=== PATIENT | female | born 1965 | race Caucasian/White ===

== ENCOUNTER → 2017-05-31 11:03 | Outpatient (CLI) | payer MEDICARE, SELFPAY ==
[2017-05-31 14:22] LABS: Absolute Lymphocyte Count 2.64 X10^3/ul (0.83-4.51); Absolute Neutrophil Count 3.5 X10^3/uL (2.0-7.7); Basophil# 0.03 X10^3/uL; Basophil% 0.4 % (0-1); Eosinophil# 0.15 X10^3/uL; Eosinophils% 2.2 % (0-5); Hematocrit 41.3 % (37-47); Hemoglobin 14.3 g/dl (12.0-15.0); Lymphocyte # 2.64 X10^3/ul (4.0); Lymphocyte % 38.5 % (19-41); Mean Corp Hgb Conc 34.6 g/gl (32-36); Mean Corpuscular Hgb 31.4 pg (27.0-32.0); Mean Corpuscular Volume 90.8 fL (81-99); Monocyte# 0.52 X10^3/uL; Monocyte% 7.6 % (0-10); Platelet Count 343 K/mm3 (150-450); RBC Distribution Width CV 12.3 % (11.6-14.6); RBC Distribution Width SD 39.9 fl (35.1-43.9); Red Blood Count 4.55 M/mm3 (4.2-5.4); White Blood Count 6.9 K/mm3 (4.4-11.0)
[2017-05-31 14:33] LABS: AST(SGOT) 22 U/L (15-37); Alanine Aminotransfer ALT/SGPT 38 U/L (13-56); Albumin, Serum 3.9 g/dL (3.2-5.0); Alkaline Phosphatase 115 U/L (45-117); Anion Gap 8 (5-15); BUN 11 mg/dL (7-18); BUN/Creat Ratio 10.6 RATIO (10-20); Chloride 104 mmol/L (98-107); Creatinine, Serum 1.04 mg/dL (0.55-1.02); EST Glomerular Filtration Rate 59 mL/min (>60); Est Glom Filt Rate - Afr Amer 71 mL/min (>60); Globulin 3.9 g/dL (2.2-4.2); Glucose 93 mg/dL (74-106); Potassium 4.1 mmol/L (3.5-5.1); Protein, Total 7.8 g/dL (6.4-8.2); Sodium Level 140 mmol/L (136-145)
[2017-05-31 14:36] LABS: POSITIVE COUNT NO; POSITIVE DIFFERENTIAL NO; POSITIVE MORPHOLOGY NO
== END ==
PROVIDERS: Family Provider Internal Medicine; PCP Internal Medicine; Visit Provider Internal Medicine Rheumatology
DX: M06.09 Rheumatoid arthritis without rheumatoid factor, multiple sites (principal); M79.7 Fibromyalgia; Z79.899 Other long term (current) drug therapy
CPT/HCPCS: 36415; 80053; 85025

== ENCOUNTER → 2017-08-22 08:41 | Outpatient (CLI) | payer MEDICARE, SELFPAY ==
--- NOTE | 2017-08-22 08:41 | DT_ITS ---
This patient was seen during an EMR downtime August 20, 2017 - August 27, 2017. This patient may have a combination of paper and electronic documentation or all paper documentation. All documentation is viewable within the e-chart portion of [facility] for each patient visit.
[2017-08-27 13:00] LABS: Hematocrit 46.2 % (37-47); Red Blood Count 5.07 M/mm3 (4.2-5.4); White Blood Count 5.9 K/mm3 (4.4-11.0)
[2017-08-27 13:01] LABS: Absolute Lymphocyte Count 1.95 X10^3/ul (0.83-4.51); Absolute Neutrophil Count 3.4 X10^3/uL (2.0-7.7); Basophil% 0.3 % (0-1); Eosinophils% 2.6 % (0-5); Lymphocyte # 1.95 X10^3/ul (4.0); Lymphocyte % 33.3 % (19-41); Mean Corp Hgb Conc 34.6 g/gl (32-36); Mean Corpuscular Hgb 31.6 pg (27.0-32.0); Mean Corpuscular Volume 91.1 fL (81-99); Monocyte% 5.3 % (0-10); Neutrophil # 3.41 X10^3/uL (2.7-7.7); Neutrophil % 58.3 % (47-70); POSITIVE COUNT NO; POSITIVE DIFFERENTIAL NO; POSITIVE MORPHOLOGY NO; Platelet Count 219 K/mm3 (150-450); RBC Distribution Width CV 12.2 % (11.6-14.6); RBC Distribution Width SD 40.5 fl (35.1-43.9)
[2017-08-27 13:06] LABS: AST(SGOT) 29 U/L (15-37); Albumin, Serum 3.9 g/dL (3.2-5.0); BUN 12 mg/dL (7-18); BUN/Creat Ratio 10.9 RATIO (10-20); Calcium,Total 8.8 mg/dL (8.5-10.1); EST Glomerular Filtration Rate 55 mL/min (>60); Est Glom Filt Rate - Afr Amer 67 mL/min (>60); Globulin 3.8 g/dL (2.2-4.2); Glucose 114 mg/dL (74-106); Protein, Total 7.7 g/dL (6.4-8.2)
[2017-08-27 13:07] LABS: Alanine Aminotransfer ALT/SGPT 52 U/L (13-56); Alkaline Phosphatase 100 U/L (45-117); Anion Gap 8 (5-15); Chloride 107 mmol/L (98-107); Potassium 3.9 mmol/L (3.5-5.1); Sodium Level 142 mmol/L (136-145)
== END ==
PROVIDERS: Family Provider Internal Medicine; PCP Internal Medicine; Visit Provider Internal Medicine Rheumatology
DX: M06.09 Rheumatoid arthritis without rheumatoid factor, multiple sites (principal); Z79.899 Other long term (current) drug therapy; M79.7 Fibromyalgia
CPT/HCPCS: 36415; 80053; 85025

== ENCOUNTER → 2017-11-08 08:34 | Outpatient (CLI) | payer MEDICARE, SELFPAY ==
[2017-11-08 10:19] LABS: Absolute Lymphocyte Count 2.05 X10^3/ul (0.83-4.51); Absolute Neutrophil Count 5.5 X10^3/uL (2.0-7.7); Basophil# 0.01 X10^3/uL; Basophil% 0.1 % (0-1); Eosinophil# 0.09 X10^3/uL; Eosinophils% 1.1 % (0-5); Hematocrit 41.4 % (37-47); Hemoglobin 14.5 g/dl (12.0-15.0); Lymphocyte # 2.05 X10^3/ul (4.0); Lymphocyte % 25.2 % (19-41); Mean Corpuscular Hgb 31.9 pg (27.0-32.0); Mean Platelet Vol. 9.1 fl (6.2-12.0); Monocyte# 0.51 X10^3/uL; Monocyte% 6.3 % (0-10); Neutrophil # 5.47 X10^3/uL (2.7-7.7); Neutrophil % 67.2 % (47-70); Platelet Count 346 K/mm3 (150-450); RBC Distribution Width CV 11.8 % (11.6-14.6); RBC Distribution Width SD 38.9 fl (35.1-43.9); Red Blood Count 4.55 M/mm3 (4.2-5.4); White Blood Count 8.1 K/mm3 (4.4-11.0)
[2017-11-08 10:21] LABS: POSITIVE COUNT NO; POSITIVE DIFFERENTIAL NO; POSITIVE MORPHOLOGY NO
[2017-11-08 10:46] LABS: AST(SGOT) 20 U/L (15-37); Alanine Aminotransfer ALT/SGPT 40 U/L (13-56); Alkaline Phosphatase 119 U/L (45-117); Anion Gap 11 (5-15); BUN 11 mg/dL (7-18); BUN/Creat Ratio 9.8 RATIO (10-20); Calcium,Total 9.2 mg/dL (8.5-10.1); Chloride 106 mmol/L (98-107); Creatinine, Serum 1.12 mg/dL (0.55-1.02); EST Glomerular Filtration Rate 54 mL/min (>60); Est Glom Filt Rate - Afr Amer 65 mL/min (>60); Glucose 149 mg/dL (74-106); Potassium 3.9 mmol/L (3.5-5.1); Sodium Level 140 mmol/L (136-145)
== END ==
PROVIDERS: Family Provider Internal Medicine; PCP Internal Medicine; Visit Provider Internal Medicine Rheumatology
DX: M06.09 Rheumatoid arthritis without rheumatoid factor, multiple sites (principal); Z79.899 Other long term (current) drug therapy; M79.7 Fibromyalgia
CPT/HCPCS: 36415; 80053; 85025

== ENCOUNTER → 2018-01-29 10:57 | Outpatient (CLI) | payer MEDICARE, SELFPAY ==
[2018-01-29 12:00] LABS: Absolute Lymphocyte Count 2.14 X10^3/ul (0.83-4.51); Absolute Neutrophil Count 3.5 X10^3/uL (2.0-7.7); Basophil# 0.02 X10^3/uL; Basophil% 0.3 % (0-1); Eosinophil# 0.13 X10^3/uL; Hemoglobin 14.2 g/dl (12.0-15.0); Lymphocyte # 2.14 X10^3/ul (4.0); Lymphocyte % 33.4 % (19-41); Mean Corp Hgb Conc 33.8 g/gl (32-36); Mean Corpuscular Hgb 31.4 pg (27.0-32.0); Mean Corpuscular Volume 92.9 fL (81-99); Monocyte# 0.57 X10^3/uL; Monocyte% 8.9 % (0-10); Neutrophil # 3.52 X10^3/uL (2.7-7.7); Neutrophil % 55.1 % (47-70); Platelet Count 286 K/mm3 (150-450); RBC Distribution Width CV 12.3 % (11.6-14.6); RBC Distribution Width SD 41.1 fl (35.1-43.9); Red Blood Count 4.52 M/mm3 (4.2-5.4); White Blood Count 6.4 K/mm3 (4.4-11.0)
[2018-01-29 12:06] LABS: POSITIVE COUNT NO; POSITIVE DIFFERENTIAL NO; POSITIVE MORPHOLOGY NO
[2018-01-29 12:19] LABS: ALB/GLOB Ratio 1.1 RATIO (0.9-2.4); AST(SGOT) 14 U/L (15-37); Alanine Aminotransfer ALT/SGPT 29 U/L (13-56); Albumin, Serum 3.8 g/dL (3.2-5.0); Alkaline Phosphatase 96 U/L (45-117); Anion Gap 7 (5-15); BUN 10 mg/dL (7-18); Calcium,Total 8.4 mg/dL (8.5-10.1); Chloride 107 mmol/L (98-107); EST Glomerular Filtration Rate 61 mL/min (>60); Est Glom Filt Rate - Afr Amer 74 mL/min (>60); Globulin 3.6 g/dL (2.2-4.2); Glucose 100 mg/dL (74-106); Potassium 3.8 mmol/L (3.5-5.1); Protein, Total 7.4 g/dL (6.4-8.2); Sodium Level 141 mmol/L (136-145)
== END ==
PROVIDERS: Family Provider Internal Medicine; PCP Internal Medicine; Referring Provider Internal Medicine Rheumatology; Visit Provider Internal Medicine Rheumatology
DX: M06.09 Rheumatoid arthritis without rheumatoid factor, multiple sites (principal); M79.7 Fibromyalgia; Z79.899 Other long term (current) drug therapy
CPT/HCPCS: 36415; 80053; 85025

== ENCOUNTER → 2018-04-29 09:13 | Outpatient (CLI) | payer MEDICARE, SELFPAY ==
[2018-04-29 10:16] LABS: Absolute Lymphocyte Count 2.34 X10^3/ul (0.83-4.51); Absolute Neutrophil Count 4.6 X10^3/uL (2.0-7.7); Basophil# 0.02 X10^3/uL; Basophil% 0.3 % (0-1); Eosinophil# 0.23 X10^3/uL; Eosinophils% 2.9 % (0-5); Hematocrit 43.7 % (37-47); Hemoglobin 14.9 g/dl (12.0-15.0); Lymphocyte # 2.34 X10^3/ul (4.0); Lymphocyte % 29.8 % (19-41); Mean Corp Hgb Conc 34.1 g/gl (32-36); Mean Corpuscular Hgb 31.4 pg (27.0-32.0); Mean Corpuscular Volume 92.2 fL (81-99); Monocyte# 0.63 X10^3/uL; Neutrophil % 58.7 % (47-70); Platelet Count 321 K/mm3 (150-450); RBC Distribution Width CV 12.2 % (11.6-14.6); RBC Distribution Width SD 40.1 fl (35.1-43.9); Red Blood Count 4.74 M/mm3 (4.2-5.4); White Blood Count 7.8 K/mm3 (4.4-11.0)
[2018-04-29 10:18] LABS: POSITIVE COUNT NO; POSITIVE DIFFERENTIAL NO; POSITIVE MORPHOLOGY NO
[2018-04-29 11:00] LABS: AST(SGOT) 21 U/L (15-37); Alanine Aminotransfer ALT/SGPT 45 U/L (13-56); Albumin, Serum 3.9 g/dL (3.2-5.0); Alkaline Phosphatase 114 U/L (45-117); Anion Gap 8 (5-15); BUN 14 mg/dL (7-18); BUN/Creat Ratio 13.2 RATIO (10-20); Calcium,Total 9.1 mg/dL (8.5-10.1); Chloride 105 mmol/L (98-107); Creatinine, Serum 1.06 mg/dL (0.55-1.02); EST Glomerular Filtration Rate 57 mL/min (>60); Est Glom Filt Rate - Afr Amer 69 mL/min (>60); Globulin 3.9 g/dL (2.2-4.2); Glucose 111 mg/dL (74-106); Protein, Total 7.8 g/dL (6.4-8.2); Sodium Level 141 mmol/L (136-145)
== END ==
PROVIDERS: Family Provider Internal Medicine; PCP Internal Medicine; Referring Provider Internal Medicine Rheumatology; Visit Provider Internal Medicine Rheumatology
DX: M06.09 Rheumatoid arthritis without rheumatoid factor, multiple sites (principal); M79.7 Fibromyalgia; Z79.899 Other long term (current) drug therapy
CPT/HCPCS: 36415; 80053; 85025

== ENCOUNTER → 2018-09-16 08:48 | Outpatient (CLI) | payer MEDICARE, SELFPAY ==
[2018-09-16 10:15] LABS: Absolute Lymphocyte Count 2.22 X10^3/ul (0.83-4.51); Absolute Neutrophil Count 4.6 X10^3/uL (2.0-7.7); Basophil# 0.03 X10^3/uL; Basophil% 0.4 % (0-1); Eosinophil# 0.17 X10^3/uL; Eosinophils% 2.3 % (0-5); Hematocrit 42.9 % (37-47); Lymphocyte # 2.22 X10^3/ul (4.0); Lymphocyte % 29.7 % (19-41); Mean Corpuscular Hgb 31.2 pg (27.0-32.0); Mean Corpuscular Volume 89.2 fL (81-99); Mean Platelet Vol. 9.2 fl (6.2-12.0); Monocyte# 0.47 X10^3/uL; Monocyte% 6.3 % (0-10); Neutrophil # 4.56 X10^3/uL (2.7-7.7); Platelet Count 321 K/mm3 (150-450); RBC Distribution Width SD 38.3 fl (35.1-43.9); Red Blood Count 4.81 M/mm3 (4.2-5.4); White Blood Count 7.5 K/mm3 (4.4-11.0)
[2018-09-16 10:18] LABS: POSITIVE COUNT NO; POSITIVE DIFFERENTIAL NO; POSITIVE MORPHOLOGY NO
[2018-09-16 10:28] LABS: ALB/GLOB Ratio 1.1 RATIO (0.9-2.4); AST(SGOT) 19 U/L (15-37); Alanine Aminotransfer ALT/SGPT 26 U/L (13-56); Albumin, Serum 3.9 g/dL (3.2-5.0); Alkaline Phosphatase 99 U/L (45-117); Anion Gap 9 (5-15); BUN 11 mg/dL (7-18); BUN/Creat Ratio 9.9 RATIO (10-20); Calcium,Total 9.1 mg/dL (8.5-10.1); Chloride 106 mmol/L (98-107); Creatinine, Serum 1.11 mg/dL (0.55-1.02); EST Glomerular Filtration Rate 54 mL/min (>60); Est Glom Filt Rate - Afr Amer 66 mL/min (>60); Globulin 3.7 g/dL (2.2-4.2); Glucose 120 mg/dL (74-106); Potassium 3.7 mmol/L (3.5-5.1); Protein, Total 7.6 g/dL (6.4-8.2); Sodium Level 141 mmol/L (136-145)
== END ==
PROVIDERS: Family Provider Internal Medicine; PCP Internal Medicine; Referring Provider Internal Medicine Rheumatology; Visit Provider Internal Medicine Rheumatology
DX: M06.09 Rheumatoid arthritis without rheumatoid factor, multiple sites (principal); M79.7 Fibromyalgia; Z79.899 Other long term (current) drug therapy
CPT/HCPCS: 36415; 80053; 85025

== ENCOUNTER → 2018-12-17 10:37 | Outpatient (CLI) | payer MEDICARE, SELFPAY ==
[2018-12-17 12:39] LABS: Absolute Lymphocyte Count 2.24 X10^3/uL (0.83-4.51); Basophil# 0.04 X10^3/uL; Basophil% 0.6 % (0-1); Eosinophil# 0.14 X10^3/uL; Hematocrit 44.1 % (37-47); Hemoglobin 14.5 g/dL (12.0-15.0); Lymphocyte # 2.24 X10^3/ul (4.0); Lymphocyte % 32.1 % (19-41); Mean Corp Hgb Conc 32.9 g/dL (32-36); Mean Corpuscular Hgb 30.8 pg (27.0-32.0); Mean Corpuscular Volume 93.6 fL (81-99); Mean Platelet Vol. 9.1 fl (6.2-12.0); Monocyte# 0.56 X10^3/uL; NRBC Flagged by Analyzer 0 % (0-5); Neutrophil # 3.96 X10^3/uL (2.7-7.7); Neutrophil % 56.9 % (47-70); Platelet Count 307 K/mm3 (150-450); RBC Distribution Width CV 11.9 % (11.6-14.6); Red Blood Count 4.71 M/mm3 (4.2-5.4)
[2018-12-17 12:54] LABS: AST(SGOT) 16 U/L (15-37); Alanine Aminotransfer ALT/SGPT 25 U/L (13-56); Albumin, Serum 3.9 g/dL (3.2-5.0); Alkaline Phosphatase 98 U/L (45-117); Anion Gap 3 (5-15); BUN 11 mg/dL (7-18); BUN/Creat Ratio 10.2 RATIO (10-20); Calcium,Total 9.1 mg/dL (8.5-10.1); Chloride 104 mmol/L (98-107); Creatinine, Serum 1.08 mg/dL (0.55-1.02); EST Glomerular Filtration Rate 56 mL/min (>60); Est Glom Filt Rate - Afr Amer 68 mL/min (>60); Globulin 3.8 g/dL (2.2-4.2); Glucose 102 mg/dL (74-106); Potassium 3.8 mmol/L (3.5-5.1); Protein, Total 7.7 g/dL (6.4-8.2); Sodium Level 137 mmol/L (136-145)
== END ==
PROVIDERS: Family Provider Internal Medicine; PCP Internal Medicine; Referring Provider Internal Medicine Rheumatology; Visit Provider Internal Medicine Rheumatology
DX: M06.09 Rheumatoid arthritis without rheumatoid factor, multiple sites (principal); Z79.899 Other long term (current) drug therapy; M79.7 Fibromyalgia
CPT/HCPCS: 36415; 80053; 85025

== ENCOUNTER → 2019-02-24 16:16 | Outpatient (CLI) | payer MEDICARE, SELFPAY ==
[2019-02-24 17:34] LABS: Red Blood Count 4.54 M/mm3 (4.2-5.4); White Blood Count 7.8 K/mm3 (4.4-11.0)
[2019-02-24 17:35] LABS: Absolute Neutrophil Count 4.1 X10^3/uL (2.0-7.7); Basophil# 0.06 X10^3/uL; Basophil% 0.8 % (0-1); Eosinophil# 0.12 X10^3/uL; Eosinophils% 1.5 % (0-5); Hematocrit 41.9 % (37-47); Lymphocyte % 39.9 % (19-41); Mean Corp Hgb Conc 33.4 g/dL (32-36); Mean Corpuscular Hgb 30.8 pg (27.0-32.0); Mean Corpuscular Volume 92.3 fL (81-99); Mean Platelet Vol. 8.8 fl (6.2-12.0); Monocyte# 0.36 X10^3/uL; Monocyte% 4.6 % (0-10); NRBC Flagged by Analyzer 0 % (0-5); Neutrophil # 4.09 X10^3/uL (2.7-7.7); Neutrophil % 52.7 % (47-70); Platelet Count 280 K/mm3 (150-450); RBC Distribution Width CV 12.3 % (11.6-14.6); RBC Distribution Width SD 41.1 fl (35.1-43.9)
[2019-02-24 18:15] LABS: ALB/GLOB Ratio 1.1 RATIO (0.9-2.4); AST(SGOT) 18 U/L (15-37); Alanine Aminotransfer ALT/SGPT 33 U/L (13-56); Albumin, Serum 3.9 g/dL (3.2-5.0); Alkaline Phosphatase 94 U/L (45-117); Anion Gap 4 (5-15); BUN 14 mg/dL (7-18); BUN/Creat Ratio 12.1 RATIO (10-20); Calcium,Total 8.6 mg/dL (8.5-10.1); Chloride 107 mmol/L (98-107); Creatinine, Serum 1.16 mg/dL (0.55-1.02); EST Glomerular Filtration Rate 51 mL/min (>60); Est Glom Filt Rate - Afr Amer 62 mL/min (>60); Globulin 3.5 g/dL (2.2-4.2); Glucose 94 mg/dL (74-106); Potassium 3.8 mmol/L (3.5-5.1); Protein, Total 7.4 g/dL (6.4-8.2); Sodium Level 139 mmol/L (136-145)
== END ==
PROVIDERS: Family Provider Internal Medicine; PCP Internal Medicine; Referring Provider Internal Medicine Rheumatology; Visit Provider Internal Medicine Rheumatology
DX: M06.09 Rheumatoid arthritis without rheumatoid factor, multiple sites (principal); Z79.899 Other long term (current) drug therapy; M79.7 Fibromyalgia; M18.0 Bilateral primary osteoarthritis of first carpometacarpal joints
CPT/HCPCS: 36415; 80053; 85025

== ENCOUNTER → 2019-05-26 08:26 | Outpatient (CLI) | payer MEDICARE, SELFPAY ==
[2019-05-26 10:11] LABS: Absolute Lymphocyte Count 2.12 X10^3/uL (0.83-4.51); Absolute Neutrophil Count 4.3 X10^3/uL (2.0-7.7); Basophil# 0.06 X10^3/uL; Basophil% 0.8 % (0-1); Eosinophil# 0.14 X10^3/uL; Eosinophils% 1.9 % (0-5); Hematocrit 43.5 % (37-47); Hemoglobin 14.7 g/dL (12.0-15.0); Lymphocyte # 2.12 X10^3/ul (4.0); Lymphocyte % 29.4 % (19-41); Mean Corp Hgb Conc 33.8 g/dL (32-36); Mean Corpuscular Hgb 31.4 pg (27.0-32.0); Mean Corpuscular Volume 92.9 fL (81-99); Mean Platelet Vol. 8.8 fl (6.2-12.0); Monocyte# 0.57 X10^3/uL; Monocyte% 7.9 % (0-10); NRBC Flagged by Analyzer 0 % (0-5); Neutrophil % 59.6 % (47-70); Platelet Count 295 K/mm3 (150-450); RBC Distribution Width CV 11.8 % (11.6-14.6); RBC Distribution Width SD 39.4 fl (35.1-43.9); Red Blood Count 4.68 M/mm3 (4.2-5.4); White Blood Count 7.2 K/mm3 (4.4-11.0)
[2019-05-26 10:28] LABS: AST(SGOT) 30 U/L (15-37); Alanine Aminotransfer ALT/SGPT 57 U/L (13-56); Albumin, Serum 3.8 g/dL (3.2-5.0); Alkaline Phosphatase 110 U/L (45-117); Anion Gap 7 (5-15); BUN 12 mg/dL (7-18); BUN/Creat Ratio 11.7 RATIO (10-20); Calcium,Total 8.9 mg/dL (8.5-10.1); Chloride 104 mmol/L (98-107); Creatinine, Serum 1.03 mg/dL (0.55-1.02); EST Glomerular Filtration Rate 59 mL/min (>60); Est Glom Filt Rate - Afr Amer 71 mL/min (>60); Globulin 3.8 g/dL (2.2-4.2); Glucose 98 mg/dL (74-106); Potassium 3.9 mmol/L (3.5-5.1); Protein, Total 7.6 g/dL (6.4-8.2); Sodium Level 141 mmol/L (136-145)
== END ==
PROVIDERS: PCP Internal Medicine; Referring Provider Internal Medicine Rheumatology; Visit Provider Internal Medicine Rheumatology
DX: M06.09 Rheumatoid arthritis without rheumatoid factor, multiple sites (principal); Z79.899 Other long term (current) drug therapy; M79.7 Fibromyalgia; M18.0 Bilateral primary osteoarthritis of first carpometacarpal joints
CPT/HCPCS: 36415; 80053; 85025

== ENCOUNTER → 2019-07-29 11:49 | Outpatient (CLI) | payer MEDICARE, SELFPAY ==
[2019-07-29 15:04] LABS: Absolute Lymphocyte Count 2.46 X10^3/uL (0.83-4.51); Absolute Neutrophil Count 4.1 X10^3/uL (2.0-7.7); Basophil# 0.07 X10^3/uL; Eosinophil# 0.15 X10^3/uL; Eosinophils% 2.1 % (0-5); Hematocrit 43.9 % (37-47); Hemoglobin 14.8 g/dL (12.0-15.0); Lymphocyte # 2.46 X10^3/ul (4.0); Lymphocyte % 33.9 % (19-41); Mean Corp Hgb Conc 33.7 g/dL (32-36); Mean Corpuscular Hgb 31.2 pg (27.0-32.0); Mean Corpuscular Volume 92.4 fL (81-99); Mean Platelet Vol. 9.1 fl (6.2-12.0); Monocyte# 0.49 X10^3/uL; Monocyte% 6.7 % (0-10); NRBC Flagged by Analyzer 0 % (0-5); Neutrophil # 4.05 X10^3/uL (2.7-7.7); Neutrophil % 55.7 % (47-70); Platelet Count 294 K/mm3 (150-450); RBC Distribution Width CV 11.9 % (11.6-14.6); RBC Distribution Width SD 39.8 fl (35.1-43.9); Red Blood Count 4.75 M/mm3 (4.2-5.4); White Blood Count 7.3 K/mm3 (4.4-11.0)
[2019-07-29 15:20] LABS: ALB/GLOB Ratio 1.1 RATIO (0.9-2.4); AST(SGOT) 17 U/L (15-37); Alanine Aminotransfer ALT/SGPT 42 U/L (13-56); Albumin, Serum 3.9 g/dL (3.2-5.0); Alkaline Phosphatase 106 U/L (45-117); Anion Gap 8 (5-15); BUN 11 mg/dL (7-18); BUN/Creat Ratio 10.8 RATIO (10-20); Chloride 104 mmol/L (98-107); Creatinine, Serum 1.02 mg/dL (0.55-1.02); EST Glomerular Filtration Rate 60 mL/min (>60); Est Glom Filt Rate - Afr Amer 72 mL/min (>60); Globulin 3.7 g/dL (2.2-4.2); Glucose 125 mg/dL (74-106); Potassium 3.8 mmol/L (3.5-5.1); Protein, Total 7.6 g/dL (6.4-8.2); Sodium Level 140 mmol/L (136-145)
== END ==
PROVIDERS: PCP Internal Medicine; Referring Provider Internal Medicine Rheumatology; Visit Provider Internal Medicine Rheumatology
DX: M06.09 Rheumatoid arthritis without rheumatoid factor, multiple sites (principal); Z79.899 Other long term (current) drug therapy; M79.7 Fibromyalgia; M65.331 Trigger finger, right middle finger; M18.0 Bilateral primary osteoarthritis of first carpometacarpal joints
CPT/HCPCS: 36415; 80053; 85025

== ENCOUNTER → 2019-11-03 11:05 | Outpatient (CLI) | payer MEDICARE, SELFPAY ==
[2019-11-03 12:22] LABS: Absolute Lymphocyte Count 2.02 X10^3/uL (0.83-4.51); Absolute Neutrophil Count 5.1 X10^3/uL (2.0-7.7); Basophil# 0.05 X10^3/uL; Basophil% 0.6 % (0-1); Eosinophil# 0.11 X10^3/uL; Eosinophils% 1.4 % (0-5); Hematocrit 46.2 % (37-47); Hemoglobin 15.3 g/dL (12.0-15.0); Lymphocyte # 2.02 X10^3/ul (4.0); Lymphocyte % 25.8 % (19-41); Mean Corp Hgb Conc 33.1 g/dL (32-36); Mean Corpuscular Volume 93.7 fL (81-99); Mean Platelet Vol. 8.6 fl (6.2-12.0); Monocyte# 0.54 X10^3/uL; Monocyte% 6.9 % (0-10); NRBC Flagged by Analyzer 0 % (0-5); Neutrophil # 5.09 X10^3/uL (2.7-7.7); Neutrophil % 64.9 % (47-70); Platelet Count 370 K/mm3 (150-450); RBC Distribution Width CV 11.9 % (11.6-14.6); RBC Distribution Width SD 41.5 fl (35.1-43.9); Red Blood Count 4.93 M/mm3 (4.2-5.4); White Blood Count 7.8 K/mm3 (4.4-11.0)
[2019-11-03 13:08] LABS: ALB/GLOB Ratio 0.9 RATIO (0.9-2.4); AST(SGOT) 27 U/L (15-37); Alanine Aminotransfer ALT/SGPT 36 U/L (13-56); Albumin, Serum 3.7 g/dL (3.2-5.0); Alkaline Phosphatase 103 U/L (45-117); Anion Gap 4 (5-15); BUN 13 mg/dL (7-18); BUN/Creat Ratio 10.4 RATIO (10-20); Calcium,Total 8.8 mg/dL (8.5-10.1); Chloride 103 mmol/L (98-107); Creatinine, Serum 1.25 mg/dL (0.55-1.02); EST Glomerular Filtration Rate 47 mL/min (>60); Est Glom Filt Rate - Afr Amer 57 mL/min (>60); Globulin 3.9 g/dL (2.2-4.2); Glucose 90 mg/dL (74-106); Potassium 3.6 mmol/L (3.5-5.1); Protein, Total 7.6 g/dL (6.4-8.2); Sodium Level 138 mmol/L (136-145)
== END ==
PROVIDERS: PCP Internal Medicine; Referring Provider Internal Medicine Rheumatology; Visit Provider Internal Medicine Rheumatology
DX: M06.09 Rheumatoid arthritis without rheumatoid factor, multiple sites (principal); Z79.899 Other long term (current) drug therapy; M79.7 Fibromyalgia; M65.331 Trigger finger, right middle finger; M18.0 Bilateral primary osteoarthritis of first carpometacarpal joints
CPT/HCPCS: 36415; 80053; 85025

== ENCOUNTER → 2019-12-05 11:50 | Outpatient (CLI) | payer MEDICARE, SELFPAY ==
[2019-12-05 15:51] LABS: Absolute Lymphocyte Count 2.84 X10^3/uL (0.83-4.51); Absolute Neutrophil Count 3.8 X10^3/uL (2.0-7.7); Basophil# 0.05 X10^3/uL; Basophil% 0.7 % (0-1); Eosinophil# 0.14 X10^3/uL; Eosinophils% 1.9 % (0-5); Hematocrit 45.7 % (37-47); Lymphocyte # 2.84 X10^3/ul (4.0); Lymphocyte % 38.3 % (19-41); Mean Corp Hgb Conc 32.8 g/dL (32-36); Mean Corpuscular Hgb 31.2 pg (27.0-32.0); Mean Platelet Vol. 8.9 fl (6.2-12.0); Monocyte% 8.1 % (0-10); NRBC Flagged by Analyzer 0 % (0-5); Neutrophil # 3.77 X10^3/uL (2.7-7.7); Neutrophil % 50.7 % (47-70); Platelet Count 340 K/mm3 (150-450); RBC Distribution Width SD 41.9 fl (35.1-43.9); Red Blood Count 4.81 M/mm3 (4.2-5.4); White Blood Count 7.4 K/mm3 (4.4-11.0)
[2019-12-05 16:14] LABS: ALB/GLOB Ratio 0.9 RATIO (0.9-2.4); AST(SGOT) 23 U/L (15-37); Alanine Aminotransfer ALT/SGPT 51 U/L (13-56); Albumin, Serum 3.7 g/dL (3.2-5.0); Alkaline Phosphatase 109 U/L (45-117); Anion Gap 5 (5-15); BUN 10 mg/dL (7-18); BUN/Creat Ratio 9.4 RATIO (10-20); Chloride 104 mmol/L (98-107); Creatinine, Serum 1.06 mg/dL (0.55-1.02); EST Glomerular Filtration Rate 57 mL/min (>60); Est Glom Filt Rate - Afr Amer 69 mL/min (>60); Glucose 91 mg/dL (74-106); Potassium 3.9 mmol/L (3.5-5.1); Protein, Total 7.7 g/dL (6.4-8.2); Sodium Level 138 mmol/L (136-145)
== END ==
PROVIDERS: PCP Internal Medicine; Referring Provider Internal Medicine Rheumatology; Visit Provider Internal Medicine Rheumatology
DX: M06.09 Rheumatoid arthritis without rheumatoid factor, multiple sites (principal); Z79.899 Other long term (current) drug therapy; M79.7 Fibromyalgia; M65.331 Trigger finger, right middle finger; M18.0 Bilateral primary osteoarthritis of first carpometacarpal joints
CPT/HCPCS: 36415; 80053; 85025

== ENCOUNTER → 2020-02-24 10:54 | Outpatient (CLI) | payer MEDICARE, SELFPAY ==
[2020-02-24 12:15] LABS: Absolute Lymphocyte Count 2.76 X10^3/uL (0.83-4.51); Absolute Neutrophil Count 3.8 X10^3/uL (2.0-7.7); Basophil# 0.06 X10^3/uL; Basophil% 0.8 % (0-1); Eosinophil# 0.18 X10^3/uL; Eosinophils% 2.4 % (0-5); Hematocrit 46.3 % (37-47); Hemoglobin 15.3 g/dL (12.0-15.0); Lymphocyte # 2.76 X10^3/ul (4.0); Lymphocyte % 37.3 % (19-41); Mean Corpuscular Volume 93.9 fL (81-99); Mean Platelet Vol. 8.7 fl (6.2-12.0); Monocyte# 0.57 X10^3/uL; Monocyte% 7.7 % (0-10); NRBC Flagged by Analyzer 0 % (0-5); Neutrophil % 51.5 % (47-70); Platelet Count 328 K/mm3 (150-450); RBC Distribution Width CV 11.8 % (11.6-14.6); RBC Distribution Width SD 40.8 fl (35.1-43.9); Red Blood Count 4.93 M/mm3 (4.2-5.4); White Blood Count 7.4 K/mm3 (4.4-11.0)
[2020-02-24 12:51] LABS: ALB/GLOB Ratio 0.9 RATIO (0.9-2.4); AST(SGOT) 22 U/L (15-37); Alanine Aminotransfer ALT/SGPT 36 U/L (13-56); Albumin, Serum 3.7 g/dL (3.2-5.0); Alkaline Phosphatase 114 U/L (45-117); Anion Gap 3 (5-15); BUN 11 mg/dL (7-18); BUN/Creat Ratio 10.8 RATIO (10-20); Calcium,Total 8.9 mg/dL (8.5-10.1); Chloride 105 mmol/L (98-107); Cholesterol 233 mg/dL (200); Creatinine, Serum 1.02 mg/dL (0.55-1.02); EST Glomerular Filtration Rate 59 mL/min (>60); Est Glom Filt Rate - Afr Amer 72 mL/min (>60); Glucose 88 mg/dL (74-106); High Density Lipoprotein 36 mg/dL; Potassium 3.9 mmol/L (3.5-5.1); Protein, Total 7.7 g/dL (6.4-8.2); Sodium Level 138 mmol/L (136-145); Triglycerides 474 mg/dL
== END ==
PROVIDERS: PCP Internal Medicine; Referring Provider Internal Medicine; Visit Provider Internal Medicine
DX: M06.09 Rheumatoid arthritis without rheumatoid factor, multiple sites (principal); Z79.899 Other long term (current) drug therapy; M79.7 Fibromyalgia; M65.331 Trigger finger, right middle finger; M18.0 Bilateral primary osteoarthritis of first carpometacarpal joints
CPT/HCPCS: 36415; 80053; 80061; 85025

== ENCOUNTER → 2020-05-10 10:35 | Outpatient (CLI) | payer MEDICARE, SELFPAY ==
[2020-05-10 12:48] LABS: Absolute Lymphocyte Count 2.39 X10^3/uL (0.83-4.51); Absolute Neutrophil Count 6.4 X10^3/uL (2.0-7.7); Basophil# 0.05 X10^3/uL; Basophil% 0.5 % (0-1); Eosinophil# 0.14 X10^3/uL; Eosinophils% 1.4 % (0-5); Hemoglobin 15.3 g/dL (12.0-15.0); Lymphocyte # 2.39 X10^3/ul (4.0); Lymphocyte % 24.7 % (19-41); Mean Corp Hgb Conc 33.3 g/dL (32-36); Mean Corpuscular Hgb 31.2 pg (27.0-32.0); Mean Corpuscular Volume 93.7 fL (81-99); Mean Platelet Vol. 9.1 fl (6.2-12.0); Monocyte# 0.64 X10^3/uL; Monocyte% 6.6 % (0-10); NRBC Flagged by Analyzer 0 % (0-5); Neutrophil # 6.44 X10^3/uL (2.7-7.7); Neutrophil % 66.5 % (47-70); Platelet Count 346 K/mm3 (150-450); RBC Distribution Width CV 11.9 % (11.6-14.6); RBC Distribution Width SD 41.5 fl (35.1-43.9); Red Blood Count 4.91 M/mm3 (4.2-5.4); White Blood Count 9.7 K/mm3 (4.4-11.0)
[2020-05-10 13:11] LABS: ALB/GLOB Ratio 1.1 RATIO (0.9-2.4); AST(SGOT) 20 U/L (15-37); Alanine Aminotransfer ALT/SGPT 46 U/L (13-56); Alkaline Phosphatase 113 U/L (45-117); Anion Gap 6 (5-15); BUN 14 mg/dL (7-18); BUN/Creat Ratio 13.6 RATIO (10-20); Calcium,Total 9.2 mg/dL (8.5-10.1); Chloride 104 mmol/L (98-107); Creatinine, Serum 1.03 mg/dL (0.55-1.02); EST Glomerular Filtration Rate 59 mL/min (>60); Est Glom Filt Rate - Afr Amer 71 mL/min (>60); Globulin 3.8 g/dL (2.2-4.2); Glucose 98 mg/dL (74-106); Potassium 4.1 mmol/L (3.5-5.1); Protein, Total 7.8 g/dL (6.4-8.2); Sodium Level 140 mmol/L (136-145)
== END ==
PROVIDERS: PCP Internal Medicine; Referring Provider Internal Medicine Rheumatology; Visit Provider Internal Medicine Rheumatology
DX: M06.09 Rheumatoid arthritis without rheumatoid factor, multiple sites (principal); Z79.899 Other long term (current) drug therapy; M79.7 Fibromyalgia; M65.331 Trigger finger, right middle finger; M18.0 Bilateral primary osteoarthritis of first carpometacarpal joints
CPT/HCPCS: 36415; 80053; 85025

== ENCOUNTER → 2020-08-10 11:30 | Outpatient (CLI) | payer MEDICARE, SELFPAY ==
[2020-08-10 16:16] LABS: Absolute Lymphocyte Count 2.46 X10^3/uL (0.83-4.51); Absolute Neutrophil Count 5.2 X10^3/uL (2.0-7.7); Basophil# 0.05 X10^3/uL; Basophil% 0.6 % (0-1); Eosinophil# 0.13 X10^3/uL; Eosinophils% 1.5 % (0-5); Hematocrit 45.2 % (37-47); Lymphocyte # 2.46 X10^3/ul (0.83-4.51); Mean Corp Hgb Conc 33.2 g/dL (32-36); Mean Corpuscular Hgb 31.6 pg (27.0-32.0); Mean Corpuscular Volume 95.2 fL (81-99); Mean Platelet Vol. 9.1 fl (6.2-12.0); Monocyte% 7.1 % (0-10); NRBC Flagged by Analyzer 0 % (0-5); Neutrophil # 5.23 X10^3/uL (2.7-7.7); Neutrophil % 61.6 % (47-70); Platelet Count 371 K/mm3 (150-450); RBC Distribution Width CV 11.9 % (11.6-14.6); RBC Distribution Width SD 41.9 fl (35.1-43.9); Red Blood Count 4.75 M/mm3 (4.2-5.4); White Blood Count 8.5 K/mm3 (4.4-11.0)
[2020-08-10 16:46] LABS: AST(SGOT) 15 U/L (15-37); Alanine Aminotransfer ALT/SGPT 27 U/L (13-56); Albumin, Serum 3.9 g/dL (3.2-5.0); Alkaline Phosphatase 94 U/L (45-117); Anion Gap 5 (5-15); BUN 11 mg/dL (7-18); BUN/Creat Ratio 10.4 RATIO (10-20); Calcium,Total 9.2 mg/dL (8.5-10.1); Chloride 104 mmol/L (98-107); Creatinine, Serum 1.06 mg/dL (0.55-1.02); EST Glomerular Filtration Rate 57 mL/min (>60); Est Glom Filt Rate - Afr Amer 69 mL/min (>60); Globulin 4.1 g/dL (2.2-4.2); Glucose 95 mg/dL (74-106); Potassium 3.8 mmol/L (3.5-5.1); Sodium Level 137 mmol/L (136-145)
== END ==
PROVIDERS: PCP Internal Medicine; Referring Provider Internal Medicine Rheumatology; Visit Provider Internal Medicine Rheumatology
DX: M06.09 Rheumatoid arthritis without rheumatoid factor, multiple sites (principal); Z79.899 Other long term (current) drug therapy; M79.7 Fibromyalgia; M25.511 Pain in right shoulder; M18.0 Bilateral primary osteoarthritis of first carpometacarpal joints
CPT/HCPCS: 36415; 80053; 85025

== ENCOUNTER → 2020-10-28 10:11 | Outpatient (CLI) | payer MEDICARE, SELFPAY ==
--- NOTE | 2020-10-28 10:20 | RAD_ITS ---
STUDY: X-RAY - RIGHT SHOULDER REASON FOR EXAM: Female, 55 years old. Right shoulder pain. TECHNIQUE: 4 view(s) of the shoulder. COMPARISON: None. FINDINGS: Normal glenohumeral articulation. Mild arthrosis of the AC joint. Small subacromial spur. Normal humeral head and visualized proximal humerus. The soft tissue structures are unremarkable. Normal visualized pulmonary apex. RAD/Shoulder min 2 Views IMPRESSION: Small subacromial spur with mild arthrosis of the AC joint. No acute abnormality, erosive changes or periostitis. Electronically Signed: Thanh Spann MD at 10:34 EDT , Service support ,
[2020-10-28 12:03] LABS: Absolute Lymphocyte Count 2.34 X10^3/uL (0.83-4.51); Absolute Neutrophil Count 4.1 X10^3/uL (2.0-7.7); Basophil# 0.06 X10^3/uL; Basophil% 0.8 % (0-1); Eosinophil# 0.13 X10^3/uL; Eosinophils% 1.8 % (0-5); Hematocrit 42.1 % (37-47); Hemoglobin 14.3 g/dL (12.0-15.0); Lymphocyte # 2.34 X10^3/ul (0.83-4.51); Lymphocyte % 32.4 % (19-41); Mean Corpuscular Hgb 31.7 pg (27.0-32.0); Mean Corpuscular Volume 93.3 fL (81-99); Mean Platelet Vol. 8.8 fl (6.2-12.0); Monocyte# 0.57 X10^3/uL; Monocyte% 7.9 % (0-10); NRBC Flagged by Analyzer 0 % (0-5); Neutrophil # 4.09 X10^3/uL (2.7-7.7); Neutrophil % 56.7 % (47-70); Platelet Count 316 K/mm3 (150-450); RBC Distribution Width CV 12.1 % (11.6-14.6); RBC Distribution Width SD 41.8 fl (35.1-43.9); Red Blood Count 4.51 M/mm3 (4.2-5.4); White Blood Count 7.2 K/mm3 (4.4-11.0)
[2020-10-28 12:30] LABS: ALB/GLOB Ratio 1.1 RATIO (0.9-2.4); AST(SGOT) 9 U/L (15-37); Alanine Aminotransfer ALT/SGPT 24 U/L (13-56); Alkaline Phosphatase 75 U/L (45-117); Anion Gap 7 (5-15); BUN 11 mg/dL (7-18); BUN/Creat Ratio 11.3 RATIO (10-20); Chloride 102 mmol/L (98-107); Creatinine, Serum 0.97 mg/dL (0.55-1.02); EST Glomerular Filtration Rate 63 mL/min (>60); Est Glom Filt Rate - Afr Amer 76 mL/min (>60); Globulin 3.5 g/dL (2.2-4.2); Glucose 101 mg/dL (74-106); Potassium 3.9 mmol/L (3.5-5.1); Protein, Total 7.5 g/dL (6.4-8.2); Sodium Level 137 mmol/L (136-145)
== END ==
PROVIDERS: PCP Internal Medicine; Referring Provider Internal Medicine Rheumatology; Visit Provider Internal Medicine Rheumatology
DX: M06.09 Rheumatoid arthritis without rheumatoid factor, multiple sites (principal); Z79.899 Other long term (current) drug therapy; M79.7 Fibromyalgia; M25.511 Pain in right shoulder; M18.0 Bilateral primary osteoarthritis of first carpometacarpal joints; M65.331 Trigger finger, right middle finger
CPT/HCPCS: 36415; 73030; 80053; 85025

== ENCOUNTER → 2021-01-18 09:12 | Outpatient (CLI) | payer MEDICARE, SELFPAY ==
[2021-01-18 12:36] LABS: Absolute Lymphocyte Count 2.07 X10^3/uL (0.83-4.51); Absolute Neutrophil Count 4.2 X10^3/uL (2.0-7.7); Basophil# 0.05 X10^3/uL; Basophil% 0.7 % (0-1); Eosinophil# 0.12 X10^3/uL; Eosinophils% 1.7 % (0-5); Hematocrit 44.7 % (37-47); Lymphocyte # 2.07 X10^3/ul (0.83-4.51); Lymphocyte % 29.6 % (19-41); Mean Corp Hgb Conc 33.6 g/dL (32-36); Mean Corpuscular Volume 92.4 fL (81-99); Monocyte# 0.59 X10^3/uL; Monocyte% 8.4 % (0-10); NRBC Flagged by Analyzer 0 % (0-5); Neutrophil # 4.15 X10^3/uL (2.7-7.7); Neutrophil % 59.3 % (47-70); Platelet Count 322 K/mm3 (150-450); RBC Distribution Width CV 11.9 % (11.6-14.6); RBC Distribution Width SD 40.8 fl (35.1-43.9); Red Blood Count 4.84 M/mm3 (4.2-5.4)
[2021-01-18 12:53] LABS: ALB/GLOB Ratio 0.9 RATIO (0.9-2.4); AST(SGOT) 19 U/L (15-37); Alanine Aminotransfer ALT/SGPT 27 U/L (13-56); Albumin, Serum 3.5 g/dL (3.2-5.0); Alkaline Phosphatase 97 U/L (45-117); Anion Gap 6 (5-15); BUN 10 mg/dL (7-18); BUN/Creat Ratio 9.1 RATIO (10-20); Calcium,Total 8.7 mg/dL (8.5-10.1); Chloride 106 mmol/L (98-107); EST Glomerular Filtration Rate 54 mL/min (>60); Est Glom Filt Rate - Afr Amer 66 mL/min (>60); Globulin 3.8 g/dL (2.2-4.2); Glucose 96 mg/dL (74-106); Potassium 4.3 mmol/L (3.5-5.1); Protein, Total 7.3 g/dL (6.4-8.2); Sodium Level 135 mmol/L (136-145)
== END ==
PROVIDERS: PCP Internal Medicine; Referring Provider Internal Medicine Rheumatology; Visit Provider Internal Medicine Rheumatology
DX: M06.09 Rheumatoid arthritis without rheumatoid factor, multiple sites (principal); Z79.899 Other long term (current) drug therapy; M79.7 Fibromyalgia; M18.0 Bilateral primary osteoarthritis of first carpometacarpal joints; M65.331 Trigger finger, right middle finger; M72.0 Palmar fascial fibromatosis [Dupuytren]
CPT/HCPCS: 36415; 80053; 85025

== ENCOUNTER 2021-04-14 08:38 | Outpatient (CLI) | payer MEDICARE, SELFPAY ==
[2021-04-14 10:13] LABS: Absolute Lymphocyte Count 2.02 X10^3/uL (0.83-4.51); Absolute Neutrophil Count 4.5 X10^3/uL (2.0-7.7); Basophil# 0.05 X10^3/uL; Basophil% 0.7 % (0-1); Eosinophil# 0.11 X10^3/uL; Eosinophils% 1.5 % (0-5); Hematocrit 42.6 % (37-47); Hemoglobin 14.4 g/dL (12.0-15.0); Lymphocyte # 2.02 X10^3/ul (0.83-4.51); Lymphocyte % 27.8 % (19-41); Mean Corp Hgb Conc 33.8 g/dL (32-36); Mean Corpuscular Hgb 31.6 pg (27.0-32.0); Mean Corpuscular Volume 93.4 fL (81-99); Mean Platelet Vol. 8.9 fl (6.2-12.0); Monocyte# 0.54 X10^3/uL; Monocyte% 7.4 % (0-10); NRBC Flagged by Analyzer 0 % (0-5); Neutrophil # 4.51 X10^3/uL (2.7-7.7); Neutrophil % 62.2 % (47-70); Platelet Count 317 K/mm3 (150-450); RBC Distribution Width SD 41.4 fl (35.1-43.9); Red Blood Count 4.56 M/mm3 (4.2-5.4); White Blood Count 7.3 K/mm3 (4.4-11.0)
[2021-04-14 10:43] LABS: AST(SGOT) 17 U/L (15-37); Alanine Aminotransfer ALT/SGPT 26 U/L (13-56); Albumin, Serum 3.7 g/dL (3.2-5.0); Alkaline Phosphatase 87 U/L (45-117); Anion Gap 7 (5-15); BUN 10 mg/dL (7-18); BUN/Creat Ratio 9.7 RATIO (10-20); Calcium,Total 8.7 mg/dL (8.5-10.1); Chloride 105 mmol/L (98-107); Creatinine, Serum 1.03 mg/dL (0.55-1.02); EST Glomerular Filtration Rate 59 mL/min (>60); Est Glom Filt Rate - Afr Amer 71 mL/min (>60); Globulin 3.8 g/dL (2.2-4.2); Glucose 108 mg/dL (74-106); Potassium 3.9 mmol/L (3.5-5.1); Protein, Total 7.5 g/dL (6.4-8.2); Sodium Level 137 mmol/L (136-145)
== END 2021-04-14 23:59 | disposition short-term general hospital (02) ==
LOC: MTLAB 08:39
PROVIDERS: PCP Internal Medicine; Referring Provider Internal Medicine Rheumatology; Visit Provider Internal Medicine Rheumatology
DX: M06.09 Rheumatoid arthritis without rheumatoid factor, multiple sites (principal); Z79.899 Other long term (current) drug therapy; M79.7 Fibromyalgia; M18.0 Bilateral primary osteoarthritis of first carpometacarpal joints; M65.331 Trigger finger, right middle finger; M72.0 Palmar fascial fibromatosis [Dupuytren]
CPT/HCPCS: 36415; 80053; 85025

== ENCOUNTER → 2021-07-27 | Outpatient (CLI) | payer MEDICARE, SELFPAY ==
[2021-07-27 15:59] LABS: ALB/GLOB Ratio 0.9 RATIO (0.9-2.4); AST(SGOT) 13 U/L (15-37); Alanine Aminotransfer ALT/SGPT 17 U/L (13-56); Albumin, Serum 3.6 g/dL (3.2-5.0); Alkaline Phosphatase 84 U/L (45-117); Anion Gap 7 (5-15); BUN 6 mg/dL (7-18); BUN/Creat Ratio 5.9 RATIO (10-20); Chloride 106 mmol/L (98-107); Creatinine, Serum 1.01 mg/dL (0.55-1.02); EST Glomerular Filtration Rate 60 mL/min (>60); Est Glom Filt Rate - Afr Amer 72 mL/min (>60); Glucose 102 mg/dL (74-106); Potassium 3.5 mmol/L (3.5-5.1); Protein, Total 7.6 g/dL (6.4-8.2); Sodium Level 139 mmol/L (136-145)
[2021-07-27 17:45] LABS: Absolute Lymphocyte Count 2.11 X10^3/uL (0.83-4.51); Absolute Neutrophil Count 6.3 X10^3/uL (2.0-7.7); Basophil# 0.06 X10^3/uL; Basophil% 0.7 % (0-1); Eosinophil# 0.14 X10^3/uL; Eosinophils% 1.5 % (0-5); Hemoglobin 14.2 g/dL (12.0-15.0); Lymphocyte # 2.11 X10^3/ul (0.83-4.51); Lymphocyte % 22.9 % (19-41); Mean Corpuscular Hgb 30.7 pg (27.0-32.0); Mean Corpuscular Volume 92.9 fL (81-99); Mean Platelet Vol. 8.6 fl (6.2-12.0); Monocyte% 6.5 % (0-10); NRBC Flagged by Analyzer 0 % (0-5); Neutrophil # 6.26 X10^3/uL (2.7-7.7); Neutrophil % 68.1 % (47-70); Platelet Count 386 K/mm3 (150-450); RBC Distribution Width CV 11.9 % (11.6-14.6); RBC Distribution Width SD 40.4 fl (35.1-43.9); Red Blood Count 4.63 M/mm3 (4.2-5.4); White Blood Count 9.2 K/mm3 (4.4-11.0)
== END | disposition home or self-care (01) ==
LOC: MTLAB 13:13
PROVIDERS: PCP Internal Medicine; Referring Provider Internal Medicine Rheumatology; Visit Provider Internal Medicine Rheumatology
DX: M06.09 Rheumatoid arthritis without rheumatoid factor, multiple sites (principal); Z79.899 Other long term (current) drug therapy; M79.7 Fibromyalgia; M18.0 Bilateral primary osteoarthritis of first carpometacarpal joints; M65.331 Trigger finger, right middle finger; M72.0 Palmar fascial fibromatosis [Dupuytren]
CPT/HCPCS: 36415; 80053; 85025

== ENCOUNTER → 2021-10-26 | Outpatient (CLI) | payer MEDICARE, SELFPAY ==
[2021-10-26 14:59] LABS: Absolute Lymphocyte Count 2.87 X10^3/uL (0.83-4.51); Absolute Neutrophil Count 5.1 X10^3/uL (2.0-7.7); Basophil# 0.05 X10^3/uL; Basophil% 0.6 % (0-1); Eosinophil# 0.18 X10^3/uL; Hematocrit 39.6 % (37-47); Hemoglobin 13.3 g/dL (12.0-15.0); Lymphocyte # 2.87 X10^3/ul (0.83-4.51); Lymphocyte % 32.3 % (19-41); Mean Corp Hgb Conc 33.6 g/dL (32-36); Mean Corpuscular Hgb 30.7 pg (27.0-32.0); Mean Corpuscular Volume 91.5 fL (81-99); Mean Platelet Vol. 9.1 fl (6.2-12.0); Monocyte# 0.67 X10^3/uL; Monocyte% 7.5 % (0-10); NRBC Flagged by Analyzer 0 % (0-5); Neutrophil % 57.4 % (47-70); Platelet Count 356 K/mm3 (150-450); RBC Distribution Width CV 12.2 % (11.6-14.6); RBC Distribution Width SD 40.8 fl (35.1-43.9); Red Blood Count 4.33 M/mm3 (4.2-5.4); White Blood Count 8.9 K/mm3 (4.4-11.0)
[2021-10-26 15:25] LABS: AST(SGOT) 18 U/L (15-37); Alanine Aminotransfer ALT/SGPT 36 U/L (13-56); Albumin, Serum 3.7 g/dL (3.2-5.0); Alkaline Phosphatase 94 U/L (45-117); Anion Gap 4 (5-15); BUN 13 mg/dL (7-18); BUN/Creat Ratio 9.7 RATIO (10-20); Calcium,Total 9.3 mg/dL (8.5-10.1); Chloride 105 mmol/L (98-107); Creatinine, Serum 1.34 mg/dL (0.55-1.02); EST Glomerular Filtration Rate 43 mL/min (>60); Est Glom Filt Rate - Afr Amer 52 mL/min (>60); Globulin 3.8 g/dL (2.2-4.2); Glucose 100 mg/dL (74-106); Potassium 3.8 mmol/L (3.5-5.1); Protein, Total 7.5 g/dL (6.4-8.2); Sodium Level 139 mmol/L (136-145)
== END | disposition home or self-care (01) ==
LOC: MTLAB 12:56
PROVIDERS: PCP Internal Medicine; Referring Provider Internal Medicine Rheumatology; Visit Provider Internal Medicine Rheumatology
DX: M06.00 Rheumatoid arthritis without rheumatoid factor, unspecified site (principal); Z79.899 Other long term (current) drug therapy; M79.7 Fibromyalgia; M18.0 Bilateral primary osteoarthritis of first carpometacarpal joints; M72.0 Palmar fascial fibromatosis [Dupuytren]; M65.331 Trigger finger, right middle finger
CPT/HCPCS: 36415; 80053; 85025

== ENCOUNTER 2021-12-22 15:51 | Emergency (ER) | payer MEDICARE, SELFPAY ==
[2021-12-22 15:52] VITALS: BP 144/89; PULSE 102; RESP 18; TEMP 36.2; O2SAT 99; BMI 29.2
== END 2021-12-22 16:53 | disposition left against medical advice (07) ==
LOC: ED 17:04
PROVIDERS: PCP Internal Medicine
DX: R06.02 Shortness of breath (principal); R05.9 Cough, unspecified

== ENCOUNTER → 2022-04-17 | Outpatient (CLI) | payer MEDICARE, SELFPAY ==
[2022-04-17 12:13] LABS: Absolute Lymphocyte Count 2.13 X10^3/uL (0.83-4.51); Absolute Neutrophil Count 4.2 X10^3/uL (2.0-7.7); Basophil# 0.03 X10^3/uL; Basophil% 0.4 % (0-1); Eosinophil# 0.11 X10^3/uL; Eosinophils% 1.6 % (0-5); Hematocrit 40.3 % (37-47); Hemoglobin 13.6 g/dL (12.0-15.0); Lymphocyte # 2.13 X10^3/ul (0.83-4.51); Lymphocyte % 30.3 % (19-41); Mean Corp Hgb Conc 33.7 g/dL (32-36); Mean Corpuscular Hgb 33.6 pg (27.0-32.0); Mean Corpuscular Volume 99.5 fL (81-99); Mean Platelet Vol. 8.9 fl (6.2-12.0); Monocyte# 0.55 X10^3/uL; Monocyte% 7.8 % (0-10); NRBC Flagged by Analyzer 0 % (0-5); Neutrophil # 4.15 X10^3/uL (2.7-7.7); Neutrophil % 59.2 % (47-70); Platelet Count 276 K/mm3 (150-450); RBC Distribution Width CV 12.3 % (11.6-14.6); RBC Distribution Width SD 44.7 fl (35.1-43.9); Red Blood Count 4.05 M/mm3 (4.2-5.4)
[2022-04-17 12:58] LABS: AST(SGOT) 40 U/L (15-37); Alanine Aminotransfer ALT/SGPT 105 U/L (13-56); Albumin, Serum 3.9 g/dL (3.2-5.0); Alkaline Phosphatase 295 U/L (45-117); Anion Gap 8 (5-15); BUN 10 mg/dL (7-18); Calcium,Total 9.5 mg/dL (8.5-10.1); Chloride 106 mmol/L (98-107); Creatinine, Serum 0.91 mg/dL (0.55-1.02); EST Glomerular Filtration Rate 67 mL/min (>60); Est Glom Filt Rate - Afr Amer 81 mL/min (>60); Globulin 4.1 g/dL (2.2-4.2); Glucose 108 mg/dL (74-106); Potassium 4.1 mmol/L (3.5-5.1); Sodium Level 140 mmol/L (136-145)
== END | disposition home or self-care (01) ==
PROVIDERS: PCP Internal Medicine; Visit Provider Internal Medicine Rheumatology
DX: M06.00 Rheumatoid arthritis without rheumatoid factor, unspecified site (principal); Z79.899 Other long term (current) drug therapy
CPT/HCPCS: 36415; 80053; 85025

== ENCOUNTER → 2022-04-25 | Outpatient (CLI) | payer MEDICARE, SELFPAY ==
[2022-04-25 14:43] LABS: Absolute Lymphocyte Count 2.37 X10^3/uL (0.83-4.51); Absolute Neutrophil Count 3.5 X10^3/uL (2.0-7.7); Basophil# 0.04 X10^3/uL; Basophil% 0.6 % (0-1); Eosinophil# 0.14 X10^3/uL; Eosinophils% 2.1 % (0-5); Hemoglobin 13.2 g/dL (12.0-15.0); Lymphocyte # 2.37 X10^3/ul (0.83-4.51); Lymphocyte % 35.7 % (19-41); Mean Corpuscular Hgb 32.6 pg (27.0-32.0); Mean Corpuscular Volume 98.8 fL (81-99); Mean Platelet Vol. 8.7 fl (6.2-12.0); Monocyte# 0.58 X10^3/uL; Monocyte% 8.7 % (0-10); NRBC Flagged by Analyzer 0 % (0-5); Neutrophil # 3.47 X10^3/uL (2.7-7.7); Neutrophil % 52.3 % (47-70); Platelet Count 244 K/mm3 (150-450); RBC Distribution Width CV 12.2 % (11.6-14.6); RBC Distribution Width SD 44.5 fl (35.1-43.9); Red Blood Count 4.05 M/mm3 (4.2-5.4); White Blood Count 6.6 K/mm3 (4.4-11.0)
[2022-04-25 15:13] LABS: AST(SGOT) 43 U/L (15-37); Alanine Aminotransfer ALT/SGPT 96 U/L (13-56); Albumin, Serum 3.9 g/dL (3.2-5.0); Alkaline Phosphatase 276 U/L (45-117); Anion Gap 7 (5-15); BUN 11 mg/dL (7-18); BUN/Creat Ratio 11.9 RATIO (10-20); Calcium,Total 9.1 mg/dL (8.5-10.1); Chloride 108 mmol/L (98-107); Creatinine, Serum 0.93 mg/dL (0.55-1.02); EST Glomerular Filtration Rate 66 mL/min (>60); Est Glom Filt Rate - Afr Amer 80 mL/min (>60); Globulin 3.9 g/dL (2.2-4.2); Glucose 104 mg/dL (74-106); Potassium 3.9 mmol/L (3.5-5.1); Protein, Total 7.8 g/dL (6.4-8.2); Sodium Level 140 mmol/L (136-145)
== END | disposition home or self-care (01) ==
LOC: MTLAB 11:17
PROVIDERS: PCP Internal Medicine; Referring Provider Internal Medicine Rheumatology; Visit Provider Internal Medicine Rheumatology
DX: M06.00 Rheumatoid arthritis without rheumatoid factor, unspecified site (principal); C56.2 Malignant neoplasm of left ovary; Z79.899 Other long term (current) drug therapy; M79.7 Fibromyalgia; M18.0 Bilateral primary osteoarthritis of first carpometacarpal joints; M72.0 Palmar fascial fibromatosis [Dupuytren]; M65.331 Trigger finger, right middle finger
CPT/HCPCS: 36415; 80053; 85025

== ENCOUNTER → 2022-05-19 | Outpatient (CLI) | payer MEDICARE, SELFPAY ==
[2022-05-19 12:14] LABS: Absolute Lymphocyte Count 2.26 X10^3/uL (0.83-4.51); Absolute Neutrophil Count 4.8 X10^3/uL (2.0-7.7); Basophil# 0.03 X10^3/uL; Basophil% 0.4 % (0-1); Eosinophil# 0.17 X10^3/uL; Eosinophils% 2.2 % (0-5); Hematocrit 44.1 % (37-47); Hemoglobin 14.5 g/dL (12.0-15.0); Lymphocyte # 2.26 X10^3/ul (0.83-4.51); Lymphocyte % 28.7 % (19-41); Mean Corp Hgb Conc 32.9 g/dL (32-36); Mean Corpuscular Hgb 32.2 pg (27.0-32.0); Mean Corpuscular Volume 97.8 fL (81-99); Mean Platelet Vol. 8.9 fl (6.2-12.0); Monocyte# 0.54 X10^3/uL; Monocyte% 6.9 % (0-10); NRBC Flagged by Analyzer 0.3 % (0-5); Neutrophil # 4.84 X10^3/uL (2.7-7.7); Neutrophil % 61.4 % (47-70); Platelet Count 281 K/mm3 (150-450); RBC Distribution Width CV 11.9 % (11.6-14.6); RBC Distribution Width SD 42.9 fl (35.1-43.9); Red Blood Count 4.51 M/mm3 (4.2-5.4); White Blood Count 7.9 K/mm3 (4.4-11.0)
[2022-05-19 12:52] LABS: AST(SGOT) 20 U/L (15-37); Alanine Aminotransfer ALT/SGPT 34 U/L (13-56); Albumin, Serum 4.2 g/dL (3.2-5.0); Alkaline Phosphatase 155 U/L (45-117); Anion Gap 9 (5-15); BUN 15 mg/dL (7-18); Calcium,Total 9.5 mg/dL (8.5-10.1); Chloride 102 mmol/L (98-107); Creatinine, Serum 0.94 mg/dL (0.55-1.02); EST Glomerular Filtration Rate 65 mL/min (>60); Est Glom Filt Rate - Afr Amer 79 mL/min (>60); Glucose 116 mg/dL (74-106); Potassium 4.1 mmol/L (3.5-5.1); Protein, Total 8.2 g/dL (6.4-8.2); Sodium Level 137 mmol/L (136-145)
== END | disposition home or self-care (01) ==
LOC: MTLAB 11:12
PROVIDERS: PCP Internal Medicine; Referring Provider Internal Medicine Rheumatology; Visit Provider Internal Medicine Rheumatology
DX: M06.00 Rheumatoid arthritis without rheumatoid factor, unspecified site (principal); C56.2 Malignant neoplasm of left ovary; Z79.899 Other long term (current) drug therapy; M79.7 Fibromyalgia; M18.0 Bilateral primary osteoarthritis of first carpometacarpal joints; M72.0 Palmar fascial fibromatosis [Dupuytren]; M65.331 Trigger finger, right middle finger
CPT/HCPCS: 36415; 80053; 85025

== ENCOUNTER → 2022-07-07 | Outpatient (CLI) | payer MEDICARE, SELFPAY ==
[2022-07-07 10:12] LABS: Absolute Lymphocyte Count 2.62 X10^3/uL (0.83-4.51); Basophil# 0.04 X10^3/uL; Basophil% 0.5 % (0-1); Eosinophil# 0.16 X10^3/uL; Eosinophils% 1.9 % (0-5); Hematocrit 41.7 % (37-47); Hemoglobin 14.2 g/dL (12.0-15.0); Lymphocyte # 2.62 X10^3/ul (0.83-4.51); Lymphocyte % 30.8 % (19-41); Mean Corp Hgb Conc 34.1 g/dL (32-36); Mean Corpuscular Hgb 31.8 pg (27.0-32.0); Mean Corpuscular Volume 93.5 fL (81-99); Mean Platelet Vol. 8.6 fl (6.2-12.0); Monocyte# 0.65 X10^3/uL; Monocyte% 7.6 % (0-10); NRBC Flagged by Analyzer 0 % (0-5); Neutrophil % 58.7 % (47-70); Platelet Count 262 K/mm3 (150-450); RBC Distribution Width CV 12.1 % (11.6-14.6); RBC Distribution Width SD 41.4 fl (35.1-43.9); Red Blood Count 4.46 M/mm3 (4.2-5.4); White Blood Count 8.5 K/mm3 (4.4-11.0)
[2022-07-07 10:30] LABS: ALB/GLOB Ratio 1.1 RATIO (0.9-2.4); AST(SGOT) 18 U/L (15-37); Alanine Aminotransfer ALT/SGPT 36 U/L (13-56); Albumin, Serum 4.2 g/dL (3.2-5.0); Alkaline Phosphatase 97 U/L (45-117); Anion Gap 2 (5-15); BUN 14 mg/dL (7-18); BUN/Creat Ratio 13.2 RATIO (10-20); Calcium,Total 9.3 mg/dL (8.5-10.1); Chloride 105 mmol/L (98-107); Creatinine, Serum 1.06 mg/dL (0.55-1.02); EST Glomerular Filtration Rate 56 mL/min (>60); Est Glom Filt Rate - Afr Amer 68 mL/min (>60); Globulin 3.9 g/dL (2.2-4.2); Glucose 127 mg/dL (74-106); Protein, Total 8.1 g/dL (6.4-8.2); Sodium Level 135 mmol/L (136-145)
== END | disposition home or self-care (01) ==
LOC: MTLAB 08:28
PROVIDERS: PCP Internal Medicine; Referring Provider Internal Medicine Rheumatology; Visit Provider Internal Medicine Rheumatology
DX: M06.09 Rheumatoid arthritis without rheumatoid factor, multiple sites (principal); Z79.899 Other long term (current) drug therapy
CPT/HCPCS: 36415; 80053; 85025

== ENCOUNTER → 2022-09-26 | Outpatient (CLI) | payer MEDICARE, SELFPAY ==
[2022-09-26 10:40] LABS: Absolute Lymphocyte Count 1.85 X10^3/uL (0.83-4.51); Absolute Neutrophil Count 4.9 X10^3/uL (2.0-7.7); Basophil# 0.04 X10^3/uL; Basophil% 0.5 % (0-1); Eosinophils% 2.6 % (0-5); Hemoglobin 13.9 g/dL (12.0-15.0); Lymphocyte # 1.85 X10^3/ul (0.83-4.51); Lymphocyte % 24.3 % (19-41); Mean Corp Hgb Conc 33.1 g/dL (32-36); Mean Corpuscular Hgb 32.1 pg (27.0-32.0); Mean Platelet Vol. 9.1 fl (6.2-12.0); Monocyte# 0.64 X10^3/uL; Monocyte% 8.4 % (0-10); NRBC Flagged by Analyzer 0 % (0-5); Neutrophil # 4.85 X10^3/uL (2.7-7.7); Neutrophil % 63.7 % (47-70); Platelet Count 245 K/mm3 (150-450); RBC Distribution Width CV 11.9 % (11.6-14.6); RBC Distribution Width SD 42.5 fl (35.1-43.9); Red Blood Count 4.33 M/mm3 (4.2-5.4); White Blood Count 7.6 K/mm3 (4.4-11.0)
[2022-09-26 11:41] LABS: ALB/GLOB Ratio 0.9 RATIO (0.9-2.4); AST(SGOT) 36 U/L (15-37); Alanine Aminotransfer ALT/SGPT 46 U/L (13-56); Albumin, Serum 3.6 g/dL (3.2-5.0); Alkaline Phosphatase 111 U/L (45-117); Anion Gap 4 (5-15); BUN 11 mg/dL (7-18); BUN/Creat Ratio 12.1 RATIO (10-20); Calcium,Total 8.8 mg/dL (8.5-10.1); Chloride 108 mmol/L (98-107); Creatinine, Serum 0.91 mg/dL (0.55-1.02); EST Glomerular Filtration Rate 67 mL/min (>60); Est Glom Filt Rate - Afr Amer 81 mL/min (>60); Globulin 3.9 g/dL (2.2-4.2); Glucose 95 mg/dL (74-106); Potassium 4.1 mmol/L (3.5-5.1); Protein, Total 7.5 g/dL (6.4-8.2); Sodium Level 137 mmol/L (136-145)
== END | disposition home or self-care (01) ==
LOC: MTLAB 09:10
PROVIDERS: PCP Internal Medicine; Referring Provider Internal Medicine Rheumatology; Visit Provider Internal Medicine Rheumatology
DX: M06.09 Rheumatoid arthritis without rheumatoid factor, multiple sites (principal); Z79.899 Other long term (current) drug therapy; M79.7 Fibromyalgia
CPT/HCPCS: 36415; 80053; 85025

== ENCOUNTER → 2023-01-16 | Outpatient (CLI) | payer MEDICARE, SELFPAY ==
[2023-01-16 12:11] LABS: Absolute Lymphocyte Count 1.63 X10^3/uL (0.83-4.51); Absolute Neutrophil Count 3.3 X10^3/uL (2.0-7.7); Basophil# 0.04 X10^3/uL; Basophil% 0.7 % (0-1); Eosinophil# 0.16 X10^3/uL; Eosinophils% 2.8 % (0-5); Hematocrit 40.3 % (37-47); Hemoglobin 13.2 g/dL (12.0-15.0); Lymphocyte # 1.63 X10^3/ul (0.83-4.51); Lymphocyte % 28.8 % (19-41); Mean Corp Hgb Conc 32.8 g/dL (32-36); Mean Corpuscular Hgb 31.1 pg (27.0-32.0); Mean Corpuscular Volume 94.8 fL (81-99); Mean Platelet Vol. 8.9 fl (6.2-12.0); Monocyte# 0.52 X10^3/uL; Monocyte% 9.2 % (0-10); NRBC Flagged by Analyzer 0 % (0-5); Neutrophil # 3.28 X10^3/uL (2.7-7.7); Neutrophil % 58.1 % (47-70); Platelet Count 234 K/mm3 (150-450); RBC Distribution Width CV 12.1 % (11.6-14.6); RBC Distribution Width SD 41.9 fl (35.1-43.9); Red Blood Count 4.25 M/mm3 (4.2-5.4); White Blood Count 5.7 K/mm3 (4.4-11.0)
[2023-01-16 12:29] LABS: AST(SGOT) 21 U/L (15-37); Alanine Aminotransfer ALT/SGPT 26 U/L (13-56); Albumin, Serum 3.5 g/dL (3.2-5.0); Alkaline Phosphatase 87 U/L (45-117); Anion Gap 4 (5-15); BUN 7 mg/dL (7-18); BUN/Creat Ratio 6.9 RATIO (10-20); Calcium,Total 8.9 mg/dL (8.5-10.1); Chloride 107 mmol/L (98-107); Creatinine, Serum 1.02 mg/dL (0.55-1.02); EST Glomerular Filtration Rate 59 mL/min (>60); Est Glom Filt Rate - Afr Amer 71 mL/min (>60); Globulin 3.6 g/dL (2.2-4.2); Glucose 122 mg/dL (74-106); Potassium 3.9 mmol/L (3.5-5.1); Protein, Total 7.1 g/dL (6.4-8.2); Sodium Level 141 mmol/L (136-145)
== END | disposition home or self-care (01) ==
LOC: MTLAB 09:50
PROVIDERS: PCP Internal Medicine; Referring Provider Internal Medicine Rheumatology; Visit Provider Internal Medicine Rheumatology
DX: M06.09 Rheumatoid arthritis without rheumatoid factor, multiple sites (principal); Z79.899 Other long term (current) drug therapy
CPT/HCPCS: 36415; 80053; 85025

== ENCOUNTER → 2023-04-03 | Outpatient (CLI) | payer MEDICARE, SELFPAY ==
--- OUTSIDE RECORDS SUMMARY | 2023-04-03 07:47 | XMS RPT_ITS | CCD ---
Author Name Unknown Address [address] [place] [address] Organization [facility] Care Team Providers Care Certified First Assistant Name Role Phone Jaimee Goncalves MD Primary Care Provider PROVIDER, UNKNOWN Referring Unavailable TALAMPAS, JAIMEE D Primary Care Unavailable PROVIDER, UNKNOWN Referring Unavailable TALAMPAS, JAIMEE D Primary Care Unavailable JOHANNA LAI Attending Unavailable TALAMPAS, JAIMEE D Primary Care Unavailable ROBYN GIRALDO Referring Unavailable CamronampJaimee lopez MD Primary Care Provider TALAMPAS, JAIMEE D Primary Care Unavailable TALAMPAS, JAIMEE D Primary Care Unavailable CHASTITY GARDINER Attending Unavailable TALAMPAS, JAIMEE D Primary Care Unavailable SOMMOVIMELBAA, CHAZ Referring Unavailable TALAMPAS, JAIMEE D Primary Care Unavailable SOMMOVILLA, CHAZ Referring Unavailable TALAMPAS, JAIMEE D Primary Care Unavailable SOMMOVILLA, CHAZ Attending Unavailable SOMMOVILLA, CHAZ Admitting Unavailable TALAMPAS, JAIMEE D Primary Care Unavailable NIHARIKA CERVANTES Attending Unavailable TALAMPAS, JAIMEE D Referring Unavailable TALAMPAS, JAIMEE D Primary Care Unavailable SOMMOVILLA, CHAZ Referring Unavailable GIACOMO, GIACOMO ADEL Attending Unavailable TALAMPAS, JAIMEE D Primary Care Unavailable TALAMPAS, JAIMEE D Primary Care Unavailable TALAMPAS, JAIMEE D Attending Unavailable TALAMPAS, JAIMEE D Referring Unavailable TALAMPAS, JAIMEE D Primary Care Unavailable TALAMPAS, JAIMEE D Primary Care Unavailable ABIGAIL BLANCOA Attending Unavailable SOMMOVILLA, CHAZ Referring Unavailable ROGELIO RUSSO Referring Unavailable TALAMPAS, JAIMEE D Primary Care Unavailable ROGELIO RUSSO Referring Unavailable TALAMPAS, JAIMEE D Primary Care Unavailable TALAMPAS, JAIMEE D Primary Care Unavailable SOMMOVILLA, CHAZ Referring Unavailable TALAMPAS, JAIMEE D Primary Care Unavailable ROGELIO RUSSO Referring Unavailable TALAMPAS, JAIMEE D Primary Care Unavailable KARAN, ROGELIO Referring Unavailable TALAMPAS, JAIMEE D Primary Care Unavailable SOMMOVILLA, CHAZ Referring Unavailable TALAMPAS, JAIMEE D Primary Care Unavailable SOMMOVILLA, CHAZ Referring Unavailable TALAMPAS, JAIMEE D Attending Unavailable TALAMPAS, JAIMEE D Primary Care Unavailable TALAMPAS, JAIMEE D Referring Unavailable TALAMPAS, JAIMEE D Attending Unavailable TALAMPAS, JAIMEE D Primary Care Unavailable ROGELIO RUSSO Referring Unavailable TALAMPAS, JAIMEE D Primary Care Unavailable KARAN, ROGELIO Referring Unavailable TALAMPAS, JAIMEE D Primary Care Unavailable TALAMPAS, JAIMEE D Primary Care Unavailable CHASTITY GARDINER Attending Unavailable CHASTITY AGRDINER Referring Unavailable TALAMPAS, JAIMEE D Primary Care Unavailable CHASTITY GARDINER Referring Unavailable TALAMPAS, JAIMEE D Primary Care Unavailable TALAMPAS, JIAMEE D Primary Care Unavailable CHASTITY GARDINER Attending Unavailable TALAMPAS, JAIMEE D Primary Care Unavailable KALININA, EDEN Admitting Unavailable KALININA, EDEN Attending Unavailable TALAMPAS, JAIMEE D Primary Care Unavailable TALAMPAS, JAIMEE D Primary Care Unavailable CHASTITY GARDINER Attending Unavailable TALAMPAS, JAIMEE D Primary Care Unavailable CHASTITY GARDINER Attending Unavailable TALAMPAS, JAIMEE D Primary Care Unavailable Allergies Allergy Classification Reported Allergen(s) Allergy Type Date of Onset Reaction(s) Facility (20 sources) Acetaminophen / traMADol Drug Allergy 4 [facility] (20 sources) Erythromycin; Translations: [ERYTHROMYCIN BASE] Drug Allergy 4 [facility] (20 sources) mangos [Other] Propensity to adverse reactions 6 [facility] Work Phone: (20 sources) to allergenic extract; Translations: [TO] Drug Allergy 2 Unknown [facility] (3 sources) OTHER; Translations: [OTHER] Propensity to adverse reactions (disorder) 6 [facility] Other [place] [facility] Medications Current Medications Medication Drug Class(es) Dates Sig (Normalized) Sig (Original) acetaminophen 325 mg / HYDROcodone bitartrate 5 mg oral tablet (20 sources) Opioid Agonist Start: 04-19-2023 End: 02-15-2023 HYDROcodone-acetami nophen (NORCO) 5-325 mg per tablet Indications: Fibromyalgia , Seronegative rheumatoid arthritis (HCC) , S/P FRANCISCO J-BSO (total abdominal hysterectomy and bilateral salpingo-oophorecto my) Take 1 tablet by mouth every 4 hours as needed for up to 30 days. Do not start before April 19, 2023. 180 tablet 0 04/19/2023 02/15/2023 Discontinued Completed/Discontinued Medications Medication Drug Class(es) Dates Sig (Normalized) Sig (Original) acetaminophen 500 mg oral tablet (20 sources) Start: 09-07-2021 End: 11-24-2021 take 2 tablets by mouth every six hours as needed acetaminophen (TYLENOL) 500 mg tablet Take 2 tablets by mouth every 6 hours as needed for pain. 40 tablet 0 09/07/2021 11/24/2021 Discontinued Problems Active Problems Problem Classification Problem Date Documented Da te Episodic/Chronic Abdominal pain (3 sources) Left sided abdominal pain; Translations: [Unspecified abdominal pain] Episodic Cancer of ovary (20 sources) Malignant tumor of ovary; Translations: [Malignant neoplasm of unspecified ovary] Onset: 10-04-2021 Chronic Cancer of ovary (20 sources) History of malignant neoplasm of ovary; Translations: [Personal history of malignant neoplasm of ovary] Onset: 08-29-2022 Episodic Cardiac dysrhythmias (2 sources) Palpitations; Translations: [Palpitations] Episodic Complications of surgical procedures or medical care (2 sources) Menopausal flushing; Translations: [Symptomatic postprocedural ovarian failure] Chronic Disorders of lipid metabolism (20 sources) Hyperlipidemia; Translations: [Hyperlipidemia, unspecified] Onset: 05-26-2008 01-18-2015 Chronic Genitourinary symptoms and ill-defined conditions (2 sources) Urinary symptoms ; Translations: [Unspecified symptoms and signs involving the genitourinary system] Episodic Headache; including migraine (20 sources) Migraine without aura; Translations: [Migraine without aura, not intractable, without status migrainosus] 07-30-2009 Chronic Immunizations and screening for infectious disease (20 sources) Finding related to response to skin test; Translations: [Nonspecific reaction to tuberculin skin test without active tuberculosis] 03-22-2005 Episodic Inflammation; infection of eye (except that caused by tuberculosis or sexually transmitteddisease) (1 source) Hordeolum externum of upper eyelid of left eye; Translations: [Hordeolum externum left upper eyelid] Episodic Malaise and fatigue (4 sources) Fatigue due to chemotherapy; Translations: [Other fatigue] Episodic Mood disorders (15 sources) Recurrent depression; Translations: [Major depressive disorder, recurrent, unspecified] Onset: 09-22-2022 09-22-2022 Chronic Nausea and vomiting (4 sources) Nausea; Translations: [Nausea] Episodic Nutritional deficiencies (20 sources) Vitamin D deficiency; Translations: [Vitamin D deficiency, unspecified] Onset: 09-30-2010 09-30-2010 Chronic Osteoarthritis (20 sources) Osteoarthritis; Translations: [Unspecified osteoarthritis, unspecified site] Onset: 07-08-2008 07-08-2008 Chronic Other aftercare (4 sources) H/O: malignant neoplasm; Translations: [Encounter for follow-up examination after completed treatment for malignant neoplasm] Episodic Other and unspecified benign neoplasm (11 sources) Polyp of colon; Translations: [Polyp of colon] Episodic Other and unspecified benign neoplasm (1 source) History of polyp of colon; Translations: [Personal history of colonic polyps] 01-15-2023 Episodic Other and unspecified benign neoplasm (1 source) Personal history of colonic polyps; Translations: [History of colonic polyps] Onset: 01-15-2023 Episodic Other circulatory disease (1 source) Device in situ; Translations: [Presence of other vascular implants and grafts] 03-19-2023 Chronic Other circulatory disease (1 source) Presence of other vascular implants and grafts; Translations: [Port-A-Cath in place] Onset: 2023 Chronic Other circulatory disease (1 source) Elevated blood pressure; Translations: [Elevated blood-pressure reading, without diagnosis of hypertension] Episodic Other connective tissue disease (18 sources) Fibromyalgia; Translations: [Fibromyalgia] Episodic Other connective tissue disease (20 sources) Muscle pain; Translations: [Myalgia and myositis] 02-01-2015 Episodic Other female genital disorders (5 sources) Mass of ovary; Translations: [Other noninflammatory disorders of ovary, fallopian tube and broad ligament] Episodic Other gastrointestinal disorders (1 source) Abdominal bloating; Translations: [Abdominal distension (gaseous)] Episodic Other gastrointestinal disorders (1 source) Constipation; Translations: [Constipation, unspecified] Episodic Other gastrointestinal disorders (1 source) Finding of abdomen; Translations: [Generalized intra-abdominal and pelvic swelling, mass and lump] Episodic Other gastrointestinal disorders (4 sources) Drug-induced constipation; Translations: [Drug induced constipation] Episodic Other lower respiratory disease (1 source) Productive cough ; Translations: [Sputum production] Episodic Other lower respiratory disease (2 sources) Dyspnea; Translations: [Shortness of breath] Episodic Other lower respiratory disease (2 sources) Nodule of lung; Translations: [Solitary pulmonary nodule] Episodic Other nervous system disorders (20 sources) Chronic pain syndrome; Translations: [Chronic pain syndrome] 06-09-2019 Chronic Other nervous system disorders (5 sources) Peripheral neuropathy due to and following chemotherapy; Translations: [Drug-induced polyneuropathy] Chronic Other nervous system disorders (2 sources) Neuropathy; Translations: [Polyneuropathy, unspecified] 11-21-2022 Chronic Other nervous system disorders (4 sources) Taste sense altered; Translations: [Parageusia] Episodic Other nutritional; endocrine; and metabolic disorders (12 sources) Obese class I; Translations: [Obesity, unspecified] Onset: 11-21-2022 11-21-2022 Chronic Other screening for suspected conditions (not mental disorders or infectious disease) (20 sources) Patient encounter status; Translations: [Encounter for screening for malignant neoplasm of colon] Onset: 10-04-2021 Episodic Other skin disorders (1 source) Night sweats; Translations: [Generalized hyperhidrosis] Episodic Residual codes; unclassified (4 sources) Family history of cancer of colon; Translations: [Family history of malignant neoplasm of digestive organs] Episodic Residual codes; unclassified (2 sources) Family history of leukemia; Translations: [Family history of leukemia] Episodic Residual codes; unclassified (2 sources) Family history of breast cancer; Translations: [Family history of malignant neoplasm of breast] Episodic Residual codes; unclassified (2 sources) Flushing; Translations: [Flushing] Episodic Rheumatoid arthritis and related disease (20 sources) Seronegative rheumatoid arthritis; Translations: [Rheumatoid arthritis without rheumatoid factor, unspecified site] Onset: 11-03-2009 Chronic Spondylosis; intervertebral disc disorders; other back problems (20 sources) Degeneration of intervertebral disc; Translations: [Degeneration of intervertebral disc, site unspecified] 07-08-2008 Chronic Substance-related disorders (20 sources) Tobacco user; Translations: [Nicotine dependence, unspecified, uncomplicated] Onset: 05-26-2008 05-26-2008 Chronic Unclassified (1 source) Radiology NM Onset: 08-29-2022 Unclassified (1 source) Established Patient Onset: 12-01-2022 Viral infection (1 source) Disease caused by 2019-nCoV; Translations: [COVID-19] 02-12-2023 Episodic Past or Other Problems Problem Classification Problem Date Documented Da te Episodic/Chronic Other and unspecified benign neoplasm (20 sources) Adenoma of large intestine; Translations: [Benign neoplasm of colon, unspecified] Onset: 03-21-2022 03-21-2022 Episodic Other and unspecified benign neoplasm (1 source) Polyp of colon; Translations: [Polyp of colon, unspecified part of colon, unspecified type] Onset: 03-21-2022 Episodic Other gastrointestinal disorders (20 sources) Pelvic mass; Translations: [Intra-abdominal and pelvic swelling, mass and lump, unspecified site] Onset: 09-05-2021 Episodic Other lower respiratory disease (1 source) Solitary pulmonary nodule; Translations: [Lung nodule] Onset: 05-19-2022 Episodic Residual codes; unclassified (20 sources) History of total hysterectomy with bilateral salpingo-oophorecto my; Translations: [Acquired absence of both cervix and uterus] Onset: 09-20-2022 Episodic Results Test Name Value Interpretation Reference Range Facil ity Vital Signs Date Time Vital Sign Value Performing Clinician Faci lity 03-09-2023 09:53-0500 Body temperature 98.01 [degF] Chastity Gardiner MD Work Phone: [facility] 03-09-2023 09:53-0500 Body weight 85.46 kg Chastity Gardiner MD Work Phone: [facility] 03-09-2023 09:53-0500 Diastolic blood pressure 76 mm[Hg] Chastity Gardiner MD Work Phone: [facility] 03-09-2023 09:53-0500 Heart rate 102 /min Chastity Gardiner MD Work Phone: [facility] 03-09-2023 09:53-0500 Respiratory rate 16 /min Chastity Gardiner MD Work Phone: [facility] 03-09-2023 09:53-0500 SaO2% (BldA) [Mass fraction] 96 % Chastity Gardiner MD Work Phone: [facility] 03-09-2023 09:53-0500 Systolic blood pressure 122 mm[Hg] Chastity Gardiner MD Work Phone: [facility] 01-15-2023 15:10-0400 Diastolic blood pressure 66 mm[Hg] Chaz De La Cruz MD Work Phone: [facility] 01-15-2023 15:10-0400 Heart rate 76 /min Chaz De La Cruz MD Work Phone: [facility] 01-15-2023 15:10-0400 SaO2% (BldA) [Mass fraction] 96 % Chaz De La Cruz MD Work Phone: [facility] 01-15-2023 15:10-0400 Systolic blood pressure 121 mm[Hg] Chaz De La Cruz MD Work Phone: [facility] 01-15-2023 14:51-0400 Body temperature 98.49 [degF] Chaz De La Cruz MD Work Phone: [facility] 01-15-2023 13:09-0400 Body height 164.5 cm Chaz De La Cruz MD Work Phone: [facility] 01-15-2023 13:09-0400 Body weight 82.1 kg Chaz De La Cruz MD Work Phone: [facility] 12-01-2022 11:04-0400 Body temperature 97.7 [degF] Chastity Gardiner MD Work Phone: [facility] 12-01-2022 11:04-0400 Body weight 82.1 kg Chastity Gardiner MD Work Phone: [facility] 12-01-2022 11:04-0400 Diastolic blood pressure 66 mm[Hg] Chastity Gardiner MD Work Phone: [facility] 12-01-2022 11:04-0400 Heart rate 81 /min Chastity Gardiner MD Work Phone: [facility] 12-01-2022 11:04-0400 Respiratory rate 16 /min Chastity Gardiner MD Work Phone: [facility] 12-01-2022 11:04-0400 SaO2% (BldA) [Mass fraction] 94 % Chastity Gardiner MD Work Phone: [facility] 12-01-2022 11:04-0400 Systolic blood pressure 121 mm[Hg] Chastity Gardiner MD Work Phone: [facility] 11-21-2022 09:03-0400 Body weight 82.56 kg Niharika Carlos 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 Work Phone: [facility] 11-21-2022 09:03-0400 Diastolic blood pressure 80 mm[Hg] Niharika Carlos [employer] 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 Work Phone: [facility] 11-21-2022 09:03-0400 Heart rate 89 /min Niharika Carlos [employer] 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 Work Phone: [facility] 11-21-2022 09:03-0400 SaO2% (BldA) [Mass fraction] 97 % Niharika Carlos [employer] 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 Work Phone: [facility] 11-21-2022 09:03-0400 Systolic blood pressure 130 mm[Hg] Niharika Carlos [employer] 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 Work Phone: [facility] 09-08-2022 11:30-0400 Body temperature 98.4 [degF] Chastity Gardiner MD Work Phone: [facility] 09-08-2022 11:30-0400 Body weight 81.1 kg Chastity Gardiner MD Work Phone: [facility] 09-08-2022 11:30-0400 Diastolic blood pressure 75 mm[Hg] Chastity Gardiner MD Work Phone: [facility] 09-08-2022 11:30-0400 Heart rate 91 /min Chastity Gardiner MD Work Phone: [facility] 09-08-2022 11:30-0400 Respiratory rate 18 /min Chastity Gardiner MD Work Phone: [facility] 09-08-2022 11:30-0400 SaO2% (BldA) [Mass fraction] 96 % Chastity Gardiner MD Work Phone: [facility] 09-08-2022 11:30-0400 Systolic blood pressure 138 mm[Hg] Chastity Gardiner MD Work Phone: [facility] 08-23-2022 10:29-0400 Body temperature 97.2 [degF] Jaimee Goncalves MD Work Phone: [facility] 08-23-2022 10:29-0400 Body weight 82.1 kg Jaimee Goncalves MD Work Phone: [facility] 08-23-2022 10:29-0400 Diastolic blood pressure 74 mm[Hg] Jaimee Goncalves MD Work Phone: [facility] 08-23-2022 10:29-0400 Heart rate 26 /min Jaimee Goncalves MD Work Phone: [facility] 08-23-2022 10:29-0400 Respiratory rate 18 /min Jaimee Goncalves MD Work Phone: [facility] 08-23-2022 10:29-0400 SaO2% (BldA) [Mass fraction] 98 % Jaimee Goncalves MD Work Phone: [facility] 08-23-2022 10:29-0400 Systolic blood pressure 122 mm[Hg] Jaimee Goncalves MD Work Phone: [facility] 07-10-2022 17:30-0400 Diastolic blood pressure 68 mm[Hg] Chaz De La Cruz MD Work Phone: [facility] 07-10-2022 17:30-0400 Heart rate 76 /min Chaz De La Cruz MD Work Phone: [facility] 07-10-2022 17:30-0400 Respiratory rate 16 /min Chaz De La Cruz MD Work Phone: [facility] 07-10-2022 17:30-0400 SaO2% (BldA) [Mass fraction] 97 % Chaz De La Cruz MD Work Phone: [facility] 07-10-2022 17:30-0400 Systolic blood pressure 129 mm[Hg] Chaz De La Cruz MD Work Phone: [facility] 07-10-2022 16:54-0400 Body temperature 97.5 [degF] Chaz De La Cruz MD Work Phone: [facility] 07-10-2022 13:07-0400 Body height 162.6 cm Chaz De La Cruz MD Work Phone: [facility] 07-10-2022 13:07-0400 Body weight 79.38 kg Chaz De La Cruz MD Work Phone: [facility] 05-26-2022 11:19-0500 Body temperature 97.39 [degF] Chastity Gardiner MD Work Phone: [facility] 05-26-2022 11:19-0500 Body weight 80.74 kg Chastity Gardiner MD Work Phone: [facility] 05-26-2022 11:19-0500 Diastolic blood pressure 85 mm[Hg] Chastity Gardiner MD Work Phone: [facility] 05-26-2022 11:19-0500 Heart rate 92 /min Chastity Gardiner MD Work Phone: [facility] 05-26-2022 11:19-0500 Respiratory rate 16 /min Chastity Gardiner MD Work Phone: [facility] 05-26-2022 11:19-0500 SaO2% (BldA) [Mass fraction] 95 % Chastity Gardiner MD Work Phone: [facility] 05-26-2022 11:19-0500 Systolic blood pressure 151 mm[Hg] Chastity Gardiner MD Work Phone: [facility] 03-15-2022 12:45-0500 Body height 164.8 cm Pacc 4 Work Phone: [facility] 03-15-2022 12:45-0500 Body temperature 97.2 [degF] Pacc 4 Work Phone: [facility] 03-15-2022 12:45-0500 Body weight 76.66 kg Pacc 4 Work Phone: [facility] 03-15-2022 12:45-0500 Diastolic blood pressure 75 mm[Hg] Pacc 4 Work Phone: [facility] 03-15-2022 12:45-0500 Heart rate 101 /min Pacc 4 Work Phone: [facility] 03-15-2022 12:45-0500 SaO2% (BldA) [Mass fraction] 99 % Pacc 4 Work Phone: [facility] 03-15-2022 12:45-0500 Systolic blood pressure 115 mm[Hg] Pacc 4 Work Phone: [facility] 03-06-2022 09:32-0500 Body weight 76.2 kg Niharika Carlos [employer] 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 Work Phone: [facility] 03-06-2022 09:32-0500 Diastolic blood pressure 78 mm[Hg] Niharika Carlos [employer] 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 Work Phone: [facility] 03-06-2022 09:32-0500 Heart rate 109 /min Niharika Carlos [employer] 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 Work Phone: [facility] 03-06-2022 09:32-0500 Respiratory rate 20 /min Niharika Realr [employer] 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 Work Phone: [facility] 03-06-2022 09:32-0500 SaO2% (BldA) [Mass fraction] 98 % Niharika Realr [employer] 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 Work Phone: [facility] 03-06-2022 09:32-0500 Systolic blood pressure 120 mm[Hg] Niharika Cervantes [employer] 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 Work Phone: [facility] 02-17-2022 09:35-0500 Body weight 77.84 kg Rogelio Russo APRN.AUTOMOBILE MECHANIC SUPERVISOR Work Phone: [facility] 02-17-2022 09:35-0500 Diastolic blood pressure 77 mm[Hg] Rogelio Russo [employer] 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 Work Phone: [facility] 02-17-2022 09:35-0500 Heart rate 93 /min Rogelio Russo [employer] 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 Work Phone: [facility] 02-17-2022 09:35-0500 Respiratory rate 16 /min Rogelio Russo APRN.AUTOMOBILE MECHANIC SUPERVISOR Work Phone: [facility] 02-17-2022 09:35-0500 SaO2% (BldA) [Mass fraction] 97 % Rogelio Russo APRN.AUTOMOBILE MECHANIC SUPERVISOR Work Phone: [facility] 02-17-2022 09:35-0500 Systolic blood pressure 138 mm[Hg] Rogelio Russo APRN.AUTOMOBILE MECHANIC SUPERVISOR Work Phone: [facility] 02-15-2022 10:53-0500 Body height 162.6 cm Chaz De La Cruz MD Work Phone: [facility] 02-15-2022 10:53-0500 Body weight 76.66 kg Chaz De La Cruz MD Work Phone: [facility] 01-27-2022 09:41-0500 Body temperature 97.81 [degF] Rogelio Russo APRN.AUTOMOBILE MECHANIC SUPERVISOR Work Phone: [facility] 01-27-2022 09:41-0500 Body weight 78.52 kg Rogelio Russo APRN.AUTOMOBILE MECHANIC SUPERVISOR Work Phone: [facility] 01-27-2022 09:41-0500 Diastolic blood pressure 79 mm[Hg] Rogelio Russo APRN.AUTOMOBILE MECHANIC SUPERVISOR Work Phone: [facility] 01-27-2022 09:41-0500 Heart rate 97 /min Rogelio Russo APRN.AUTOMOBILE MECHANIC SUPERVISOR Work Phone: [facility] 01-27-2022 09:41-0500 Respiratory rate 18 /min Rogelio Russo APRN.AUTOMOBILE MECHANIC SUPERVISOR Work Phone: [facility] 01-27-2022 09:41-0500 SaO2% (BldA) [Mass fraction] 94 % Rogelio Russo APRN.AUTOMOBILE MECHANIC SUPERVISOR Work Phone: [facility] 01-27-2022 09:41-0500 Systolic blood pressure 129 mm[Hg] Rogelio Russo APRN.AUTOMOBILE MECHANIC SUPERVISOR Work Phone: [facility] 01-25-2022 11:15-0500 Body weight 78.47 kg Jaimee Goncalves MD Work Phone: [facility] 01-25-2022 11:15-0500 Diastolic blood pressure 72 mm[Hg] Jaimee Goncalves MD Work Phone: [facility] 01-25-2022 11:15-0500 Heart rate 98 /min Jaimee Goncalves MD Work Phone: [facility] 01-25-2022 11:15-0500 SaO2% (BldA) [Mass fraction] 97 % Jaimee Goncalves MD Work Phone: [facility] 01-25-2022 11:15-0500 Systolic blood pressure 118 mm[Hg] Jaimee Goncalves MD Work Phone: [facility] 01-06-2022 10:17-0400 Body temperature 97 [degF] Chastity Gardiner MD Work Phone: [facility] 01-06-2022 10:17-0400 Body weight 78.47 kg Chastity Gardiner MD Work Phone: [facility] 01-06-2022 10:17-0400 Diastolic blood pressure 73 mm[Hg] Chastity Gardiner MD Work Phone: [facility] 01-06-2022 10:17-0400 Heart rate 88 /min Chastity Gardiner MD Work Phone: [facility] 01-06-2022 10:17-0400 Respiratory rate 16 /min Chastity Gardiner MD Work Phone: [facility] 01-06-2022 10:17-0400 SaO2% (BldA) [Mass fraction] 99 % Chastity Gardiner MD Work Phone: [facility] 01-06-2022 10:17-0400 Systolic blood pressure 146 mm[Hg] Chastity Gardiner MD Work Phone: [facility] 12-16-2021 09:55-0400 Diastolic blood pressure 70 mm[Hg] Treatment [place] Work Phone: [facility] 12-16-2021 09:55-0400 Systolic blood pressure 110 mm[Hg] Treatment [place] Work Phone: [facility] 12-16-2021 08:35-0400 Body temperature 97.5 [degF] Rogelio Russo APRN.AUTOMOBILE MECHANIC SUPERVISOR Work Phone: [facility] 12-16-2021 08:35-0400 Body weight 77.29 kg Rogelio Russo APRN.AUTOMOBILE MECHANIC SUPERVISOR Work Phone: [facility] 12-16-2021 08:35-0400 Diastolic blood pressure 77 mm[Hg] Rogelio Russo APRN.AUTOMOBILE MECHANIC SUPERVISOR Work Phone: [facility] 12-16-2021 08:35-0400 Heart rate 114 /min Rogelio Russo APRN.AUTOMOBILE MECHANIC SUPERVISOR Work Phone: [facility] 12-16-2021 08:35-0400 Respiratory rate 16 /min Rogelio Russo [employer] 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 Work Phone: [facility] 12-16-2021 08:35-0400 SaO2% (BldA) [Mass fraction] 98 % Rogelio Russo [employer] 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 Work Phone: [facility] 12-16-2021 08:35-0400 Systolic blood pressure 160 mm[Hg] Rogelio Russo [employer] 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 Work Phone: [facility] 11-25-2021 14:14-0400 Body weight 77.56 kg Jaimee Goncalves MD Work Phone: [facility] 11-25-2021 14:14-0400 Diastolic blood pressure 78 mm[Hg] Jaimee Goncalves MD Work Phone: [facility] 11-25-2021 14:14-0400 Heart rate 85 /min Jaimee Goncalves MD Work Phone: [facility] 11-25-2021 14:14-0400 SaO2% (BldA) [Mass fraction] 97 % Jaimee Goncalves MD Work Phone: [facility] 11-25-2021 14:14-0400 Systolic blood pressure 118 mm[Hg] Jaimee Goncalves MD Work Phone: [facility] 11-04-2021 11:10-0400 Body height 163.8 cm Chastity Gardiner MD Work Phone: [facility] 11-04-2021 11:10-0400 Body temperature 97.3 [degF] Chastity Gardiner MD Work Phone: [facility] 11-04-2021 11:10-0400 Body weight 74.66 kg Chastity Gardiner MD Work Phone: [facility] 11-04-2021 11:10-0400 Diastolic blood pressure 89 mm[Hg] Chastity Gardiner MD Work Phone: [facility] 11-04-2021 11:10-0400 Heart rate 107 /min Chastity Gardiner MD Work Phone: [facility] 11-04-2021 11:10-0400 Respiratory rate 16 /min Chastity Gardiner MD Work Phone: [facility] 11-04-2021 11:10-0400 SaO2% (BldA) [Mass fraction] 100 % Chastity Gardiner MD Work Phone: [facility] 11-04-2021 11:10-0400 Systolic blood pressure 126 mm[Hg] Chastity Gardiner MD Work Phone: [facility] 11-04-2021 10:30-0400 Body height 163.8 cm Treatment [place] Work Phone: [facility] 11-04-2021 10:30-0400 Body weight 75.16 kg Treatment [place] Work Phone: [facility] 10-24-2021 09:30-0400 Diastolic blood pressure 63 mm[Hg] Chaz De La Cruz MD Work Phone: [facility] 10-24-2021 09:30-0400 Heart rate 91 /min Chaz De La Cruz MD Work Phone: [facility] 10-24-2021 09:30-0400 Respiratory rate 16 /min Chaz De La Cruz MD Work Phone: [facility] 10-24-2021 09:30-0400 SaO2% (BldA) [Mass fraction] 100 % Chaz De La Cruz MD Work Phone: [facility] 10-24-2021 09:30-0400 Systolic blood pressure 132 mm[Hg] Chaz De La Cruz MD Work Phone: [facility] 10-24-2021 07:17-0400 Body height 165.1 cm Chaz De La Cruz MD Work Phone: [facility] 10-24-2021 07:17-0400 Body temperature 96.8 [degF] Chaz De La Cruz MD Work Phone: [facility] 10-24-2021 07:17-0400 Body weight 74.84 kg Chaz De La Cruz MD Work Phone: [facility] 10-21-2021 08:20-0400 Body temperature 97.5 [degF] Chastity Gardiner MD Work Phone: [facility] 10-21-2021 08:20-0400 Body weight 74.84 kg Chastity Gardiner MD Work Phone: [facility] 10-21-2021 08:20-0400 Diastolic blood pressure 79 mm[Hg] Chastity Gardiner MD Work Phone: [facility] 10-21-2021 08:20-0400 Heart rate 104 /min Chastity Gardiner MD Work Phone: [facility] 10-21-2021 08:20-0400 Respiratory rate 16 /min Chastity Gardiner MD Work Phone: [facility] 10-21-2021 08:20-0400 SaO2% (BldA) [Mass fraction] 98 % Chastity Gardiner MD Work Phone: [facility] 10-21-2021 08:20-0400 Systolic blood pressure 133 mm[Hg] Chastity Gardiner MD Work Phone: [facility] 10-05-2021 11:30-0400 Diastolic blood pressure 64 mm[Hg] Jack Dsouza MD Work Phone: [facility] 10-05-2021 11:30-0400 Heart rate 72 /min Jack Dsouza MD Work Phone: [facility] 10-05-2021 11:30-0400 Respiratory rate 18 /min Jack Dsouza MD Work Phone: [facility] 10-05-2021 11:30-0400 SaO2% (BldA) [Mass fraction] 98 % Jack Dsouza MD Work Phone: [facility] 10-05-2021 11:30-0400 Systolic blood pressure 121 mm[Hg] Jack Dsouza MD Work Phone: [facility] 10-05-2021 11:00-0400 Body temperature 97 [degF] Jack Dsouza MD Work Phone: [facility] 10-05-2021 08:52-0400 Body height 165.1 cm Jack Dsouza MD Work Phone: [facility] 10-05-2021 08:52-0400 Body weight 73.94 kg Jack Dsouza MD Work Phone: [facility] 09-30-2021 14:47-0400 Body height 165.1 cm Pacc 1 Work Phone: [facility] 09-30-2021 14:47-0400 Body temperature 97 [degF] Pacc 1 Work Phone: [facility] 09-30-2021 14:47-0400 Body weight 73.94 kg Pacc 1 Work Phone: [facility] 09-30-2021 14:47-0400 Diastolic blood pressure 84 mm[Hg] Pacc 1 Work Phone: [facility] 09-30-2021 14:47-0400 Heart rate 120 /min Pacc 1 Work Phone: [facility] 09-30-2021 14:47-0400 SaO2% (BldA) [Mass fraction] 99 % Pacc 1 Work Phone: [facility] 09-30-2021 14:47-0400 Systolic blood pressure 122 mm[Hg] Pacc 1 Work Phone: [facility] 09-26-2021 13:38-0400 Body weight 74.39 kg Jaimee Goncalves MD Work Phone: [facility] 09-26-2021 13:38-0400 Diastolic blood pressure 78 mm[Hg] Jaimee Goncalves MD Work Phone: [facility] 09-26-2021 13:38-0400 Heart rate 114 /min Jaimee Goncalves MD Work Phone: [facility] 09-26-2021 13:38-0400 SaO2% (BldA) [Mass fraction] 98 % Jaimee Goncalves MD Work Phone: [facility] 09-26-2021 13:38-0400 Systolic blood pressure 122 mm[Hg] Jaimee Goncalves MD Work Phone: [facility] 08-22-2021 08:12-0400 Body height 165.1 cm Alexandria Vanderwagen PA-C Work Phone: [facility] 08-22-2021 08:12-0400 Body temperature 97.9 [degF] Alexandria Jones PA-C Work Phone: [facility] 08-22-2021 08:12-0400 Body weight 81.65 kg Alexandria Jones PA-C Work Phone: [facility] 08-22-2021 08:12-0400 Diastolic blood pressure 82 mm[Hg] Alexandria Jones PA-C Work Phone: [facility] 08-22-2021 08:12-0400 Heart rate 125 /min Alexandria Vanderwagen PA-C Work Phone: [facility] 08-22-2021 08:12-0400 SaO2% (BldA) [Mass fraction] 99 % Alexandria Vanderwagen PA-C Work Phone: [facility] 08-22-2021 08:12-0400 Systolic blood pressure 124 mm[Hg] Alexandria Jones PA-C Work Phone: [facility] 08-12-2021 14:30-0400 Body height 165.1 cm Chastity Gardiner MD Work Phone: [facility] 08-12-2021 14:30-0400 Body temperature 98.01 [degF] Chastity Gardiner MD Work Phone: [facility] 08-12-2021 14:30-0400 Body weight 80.29 kg Chastity Gardiner MD Work Phone: [facility] 08-12-2021 14:30-0400 Diastolic blood pressure 76 mm[Hg] Chastity Gardiner MD Work Phone: [facility] 08-12-2021 14:30-0400 Heart rate 98 /min Chastity Gardiner MD Work Phone: [facility] 08-12-2021 14:30-0400 Respiratory rate 16 /min Chastity Gardiner MD Work Phone: [facility] 08-12-2021 14:30-0400 SaO2% (BldA) [Mass fraction] 100 % Chastity Gardiner MD Work Phone: [facility] 08-12-2021 14:30-0400 Systolic blood pressure 133 mm[Hg] Chastity Gardiner MD Work Phone: [facility] 07-27-2021 13:54-0400 Body weight 80.29 kg Jaimee Goncalves MD Work Phone: [facility] 07-27-2021 13:54-0400 Diastolic blood pressure 72 mm[Hg] Jaimee Goncalves MD Work Phone: [facility] 07-27-2021 13:54-0400 Heart rate 80 /min Jaimee Goncalves MD Work Phone: [facility] 07-27-2021 13:54-0400 Systolic blood pressure 114 mm[Hg] Jaimee Goncalves MD Work Phone: [facility] 05-27-2021 14:22-0500 Body weight 84.82 kg Jaimee Goncalves MD Work Phone: [facility] 05-27-2021 14:22-0500 Diastolic blood pressure 82 mm[Hg] Jaimee Goncalves MD Work Phone: [facility] 05-27-2021 14:22-0500 Heart rate 82 /min Jaimee Goncalves MD Work Phone: [facility] 05-27-2021 14:22-0500 Systolic blood pressure 130 mm[Hg] Jaimee Goncalves MD Work Phone: [facility] Encounters Encounter Date Encounter Type Care Provider Facility Start: 2023 ambulatory JAIMEE EPSTEINCHRIS Facilit y:[facility] Start: 03-09-2023 End: 03-10-2023 ambulatory JAIMEE EPSTEINCHRIS Facility:[facility] Start: 03-09-2023 End: 03-19-2023 Follow-up encounter Chastity Gardiner MD Work Phone: Gynecology Oncology Procedures Date Procedure Procedure Detail Performing Clinician Start: 01-15-2023 Colonoscopy flx dx w /collj spec when pfrmd Chaz De La Cruz MD Work Phone: Start: 01-15-2023 Colonoscopy Niharika Cleav er [employer] 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 Work Phone: Start: 11-21-2022 INFLUENZA VACCINE, A GE 6 MO - 64 YR, QUADRIVALENT (AFLURIA, FLULAVAL, FLUZONE) Niharika Cervantes [employer] 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 Work Phone: Start: 08-23-2022 [employer] COVI D-19 BIVALENT VACCINE, AGE 12+ YR Jaimee Goncalves MD Work Phone: Start: 07-11-2022 Digital breast tomosynthesis unilateral Jaimee Goncalves MD Work Phone: Start: 07-10-2022 Colonoscopy flx dx w /collj spec when pfrmd Chaz De La Cruz MD Work Phone: Start: 07-10-2022 Colonoscopy Chaz grover MD Work Phone: Start: 05-25-2022 End: 05-25-2022 Mammography Bulk Order Provider Start: 05-19-2022 Ct abdomen & pelvis w/contrast material Rogelio Russo [employer] 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 Work Phone: Start: 05-19-2022 Ct thorax w/contrast material Rogelio Russo [employer] 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 Work Phone: Start: 03-16-2022 Antibody screen Pacc 4 Work Phone: Start: 03-15-2022 Antibody screen JAIMEE GROVER Plan of Treatment Date Care Activity Detail Author Start: 05-19-2032 Urine microalbumin profile [facility] Start: 11-23-2025 Lipid 1996 panel - Serum or Plasma Lipid Screening [facility] Start: 11-23-2025 Lipid panel Lipid Screening [facility] Start: 11-23-2025 LIPID SCREEN LIPID SCREEN [facility] Start: 08-23-2025 DIABETES SCREEN DIABETES SCREEN [facility] Start: 08-23-2025 Diabetes Screening Diabetes Screening [facility] Start: 05-19-2025 DIABETES SCREEN DIABETES SCREEN [facility] Start: 03-21-2025 DIABETES SCREEN DIABETES SCREEN [facility] Start: 02-15-2025 DIABETES SCREEN DIABETES SCREEN [facility] Start: 01-25-2025 DIABETES SCREEN DIABETES SCREEN [facility] Start: 01-04-2025 DIABETES SCREEN DIABETES SCREEN [facility] Start: 12-14-2024 DIABETES SCREEN DIABETES SCREEN [facility] Start: 11-28-2024 DIABETES SCREEN DIABETES SCREEN [facility] Start: 11-04-2024 DIABETES SCREEN DIABETES SCREEN [facility] Start: 09-07-2024 DIABETES SCREEN DIABETES SCREEN [facility] Start: 08-12-2024 DIABETES SCREEN DIABETES SCREEN [facility] Start: 01-16-2024 Colonoscopy Colonoscopy [facility] Start: 01-16-2024 Colorectal Cancer Screening Colorectal Cancer Screening [facility] Start: 01-16-2024 Screening for malignant neoplasm of colon [facility] Start: 07-11-2023 Colonoscopy COLONOSCOPY [facility] Start: 07-11-2023 COLORECTAL CANCER SCREENING COLORECTAL CANCER SCREENING [facility] Start: 05-26-2023 Mammography [facility] Start: 05-26-2023 Screening for malignant neoplasm of breast Mammogram Screening [facility] Start: 02-23-2023 DIABETES SCREEN DIABETES SCREEN [facility] Start: 12-01-2022 End: 01-31-2023 Lipid 1996 panel - Serum or Plasma LIPID PANEL BASIC Lab Routine Mixed hyperlipidemia Expected: 12/01/2022, Expires: 01/31/2023 [facility] Work Phone: Immunizations Immunization Date Immunization Notes Care Provider Favio pollard 11-21-2022 influenza, injectabl e, quadrivalent, contains preservative Niharika Cervantes APRN.CNP Work Phone: [facility] Work Phone: 08-23-2022 COVID-19 vaccine, ag e 12+ yr, bivalent (PFIZER-BIONTECH) Jaimee Goncalves MD Work Phone: [facility] 05-19-2022 influenza, injectabl e, quadrivalent, contains preservative Jaimee Goncalves MD Work Phone: [facility] 05-19-2022 tetanus and diphther ia toxoids, adsorbed, preservative free, for adult use (5 Lf of tetanus toxoid and 2 Lf of diphtheria toxoid) Jaimee Goncalves MD Work Phone: [facility] 09-26-2021 pneumococcal Conjuga te, unspecified formulation Jaimee Goncalves MD Work Phone: [facility] Work Phone: 09-26-2021 pneumococcal (PCV20) vaccine, 20 valent (PREVNAR 20) [facility] 1 Work Phone: [facility] 02-18-2021 COVID-19 vaccine, booster dose (MODERNA) Jaimee Goncalves MD Work Phone: [facility] Work Phone: 11-23-2020 influenza, injectabl e, quadrivalent, contains preservative Jaimee Goncalves MD Work Phone: [facility] 07-10-2020 COVID-19 vaccine, fu ll dose (MODERNA) Jaimee Goncalves MD Work Phone: [facility] 06-03-2020 COVID-19 vaccine, fu ll dose (MODERNA) Jaimee Goncalves MD Work Phone: [facility] 02-04-2020 influenza, injectabl e, quadrivalent, contains preservative Jaimee Goncalves MD Work Phone: [facility] 11-27-2018 influenza, injectabl e, quadrivalent, contains preservative Jaimee Goncalves MD Work Phone: [facility] 12-31-2017 influenza, injectabl e, quadrivalent, contains preservative Jaimee Goncalves MD Work Phone: [facility] 11-24-2016 influenza, injectabl e, quadrivalent, contains preservative Jaimee Goncalves MD Work Phone: [facility] Work Phone: 02-23-2016 influenza, injectabl e, quadrivalent, contains preservative Jaimee Goncalves MD Work Phone: [facility] 02-01-2015 influenza, injectabl e, quadrivalent, contains preservative Jaimee Goncalves MD Work Phone: [facility] 02-02-2014 influenza, seasonal, injectable Jaimee Goncalves MD Work Phone: [facility] 12-27-2012 influenza virus vacc ine, unspecified formulation Jaimee Goncalves MD Work Phone: [facility] 01-01-2012 influenza virus vacc ine, unspecified formulation Jaimee Goncalves MD Work Phone: [facility] 01-01-2012 pneumococcal polysaccharide vaccine, 23 valent Jaimee Goncalves MD Work Phone: [facility] 01-01-2012 tetanus toxoid, redu olvin diphtheria toxoid, and acellular pertussis vaccine, adsorbed Jaimee Goncalves MD Work Phone: [facility] 01-03-2011 influenza virus vacc ine, unspecified formulation Jaimee Goncalves MD Work Phone: [facility] 01-03-2011 pneumococcal polysaccharide vaccine, 23 valent Jaimee Goncalves MD Work Phone: [facility] 12-11-2008 influenza virus vacc ine, unspecified formulation Jaimee Goncalves MD Work Phone: [facility] 11-24-2003 diphtheria and tetan us toxoids, adsorbed for pediatric use Jaimee Goncalves MD Work Phone: [facility] Work Phone: 04-06-1993 hepatitis B immune globulin Jaimee Goncalves MD Work Phone: [facility] Work Phone: Payers Date Payer Category Payer Medicare HUMANA MEDICARE HU[employer]NA MEDICARE PPO [id number] 2020-Present [phone] [address] [address] [place] [address] PPO [id number] 2017 Medicare [id number] 2017 Medicare [id number] 2014 Unknown ATTN PT FINANCIA L S SELF PAY DD5 [id number] 2014-Present [id number] [place] [address] Indemnity [id number] Social History Date Type Detail Facility Start: 08-12-2021 End: 11-25-2021 Tobacco smoking status NHIS Smokes tobacco daily [facility] History of tobacco use Cigarette Smoker [facility] Start: 01-31-2021 End: 01-15-2023 Alcohol intake Current non-drinker of alcohol (finding) [facility] Start: 08-05-2019 End: 02-28-2022 History SDOH Alcohol Frequency 1 [facility] Start: 07-30-2009 History SDOH Alcohol Comment occasional--a couple time a year at holidays [facility] Start: 11-21-2019 History SDOH Social Connections Phone 4 [facility] Start: 11-21-2019 History SDOH Social Connections Get Together 98 [facility] Start: 06-08-2019 End: 02-28-2022 History SDOH Social Connections Membership 2 [facility] Start: 06-08-2019 End: 02-28-2022 History SDOH Social Connections Living 3 [facility] Start: 06-08-2019 End: 02-28-2022 History SDOH Physical Activity DPW 0 [facility] Start: 11-21-2019 End: 02-28-2022 History SDOH Financial 5 [facility] Start: 06-08-2019 Education 12 [facility] Start: 11-12-2009 End: 11-25-2021 Tobacco Comment smokes 1 pack every 2 days [facility] Start: 1965 Sex Assigned At Not on file [facility] Start: 05-17-2021 End: 02-17-2022 Exposure to SARS-CoV-2 (event) Not sure [facility] Start: 08-29-2021 End: 02-17-2022 Exposure to SARS-CoV-2 (event) Unable to assess [facility] Start: 08-12-2021 End: 08-23-2022 Cigarettes smoked current (pack per day) - Reported 0.3 [facility] Start: 08-12-2021 End: 11-25-2021 Tobacco use and exposure Smokeless tobacco non-user [facility] Work Phone: Start: 02-28-2022 End: 08-23-2022 Social connection and isolation panel [facility] Do you belong to any clubs or organizations such as gnosticism groups, unions, [employer] or athletic groups, or school groups? No [facility] Are you now , , , , never or living with a partner? [facility] How often to you hav e a drink containing alcohol? Never [facility] How many standard dr inks containing alcohol do you have on a typical day? Patient does not drink [facility] Do you feel stress - tense, restless, nervous, or anxious, or unable to sleep at night because your mind is troubled all the time - these days [OSQ] Only a little [facility] (I/We) worried wheth er (my/our) food would run out before (I/we) got money to buy more. Never true [facility] Medical Equipment Procedure Code Equipment Code Equipment Origin al Text Equipment Identifier Dates [place] [employer] sp [employer] Custom - [id number] Start: 12-01-2021 Clinical Notes 12-06-2005 to 03-09-2023 Chastity Gardiner MD - 03/09/2023 9:45 AM ESTTelephone Encounter - Jaimee Goncalves MD - 02/15/2023 3:24 PM ESTTelephone Encounter - Mary Camarillo COLLECTION MANAGER - 02/14/2023 2:41 PM ESTPatient Instructions Note Date & Type Note Facility 03-09-2023 Note HNO ID: [id number] Author: Chastity Gardiner MD Service: ? 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 -This result confirms a diagnosis of being a carrier for [id number] Cancer Risk. (Increased risk of prostate cancer; no additional increased cancer risks for females. 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 10/05/21: Screening colonoscopy AND EGD -EGD performed with biopsies- negative -Colonoscopy demonstrated numerous 25 to 30 mm nonbleeding polyps number of which were biopsied. Largest polyp was noted at the rectosigmoid juncture and was concern for primary malignancy to be arising from this polyp. Pathology was negative for any dysplasia or malignancy. 3. 10/24/21: Diagnostic colonoscopy - FINAL DIAGNOSIS A. Colon, sigmoid, polyps, biopsy: - Tubulovillous adenomas with high-grade dysplasia and prolapse related changes. - Tubular adenoma with high-grade dysplasia. - Hyperplastic polyp. 4. 11/04/21-02/17/22-->Oxaliplatin 130mg/m2 and capecitabine 850/m2 po q 21 days 5. 12/23/21-CT scans with disease improvement after 3 cycles 6. 02/17/22-Oxaliplatin decreased to 100mg/m2 d/t fatigue 7. 02/17/22-diagnosed with pneumonia 8.02/18/22-Cap held with cycle 6 due to dyspnea 9. 03/21/22-Colonoscopy Snare polypectomy (adenoma, high grade dysplasia) Hybrid ESD with multiple clip placements ([place]) 10. 06/2022-Colonoscopy-->polyps-->repeat in 6 months LAST MAMMOGRAM:06/2022 LAST COLONOSCOPY: 12/2022-->repeat in 6 months LAST VISIT: 12/01/22 Tumor Markers CA 125 CEA CA19-9 Latest Ref Rng AND Units <39 U/mL <=2.9 ng/mL <36.0 U/mL 03/02/2023 12 3.9(H) - 11/21/2022 12 5.2(H) - 08/23/2022 10 5.2(H) - 05/19/2022 11 6.9(H) - 02/17/2022 - 6.6(H) - 02/15/2022 15 - - 01/25/2022 15 - - 01/04/2022 14 - - 11/28/2021 13 - - 08/12/2021 155(H) 3.2(H) 16.[address]:08/29/22-IMPRESSION: HEAD/NECK: * No FDG avid neoplastic process. CHEST: * No FDG avid neoplastic process. ABDOMEN/PELVIS: * No FDG avid neoplastic process. BONES/EXTREMITIES: * No suspicious FDG avid osseous lesion. SUBJECTIVE/ROS: Kayden Dempsey reports that she feels well except for neuropathy. The neuropathy is improving on cymbalta and gabapentin but still bothersome. No shortness of breath, or chest pain. Baseline coughing. No abdominal pain, nausea, vomiting, diarrhea, or constipation. No dysuria, gross hematuria, urinary frequency, urinary urgency, does endorse mild stress incontinence- not interested in PT. No vaginal bleeding, blood in stools or urine. Her ECOG performance status is 1 (restricted in physically strenuous activity but ambulatory and able to carry out work of a light or sedentary nature). OBJECTIVE: BP 122/76 Pulse 102 Temp 36.7 ?C (98 ?F) (Oral) Resp 16 Wt 85.5 kg (188 lb 6.4 oz) LMP 10/13/2014 SpO2 96% BMI 31.59 kg/m? GENERAL: oriented, pleasant, cooperative, and Alert. HEENT: Normocephalic, atraumatic, mucus membranes moist, and no lesions. NECK: Supple, no adenopathy. HEART: Regular rate and rhythm. LUNGS: Nonlabored respirations ABDOMEN: Abdomen soft, non-tender, no palpable masses. PELVIC: External genitalia, anus and urethral meatus are normal in appearance and without lesions. Vagina is normal in appearance on speculum examination. Bimanual pelvic and rectovaginal examination were negative for urethral, bladder or pelvic masses, parametrial thickening or cul-de-sac nodularity. Uterus and cervix surgically absent. There were no rectal masses. 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 Patient with normal exam today and no concerning symptoms for recurrence. Elevated CEA, continues to follow with colorectal. 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 Desires port removal, offered in office removal or referral to IR. Desires removal in IR, will place order. R (more content not included)... 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 -This result confirms a diagnosis of being a carrier for [id number] Cancer Risk. (Increased risk of prostate cancer; no additional increased cancer risks for females. 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 10/05/21: Screening colonoscopy & EGD -EGD performed with biopsies- negative -Colonoscopy demonstrated numerous 25 to 30 mm nonbleeding polyps number of which were biopsied. Largest polyp was noted at the rectosigmoid juncture and was concern for primary malignancy to be arising from this polyp. Pathology was negative for any dysplasia or malignancy. 3. 10/24/21: Diagnostic colonoscopy - FINAL DIAGNOSIS A. Colon, sigmoid, polyps, biopsy: - Tubulovillous adenomas with high-grade dysplasia and prolapse related changes. - Tubular adenoma with high-grade dysplasia. - Hyperplastic polyp. 4. 11/04/21-02/17/22-->Oxaliplatin 130mg/m2 and capecitabine 850/m2 po q 21 days 5. 12/23/21-CT scans with disease improvement after 3 cycles 6. 02/17/22-Oxaliplatin decreased to 100mg/m2 d/t fatigue 7. 02/17/22-diagnosed with pneumonia 8.02/18/22-Cap held with cycle 6 due to dyspnea 9. 03/21/22-Colonoscopy Snare polypectomy (adenoma, high grade dysplasia) Hybrid ESD with multiple clip placements ([place]) 10. 06/2022-Colonoscopy-->polyps-->repeat in 6 months LAST MAMMOGRAM:06/2022 LAST COLONOSCOPY: 12/2022-->repeat in 6 months LAST VISIT: 12/01/22 Tumor Markers CA 125 CEA CA19-9 Latest Ref Rng & Units <39 U/mL <=2.9 ng/mL <36.0 U/mL 03/02/2023 12 3.9(H) - 11/21/2022 12 5.2(H) - 08/23/2022 10 5.2(H) - 05/19/2022 11 6.9(H) - 02/17/2022 - 6.6(H) - 02/15/2022 15 - - 01/25/2022 15 - - 01/04/2022 14 - - 11/28/2021 13 - - 08/12/2021 155(H) 3.2(H) 16.[address]:08/29/22-IMPRESSION: HEAD/NECK: * No FDG avid neoplastic process. CHEST: * No FDG avid neoplastic process. ABDOMEN/PELVIS: * No FDG avid neoplastic process. BONES/EXTREMITIES: * No suspicious FDG avid osseous lesion. SUBJECTIVE/ROS: Kayden Dempsey reports that she feels well except for neuropathy. The neuropathy is improving on cymbalta and gabapentin but still bothersome. No shortness of breath, or chest pain. Baseline coughing. No abdominal pain, nausea, vomiting, diarrhea, or constipation. No dysuria, gross hematuria, urinary frequency, urinary urgency, does endorse mild stress incontinence- not interested in PT. No vaginal bleeding, blood in stools or urine. Her ECOG performance status is 1 (restricted in physically strenuous activity but ambulatory and able to carry out work of a light or sedentary nature). OBJECTIVE: BP 122/76 Pulse 102 Temp 36.7 C (98 F) (Oral) Resp 16 Wt 85.5 kg (188 lb 6.4 oz) LMP 10/13/2014 SpO2 96% BMI 31.59 kg/m GENERAL: oriented, pleasant, cooperative, and Alert. HEENT: Normocephalic, atraumatic, mucus membranes moist, and no lesions. NECK: Supple, no adenopathy. HEART: Regular rate and rhythm. LUNGS: Nonlabored respirations ABDOMEN: Abdomen soft, non-tender, no palpable masses. PELVIC: External genitalia, anus and urethral meatus are normal in appearance and without lesions. Vagina is normal in appearance on speculum examination. Bimanual pelvic and rectovaginal examination were negative for urethral, bladder or pelvic masses, parametrial thickening or cul-de-sac nodularity. Uterus and cervix surgically absent. There were no rectal masses. 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 Patient with normal exam today and no concerning symptoms for recurrence. Elevated CEA, continues to follow with colorectal. 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 Desires port removal, offered in office removal or referral to IR. Desires removal in IR, will place order. Reviewed signs or symptoms that would warrant prompt evaluation. Questions were answered to her satisfaction and she is agreeable with the plan. Encouraged her to call or return in the interim with any additional questions or concerns. 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 Since next RXs were going to land on 03/19/23, moved pickup date to 03/18. Next RX time from 03/19/23 original due date and set for 04/18/23 The following approved medication requests have been transmitted electronically. Requested Prescriptions Signed Prescriptions Disp Refills morphine SR (MS CONTIN) 15 mg 12 hr tablet 90 tablet 0 Sig: Take 1 tablet by mouth three times a day for 30 days. Do not start before February 17, 2023. Authorizing Provider: JAIMEE GONCALVES HYDROcodone-acetaminophen (NORCO) 5-325 mg per tablet 180 tablet 0 Sig: Take 1 tablet by mouth every 4 hours as needed for up to 30 days. Do not start before February 17, 2023. Authorizing Provider: JAIMEE GONCALVES HYDROcodone-acetaminophen (NORCO) 5-325 mg per tablet 180 tablet 0 Sig: Take 1 tablet by mouth every 4 hours as needed for up to 30 days. Do not start before March 18, 2023. Authorizing Provider: JAIMEE GONCALVES morphine SR (MS CONTIN) 15 mg 12 hr tablet 90 tablet 0 Sig: Take 1 tablet by mouth three times a day for 30 days. Do not start before March 18, 2023. Authorizing Provider: JAIMEE GONCALVES HYDROcodone-acetaminophen (NORCO) 5-325 mg per tablet 180 tablet 0 Sig: Take 1 tablet by mouth every 4 hours as needed for up to 30 days. Do not start before April 18, 2023. Authorizing Provider: JAIMEE GONCALVES morphine SR (MS CONTIN) 15 mg 12 hr tablet 90 tablet 0 Sig: Take 1 tablet by mouth three times a day for 30 days. Do not start before April 18, 2023. Authorizing Provider: JAIMEE GONCALVES MD Patient calling, states that the dates for her [place] and Morphine were put in a day later than they should. She should be getting them on February 17 not on February 18. Please advise. documented in this encounter [facility] 02-12-2023 Note HNO ID: [id number] Author: Jaimee Goncalves MD Service: ? Author Type: Physician Type: Progress Notes Filed: 02/12/2023 4:00 PM Note Text: VIRTUAL VISIT PROGRESS NOTE This is a virtual visit using [employer] Video Visit. It required patient-provider interaction for the medical decision making as documented below. I have communicated my name and active licensure. The patient's identity and physical location were verified at the time of this visit. Either the patient or their legal statement services representative has been informed of the risks and benefits of -- and alternatives to -- treatment through a remote evaluation and consents to proceed with the evaluation remotely. Kayden Dempsey is a 57 year old female seen for follow up--pain management, neuropathy and COVID. brought home COVID for Thanksgiving. Excruciating back and pain from severe chills and headache. Then low grade fever only. Fatigue. Just runny nose. Cough and cold tablets. Soup and staying hydrated. Neuropathy pain in foot seems better. Balance is a little better HISTORY REVIEWED (electronic chart updated): PAST MEDICAL HISTORY Diagnosis Date Chronic pain syndrome Was treated through Dr. Scott and Dr. Massey ([facility]); managed by Dr. 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 Brower 2003 PAST SURGICAL HISTORY Procedure Laterality Date APPENDECTOMY ARTHROSCOPY KNEE DIAGNOSTIC W/WO SYNOVIAL BX SPX Arthroscopy, knee X 2 SECTION HX 1984,1986,1992 NOVASURE 05/17/2008 uterine ablation PAST SURGICAL HISTORY OF , 02/28/1999 right breast biopsy PAST SURGICAL HISTORY OF carpal tunnel right wrist PAST SURGICAL HISTORY OF right foot surgery PAST SURGICAL HISTORY OF Right knee surgery x 3 RESCJ PRIM PRTL MAL W/BSO AND OMNTC FRANCISCO J AND LMPHAD 09/05/2021 Exploratory laparotomy, total abdominal hysterectomy, bilateral salpingo-oophorectomy, lysis of adhesions, omental biopsy (09/05/2021) TONSILLECTOMY PRIMARY/SECONDARY Tonsillectomy TUBAL LIGATION HX 03/19/1992 FAMILY HISTORY Problem Relation Age of Onset Hypertension Father other (Other [Other]) Father glaucoma other (macular degeneration [Other]) Father Lipids Father Hypercholesterolemia other (Colon polyps [Other]) Father other (TIA [Other]) Mother Diabetes Sister Emphysema Maternal Grandfather Colon Cancer Maternal Grandmother 75 Leukemia Maternal Aunt dx 60's other (bone cancer) Paternal Aunt passed in 60's Colon Cancer Paternal Uncle dx 70's Leukemia Paternal cousin dx 60's Breast Cancer Other maternal great aunt @70's Cancer Other passed 50's - maternal first cousin once removed Anesthesia Problems No Family History Social History Tobacco Use Smoking status: Every Day Packs/day: 0.30 Years: 20.00 Additional pack years: 0.00 Total pack years: 6.00 Types: Cigarettes Smokeless tobacco: Never Tobacco comments: smokes 1 pack every 2 days Vaping Use Vaping Use: Never used Substance Use Topics Alcohol use: No Comment: occasional--a couple time a year at holidays Drug use: No Current Outpatient Medications Medication Sig HYDROcodone-acetaminophen (NORCO) 5-325 mg per tablet Take 1 tablet by mouth every 4 hours as needed for up to 30 days. Do not start before December 19, 2022. morphine SR (MS CONTIN) 15 mg 12 hr tablet Take 1 tablet by mouth three times daily for 30 days. Do not start before December 19, 2022. morphine SR (MS CONTIN) 15 mg 12 hr tablet Take 1 tablet by mouth three times daily for 30 days. Do not start before January 18, 2023. HYDROcodone-acetaminophen (NORCO) 5-325 mg per tablet Take 1 tablet by mouth every 4 hours as needed for up to 30 days. Do not start before January 18, 2023. sulfaSALAzine EC (AZULFIDINE EN) 500 mg EC tablet Take 1 tablet by mouth twice daily. DULoxetine (CYMBALTA) 60 mg capsule Take 1 capsule by mouth once daily. morphine SR (MS CONTIN) 15 mg 12 hr tablet Take 1 tablet by mouth three times daily for 30 days. Do not start before October 20, 2022. morphine SR (MS CONTIN) 15 mg 12 hr tablet Take 1 tablet by mouth three times daily for 30 days. Do not start before September 20, 2022. HYDROcodone-acetaminophen (NORCO) 5-325 mg per tablet Take 1 tablet by mouth every 4 hours as needed for up to 30 days. Do not start before September 20, 2022. HYDROcodone-acetaminophen (NORCO) 5-325 mg per tablet Take 1 tablet by mouth every 4 hours as needed for up to 30 days. Do not start before October 20, 2022. HYDROcodone-acetaminophen (NORCO) 5-325 mg per tablet Take 1 tablet by mouth every 4 hours as needed for up to (more content not included)... [facility] 02-12-2023 History of Present illness Narrative VIRTUAL VISIT PROGRESS NOTE This is a virtual visit using [employer] Zoom Video Visit. It required patient-provider interaction for the medical decision making as documented below. I have communicated my name and active licensure. The patient's identity and physical location were verified at the time of this visit. Either the patient or their legal statement services representative has been informed of the risks and benefits of -- and alternatives to -- treatment through a remote evaluation and consents to proceed with the evaluation remotely. Kayden Dempsey is a 57 year old female seen for follow up--pain management, neuropathy and COVID. brought home COVID for Thanksgiving. Excruciating back and pain from severe chills and headache. Then low grade fever only. Fatigue. Just runny nose. Cough and cold tablets. Soup and staying hydrated. Neuropathy pain in foot seems better. Balance is a little better HISTORY REVIEWED (electronic chart updated): PAST MEDICAL HISTORY Diagnosis Date Chronic pain syndrome Was treated through Dr. Scott and Dr. Massey ([facility]); managed by Dr. 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 Brower 2003 PAST SURGICAL HISTORY Procedure Laterality Date APPENDECTOMY ARTHROSCOPY KNEE DIAGNOSTIC W/WO SYNOVIAL BX SPX Arthroscopy, knee X 2 SECTION HX 1984,1986,1992 NOVASURE 05/17/2008 uterine ablation PAST SURGICAL HISTORY OF , 02/28/1999 right breast biopsy PAST SURGICAL HISTORY OF carpal tunnel right wrist PAST SURGICAL HISTORY OF right foot surgery PAST SURGICAL HISTORY OF Right knee surgery x 3 RESCJ PRIM PRTL MAL W/BSO & OMNTC FRANCISCO J & LMPHAD 09/05/2021 Exploratory laparotomy, total abdominal hysterectomy, bilateral salpingo-oophorectomy, lysis of adhesions, omental biopsy (09/05/2021) TONSILLECTOMY PRIMARY/SECONDARY <AGE 12 03/19/1988 Tonsillectomy TUBAL LIGATION HX 03/19/1992 FAMILY HISTORY Problem Relation Age of Onset Hypertension Father other (Other [Other]) Father glaucoma other (macular degeneration [Other]) Father Lipids Father Hypercholesterolemia other (Colon polyps [Other]) Father other (TIA [Other]) Mother Diabetes Sister Emphysema Maternal Grandfather Colon Cancer Maternal Grandmother 75 Leukemia Maternal Aunt dx 60's other (bone cancer) Paternal Aunt passed in 60's Colon Cancer Paternal Uncle dx 70's Leukemia Paternal cousin dx 60's Breast Cancer Other maternal great aunt @70's Cancer Other passed 50's - maternal first cousin once removed Anesthesia Problems No Family History Social History Tobacco Use Smoking status: Every Day Packs/day: 0.30 Years: 20.00 Additional pack years: 0.00 Total pack years: 6.00 Types: Cigarettes Smokeless tobacco: Never Tobacco comments: smokes 1 pack every 2 days Vaping Use Vaping Use: Never used Substance Use Topics Alcohol use: No Comment: occasional--a couple time a year at holidays Drug use: No Current Outpatient Medications Medication Sig HYDROcodone-acetaminophen (NORCO) 5-325 mg per tablet Take 1 tablet by mouth every 4 hours as needed for up to 30 days. Do not start before December 19, 2022. morphine SR (MS CONTIN) 15 mg 12 hr tablet Take 1 tablet by mouth three times daily for 30 days. Do not start before December 19, 2022. morphine SR (MS CONTIN) 15 mg 12 hr tablet Take 1 tablet by mouth three times daily for 30 days. Do not start before January 18, 2023. HYDROcodone-acetaminophen (NORCO) 5-325 mg per tablet Take 1 tablet by mouth every 4 hours as needed for up to 30 days. Do not start before January 18, 2023. sulfaSALAzine EC (AZULFIDINE EN) 500 mg EC tablet Take 1 tablet by mouth twice daily. DULoxetine (CYMBALTA) 60 mg capsule Take 1 capsule by mouth once daily. morphine SR (MS CONTIN) 15 mg 12 hr tablet Take 1 tablet by mouth three times daily for 30 days. Do not start before October 20, 2022. morphine SR (MS CONTIN) 15 mg 12 hr tablet Take 1 tablet by mouth three times daily for 30 days. Do not start before September 20, 2022. HYDROcodone-acetaminophen (NORCO) 5-325 mg per tablet Take 1 tablet by mouth every 4 hours as needed for up to 30 days. Do not start before September 20, 2022. HYDROcodone-acetaminophen (NORCO) 5-325 mg per tablet Take 1 tablet by mouth every 4 hours as needed for up to 30 days. Do not start before October 20, 2022. HYDROcodone-acetaminophen (NORCO) 5-325 mg per tablet Take 1 tablet by mouth every 4 hours as needed for up to 30 days. Do not start before August 21, 2022. hydroxychloroquine sulfate (PLAQUENIL ORAL) Take by mouth twice daily. cyclobenzaprine (FLEXERIL) 10 mg tablet Take 1 tablet by mouth twice daily as needed. lidocaine-prilocaine (EMLA) 2.5-2.5 % cream Apply to affected area as needed. gabapentin (NEURONTIN) 100 mg capsule Take 100 mg by mouth three times daily. 100 mg TID and 300mg at night No current facility-administered medications for this visit. ALLERGIES Allergen Reactions Erythromycin [place] Unknown Mangos [Other] friut Ultracet [Other] REVIEW OF SYSTEMS: As noted in HPI PHYSICAL EXAMINATION: VIDEO EXAM: (if completed, performed via video enabled technology) GENERAL: alert and appropriate, in no distress, well-hydrated, well nourished, happy, smiling, interactive, and appears tired HEAD: normocephalic, no abnormality or lesion noted EYES: no injection and visual acuity is grossly normal RESPIRATORY: breathing non-labored ASSESSMENT: Encounter Diagnosis ICD-10-CM 1. Fibromyalgia M79.7 DULoxetine (CYMBALTA) 60 mg capsule morphine SR (MS CONTIN) 15 mg 12 hr tablet morphine SR (MS CONTIN) 15 mg 12 hr tablet morphine SR (MS CONTIN) 15 mg 12 hr tablet HYDROcodone-acetaminophen (NORCO) 5-325 mg per tablet HYDROcodone-acetaminophen (NORCO) 5-325 mg per tablet HYDROcodone-acetaminophen (NORCO) 5-325 mg per tablet 2. Seronegative Rheumatoid Arthritis M06.00 morphine SR (MS CONTIN) 15 mg 12 hr tablet morphine SR (MS CONTIN) 15 mg 12 hr tablet morphine SR (MS CONTIN) 15 mg 12 hr tablet HYDROcodone-acetaminophen (NORCO) 5-325 mg per tablet HYDROcodone-acetaminophen (NORCO) 5-325 mg per tablet HYDROcodone-acetaminophen (NORCO) 5-325 mg per tablet 3. COVID-19 virus infection U07.1 Onset of symptoms was last Sunday ( started with symptoms the Sunday before); slowly improving 4. Neuropathy G62.9 DULoxetine (CYMBALTA) 60 mg capsule Feet--seems b terri with Cymbalta. Continue present management 5. S/P FRANCISCO J-BSO (total abdominal hysterectomy and bilateral salpingo-oophorectomy) Z90.710 HYDROcodone-acetaminophen (NORCO) 5-325 mg per tablet Z90.722 HYDROcodone-acetaminophen (NORCO) 5-325 mg per tablet Z90.79 HYDROcodone-acetaminophen (NORCO) 5-325 mg per tablet 6. Depression, recurrent (HCC) F33.9 DULoxetine (CYMBALTA) 60 mg capsule Stable on Cymbalta Above issues addressed with patient. Patient involved in shared decision making for management of medical issues. History and medications reviewed. Epic updated as needed Refills and/or prescriptions taken care of and meds adjusted as indicated after reviewed history, exam and labs. Stable with control of chronic pain issues. At this time benefits outweigh risks. Continue to monitor for adverse effects and indications for decreasing dose or tapering off. Pain medications help her stay as active as able. No signs of diversion or abuse of medication(s); no adverse effects. Continue present management. Monitor for signs of secondary infection after COVID 19 infection. Symptom management for now. Further evaluation and treatment as indicated. Jaimee Goncalves MD documented in this encounter [facility] 01-15-2023 Miscellaneous Notes Spoke to Leonora, pharmacy is currently filling RX for Flexeril, Patient does not need refill at this time. Mar Asif LPN Patient has been identified by name and date of : Yes, Provider Dr. Smith Date 01/13/23 Time 10:54 am Pharmacy phones for refill(s): Requested Prescriptions Pending Prescriptions Disp Refills cyclobenzaprine (FLEXERIL) 10 mg tablet [Pharmacy Med Name: CYCLOBENZAPRINE HYDROCHLORIDE 10 MG Tablet] 180 tablet 10 Sig: TAKE 1 TABLET TWICE DAILY NEEDED Date of last office visit in primary care: 11/21/2022 Date of next office visit in primary care: 02/13/2023 Last 2 Encounter Wt Readings: Date: Wt: 12/01/2022 82.1 kg (181 lb) 11/21/2022 82.6 kg (182 lb) Previous labs/tests for medication: Not applicable Thank you. Camila Loya LPN. Sent a [employer] message asking pt to come in and get fasting lab work done. Camila Loya LPN documented in this encounter [facility] 01-15-2023 Nurse Note AMBULATORY PATIENT EDUCATION NOTE TOPIC: GI PROCEDURES: Colonoscopy with or without biopsies based on clinical findings READINESS TO LEARN INSTRUCTION PROVIDED TO: Patient, readness to learn accessed prior to procedure and Family member COGNITIVE ABILITY: Alert and oriented PTED MOTIVATION TO LEARN: Interested FAMILY SUPPORT: Moderate - Family present but overwhelmed IPATIENT LEARNS BEST BY: Individual Instruction Written Instruction - Hand-outs Verbal Instruction FACTORS AFFECTING LEARNING: None PHYSICAL LIMITATIONS AFFECTING LEARNING: None LEARNING RESPONSE METHOD OF INSTRUCTION: Individual instruction PATIENT / FAMILY RESPONSE: Verbalizes understanding of: WORSENING CONDITION-Signs and symptoms of a worsening condition that warrant a call to the physician FOLLOW-UP PLAN: Complete - No need for follow-up SUPPLEMENTAL MATERIAL: Procedure Discharge Instructions REFERRAL (RECOMMENDATION): None PRE OP LEARNING ASSESSMENT PROCEDURE/SURGERY: GI PROCEDURES: Colonoscopy READINESS TO LEARN COGNITIVE ABILITY: Alert and oriented MOTIVATION TO LEARN: Interested FAMILY SUPPORT: None - Unavailable/disinterested PATIENT LEARNS BEST BY: Individual Instruction FACTORS AFFECTING LEARNING: None PHYSICAL LIMITATIONS AFFECTING LEARNING: None Electronically Signed By: Paulina Baker RN In Department: GASTROENTEROLOGY documented in this encounter [facility] 01-15-2023 Miscellaneous Notes Cecum reached,withdrawal initiated documented in this encounter [facility] 01-15-2023 History and physical note HISTORY AND PHYSICAL Kayden Dempsey, 57 year old female Current history and physical on file: No Is a new History and Physical required for today's visit? Yes Indication for procedure: History of colon polyps PROCEDURE(S) SCHEDULED FOR: Colonoscopy with or without biopsies and with or without removal of polyps or lesions, dilation (any means), treatment of bleeding (any means), based on clinical findings. BASELINE BEHAVIOR: Calm BASELINE ORIENTATION: A & O x3 All medications and allergies reviewed: Yes Skin Assessment: Warm dry mucus membranes pink Airway/Respiratory Assessment: Breath sounds clear/equal- Yes Cardiac Assessment: Regular rate and rhythm without murmur Abdominal Assessment: Abdomen soft, non-tender, no masses or organomegaly. Sedation Plan: Moderate Additional Comments: Plan for colonoscopy. Consent obtained. Sophia Parada MD Associated attestation - Chaz De La Cruz MD - 01/15/2023 1:58 PM EDT Chaz De La Cruz MD documented in this encounter [facility] 01-08-2023 Miscellaneous Notes Attempted to reach the patient at the contact number that they provided [phone] (home) . Unable to speak with patient so without identifying the patient the following information was left on their voice mail: Date of procedure, location and report time A message was left informing the patient/patient statement services representative they must have a responsible adult accompany them to their procedure; and remain in the endoscopy area until they are discharged. Failure to have a responsible adult accompany the patient to their procedure appointment prevents the use of sedation or anesthesia for their procedure; and can result in cancellation of the procedure Clear liquids the day before the procedure, stop all liquids 4 hours before the procedure Instructions to contact their primary care provider regarding their medications and which medications to stop in preparation for their procedure Number to call with questions or concerns [phone] Number to call to cancel their procedure [phone] Angeles Sutherland RN documented in this encounter [facility] 12-06-2022 Miscellaneous Notes See message. Pt requesting refills of pain medication for Dec/Jan. Vickey Wild LPN documented in this encounter [facility] 12-01-2022 Note HNO ID: [id number] Author: Chastity Gardiner MD Service: ? 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 (Increased risk of prostate cancer; no additional increased cancer risks for females. 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 10/05/21: Screening colonoscopy AND EGD -EGD performed with biopsies- negative -Colonoscopy demonstrated numerous 25 to 30 mm nonbleeding polyps number of which were biopsied. Largest polyp was noted at the rectosigmoid juncture and was concern for primary malignancy to be arising from this polyp. Pathology was negative for any dysplasia or malignancy. 3. 10/24/21: Diagnostic colonoscopy - FINAL DIAGNOSIS A. Colon, sigmoid, polyps, biopsy: - Tubulovillous adenomas with high-grade dysplasia and prolapse related changes. - Tubular adenoma with high-grade dysplasia. - Hyperplastic polyp. 4. 11/04/21-02/17/22-->Oxaliplatin 130mg/m2 and capecitabine 850/m2 po q 21 days 5. 12/23/21-CT scans with disease improvement after 3 cycles 6. 02/17/22-Oxaliplatin decreased to 100mg/m2 d/t fatigue 7. 02/17/22-diagnosed with pneumonia 8.02/18/22-Cap held with cycle 6 due to dyspnea 9. 03/21/22-Colonoscopy Snare polypectomy (adenoma, high grade dysplasia) [facility] 10. 06/2022-Colonoscopy-->polyps-->repeat in 6 months LAST MAMMOGRAM:06/2022 LAST COLONOSCOPY:2022-->01/15/23 LAST VISIT: 09/08/22 Tumor Markers CA 125 CEA CA19-9 Latest Ref Rng AND Units <39 U/mL <=2.9 ng/mL <36.0 U/mL 11/21/2022 12 5.2(H) - 08/23/2022 10 5.2(H) - 05/19/2022 11 6.9(H) - 02/17/2022 - 6.6(H) - 02/15/2022 15 - - 01/25/2022 15 - - 01/04/2022 14 - - 11/28/2021 13 - - 08/12/2021 155(H) 3.2(H) 16.[address]:08/29/22-IMPRESSION: HEAD/NECK: * No FDG avid neoplastic process. CHEST: * No FDG avid neoplastic process. ABDOMEN/PELVIS: * No FDG avid neoplastic process. BONES/EXTREMITIES: * No suspicious FDG avid osseous lesion. SUBJECTIVE/ROS: Kayden Dempsey reports that she feels well except for neuropathy. The neuropathy is improving on cymbalta and gabapentin but still bothersome. No shortness of breath, or chest pain. Baseline coughing. No abdominal pain, nausea, vomiting, diarrhea, or constipation. No dysuria, gross hematuria, urinary frequency, urinary urgency, does endorse mild stress incontinence- not interested in PT. No vaginal bleeding, blood in stools or urine. Her ECOG performance status is 1 (restricted in physically strenuous activity but ambulatory and able to carry out work of a light or sedentary nature). OBJECTIVE: BP 121/66 (BP Site: Right Arm) Pulse 81 Temp 36.5 ?C (97.7 ?F) (Temporal) Resp 16 Wt 82.1 kg (181 lb) LMP 10/13/2014 SpO2 94% BMI 31.07 kg/m? GENERAL: oriented, pleasant, cooperative, and Alert. HEENT: Normocephalic, atraumatic, mucus membranes moist, and no lesions. NECK: Supple, no adenopathy. HEART: Regular rate and rhythm. LUNGS: Nonlabored respirations ABDOMEN: Abdomen soft, non-tender, no palpable masses. PELVIC: External genitalia, anus and urethral meatus are normal in appearance and without lesions. Vagina is normal in appearance on speculum examination. Bimanual pelvic and rectovaginal examination were negative for urethral, bladder or pelvic masses, parametrial thickening or cul-de-sac nodularity. Uterus and cervix surgically absent. There were no rectal masses. 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 Patient with normal exam today and no concerning symptoms for recurrence. Although her CEA is still elevated at 5.2 she has had normal colonoscopies and normal PET 08/29/22. 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 Patient still with port in, is getting it flushed q90d. We advised her that sh (more content not included)... 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 -This result confirms a diagnosis of being a carrier for [id number] Cancer Risk. (Increased risk of prostate cancer; no additional increased cancer risks for females. 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 10/05/21: Screening colonoscopy & EGD -EGD performed with biopsies- negative -Colonoscopy demonstrated numerous 25 to 30 mm nonbleeding polyps number of which were biopsied. Largest polyp was noted at the rectosigmoid juncture and was concern for primary malignancy to be arising from this polyp. Pathology was negative for any dysplasia or malignancy. 3. 10/24/21: Diagnostic colonoscopy - FINAL DIAGNOSIS A. Colon, sigmoid, polyps, biopsy: - Tubulovillous adenomas with high-grade dysplasia and prolapse related changes. - Tubular adenoma with high-grade dysplasia. - Hyperplastic polyp. 4. 11/04/21-02/17/22-->Oxaliplatin 130mg/m2 and capecitabine 850/m2 po q 21 days 5. 12/23/21-CT scans with disease improvement after 3 cycles 6. 02/17/22-Oxaliplatin decreased to 100mg/m2 d/t fatigue 7. 02/17/22-diagnosed with pneumonia 8.02/18/22-Cap held with cycle 6 due to dyspnea 9. 03/21/22-Colonoscopy Snare polypectomy (adenoma, high grade dysplasia) [facility] 10. 06/2022-Colonoscopy-->polyps-->repeat in 6 months LAST MAMMOGRAM:06/2022 LAST COLONOSCOPY:2022-->01/15/23 LAST VISIT: 09/08/22 Tumor Markers CA 125 CEA CA19-9 Latest Ref Rng & Units <39 U/mL <=2.9 ng/mL <36.0 U/mL 11/21/2022 12 5.2(H) - 08/23/2022 10 5.2(H) - 05/19/2022 11 6.9(H) - 02/17/2022 - 6.6(H) - 02/15/2022 15 - - 01/25/2022 15 - - 01/04/2022 14 - - 11/28/2021 13 - - 08/12/2021 155(H) 3.2(H) 16.[address]:08/29/22-IMPRESSION: HEAD/NECK: * No FDG avid neoplastic process. CHEST: * No FDG avid neoplastic process. ABDOMEN/PELVIS: * No FDG avid neoplastic process. BONES/EXTREMITIES: * No suspicious FDG avid osseous lesion. SUBJECTIVE/ROS: Kayden Dempsey reports that she feels well except for neuropathy. The neuropathy is improving on cymbalta and gabapentin but still bothersome. No shortness of breath, or chest pain. Baseline coughing. No abdominal pain, nausea, vomiting, diarrhea, or constipation. No dysuria, gross hematuria, urinary frequency, urinary urgency, does endorse mild stress incontinence- not interested in PT. No vaginal bleeding, blood in stools or urine. Her ECOG performance status is 1 (restricted in physically strenuous activity but ambulatory and able to carry out work of a light or sedentary nature). OBJECTIVE: BP 121/66 (BP Site: Right Arm) Pulse 81 Temp 36.5 C (97.7 F) (Temporal) Resp 16 Wt 82.1 kg (181 lb) LMP 10/13/2014 SpO2 94% BMI 31.07 kg/m GENERAL: oriented, pleasant, cooperative, and Alert. HEENT: Normocephalic, atraumatic, mucus membranes moist, and no lesions. NECK: Supple, no adenopathy. HEART: Regular rate and rhythm. LUNGS: Nonlabored respirations ABDOMEN: Abdomen soft, non-tender, no palpable masses. PELVIC: External genitalia, anus and urethral meatus are normal in appearance and without lesions. Vagina is normal in appearance on speculum examination. Bimanual pelvic and rectovaginal examination were negative for urethral, bladder or pelvic masses, parametrial thickening or cul-de-sac nodularity. Uterus and cervix surgically absent. There were no rectal masses. 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 Patient with normal exam today and no concerning symptoms for recurrence. Although her CEA is still elevated at 5.2 she has had normal colonoscopies and normal PET 08/29/22. 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 Patient still with port in, is getting it flushed q90d. We advised her that she can keep it in as long as she desires, recommend at least a year in case of recurrence. Reviewed signs or symptoms that would warrant prompt evaluation. Questions were answered to her satisfaction and she is agreeable with the plan. Encouraged her to call or return in the interim with any additional questions or concerns. Plan RTC in 3 months for surveillance observer CIPN- continue current regimen of duloxetine & gabapentin Continue port flushes q3mo Geeta Patel MD PGY7, Gynecologic Oncology Fellow December 01, 2022 12:11 PM Pager: Attending Note I evaluated the patient and personally participated in the hui components. I agree with the fellow's findings and plan as documented and have discussed the case and management of the patient's care with the fellow. I personally examined and counseled patient. Chastity Gardiner MD Medical Decision Making: Problems: Moderate: 2+ stable chronic illnesses Risk: Low: Low risk from testing/treatment Medical Decision Making Level: 3 - Low documented in this encounter [facility] 11-21-2022 Note HNO ID: [id number] Author: Niharika Cervantes APRN.AUTOMOBILE MECHANIC SUPERVISOR Service: ? Author Type: Nurse Practitioner Type: Progress Notes Filed: 11/21/2022 11:38 AM Note Text: SUBJECTIVE Kayden Dempsey is a 57 year old female here today for a check up on her medical problems. Chief Complaint Patient presents with: F/U 3 Month Immunizations: Flu vaccination HPI Kayden Dempsey is a 57 year old female established patient. She presents today for a 3 month follow up. Last seen 08/23/2022 with Jaimee Goncalves MD. Discussed fibromyalgia, rheumatoid arthritis, history of ovarian cancer. Trigger finger injection just recently. Pain about the same. In regards to medications currently taken for pain management, the patient is tolerating these medications well. Reports no side effects and she reports that the medications improve her quality of life and ability to function. She denies misuse, abuse or diversion of medications. Overall her pain is unchanged than the last visit. Still following routinely with nurse gynecology/onc.Still issues with neuropathy post chemo. Her medications were reviewed today and her list is now up to date. Medications Current Outpatient Medications Medication Sig DULoxetine (CYMBALTA) 60 mg capsule Take 1 capsule by mouth once daily. morphine SR (MS CONTIN) 15 mg 12 hr tablet Take 1 tablet by mouth three times daily for 30 days. Do not start before November 19, 2022. HYDROcodone-acetaminophen (NORCO) 5-325 mg per tablet Take 1 tablet by mouth every 4 hours as needed for up to 30 days. Do not start before October 20, 2022. HYDROcodone-acetaminophen (NORCO) 5-325 mg per tablet Take 1 tablet by mouth every 4 hours as needed for up to 30 days. Do not start before November 19, 2022. hydroxychloroquine sulfate (PLAQUENIL ORAL) Take by mouth twice daily. cyclobenzaprine (FLEXERIL) 10 mg tablet Take 1 tablet by mouth twice daily as needed. lidocaine-prilocaine (EMLA) 2.5-2.5 % cream Apply to affected area as needed. gabapentin (NEURONTIN) 100 mg capsule Take 100 mg by mouth three times daily. 100 mg TID and 300mg at night sulfaSALAzine EC (AZULFIDINE EN) 500 mg EC tablet Take 1 tablet by mouth twice daily. morphine SR (MS CONTIN) 15 mg 12 hr tablet Take 1 tablet by mouth three times daily for 30 days. Do not start before October 20, 2022. morphine SR (MS CONTIN) 15 mg 12 hr tablet Take 1 tablet by mouth three times daily for 30 days. Do not start before September 20, 2022. HYDROcodone-acetaminophen (NORCO) 5-325 mg per tablet Take 1 tablet by mouth every 4 hours as needed for up to 30 days. Do not start before September 20, 2022. HYDROcodone-acetaminophen (NORCO) 5-325 mg per tablet Take 1 tablet by mouth every 4 hours as needed for up to 30 days. Do not start before August 21, 2022. No current facility-administered medications for this visit. ALLERGIES Allergen Reactions Erythromycin [place] Unknown Mangos [Other] friut Ultracet [Other] ACTIVE PROBLEM LIST Obesity, Class I, Bmi 30-34.9 - 11/21/2022 Depression, Recurrent (Hcc) - 09/22/2022 History of Ovarian Cancer - 09/20/2022 Comment: s/p resection and chemotherapy S/P Francisco J-Bso (Total Abdominal Hysterectomy and Bilateral Salpingo-Oophorectomy) - 09/20/2022 Colon Adenoma - 03/21/2022 Ovarian Cancer On Left (Hcc) - 12/01/2021 Ovarian Cancer (Hcc) - 10/04/2021 Colon Cancer Screening - 10/04/2021 Pelvic Mass in Female - 09/05/2021 Chronic Pain Syndrome Comment: Was treated through Dr. Scott and Dr. Massey ([facility]); managed by Dr. Iqbal for years after that Vitamin D Deficiency - 09/30/2010 Seronegative Rheumatoid Arthritis (Hcc) - 11/03/2009 Osteoarthrosis, Unspecified Whether Generalized Or Localized, Other Specified Sites - 07/08/2008 Comment: Meniscal tear age 15: surgical repair by arthroscope Reportedly had repeat surgery age 17 done arthroscopically Repeat surgery on the R about age 38 Tobacco Use Disorder - 05/26/2008 Comment: Declined smoking cessation as of 05-25: half a pack per day Hyperlipidemia - 05/26/2008 Comment: TG 344, LDL 130, HDL 30 in 05-25: pt notes rare alcohol use Tuberculin Test Reaction Migraine Without Aura Comment: with nausea, vomiting and light sensitivity Degeneration of Intervertebral Disc, Site Unspecified Comment: The original script for the opiates came from Dr. Avina for the low back She tried a course of Duragesic but had a reaction to the patch She tried Dennise but it was too expensive Transferred care to [facility] about 2004 Myalgia and Myositis Social History Tobacco Use Smoking status: Every Day Packs/day: 0.30 Years: 20.00 Additional pack years: 0.00 Total pack years: 6.00 Types: Cigarettes Smokeless tobacco: Never Tobacco comments: smokes 1 pack every 2 days Vaping Use Vaping Use: Never used Substance Use Topics Alcohol use: No Comment: occasional--a couple time a year at holidays Drug use: No Review of Systems Respirato (more content not included)... [facility] 11-21-2022 History of Present illness Narrative SUBJECTIVE Kayden Dempsey is a 57 year old female here today for a check up on her medical problems. Chief Complaint Patient presents with: F/U 3 Month Immunizations: Flu vaccination HPI Kayden Dempsey is a 57 year old female established patient. She presents today for a 3 month follow up. Last seen 08/23/2022 with Jaimee Goncalves MD. Discussed fibromyalgia, rheumatoid arthritis, history of ovarian cancer. Trigger finger injection just recently. Pain about the same. In regards to medications currently taken for pain management, the patient is tolerating these medications well. Reports no side effects and she reports that the medications improve her quality of life and ability to function. She denies misuse, abuse or diversion of medications. Overall her pain is unchanged than the last visit. Still following routinely with nurse gynecology/onc.Still issues with neuropathy post chemo. Her medications were reviewed today and her list is now up to date. Medications Current Outpatient Medications Medication Sig DULoxetine (CYMBALTA) 60 mg capsule Take 1 capsule by mouth once daily. morphine SR (MS CONTIN) 15 mg 12 hr tablet Take 1 tablet by mouth three times daily for 30 days. Do not start before November 19, 2022. HYDROcodone-acetaminophen (NORCO) 5-325 mg per tablet Take 1 tablet by mouth every 4 hours as needed for up to 30 days. Do not start before October 20, 2022. HYDROcodone-acetaminophen (NORCO) 5-325 mg per tablet Take 1 tablet by mouth every 4 hours as needed for up to 30 days. Do not start before November 19, 2022. hydroxychloroquine sulfate (PLAQUENIL ORAL) Take by mouth twice daily. cyclobenzaprine (FLEXERIL) 10 mg tablet Take 1 tablet by mouth twice daily as needed. lidocaine-prilocaine (EMLA) 2.5-2.5 % cream Apply to affected area as needed. gabapentin (NEURONTIN) 100 mg capsule Take 100 mg by mouth three times daily. 100 mg TID and 300mg at night sulfaSALAzine EC (AZULFIDINE EN) 500 mg EC tablet Take 1 tablet by mouth twice daily. morphine SR (MS CONTIN) 15 mg 12 hr tablet Take 1 tablet by mouth three times daily for 30 days. Do not start before October 20, 2022. morphine SR (MS CONTIN) 15 mg 12 hr tablet Take 1 tablet by mouth three times daily for 30 days. Do not start before September 20, 2022. HYDROcodone-acetaminophen (NORCO) 5-325 mg per tablet Take 1 tablet by mouth every 4 hours as needed for up to 30 days. Do not start before September 20, 2022. HYDROcodone-acetaminophen (NORCO) 5-325 mg per tablet Take 1 tablet by mouth every 4 hours as needed for up to 30 days. Do not start before August 21, 2022. No current facility-administered medications for this visit. ALLERGIES Allergen Reactions Erythromycin [place] Unknown Mangos [Other] friut Ultracet [Other] ACTIVE PROBLEM LIST Obesity, Class I, Bmi 30-34.9 - 11/21/2022 Depression, Recurrent (Hcc) - 09/22/2022 History of Ovarian Cancer - 09/20/2022 Comment: s/p resection and chemotherapy S/P Francisco J-Bso (Total Abdominal Hysterectomy and Bilateral Salpingo-Oophorectomy) - 09/20/2022 Colon Adenoma - 03/21/2022 Ovarian Cancer On Left (Hcc) - 12/01/2021 Ovarian Cancer (Hcc) - 10/04/2021 Colon Cancer Screening - 10/04/2021 Pelvic Mass in Female - 09/05/2021 Chronic Pain Syndrome Comment: Was treated through Dr. Scott and Dr. Massey ([facility]); managed by Dr. Iqbal for years after that Vitamin D Deficiency - 09/30/2010 Seronegative Rheumatoid Arthritis (Hcc) - 11/03/2009 Osteoarthrosis, Unspecified Whether Generalized Or Localized, Other Specified Sites - 07/08/2008 Comment: Meniscal tear age 15: surgical repair by arthroscope Reportedly had repeat surgery age 17 done arthroscopically Repeat surgery on the R about age 38 Tobacco Use Disorder - 05/26/2008 Comment: Declined smoking cessation as of 05-25: half a pack per day Hyperlipidemia - 05/26/2008 Comment: TG 344, LDL 130, HDL 30 in 05-25: pt notes rare alcohol use Tuberculin Test Reaction Migraine Without Aura Comment: with nausea, vomiting and light sensitivity Degeneration of Intervertebral Disc, Site Unspecified Comment: The original script for the opiates came from Dr. Avina for the low back She tried a course of Duragesic but had a reaction to the patch She tried Dennise but it was too expensive Transferred care to [facility] about 2004 Myalgia and Myositis Social History Tobacco Use Smoking status: Every Day Packs/day: 0.30 Years: 20.00 Additional pack years: 0.00 Total pack years: 6.00 Types: Cigarettes Smokeless tobacco: Never Tobacco comments: smokes 1 pack every 2 days Vaping Use Vaping Use: Never used Substance Use Topics Alcohol use: No Comment: occasional--a couple time a year at holidays Drug use: No Review of Systems Respiratory: Negative. Cardiovascular: Negative. OBJECTIVE BP 130/80 Pulse 89 Wt 182 lb (82.6kg) SpO2 97% LMP 10/13/2014 Physical Exam Vitals and nursing note reviewed. Constitutional: General: She is awake. She is not in acute distress. Appearance: Normal appearance. She is well-developed and well-groomed. She is not ill-appearing, toxic-appearing or diaphoretic. HENT: Head: Normocephalic. Right Ear: External ear normal. Left Ear: External ear normal. Nose: Nose normal. Eyes: General: Vision grossly intact. Conjunctiva/sclera: Conjunctivae normal. Pupils: Pupils are equal, round, and reactive to light. Neck: Vascular: No JVD. Trachea: Trachea normal. Cardiovascular: Rate and Rhythm: Normal rate and regular rhythm. Pulses: Normal pulses. Heart sounds: Normal heart sounds. No murmur heard. Pulmonary: Effort: Pulmonary effort is normal. No accessory muscle usage, prolonged expiration or respiratory distress. Breath sounds: Normal breath sounds. Musculoskeletal: Cervical back: Neck supple. Skin: General: Skin is warm and dry. Capillary Refill: Capillary refill takes less than 2 seconds. Neurological: General: No focal deficit present. Mental Status: She is alert and oriented to person, place, and time. Mental status is at baseline. Psychiatric: Attention and Perception: Attention and perception normal. Mood and Affect: Mood and affect normal. Speech: Speech normal. Behavior: Behavior normal. Behavior is cooperative. Thought Content: Thought content normal. Cognition and Memory: Cognition and memory normal. Judgment: Judgment normal. ASSESSMENT/PLAN: 1. Ovarian cancer, bilateral (HCC) - ICD9: 183.0, ICD10: C56.3 (primary diagnosis) Following with nurse gynecology/onc. 2. S/P FRANCISCO J-BSO (total abdominal hysterectomy and bilateral salpingo-oophorectomy) - ICD9: V88.01, ICD10: Z90.710, Z90.722, Z90.79 3. Chronic pain syndrome - ICD9: 338.4, ICD10: G89.4 Following with rheumatology and on morphine/norco. - PARKING FOR HANDICAPPED 4. Seronegative rheumatoid arthritis (HCC) - ICD9: 714.0, ICD10: M06.00 - PARKING FOR HANDICAPPED 5. Fibromyalgia - ICD9: 729.1, ICD10: M79.7 - PARKING FOR HANDICAPPED 6. Neuropathy - ICD9: 355.9, ICD10: G62.9 - PARKING FOR HANDICAPPED 7. Mixed hyperlipidemia - ICD9: 272.2, ICD10: E78.2 - Control undetermined, due for labs - Counseled on healthy diet and regular exercise - LIPID PANEL BASIC 8. Obesity, Class I, BMI 30-34.9 - ICD9: 278.00, ICD10: E66.9 9. Need for influenza vaccination - ICD9: V04.81, ICD10: Z23 - INFLUENZA VACCINE, AGE 6 MO - 64 YR, QUADRIVALENT (AFLURIA, FLULAVAL, FLUZONE) PDMP website checked and validated. All prescriptions have been APPROPRIATELY filled. No suspicious activity was identified. 11/21/2022 by Niharika Cervantes APRN.CNP Portions of this note have been entered by ancillary staff. I have reviewed and when necessary edited, so that they are an adequate record of my encounter with this patient Please note that parts of this document were created using voice recognition software and therefore may contain grammatical errors. Patient verbalizes understanding of instructions from today's visit and in agreement with treatment plan. Questions answered. Agrees to call the office if questions, concerns of issues with acute symptoms not improving or if they worsen. See diagnoses and orders for additional plan(s). Allergies and medications were reviewed, list was updated, and refills given if needed. Past medical, surgical, social, and family history reviewed and updated as appropriate. Encouraged proper diet & exercise as well as compliance with taking medications. Age-appropriate health preventative measures were discussed. Return if symptoms worsen or fail to improve, for Keep next scheduled appointment.. Niharika Cervantes APRN-PATRICIA documented in this encounter [facility] 09-26-2022 Miscellaneous Notes RX for Cymbalta 60mg was escripted to pharmacy. Sofia Powers LPN See MyChart reply documented in this encounter [facility] 09-22-2022 Miscellaneous Notes The following approved medication requests have been transmitted electronically. Requested Prescriptions Signed Prescriptions Disp Refills DULoxetine (CYMBALTA) 60 mg capsule 30 capsule 5 Sig: Take 1 capsule by mouth once daily. Authorizing Provider: JAIMEE GONCALVES MD Took Lexapro of med list since plan was to titrate of that and titrate up Cymbalta Pt asking to be bumped up to 60 mg per day. Please review below and adjust. Camila Loya LPN СВЕТЛАНА: 08/23/22 next apt : 11/21/22 documented in this encounter [facility] 09-08-2022 Note HNO ID: [id number] Author: Chastity Gardiner MD Service: ? 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 -This result confirms a diagnosis of being a carrier for [id number] Cancer Risk. (Increased risk of prostate cancer; no additional increased cancer risks for females. 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 10/05/21: Screening colonoscopy AND EGD -EGD performed with biopsies- negative -Colonoscopy demonstrated numerous 25 to 30 mm nonbleeding polyps number of which were biopsied. Largest polyp was noted at the rectosigmoid juncture and was concern for primary malignancy to be arising from this polyp. Pathology was negative for any dysplasia or malignancy. 3. 10/24/21: Diagnostic colonoscopy - FINAL DIAGNOSIS A. Colon, sigmoid, polyps, biopsy: - Tubulovillous adenomas with high-grade dysplasia and prolapse related changes. - Tubular adenoma with high-grade dysplasia. - Hyperplastic polyp. 4. 11/04/21-02/17/22-->Oxaliplatin 130mg/m2 and capecitabine 850/m2 po q 21 days 5. 12/23/21-CT scans with disease improvement after 3 cycles 6. 02/17/22-Oxaliplatin decreased to 100mg/m2 d/t fatigue 7. 02/17/22-diagnosed with pneumonia 8.02/18/22-Cap held with cycle 6 due to dyspnea 9. 03/21/22-Colonoscopy Snare polypectomy (adenoma, high grade dysplasia) [facility] 10. 06/2022-Coloscopy-->polyps-->repeat in 6 months LAST MAMMOGRAM:06/2022 LAST COLONOSCOPY:2022 LAST VISIT: 05/26/22 Tumor Markers CA 125 CEA CA19-9 Latest Ref Rng AND Units <39 U/mL <=2.9 ng/mL <36.0 U/mL 08/23/2022 10 5.2(H) - 05/19/2022 11 6.9(H) - 02/17/2022 - 6.6(H) - 02/15/2022 15 - - 01/25/2022 15 - - 01/04/2022 14 - - 11/28/2021 13 - - 08/12/2021 155(H) 3.2(H) 16.[address]:08/29/22-IMPRESSION: HEAD/NECK: * No FDG avid neoplastic process. CHEST: * No FDG avid neoplastic process. ABDOMEN/PELVIS: * No FDG avid neoplastic process. BONES/EXTREMITIES: * No suspicious FDG avid osseous lesion. SUBJECTIVE/ROS: Kayden Dempsey reports that she feels well except for neuropathy. The neuropathy is still bothering her despite cymbalta 20mg being added on to her regimen, she is also taking several supplements, trying hand and foot massages. She began cymbalta on 08/23 so unclear if it has reached maximum effect. No shortness of breath, or chest pain. Baseline coughing. No abdominal pain, nausea, vomiting, diarrhea, or constipation. Of note her bowel frequency has improved since starting new supplement emmis. No dysuria, gross hematuria, urinary frequency, urinary urgency, does endorse mild stress incontinence. Baseline back pain and arthritis. No swelling in extremities. No rashes, skin lesions, blisters or mouth sores. No headaches or vision changes. No tinnitus or changes in hearing. No fevers or chills. Her ECOG performance status is 1 (restricted in physically strenuous activity but ambulatory and able to carry out work of a light or sedentary nature). OBJECTIVE: BP 138/75 Pulse 91 Temp 36.9 ?C (98.4 ?F) (Oral) Resp 18 Wt 81.1 kg (178 lb 12.8 oz) LMP 10/13/2014 SpO2 96% BMI 30.69 kg/m? GENERAL: oriented, pleasant, cooperative, and Alert. HEENT: Normocephalic, atraumatic, mucus membranes moist, and no lesions. NECK: Supple, no adenopathy. HEART: Regular rate and rhythm. LUNGS: Nonlabored respirations ABDOMEN: Abdomen soft, non-tender, no palpable masses. PELVIC: External genitalia, anus and urethral meatus are normal in appearance and without lesions. Vagina is normal in appearance on speculum examination. Bimanual pelvic and rectovaginal examination were negative for urethral, bladder or pelvic masses, parametrial thickening or cul-de-sac nodularity. Uterus and cervix surgically absent. There were no rectal masses. 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 Patient with normal exam today and no concerning symptoms for recurr (more content not included)... 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 (Increased risk of prostate cancer; no additional increased cancer risks for females. 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 10/05/21: Screening colonoscopy & EGD -EGD performed with biopsies- negative -Colonoscopy demonstrated numerous 25 to 30 mm nonbleeding polyps number of which were biopsied. Largest polyp was noted at the rectosigmoid juncture and was concern for primary malignancy to be arising from this polyp. Pathology was negative for any dysplasia or malignancy. 3. 10/24/21: Diagnostic colonoscopy - FINAL DIAGNOSIS A. Colon, sigmoid, polyps, biopsy: - Tubulovillous adenomas with high-grade dysplasia and prolapse related changes. - Tubular adenoma with high-grade dysplasia. - Hyperplastic polyp. 4. 11/04/21-02/17/22-->Oxaliplatin 130mg/m2 and capecitabine 850/m2 po q 21 days 5. 12/23/21-CT scans with disease improvement after 3 cycles 6. 02/17/22-Oxaliplatin decreased to 100mg/m2 d/t fatigue 7. 02/17/22-diagnosed with pneumonia 8.02/18/22-Cap held with cycle 6 due to dyspnea 9. 03/21/22-Colonoscopy Snare polypectomy (adenoma, high grade dysplasia) Hybrid ESD with multiple clip placements ([facility]) 10. 06/2022-Coloscopy-->polyps-->repeat in 6 months LAST MAMMOGRAM:06/2022 LAST COLONOSCOPY:2022 LAST VISIT: 05/26/22 Tumor Markers CA 125 CEA CA19-9 Latest Ref Rng & Units <39 U/mL <=2.9 ng/mL <36.0 U/mL 08/23/2022 10 5.2(H) - 05/19/2022 11 6.9(H) - 02/17/2022 - 6.6(H) - 02/15/2022 15 - - 01/25/2022 15 - - 01/04/2022 14 - - 11/28/2021 13 - - 08/12/2021 155(H) 3.2(H) 16.[address]:08/29/22-IMPRESSION: HEAD/NECK: * No FDG avid neoplastic process. CHEST: * No FDG avid neoplastic process. ABDOMEN/PELVIS: * No FDG avid neoplastic process. BONES/EXTREMITIES: * No suspicious FDG avid osseous lesion. SUBJECTIVE/ROS: Kayden Dempsey reports that she feels well except for neuropathy. The neuropathy is still bothering her despite cymbalta 20mg being added on to her regimen, she is also taking several supplements, trying hand and foot massages. She began cymbalta on 08/23 so unclear if it has reached maximum effect. No shortness of breath, or chest pain. Baseline coughing. No abdominal pain, nausea, vomiting, diarrhea, or constipation. Of note her bowel frequency has improved since starting new supplement emmis. No dysuria, gross hematuria, urinary frequency, urinary urgency, does endorse mild stress incontinence. Baseline back pain and arthritis. No swelling in extremities. No rashes, skin lesions, blisters or mouth sores. No headaches or vision changes. No tinnitus or changes in hearing. No fevers or chills. Her ECOG performance status is 1 (restricted in physically strenuous activity but ambulatory and able to carry out work of a light or sedentary nature). OBJECTIVE: BP 138/75 Pulse 91 Temp 36.9 C (98.4 F) (Oral) Resp 18 Wt 81.1 kg (178 lb 12.8 oz) LMP 10/13/2014 SpO2 96% BMI 30.69 kg/m GENERAL: oriented, pleasant, cooperative, and Alert. HEENT: Normocephalic, atraumatic, mucus membranes moist, and no lesions. NECK: Supple, no adenopathy. HEART: Regular rate and rhythm. LUNGS: Nonlabored respirations ABDOMEN: Abdomen soft, non-tender, no palpable masses. PELVIC: External genitalia, anus and urethral meatus are normal in appearance and without lesions. Vagina is normal in appearance on speculum examination. Bimanual pelvic and rectovaginal examination were negative for urethral, bladder or pelvic masses, parametrial thickening or cul-de-sac nodularity. Uterus and cervix surgically absent. There were no rectal masses. 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 Patient with normal exam today and no concerning symptoms for recurrence. Although her CEA is still elevated at 5.2, it has decreased since her last visit from 6.9. Her CBC is wnl, and CMP although with elevated ALP, ALT, AST, is not concerning given they are only slightly elevated. She also had a reassuring negative PET scan 08/29/22. She continues to endorse severe chemotherapy-induced peripheral neuropathy that has not improved with recent addition of cymbalta 20mg to her regimen. She was started on a low dose as she was weaned off of lexapro concurrently. Explained to the patient that the cymbalta can take 4-6 weeks to reach maximal effect and that the dose usually used for CIPN is 60mg, therefore we have room to increase the medication in a few weeks if she does not notice any improvement (would plan 30mg x 1 week, then increase to 60mg daily thereafter). Patient is amenable to this plan. Patient still with port in, is getting it flushed q90d. We advised her that she can keep it in as long as she desires, recommend at least a year in case of recurrence. Plan RTC in 3 months for surveillance Patient to advise us in 4 weeks if she does not have improvement in CIPN on cymbalta 20 mg, at which time we will increase the dose to 30mg daily x 1 week, then 60mg daily Patient getting port flushed today TEACHING PHYSICIAN NOTE OF PERSONAL INVOLVEMENT IN CARE: I have personally seen and examined the patient and performed the medical decision-making components. I have reviewed the medical student documentation and verified the findings in the note as written. Any additions or changes are noted. Signature: Chastity Gardiner documented in this encounter [facility] 08-31-2022 Miscellaneous Notes This patient gave consent to this Medical Advice Message and is aware that it may result in a bill to their insurance, as well as the possibility of receiving a bill for a copay and/or deductible. They are an established patient, but are not seeking information exclusively about a problem treated during an in person or video visit in the last seven days. I did not recommend an in person or video visit within seven days of my reply. See the [employer] message reply for my assessment and plan. I spent a total of <5 minutes reviewing the patient's prior medical records and current request for medical advice, prescribing medications or ordering tests (if applicable), replying to the patient, and documenting the encounter. documented in this encounter [facility] 08-29-2022 Note HNO ID: [id number] Author: RT Essence(R) Service: Nuclear Medicine Author Type: Technologist Type: Progress Notes Filed: 08/29/2022 9:52 AM Note Text: RADIOLOGY SERVICE PROGRESS NOTE SERVICE DATE: 08/29/2022 SERVICE TIME: 9:52 AM PATIENT IDENTITY VERIFICATION COMPLETED USING TWO (2) STANDARD IDENTIFIERS: Name and Date of confirmed by patient verbally FALL SCREENING: Has the patient had 2 falls in the last year or 1 fall with injury or currently using an Ambulatory Assistive Device (Walker, Cane, Wheelchair, Crutches, etc.)? No PATIENT GENDER DATA: .female : No ALLERGIES: Reviewed and unchanged MEDICATIONS REVIEWED: No PATIENT RELEVANT IMPLANT DATA REVIEWED: Not Applicable CREATININE: Creatinine Date Value Ref Range Status 08/23/2022 0.95 0.58 - 0.96 mg/dL Final 05/19/2022 0.88 0.58 - 0.96 mg/dL Final 03/21/2022 0.77 0.58 - 0.96 mg/dL Final Estimated Glomerular Filtration Rate Date Value Ref Range Status 08/23/2022 69 >=60 mL/min/1.73m? Final Comment: Estimated Glomerular Filtration Rate (eGFR) is calculated using the 2020 CKD-EPI creatinine equation. This equation utilizes serum creatinine, sex, and age as parameters. The creatinine assay has traceable calibration to isotope dilution-mass spectrometry. Refer to KDIGO guidelines for clinical interpretation. In patients with unstable renal function, e.g. those with acute kidney injury, the eGFR may not accurately reflect actual GFR. P.O.C.T. RESULTS: N/A August 29, [address] PERFORMED: No IV SITE: Ambulatory: CA only - direct IV injection in the Right antecubital site POST EXAM PIV STATUS: Not applicable PROCEDURE TYPE: NM INJECT: PET/CT BODY SCAN. 9.7 mCi F18 FDG. No other medications given.. ADMINISTRATION TIME: 09 PATIENT DISCHARGED TO: Ambulatory patient, left CA department area. A Diagnostic radioactive procedure has taken place, with no further precautions necessary other than routine body substance precautions. More information regarding radiation safety can be found using this link: [email or web address] SIGNATURE: RT Essence(R) PATIENT NAME: Kayden Dempsey DATE: August 29, 2022 TIME: 9:52 AM PAGER/CONTACT #: [facility] 08-25-2022 Miscellaneous Notes The following approved medication requests have been transmitted electronically. Requested Prescriptions Signed Prescriptions Disp Refills morphine SR (MS CONTIN) 15 mg 12 hr tablet 90 tablet 0 Sig: Take 1 tablet by mouth three times daily for 30 days. Do not start before October 20, 2022. Authorizing Provider: JAIMEE GONCALVES morphine SR (MS CONTIN) 15 mg 12 hr tablet 90 tablet 0 Sig: Take 1 tablet by mouth three times daily for 30 days. Do not start before September 20, 2022. Authorizing Provider: JAIMEE GONCALVES morphine SR (MS CONTIN) 15 mg 12 hr tablet 90 tablet 0 Sig: Take 1 tablet by mouth three times daily for 30 days. Do not start before November 19, 2022. Authorizing Provider: JAIMEE GONCALVES MD Pharmacy does not have scripts for MS Contin for September/October/November. According to patient's My Chart message. Patient phones requesting refills as follows: Requested Prescriptions Pending Prescriptions Disp Refills morphine SR (MS CONTIN) 15 mg 12 hr tablet 90 tablet 0 Sig: Take 1 tablet by mouth three times daily for 30 days. Do not start before October 20, 2022. morphine SR (MS CONTIN) 15 mg 12 hr tablet 90 tablet 0 Sig: Take 1 tablet by mouth three times daily for 30 days. Do not start before September 20, 2022. morphine SR (MS CONTIN) 15 mg 12 hr tablet 90 tablet 0 Sig: Take 1 tablet by mouth three times daily for 30 days. Do not start before November 19, 2022. Daisy Valle LPN documented in this encounter [facility] 08-23-2022 Note HNO ID: [id number] Author: Jaimee Goncalves MD Service: ? Author Type: Physician Type: Progress Notes Filed: 09/20/2022 12:12 AM Note Text: This note was created using Cam[employer]. Subjective Kayden Dempsey is a 57 year old female. Patient presents with: F/U 3 Month SUBJECTIVE: Kayden Dempsey is a 57 year old year old lady here today for 3 month follow up appointment for review of medical conditions. Ongoing neuropathy. Numbness is driving her crazy. Feet feels like tangled in extension cords. Discussed Cymbalta. Noted chemo induced neuropathy issues. Lexapro helped with the hot flashes. Did increase BComplex and taking magnesium. Supplement has Calcium 1000 mg, Magnesium 400 mg, Zinc 25 mg, Vitamin D3 600IU--takes 1 three times daily. Pain control adequate. PAST MEDICAL HISTORY Diagnosis Date Chronic pain syndrome Was treated through Dr. Scott and Dr. Massey ([facility]); managed by Dr. 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 Do not start before August 21, 2022. HYDROcodone-acetaminophen (NORCO) 5-325 mg per tablet Take 1 tablet by mouth every 4 hours as needed for up to 30 days. Do not start before August 21, 2022. hydroxychloroquine sulfate (PLAQUENIL ORAL) Take by mouth twice daily. cyclobenzaprine (FLEXERIL) 10 mg tablet Take 1 tablet by mouth twice daily as needed. escitalopram oxalate (LEXAPRO) 10 mg tablet Take 1 tablet by mouth once daily. lidocaine-prilocaine (EMLA) 2.5-2.5 % cream Apply to affected area as needed. gabapentin (NEURONTIN) 100 mg capsule Take 100 mg by mouth three times daily. 100 mg TID and 300mg at night HYDROcodone-acetaminophen (NORCO) 5-325 mg per tablet Take 1 tablet by mouth every 4 hours as needed for pain for up to 30 days. Do not start before June 22, 2022. HYDROcodone-acetaminophen (NORCO) 5-325 mg per tablet Take 1 tablet by mouth every 4 hours as needed for up to 30 days. Do not start before July 22, 2022. morphine SR (MS CONTIN) 15 mg 12 hr tablet Take 1 tablet by mouth three times daily for 30 days. Do not start before June 23, 2022. No current facility-administered medications for this visit. Review of Systems Objective BP 122/74 Pulse (!) 26 Temp 36.2 ?C (97.2 ?F) Resp 18 Wt 82.1 kg (181 lb) LMP 10/13/2014 SpO2 98% BMI 31.07 kg/m? Last 5 Encounter Wt Readings: Date: Wt: 08/23/2022 82.1 kg (181 lb) 07/10/2022 79.4 kg (175 lb) 05/26/2022 80.7 kg (178 lb) 03/15/2022 76.7 kg (169 lb) 03/06/2022 76.2 kg (168 lb) No waist measurement recorded Estimated body mass index is 31.07 kg/m? as calculated from the following: Height as of 07/10/22: 162.6 cm (5' 4 ). Weight as of this encounter: 82.1 kg (181 lb). Last 5 Encounter BP Readings: Date: BP: 08/23/2022 122/74 07/10/2022 118/63 07/10/2022 129/68 05/26/2022 151/85 03/21/2022 120/59 Physical Exam Constitutional: Appearance: Normal appearance. HENT: Head: Normocephalic. Eyes: Conjunctiva/sclera: Conjunctivae normal. Cardiovascular: Rate and Rhythm: Normal rate and regular rhythm. Heart sounds: Normal heart sounds. Pulmonary: Effort: Pulmonary effort is normal. Breath sounds: Normal breath sounds. Skin: General: Skin is warm and dry. Neurological: General: No focal deficit present. Mental Status: She is alert and oriented to person, place, and time. Psychiatric: Mood and Affect: Mood normal. Behavior: Behavior normal. Thought Content: Thought content normal. Judgment: Judgment normal. Assessment and Plan Encounter Diagnosis ICD-10-CM 1. Encounter for immunization Z23 [employer] COVID-19 BIVALENT VACCINE, AGE 12+ YR 2. Fibromyalgia M79.7 HYDROcodone-acetaminophen (NORCO) 5-325 mg per tablet HYDROcodone-acetaminophen (NORCO) 5-325 mg per tablet HYDROcodone-acetaminophen (NORCO) 5-325 mg per tablet 3. Seronegative Rheumatoid Arthritis M06.00 HYDROcodone-acetaminophen (NORCO) 5-325 mg per tablet HYDROcodone-acetaminophen (NORCO) 5-325 mg per tablet HYDROcodone-acetaminophen (NORCO) 5-325 mg per tablet 4. S/P FRANCISCO J-BSO (total abdominal hysterectomy and bilateral salpingo-oophorectomy) Z90.710 HYDROcodone-acetaminophen (NORCO) 5-325 mg per tablet Z90.722 HYDROcodone-acetaminophen (NORCO) 5-325 mg per tablet Z90.79 HYDROcodone-acetaminophen (NORCO) 5-325 mg per tablet 5. History of ovarian cancer Z85.43 s/p resection and chemotherapy Above issues addressed with patient. Patient involved in shared d (more content not included)... [facility] 08-23-2022 Instructions Jaimee Goncalves MD - 08/23/2022 11:26 AM EDT Start Cymbalta 20 mg one daily Stay on Lexapro 10 mg daily whole tablet for 3 days then decrease to half pill daily. If doing well with above, can stop the Lexapro. May increase Cymbalta to 2 pills once daily OR 1 pill twice daily After a month can increase to 60 mg a day if needed. Just need to let me know so can change prescription dose. Check B complex dose. B12 up to 1000 mcg daily, B6 up to 200 mg daily (usually recommend for 2 to 3 months then lower the dose). Alpha lipoic acid could help with neuropathy. 300 to 600 mg per day could help. documented in this encounter [facility] 08-23-2022 History of Present illness Narrative This note was created using Joroto. Subjective Kayden Dempsey is a 57 year old female. Patient presents with: F/U 3 Month SUBJECTIVE: Kayden Dempsey is a 57 year old year old lady here today for 3 month follow up appointment for review of medical conditions. Ongoing neuropathy. Numbness is driving her crazy. Feet feels like tangled in extension cords. Discussed Cymbalta. Noted chemo induced neuropathy issues. Lexapro helped with the hot flashes. Did increase BComplex and taking magnesium. Supplement has Calcium 1000 mg, Magnesium 400 mg, Zinc 25 mg, Vitamin D3 600IU--takes 1 three times daily. Pain control adequate. PAST MEDICAL HISTORY Diagnosis Date Chronic pain syndrome Was treated through Dr. Scott and Dr. Massey ([facility]); managed by Dr. 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 Do not start before August 21, 2022. HYDROcodone-acetaminophen (NORCO) 5-325 mg per tablet Take 1 tablet by mouth every 4 hours as needed for up to 30 days. Do not start before August 21, 2022. hydroxychloroquine sulfate (PLAQUENIL ORAL) Take by mouth twice daily. cyclobenzaprine (FLEXERIL) 10 mg tablet Take 1 tablet by mouth twice daily as needed. escitalopram oxalate (LEXAPRO) 10 mg tablet Take 1 tablet by mouth once daily. lidocaine-prilocaine (EMLA) 2.5-2.5 % cream Apply to affected area as needed. gabapentin (NEURONTIN) 100 mg capsule Take 100 mg by mouth three times daily. 100 mg TID and 300mg at night HYDROcodone-acetaminophen (NORCO) 5-325 mg per tablet Take 1 tablet by mouth every 4 hours as needed for pain for up to 30 days. Do not start before June 22, 2022. HYDROcodone-acetaminophen (NORCO) 5-325 mg per tablet Take 1 tablet by mouth every 4 hours as needed for up to 30 days. Do not start before July 22, 2022. morphine SR (MS CONTIN) 15 mg 12 hr tablet Take 1 tablet by mouth three times daily for 30 days. Do not start before June 23, 2022. No current facility-administered medications for this visit. Review of Systems Objective BP 122/74 Pulse (!) 26 Temp 36.2 C (97.2 F) Resp 18 Wt 82.1 kg (181 lb) LMP 10/13/2014 SpO2 98% BMI 31.07 kg/m Last 5 Encounter Wt Readings: Date: Wt: 08/23/2022 82.1 kg (181 lb) 07/10/2022 79.4 kg (175 lb) 05/26/2022 80.7 kg (178 lb) 03/15/2022 76.7 kg (169 lb) 03/06/2022 76.2 kg (168 lb) No waist measurement recorded Estimated body mass index is 31.07 kg/m as calculated from the following: Height as of 07/10/22: 162.6 cm (5' 4 ). Weight as of this encounter: 82.1 kg (181 lb). Last 5 Encounter BP Readings: Date: BP: 08/23/2022 122/74 07/10/2022 118/63 07/10/2022 129/68 05/26/2022 151/85 03/21/2022 120/59 Physical Exam Constitutional: Appearance: Normal appearance. HENT: Head: Normocephalic. Eyes: Conjunctiva/sclera: Conjunctivae normal. Cardiovascular: Rate and Rhythm: Normal rate and regular rhythm. Heart sounds: Normal heart sounds. Pulmonary: Effort: Pulmonary effort is normal. Breath sounds: Normal breath sounds. Skin: General: Skin is warm and dry. Neurological: General: No focal deficit present. Mental Status: She is alert and oriented to person, place, and time. Psychiatric: Mood and Affect: Mood normal. Behavior: Behavior normal. Thought Content: Thought content normal. Judgment: Judgment normal. Assessment and Plan Encounter Diagnosis ICD-10-CM 1. Encounter for immunization Z23 [employer] COVID-19 BIVALENT VACCINE, AGE 12+ YR 2. Fibromyalgia M79.7 HYDROcodone-acetaminophen (NORCO) 5-325 mg per tablet HYDROcodone-acetaminophen (NORCO) 5-325 mg per tablet HYDROcodone-acetaminophen (NORCO) 5-325 mg per tablet 3. Seronegative Rheumatoid Arthritis M06.00 HYDROcodone-acetaminophen (NORCO) 5-325 mg per tablet HYDROcodone-acetaminophen (NORCO) 5-325 mg per tablet HYDROcodone-acetaminophen (NORCO) 5-325 mg per tablet 4. S/P FRANCISCO J-BSO (total abdominal hysterectomy and bilateral salpingo-oophorectomy) Z90.710 HYDROcodone-acetaminophen (NORCO) 5-325 mg per tablet Z90.722 HYDROcodone-acetaminophen (NORCO) 5-325 mg per tablet Z90.79 HYDROcodone-acetaminophen (NORCO) 5-325 mg per tablet 5. History of ovarian cancer Z85.43 s/p resection and chemotherapy Above issues addressed with patient. Patient involved in shared decision making for management of medical issues. History and medications reviewed. Epic updated as needed Refills and/or prescriptions taken care of and meds adjusted as indicated after reviewed history, exam and labs. Health Maintenance reviewed. Updated record and/or ordered tests as recorded. Encouraged on efforts at healthy diet and regular exercise and adequate sleep. Jaimee Goncalves MD documented in this encounter [facility] 08-16-2022 Miscellaneous Notes The following approved medication requests have been transmitted electronically. Requested Prescriptions Signed Prescriptions Disp Refills morphine SR (MS CONTIN) 15 mg 12 hr tablet 90 tablet 0 Sig: Take 1 tablet by mouth three times daily for 30 days. Do not start before August 21, 2022. Authorizing Provider: JAIMEE GONCALVES MD Patient has been identified by name and date of : Yes Patient phones for refill(s): Requested Prescriptions Pending Prescriptions Disp Refills morphine SR (MS CONTIN) 15 mg 12 hr tablet 90 tablet 0 Sig: Take 1 tablet by mouth three times daily for 30 days. Do not start before August 21, 2022. Date of last office visit in primary care: 07/07/2022 3 month follow-up: 08/23/2022 Last 2 Encounter Wt Readings: Date: Wt: 07/10/2022 79.4 kg (175 lb) 05/26/2022 80.7 kg (178 lb) Previous labs/tests for medication: Not applicable Please advise. Thank you. Mar Asif LPN documented in this encounter [facility] 07-18-2022 Miscellaneous Notes This patient gave consent to this Medical Advice Message and is aware that it may result in a bill to their insurance, as well as the possibility of receiving a bill for a copay and/or deductible. They are an established patient, but are not seeking information exclusively about a problem treated during an in person or video visit in the last seven days. I did not recommend an in person or video visit within seven days of my reply. See the [employer] message reply for my assessment and plan. I spent a total of 10 minutes reviewing the patient's prior medical records and current request for medical advice, prescribing medications or ordering tests (if applicable), replying to the patient, and documenting the encounter. documented in this encounter [facility] 07-11-2022 Miscellaneous Notes Benign, 1 year screening advised documented in this encounter [facility] 07-10-2022 Nurse Note AMBULATORY PATIENT EDUCATION NOTE TOPIC: GI PROCEDURES: Colonoscopy with or without biopsies based on clinical findings READINESS TO LEARN INSTRUCTION PROVIDED TO: Patient, readness to learn accessed prior to procedure COGNITIVE ABILITY: Alert and oriented PTED MOTIVATION TO LEARN: Interested FAMILY SUPPORT: Moderate - Family present but overwhelmed IPATIENT LEARNS BEST BY: Individual Instruction FACTORS AFFECTING LEARNING: None PHYSICAL LIMITATIONS AFFECTING LEARNING: None LEARNING RESPONSE METHOD OF INSTRUCTION: Individual instruction PATIENT / FAMILY RESPONSE: Verbalizes understanding of: WORSENING CONDITION-Signs and symptoms of a worsening condition that warrant a call to the physician FOLLOW-UP PLAN: Complete - No need for follow-up SUPPLEMENTAL MATERIAL: Procedure Discharge Instructions REFERRAL (RECOMMENDATION): None PRE OP LEARNING ASSESSMENT PROCEDURE/SURGERY: GI PROCEDURES: Colonoscopy READINESS TO LEARN COGNITIVE ABILITY: Alert and oriented MOTIVATION TO LEARN: Interested FAMILY SUPPORT: None - Unavailable/disinterested PATIENT LEARNS BEST BY: Individual Instruction FACTORS AFFECTING LEARNING: None PHYSICAL LIMITATIONS AFFECTING LEARNING: None Electronically Signed By: Sheba Segura RN In Department: GASTROENTEROLOGY documented in this encounter [facility] 07-03-2022 Miscellaneous Notes Spoke with patient: Yes Confirmed date scheduled and patient report time: Yes Procedure Planned:Colonoscopy with or without biopsies based on clinical findings Is the patient on blood thinners?no Procedure Instructions given to patient: Yes, and they verbalized their understanding of instructions given Patient instructed to take prescribed preparation prior to procedure:Yes, and they verbalized their understanding of instructions given Patient instructed to have family/friend present for procedure transport home:Patient/patient statement services representative was told that if they do not have a responsible adult accompany them to their procedure; and remain in the endoscopy area until they are discharged; that their procedure cannot be done with sedation or anesthesia and may be cancelled. and They verbalized their understanding and agree to have a responsible adult accompany the patient to their procedure and remain in the endoscopy area. Any barriers to Patient learning: Patient/Patient Siphon Operator responded appropriately on phone. Type of instruction given: Verbal by telephone contact. Melba Barnett RN documented in this encounter [facility] 06-20-2022 Miscellaneous Notes Duplicate request, [place] refill 06/22/2022, x180 tablets. Mar Asif LPN documented in this encounter [facility] 06-20-2022 Miscellaneous Notes The following approved medication requests have been transmitted electronically. Requested Prescriptions Signed Prescriptions Disp Refills HYDROcodone-acetaminophen (NORCO) 5-325 mg per tablet 180 tablet 0 Sig: Take 1 tablet by mouth every 4 hours as needed for pain for up to 30 days. Do not start before June 22, 2022. Authorizing Provider: JAIMEE GONCALVES HYDROcodone-acetaminophen (NORCO) 5-325 mg per tablet 180 tablet 0 Sig: Take 1 tablet by mouth every 4 hours as needed for up to 30 days. Do not start before July 22, 2022. Authorizing Provider: JAIMEE GONCALVES HYDROcodone-acetaminophen (NORCO) 5-325 mg per tablet 180 tablet 0 Sig: Take 1 tablet by mouth every 4 hours as needed for up to 30 days. Do not start before August 21, 2022. Authorizing Provider: JAIMEE GONCALVES MD СВЕТЛАНА: 05/19/2022 Last refill: 05/24/2022 QTY: 180 Refills: 0 documented in this encounter [facility] 06-16-2022 Miscellaneous Notes Already taken care of documented in this encounter [facility] 06-14-2022 Miscellaneous Notes Order placed Please enter a Left Breast Ultrasound order per protocol, thank you! documented in this encounter [facility] 06-05-2022 Miscellaneous Notes Patient is scheduled for additional images of left breast, 07/11/2022. Mar Asif LPN ----- Message from Jaimee Goncalves MD sent at 06/05/2022 1:14 AM EDT ----- Needs additional imaging. Orders placed for left breast additional views documented in this encounter [facility] 06-02-2022 Miscellaneous Notes This patient gave consent to this Medical Advice Message and is aware that it may result in a bill to their insurance, as well as the possibility of receiving a bill for a copay and/or deductible. They are an established patient, but are not seeking information exclusively about a problem treated during an in person or video visit in the last seven days. I did not recommend an in person or video visit within seven days of my reply. See the MyChart message reply for my assessment and plan. I spent a total of <5 minutes reviewing the patient's prior medical records and current request for medical advice, prescribing medications or ordering tests (if applicable), replying to the patient, and documenting the encounter. documented in this encounter [facility] 05-26-2022 Note HNO ID: [id number] Author: Chastity Gardiner MD Service: ? 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 (Increased risk of prostate cancer; no additional increased cancer risks for females. 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 10/05/21: Screening colonoscopy AND EGD -EGD performed with biopsies- negative -Colonoscopy demonstrated numerous 25 to 30 mm nonbleeding polyps number of which were biopsied. Largest polyp was noted at the rectosigmoid juncture and was concern for primary malignancy to be arising from this polyp. Pathology was negative for any dysplasia or malignancy. 3. 10/24/21: Diagnostic colonoscopy - FINAL DIAGNOSIS A. Colon, sigmoid, polyps, biopsy: - Tubulovillous adenomas with high-grade dysplasia and prolapse related changes. - Tubular adenoma with high-grade dysplasia. - Hyperplastic polyp. 4. 11/04/21-02/17/22-->Oxaliplatin 130mg/m2 and capecitabine 850/m2 po q 21 days 5. 12/23/21-CT scans with disease improvement after 3 cycles 6. 02/17/22-Oxaliplatin decreased to 100mg/m2 d/t fatigue 7. 02/17/22-diagnosed with pneumonia 8.02/18/22-Cap held with cycle 6 due to dyspnea 9. 03/21/22-Colonoscopy Snare polypectomy (adenoma, high grade dysplasia) Hybrid ESD with multiple clip placements ([facility]) LAST MAMMOGRAM:05/25/22-needs additional views LAST COLONOSCOPY:2021 LAST VISIT: 03/14/22 Tumor Markers CA 125 CEA CA19-9 Latest Ref Rng AND Units <39 U/mL <=2.9 ng/mL <36.0 U/mL 05/19/2022 11 6.9(H) - 02/17/2022 - 6.6(H) - 02/15/2022 15 - - 01/25/2022 15 - - 01/04/2022 14 - - 11/28/2021 13 - - 08/12/2021 155(H) 3.2(H) 16.0 CT C/A/P:05/19/22-IMPRESSION: No metastatic disease in the abdomen and pelvis. IMPRESSION: 1. No interval change, there are no new or growing lung nodules. 2. Respiratory bronchiolitis noted. CT C/A/P:03/01/22-IMPRESSION: Stable bilateral upper lobe groundglass opacities, possibly chronic/infectious/edematous. No acute process is seen. IMPRESSION: Stable findings. No acute process is seen. SUBJECTIVE/ROS: Kayden Dempsey reports that she feels well except for neuropathy. No shortness of breath, or chest pain. Baseline coughing. Reports occasional difficulty swallowing spit. No abdominal pain, nausea, vomiting, diarrhea, or constipation. No dysuria, gross hematuria, urinary frequency, urinary urgency, or incontinence. Baseline back pain and arthritis. Patient reports neuropathy BEATRIS hands and feet. Feels it has worsened since chemo has finished. BEATRIS LE just proximal to ankles. BEATRIS UE are numb to wrists. Reports having burned her wrist with iron and did not realize it. She has also experienced several falls. No swelling in extremities. No rashes, skin lesions, blisters or mouth sores. No headaches or vision changes. No tinnitus or changes in hearing. No fevers or chills. Her ECOG performance status is 1 (restricted in physically strenuous activity but ambulatory and able to carry out work of a light or sedentary nature). OBJECTIVE: BP 151/85 Pulse 92 Temp 36.3 ?C (97.4 ?F) Resp 16 Wt 80.7 kg (178 lb) LMP 10/13/2014 SpO2 95% BMI 29.71 kg/m? GENERAL: oriented, pleasant, cooperative, and Alert. HEENT: Normocephalic, atraumatic, mucus membranes moist, and no lesions. NECK: Supple, no adenopathy. HEART: Regular rate and rhythm. LUNGS: Nonlabored respirations ABDOMEN: Abdomen soft, non-tender, no palpable masses. PELVIC: External genitalia, anus and urethral meatus are normal in appearance and without lesions. Vagina is normal in appearance on speculum examination. Bimanual pelvic and rectovaginal examination were negative for urethral, bladder or pelvic masses, parametrial thickening or cul-de-sac nodularity. Uterus and cervix surgically absent. There were no rectal masses. 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 Completed C6 of adjuvant oxaliplatin AND capecitabine in 02/2022. 2. Colon polyps 3. Rising CEA Reviewed labs with patient including elevated CE (more content not included)... 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 (Increased risk of prostate cancer; no additional increased cancer risks for females. 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 10/05/21: Screening colonoscopy & EGD -EGD performed with biopsies- negative -Colonoscopy demonstrated numerous 25 to 30 mm nonbleeding polyps number of which were biopsied. Largest polyp was noted at the rectosigmoid juncture and was concern for primary malignancy to be arising from this polyp. Pathology was negative for any dysplasia or malignancy. 3. 10/24/21: Diagnostic colonoscopy - FINAL DIAGNOSIS A. Colon, sigmoid, polyps, biopsy: - Tubulovillous adenomas with high-grade dysplasia and prolapse related changes. - Tubular adenoma with high-grade dysplasia. - Hyperplastic polyp. 4. 11/04/21-02/17/22-->Oxaliplatin 130mg/m2 and capecitabine 850/m2 po q 21 days 5. 12/23/21-CT scans with disease improvement after 3 cycles 6. 02/17/22-Oxaliplatin decreased to 100mg/m2 d/t fatigue 7. 02/17/22-diagnosed with pneumonia 8.02/18/22-Cap held with cycle 6 due to dyspnea 9. 03/21/22-Colonoscopy Snare polypectomy (adenoma, high grade dysplasia) Hybrid ESD with multiple clip placements ([facility]) LAST MAMMOGRAM:05/25/22-needs additional views LAST COLONOSCOPY:2021 LAST VISIT: 03/14/22 Tumor Markers CA 125 CEA CA19-9 Latest Ref Rng & Units <39 U/mL <=2.9 ng/mL <36.0 U/mL 05/19/2022 11 6.9(H) - 02/17/2022 - 6.6(H) - 02/15/2022 15 - - 01/25/2022 15 - - 01/04/2022 14 - - 11/28/2021 13 - - 08/12/2021 155(H) 3.2(H) 16.0 CT C/A/P:05/19/22-IMPRESSION: No metastatic disease in the abdomen and pelvis. IMPRESSION: 1. No interval change, there are no new or growing lung nodules. 2. Respiratory bronchiolitis noted. CT C/A/P:03/01/22-IMPRESSION: Stable bilateral upper lobe groundglass opacities, possibly chronic/infectious/edematous. No acute process is seen. IMPRESSION: Stable findings. No acute process is seen. SUBJECTIVE/ROS: Kayden Dempsey reports that she feels well except for neuropathy. No shortness of breath, or chest pain. Baseline coughing. Reports occasional difficulty swallowing spit. No abdominal pain, nausea, vomiting, diarrhea, or constipation. No dysuria, gross hematuria, urinary frequency, urinary urgency, or incontinence. Baseline back pain and arthritis. Patient reports neuropathy BEATRIS hands and feet. Feels it has worsened since chemo has finished. BEATRIS LE just proximal to ankles. BEATRIS UE are numb to wrists. Reports having burned her wrist with iron and did not realize it. She has also experienced several falls. No swelling in extremities. No rashes, skin lesions, blisters or mouth sores. No headaches or vision changes. No tinnitus or changes in hearing. No fevers or chills. Her ECOG performance status is 1 (restricted in physically strenuous activity but ambulatory and able to carry out work of a light or sedentary nature). OBJECTIVE: BP 151/85 Pulse 92 Temp 36.3 C (97.4 F) Resp 16 Wt 80.7 kg (178 lb) LMP 10/13/2014 SpO2 95% BMI 29.71 kg/m GENERAL: oriented, pleasant, cooperative, and Alert. HEENT: Normocephalic, atraumatic, mucus membranes moist, and no lesions. NECK: Supple, no adenopathy. HEART: Regular rate and rhythm. LUNGS: Nonlabored respirations ABDOMEN: Abdomen soft, non-tender, no palpable masses. PELVIC: External genitalia, anus and urethral meatus are normal in appearance and without lesions. Vagina is normal in appearance on speculum examination. Bimanual pelvic and rectovaginal examination were negative for urethral, bladder or pelvic masses, parametrial thickening or cul-de-sac nodularity. Uterus and cervix surgically absent. There were no rectal masses. 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 Completed C6 of adjuvant oxaliplatin & capecitabine in 02/2022. 2. Colon polyps 3. Rising CEA Reviewed labs with patient including elevated CEA; discussed reassuring CT scan results without evidence of disease. Plan to keep scheduled procedure/follow-up with Dr. De La Cruz. Chemo-induced neuropathy: reviewed importance of protecting hands and feet from trauma. 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 Will contact her PCP to assess possibility of using duloxetine for chemo-induced neuropathy (may need to stop lexapro in order to do this)- typically 30mg x 1 week, then 60mg PO daily thereafter. Reviewed concern regarding polypharmacy with patient and thus would like to have her PCP manage additional medications if appropriate. Consider referral to [facility] for management of neuropathy if still not improved by next visit. Reviewed ovarian cancer surveillance with plan for q 3 months visits x 2 yrs, then q 6 mo until yr 3, then annually. Plan for exams and labs including CA125 & CEA. Reviewed signs or symptoms that would warrant prompt evaluation. Questions were answered to her satisfaction and she is agreeable with the plan. Encouraged her to call or return in the interim with any additional questions or concerns. History of ovarian cancer -Proceed with surveillance at this time; RTC in 3 mo for exam with CA125 & CEA Colon polyps -Follow up appointment with Dr. De La Cruz Chemo-induced peripheral neuropathy -Continue gabapentin -Will reach out to PCP to discuss possibility of switching to duloxetine from lexapro to treated neuropathy given data supporting duloxetine as treatment Chastity Gardiner MD Medical Decision Making: Problems: Moderate: 2+ stable chronic illnesses Risk: Low: Low risk from testing/treatment Medical Decision Making Level: 3 - Low documented in this encounter [facility] 05-25-2022 Miscellaneous Notes May 26, 2022 PID: [id number] Kayden Dempsey [id number] [place] [address] Dear Ms. Dempsey, Your recent breast imaging exam on 05/25/2022 showed a possible finding that requires additional imaging studies for a complete evaluation. Most such findings are probably benign (not cancer). If you have a healthcare provider who ordered/prescribed your screening mammogram: Please call [phone] or [phone]: [phone] to schedule an appointment for your additional imaging (if you have not already done so). If you DO NOT have a healthcare provider (ie you did not have an order/prescription for your screening mammogram): Please call to schedule an appointment for your additional imaging (if you have not already done so). You must have an order/prescription from your physician when calling to schedule your appointment. If your order/prescription is not electronic, you must bring the hard copy with you on the day of your exam to avoid delays. Your imaging studies and reports are kept on file at [facility] as part of your permanent medical record, and are available for your continuing care. Thank you for allowing us to help in meeting your health care needs. Sincerely, Dr. Louise Interpreting Radiologist [facility] (Additional imaging) documented in this encounter [facility] 05-25-2022 Note HNO ID: [id number] Author: RT Shoshana(Sabrina) Service: ? Author Type: Technologist Type: Progress Notes Filed: 05/25/2022 8:57 AM Note Text: Radiology Service Progress Note PATIENT NAME: Kayden Dempsey DATE OF SERVICE: May 25, 2022 TIME: 8:57 AM PATIENT IDENTITY VERIFICATION COMPLETED USING TWO (2) IDENTIFIERS: Name and Date of confirmed by patient verbally. FALL SCREENING: Has the patient had 2 falls in the last year or 1 fall with injury or currently using an Ambulatory Assistive Device (Walker, Cane, Wheelchair, Crutches, etc.)? No PATIENT GENDER DATA: Female. status: : No status: NO. PATIENT RELEVANT IMPLANT DATA REVIEWED: Not Applicable RADIOLOGY DEPARTMENT: Mammography PERIPHERAL IV DATA: Not applicable SIGNED BY: DANDRE Anna) May 25, 2022 8:57 AM [facility] 05-25-2022 History of Present illness Narrative Radiology Service Progress Note PATIENT NAME: Kayden Dempsey DATE OF SERVICE: May 25, 2022 TIME: 8:57 AM PATIENT IDENTITY VERIFICATION COMPLETED USING TWO (2) IDENTIFIERS: Name and Date of confirmed by patient verbally. FALL SCREENING: Has the patient had 2 falls in the last year or 1 fall with injury or currently using an Ambulatory Assistive Device (Walker, Cane, Wheelchair, Crutches, etc.)? No PATIENT GENDER DATA: Female. status: : No status: NO. PATIENT RELEVANT IMPLANT DATA REVIEWED: Not Applicable RADIOLOGY DEPARTMENT: Mammography PERIPHERAL IV DATA: Not applicable SIGNED BY: RT Shoshana(R) May 25, 2022 8:57 AM documented in this encounter [facility] 05-24-2022 Miscellaneous Notes Message left on voicemail to call office for update, request was approved. Sofia Powers LPN The following approved medication requests have been transmitted electronically. Requested Prescriptions Signed Prescriptions Disp Refills HYDROcodone-acetaminophen (NORCO) 5-325 mg per tablet 180 tablet 0 Sig: Take 1 tablet by mouth every 4 hours as needed for pain for up to 30 days. Authorizing Provider: JAIMEE GONCALVES MD Patient called again, she is still in [place] and needs this sent as soon as possible. Patient requesting refills as follows: СВЕТЛАНА 05/19/2022 NOV 08/23/2022 Requested Prescriptions Pending Prescriptions Disp Refills HYDROcodone-acetaminophen (NORCO) 5-325 mg per tablet 180 tablet 0 Sig: Take 1 tablet by mouth every 4 hours as needed for pain for up to 30 days. Please review and advise. Sofia Powers LPN Patient has been identified by name and date of : Yes Requested Prescriptions Pending Prescriptions Disp Refills HYDROcodone-acetaminophen (NORCO) 5-325 mg per tablet 180 tablet 0 Sig: Take 1 tablet by mouth every 4 hours as needed for pain for up to 30 days. RX INSTRUCTIONS: Patient is calling to request 2-3 months of this medication. She needs this sent today, she stated she is in [place] now and asking for it to be sent as soon as possible. Patient aware RX will be sent to pharmacy. Please call once sent. Sandi Tran documented in this encounter [facility] 05-19-2022 Note HNO ID: [id number] Author: RT Beny(R) Service: ? Author Type: Multi Purpose Machine Operator Type: Progress Notes Filed: 05/19/2022 2:47 PM Note Text: Radiology Service Progress Note DATE OF SERVICE: May 19, 2022 TIME: 2:46 PM PATIENT IDENTITY VERIFICATION COMPLETED USING TWO (2) STANDARD IDENTIFIERS: Name and Date of confirmed by patient verbally. FALL SCREENING: Has the patient had 2 falls in the last year or 1 fall with injury or currently using an Ambulatory Assistive Device (Walker, Cane, Wheelchair, Crutches, etc.)? No PATIENT GENDER DATA: Female. status: : No status: NO. PATIENT RELEVANT IMPLANT DATA REVIEWED: Yes ALLERGIES: Reviewed and unchanged CONTRAST ALLERGY: NO. EXAM: CT -CONTRAST INDUCED NEPHROPATHY RISK FACTORS: Not applicable CREATININE: Creatinine Date Value Ref Range Status 05/19/2022 0.88 0.58 - 0.96 mg/dL Final 03/21/2022 0.77 0.58 - 0.96 mg/dL Final 03/15/2022 0.90 0.58 - 0.96 mg/dL Final Estimated Glomerular Filtration Rate Date Value Ref Range Status 05/19/2022 76 >=60 mL/min/1.73m? Final Comment: Estimated Glomerular Filtration Rate (eGFR) is calculated using the 2020 CKD-EPI creatinine equation. This equation utilizes serum creatinine, sex, and age as parameters. The creatinine assay has traceable calibration to isotope dilution-mass spectrometry. Refer to KDIGO guidelines for clinical interpretation. In patients with unstable renal function, e.g. those with acute kidney injury, the eGFR may not accurately reflect actual GFR. P.O.C.T. RESULTS: POC done: Yes, See Lab Tab May 19, 2022 TREATMENT: N/A PERIPHERAL IV DATA: Ambulatory: A peripheral IV was started in the Left antecubital site with a Angio cath: 22 gauge. RADIOLOGY DEPARTMENT: CT; Exam(s) Completed: Chest Abdomen Pelvis SIGNATURE: RT Jessica(R) PATIENT NAME: Kayden Dempsey DATE: May 19, 2022 TIME: 2:46 PM [facility] 05-19-2022 History of Present illness Narrative Radiology Service Progress Note DATE OF SERVICE: May 19, 2022 TIME: 2:46 PM PATIENT IDENTITY VERIFICATION COMPLETED USING TWO (2) STANDARD IDENTIFIERS: Name and Date of confirmed by patient verbally. FALL SCREENING: Has the patient had 2 falls in the last year or 1 fall with injury or currently using an Ambulatory Assistive Device (Walker, Cane, Wheelchair, Crutches, etc.)? No PATIENT GENDER DATA: Female. status: : No status: NO. PATIENT RELEVANT IMPLANT DATA REVIEWED: Yes ALLERGIES: Reviewed and unchanged CONTRAST ALLERGY: NO. EXAM: CT -CONTRAST INDUCED NEPHROPATHY RISK FACTORS: Not applicable CREATININE: Creatinine Date Value Ref Range Status 05/19/2022 0.88 0.58 - 0.96 mg/dL Final 03/21/2022 0.77 0.58 - 0.96 mg/dL Final 03/15/2022 0.90 0.58 - 0.96 mg/dL Final Estimated Glomerular Filtration Rate Date Value Ref Range Status 05/19/2022 76 >=60 mL/min/1.73m Final Comment: Estimated Glomerular Filtration Rate (eGFR) is calculated using the 2020 CKD-EPI creatinine equation. This equation utilizes serum creatinine, sex, and age as parameters. The creatinine assay has traceable calibration to isotope dilution-mass spectrometry. Refer to KDIGO guidelines for clinical interpretation. In patients with unstable renal function, e.g. those with acute kidney injury, the eGFR may not accurately reflect actual GFR. P.O.C.T. RESULTS: POC done: Yes, See Lab Tab May 19, 2022 TREATMENT: N/A PERIPHERAL IV DATA: Ambulatory: A peripheral IV was started in the Left antecubital site with a Angio cath: 22 gauge. RADIOLOGY DEPARTMENT: CT; Exam(s) Completed: Chest Abdomen Pelvis SIGNATURE: RT Jessica(R) PATIENT NAME: Kayden Dempsey DATE: May 19, 2022 TIME: 2:46 PM documented in this encounter [facility] 05-19-2022 Note HNO ID: [id number] Author: Jaimee Goncalves MD Service: ? Author Type: Physician Type: Progress Notes Filed: 06/19/2022 12:33 AM Note Text: This note was created using CamSemiriter. Subjective Kayden Dempsey is a 57 year old female. Patient presents with: Established Patient SUBJECTIVE: Kayden Dempsey is a 57 year old year old lady here today for 2 month follow up appointment for review of medical conditions. Dealing with peripheral neuropathy with numbness in hands and feet. cisplatin is cause. Bowels are doing well since surgery. Chronic pain control adequate with current meds. Depression Screening 07/27/2021 10/19/2021 01/24/2022 05/19/2022 PHQ-2 Score 2 1 1 6 Depression screening tool completed and reviewed. Based on score and interview, patient is already diagnosed with depression. Screening tool discussed with patient, and I recommended continuing current plan of care. PAST MEDICAL HISTORY Diagnosis Date Chronic pain syndrome Was treated through Dr. Scott and Dr. Massey ([facility]); managed by Dr. 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 morphine SR (MS CONTIN) 15 mg 12 hr tablet Take 1 tablet by mouth three times daily for 30 days. Do not start before April 24, 2022. HYDROcodone-acetaminophen (NORCO) 5-325 mg per tablet Take 1 tablet by mouth every 4 hours as needed for pain for up to 30 days. Do not start before April 24, 2022. escitalopram oxalate (LEXAPRO) 10 mg tablet Take 1 tablet by mouth once daily. lidocaine-prilocaine (EMLA) 2.5-2.5 % cream Apply to affected area as needed. gabapentin (NEURONTIN) 100 mg capsule Take 100 mg by mouth twice daily. 200 mg in am and 300mg at night HYDROcodone-acetaminophen (NORCO) 5-325 mg per tablet Take 1 tablet by mouth every 4 hours as needed for up to 30 days. Do not start before March 25, 2022. morphine SR (MS CONTIN) 15 mg 12 hr tablet Take 1 tablet by mouth three times daily for 30 days. Do not start before March 25, 2022. prochlorperazine (COMPAZINE) 10 mg tablet Take 1 tablet by mouth every 6 hours as needed. ondansetron (ZOFRAN) 8 mg tablet Take 1 tablet by mouth every 8 hours as needed for nausea/vomiting. No current facility-administered medications for this visit. Review of Systems Objective BP (P) 112/78 Pulse (P) 96 Resp (P) 18 Wt (P) 79.8 kg (176 lb) LMP 10/13/2014 SpO2 (P) 98% BMI (P) 29.38 kg/m? Last 5 Encounter Wt Readings: Date: Wt: 03/15/2022 76.7 kg (169 lb) 03/06/2022 76.2 kg (168 lb) 02/17/2022 77.8 kg (171 lb 9.6 oz) 02/15/2022 76.7 kg (169 lb) 01/27/2022 78.5 kg (173 lb 1.6 oz) No waist measurement recorded Estimated body mass index is 29.38 kg/m? (pended) as calculated from the following: Height as of 03/15/22: 164.8 cm (5' 4.9 ). Weight as of this encounter: (P) 79.8 kg (176 lb). Last 5 Encounter BP Readings: Date: BP: 03/21/2022 120/59 03/15/2022 115/75 03/06/2022 120/78 02/17/2022 138/77 02/06/2022 101/55 Physical Exam Constitutional: Appearance: Normal appearance. HENT: Head: Normocephalic. Eyes: Conjunctiva/sclera: Conjunctivae normal. Cardiovascular: Rate and Rhythm: Normal rate and regular rhythm. Heart sounds: Normal heart sounds. Pulmonary: Effort: Pulmonary effort is normal. Breath sounds: Normal breath sounds. Skin: General: Skin is warm and dry. Neurological: General: No focal deficit present. Mental Status: She is alert and oriented to person, place, and time. Psychiatric: Mood and Affect: Mood normal. Behavior: Behavior normal. Thought Content: Thought content normal. Judgment: Judgment normal. Assessment and Plan Encounter Diagnosis ICD-10-CM 1. Fibromyalgia M79.7 morphine SR (MS CONTIN) 15 mg 12 hr tablet morphine SR (MS CONTIN) 15 mg 12 hr tablet morphine SR (MS CONTIN) 15 mg 12 hr tablet 2. Seronegative Rheumatoid Arthritis M06.00 morphine SR (MS CONTIN) 15 mg 12 hr tablet morphine SR (MS CONTIN) 15 mg 12 hr tablet morphine SR (MS CONTIN) 15 mg 12 hr tablet 3. Encounter for immunization Z23 INFLUENZA VACCINE QUADRIVALENT 6 MO - 64 YRS IM Above issues addressed with patient. Patient involved in shared decision making for management of medical issues. History and medications reviewed. Epic updated as needed Refills and/or prescriptions taken care of and meds adjusted as indicated after reviewed history, exam and labs. Health Maintenance reviewed. Updated record and/or ordered tests as recorded. (more content not included)... [facility] 05-16-2022 Miscellaneous Notes This patient gave consent to this Medical Advice Message and is aware that it may result in a bill to their insurance, as well as the possibility of receiving a bill for a copay and/or deductible. They are an established patient, but are not seeking information exclusively about a problem treated during an in person or video visit in the last seven days. I did not recommend an in person or video visit within seven days of my reply. See the SilkStartt message reply for my assessment and plan. I spent a total of 10 minutes reviewing the patient's prior medical records and current request for medical advice, prescribing medications or ordering tests (if applicable), replying to the patient, and documenting the encounter. documented in this encounter [facility] 04-21-2022 Miscellaneous Notes Spoke to pt and informed that Dr Gardiner notes she can have increase in neuropathy from chemo she had, per Nita Russo AUTOMOBILE MECHANIC SUPERVISOR increase the Neurontin to 300 mg bid and call Sunday with update. Javy Allen RN Received call from pt who notes her neuropathy has become worse in the past 2 weeks, burned her wrist because she could not feel it. Also her feet feel like ice blocks and can not feel them well when walking, she has been tripping occasionally. She went to her devulcanizer loader today who increased gabapentin. Also wants to know if she can go back on rheumatology medications. Informed her this nurse will send message to AUTOMOBILE MECHANIC SUPERVISOR and Dr Gardiner and call her back. Pt verbalized understanding. Javy Allen RN documented in this encounter [facility] 03-24-2022 Miscellaneous Notes Phone call received from pt who notes she had the procedure on 03/21 to remove the mass in her colon and two other polyps. She has no follow up visit with Dr Gardiner, informed her this nurse will schedule along with port flush. She verbalized understanding. Javy Allen RN documented in this encounter [facility] 03-24-2022 Miscellaneous Notes Can you please schedule port flush on 05/[address] Gardiner's appt at 10:45? Thank you PF documented in this encounter [facility] 03-23-2022 Note HNO ID: [id number] Author: Kaila Vizcaino RN Service: ? Author Type: Registered Nurse Type: Progress Notes Filed: 03/23/2022 1:24 PM Note Text: TCM Home Visit Referral Source of Stratification: [facility] Admission Status: Discharged Readmission Risk Score: 12 NATIVIDAD Score: 2 Patient meets program referral criteria: No Patient does not qualify for High Risk TCM Home Visit program due to: Discharged home, does not meet program criteria Kaila Vizcaino RN March 23, 2022 1:23 PM [facility] 03-23-2022 Note HNO ID: [id number] Author: Kaila Vizcaino RN Service: ? Author Type: Registered Nurse Type: Progress Notes Filed: 03/23/2022 1:24 PM Note Text: TRANSITIONAL CARE MANAGEMENT (TCM) COMMUNITY MONITORING PROGRAM Provider Action/FYI: Pt states she is doing OK, just tired and was napping No c/o pain, nausea, dizziness States she is eating and drinking well Moving her bowels without concerns Declined PCP follow up at this time States she will be seeing multiple specialists Encouraged to contact PCP with questions/concerns SUMMARY: Pt discharged from [facility] on 03/22/22. Admitted for: S/p colonoscopy with multiple polypectomies and endoscopic submucosal dissection of rectosigmoid large colon polyp. Contact made with patient: Yes Hi my name is Kaila Vizcaino RN and I am calling from the [facility] on behalf of your PCP, Jaimee Goncalves MD I understand you were recently in the hospital so I am calling to check in with you to ensure you are feeling well now that you're home. May I ask you a few questions related to your hospital stay and well-being? Yes Contact with patient post discharge, spoke to patient. Patient identified by name and . Do you feel your health is BETTER, WORSE, or the SAME since leaving the hospital? Better ACTION TAKEN: Patient indicated symptoms are better or same, no action required. Continue outreach. MEDICATIONS: Many patients have questions or concerns about their medications once they are home. Do you have any questions about taking your medications or which medication you should be on? No Do you need any medication refills at this time, including any of the medications you might take only when needed? No ACTION TAKEN: No action required For RNs or Pharmacy completing outreach ONLY, was a medication review completed? No, pt had no medication questions/concerns SOCIAL: We would like to make sure you have what you need so that your basics needs are met - including your personal safety, food, housing and medications. Would you like to speak with a social work steam box operator to help give you support for any of these needs? No It can be normal to feel anxious or down during a time like this. Would you like to talk to a mental health professional about how you have been feeling? No ACTION TAKEN: No action taken DISCHARGE INTRUCTIONS: Your discharge instructions / After Visit Summary (AVS) are important in guiding you through the recovery process. Do you have any questions related to your discharge instructions? No Do you have all the necessary equipment and supplies at home? N/A ACTION TAKEN: No action required I would like to help you schedule a hospital follow-up virtual or telephone visit with your PCP. This is a great way for you to connect with your provider to ensure you have safely transitioned home. If you are agreeable, I will send your request to a master scheduler who will contact and assist you with that appointment. This will give you an opportunity to ask any questions or address any concerns you may have with your PCP. Inform the patient that if they have any questions or concerns prior to that appointment, to call their PCP's office right away. ACTION TAKEN: No action required, patient declines appointment. Your doctor would like us to remind you of the recommendations regarding the coronavirus (Covid19) outbreak: Avoid public places as much as possible. Avoid close contact (within 6 feet) with others you don?t live with, especially if they are sick. Stay home if you are sick. Wash your hands regularly for at least 20 seconds with soap and water. Wear a cloth mask in public places to help reduce community spread. Do not go to your Doctor?s office unless instructed to do so. For any non-emergency symptoms, call your Doctor?s office to get instructions on how to manage (we might recommend a telephone or virtual visit). For emergency symptoms, proceed to Emergency Department as usual but inform them of cough and fever symptoms ANN if present (or call on the way if possible). DANTE Education Ordered -: No Kaila Vizcaino RN, BSN Primary Care Creative Lead [facility] [phone] [facility] 03-23-2022 Note Patient Outreach ([facility]) ------ KAYDEN DEMPSEY ([id number]) 1965 F Date Time Provider Department 03/23/22 KAILA VIZCAINO During your visit today, we recorded the following information about you: Kaila Vizcaino, RN 03/23/2022 1:24 PM Signed TRANSITIONAL CARE MANAGEMENT (TCM) COMMUNITY MONITORING PROGRAM Provider Action/FYI: Pt states she is doing OK, just tired and was napping No c/o pain, nausea, dizziness States she is eating and drinking well Moving her bowels without concerns Declined PCP follow up at this time States she will be seeing multiple specialists Encouraged to contact PCP with questions/concerns SUMMARY: Pt discharged from [facility] on 03/22/22. Admitted for: S/p colonoscopy with multiple polypectomies and endoscopic submucosal dissection of rectosigmoid large colon polyp. Contact made with patient: Yes Hi my name is Kaila Vizcaino RN and I am calling from the [facility] on behalf of your PCP, Jaimee Goncalves MD I understand you were recently in the hospital so I am calling to check in with you to ensure you are feeling well now that you're home. May I ask you a few questions related to your hospital stay and well-being? Yes Contact with patient post discharge, spoke to patient. Patient identified by name and . Do you feel your health is BETTER, WORSE, or the SAME since leaving the hospital? Better ACTION TAKEN: Patient indicated symptoms are better or same, no action required. Continue outreach. MEDICATIONS: Many patients have questions or concerns about their medications once they are home. Do you have any questions about taking your medications or which medication you should be on? No Do you need any medication refills at this time, including any of the medications you might take only when needed? No ACTION TAKEN: No action required For RNs or Pharmacy completing outreach ONLY, was a medication review completed? No, pt had no medication questions/concerns SOCIAL: We would like to make sure you have what you need so that your basics needs are met - including your personal safety, food, housing and medications. Would you like to speak with a social work steam box operator to help give you support for any of these needs? No It can be normal to feel anxious or down during a time like this. Would you like to talk to a mental health professional about how you have been feeling? No ACTION TAKEN: No action taken DISCHARGE INTRUCTIONS: Your discharge instructions / After Visit Summary (AVS) are important in guiding you through the recovery process. Do you have any questions related to your discharge instructions? No Do you have all the necessary equipment and supplies at home? N/A ACTION TAKEN: No action required I would like to help you schedule a hospital follow-up virtual or telephone visit with your PCP. This is a great way for you to connect with your provider to ensure you have safely transitioned home. If you are agreeable, I will send your request to a master scheduler who will contact and assist you with that appointment. This will give you an opportunity to ask any questions or address any concerns you may have with your PCP. Inform the patient that if they have any questions or concerns prior to that appointment, to call their PCP's office right away. ACTION TAKEN: No action required, patient declines appointment. Your doctor would like us to remind you of the recommendations regarding the coronavirus (Covid19) outbreak: Avoid public places as much as possible. Avoid close contact (within 6 feet) with others you don?t live with, especially if they are sick. Stay home if you are sick. Wash your hands regularly for at least 20 seconds with soap and water. Wear a cloth mask in public places to help reduce community spread. Do not go to your Doctor?s office unless instructed to do so. For any non-emergency symptoms, call your Doctor?s office to get instructions on how to manage (we might recommend a telephone or virtual visit). For emergency symptoms, proceed to Emergency Department as usual but inform them of cough and fever symptoms ANN if present (or call on the way if possible). DANTE Education Ordered -: No Kaila Vizcaino RN, BSN Primary Care Creative Lead [facility] [phone] Kaila Vizcaino RN 03/23/2022 1:24 PM Signed [facility] Home Visit Referral Source of Stratification: [facility] Admission Status: Discharged Readmission Risk Score: 12 NATIVIDAD Score: 2 Patient meets program referral criteria: No Patient does not qualify for High Risk TCM Home Visit program due to: Discharged home, does not meet program criteria Kaila Vizcaino RN March 23, 2022 1:23 PM Allergies As of Date: 03/23/2022 Noted Allergy Reaction ERYTHROMYCIN BASE 02/15/2004 TO 09/05/2021 16 - Unknown to (more content not included)... [facility] 03-23-2022 History of Present illness Narrative TCM Home Visit Referral Source of Stratification: [facility] Admission Status: Discharged Readmission Risk Score: 12 NATIVIDAD Score: 2 Patient meets program referral criteria: No Patient does not qualify for High Risk TCM Home Visit program due to: Discharged home, does not meet program criteria Kaila Vizcaino RN March 23, 2022 1:23 PM TRANSITIONAL CARE MANAGEMENT (TCM) COMMUNITY MONITORING PROGRAM Provider Action/FYI: Pt states she is doing OK, just tired and was napping No c/o pain, nausea, dizziness States she is eating and drinking well Moving her bowels without concerns Declined PCP follow up at this time States she will be seeing multiple specialists Encouraged to contact PCP with questions/concerns SUMMARY: Pt discharged from [facility] on 03/22/22. Admitted for: S/p colonoscopy with multiple polypectomies and endoscopic submucosal dissection of rectosigmoid large colon polyp. Contact made with patient: Yes Hi my name is Kaila Vizcaino RN and I am calling from the [facility] on behalf of your PCP, Jaimee Goncalves MD I understand you were recently in the hospital so I am calling to check in with you to ensure you are feeling well now that you're home. May I ask you a few questions related to your hospital stay and well-being? Yes Contact with patient post discharge, spoke to patient. Patient identified by name and . Do you feel your health is BETTER, WORSE, or the SAME since leaving the hospital? Better ACTION TAKEN: Patient indicated symptoms are better or same, no action required. Continue outreach. MEDICATIONS: Many patients have questions or concerns about their medications once they are home. Do you have any questions about taking your medications or which medication you should be on? No Do you need any medication refills at this time, including any of the medications you might take only when needed? No ACTION TAKEN: No action required For RNs or Pharmacy completing outreach ONLY, was a medication review completed? No, pt had no medication questions/concerns SOCIAL: We would like to make sure you have what you need so that your basics needs are met - including your personal safety, food, housing and medications. Would you like to speak with a social work steam box operator to help give you support for any of these needs? No It can be normal to feel anxious or down during a time like this. Would you like to talk to a mental health professional about how you have been feeling? No ACTION TAKEN: No action taken DISCHARGE INTRUCTIONS: Your discharge instructions / After Visit Summary (AVS) are important in guiding you through the recovery process. Do you have any questions related to your discharge instructions? No Do you have all the necessary equipment and supplies at home? N/A ACTION TAKEN: No action required I would like to help you schedule a hospital follow-up virtual or telephone visit with your PCP. This is a great way for you to connect with your provider to ensure you have safely transitioned home. If you are agreeable, I will send your request to a master scheduler who will contact and assist you with that appointment. This will give you an opportunity to ask any questions or address any concerns you may have with your PCP. Inform the patient that if they have any questions or concerns prior to that appointment, to call their PCP's office right away. ACTION TAKEN: No action required, patient declines appointment. Your doctor would like us to remind you of the recommendations regarding the coronavirus (Covid19) outbreak: Avoid public places as much as possible. Avoid close contact (within 6 feet) with others you don t live with, especially if they are sick. Stay home if you are sick. Wash your hands regularly for at least 20 seconds with soap and water. Wear a cloth mask in public places to help reduce community spread. Do not go to your Doctor s office unless instructed to do so. For any non-emergency symptoms, call your Doctor s office to get instructions on how to manage (we might recommend a telephone or virtual visit). For emergency symptoms, proceed to Emergency Department as usual but inform them of cough and fever symptoms ANN if present (or call on the way if possible). DANTE Education Ordered -: No Kaila Vizcaino RN, BSN Primary Care Creative Lead [facility] [phone] documented in this encounter [facility] 03-22-2022 Note HNO ID: [id number] Author: Dre Pike MD Service: Colorectal Author Type: Fellow Type: Progress Notes Filed: 03/22/2022 7:12 AM Note Text: COLORECTAL SURGERY PROGRESS NOTE PATIENT ID: Kayden Dempsey Admit Date: 03/21/2022 Interval events/Subjective: Feeling well No abd pain Passed bm this am, no blood. No nausea Linda clears EXAM: GEN: Resting in bed, no acute distress N: AO4 PULM: no e/o increased WOB ABD: Soft, nondistended, non tender, no peritonitis, incisions CDI. : no conway EXT: warm and well perfused, no edema DATA: BP 104/60 Pulse 91 Temp 36.6 ?C (97.9 ?F) (Oral) Resp 16 LMP 10/13/2014 SpO2 95% Date 03/21/22 07 - 03/22/22 0659 03/22/22 07 - 03/23/22 0659 Shift 0075-1948 0203-9683 4384-0419 24 Hour Total 3538-4727 9789-1027 3059-5751 24 Hour Total INTAKE PO 250 250 PO 250 250 IV 1537 028 8916 Volume (mL) (lactated ringers iv infusion) 1000 1000 Volume (mL) (lactated ringers iv infusion) 100 100 Volume (mL) (lactated ringers iv infusion) 713 713 Shift Total 2211 144 4828 OUTPUT Urine 450 327 402 4317 Void (ml) 250 873 900 3198 OR Urine Output 200 200 Blood 25 25 Estimated Blood loss 25 25 Shift Total 475 093 796 2577 Weight (kg) Recent Labs 03/21/22 2205 WBC 7.25 HB 12.4 HCT 36.0 PLT 255 NA 138 K 3.9 CHLOR 104 CO2 21* CREAT 0.77 P 3.6 BUN 9 GLUC 110* MG 2.1 CA 9.1 CRP 1.4* A/P: 56 year old female with large rectosigmoid TVA and other colon polyps now 1 Day Post-Op ESD with multiple clips placed over large resection area. Doing well postop without concerns of uncontrolled perforation. Gi diet Home today No abx. Fu path Problem List Noted Noted By Resolved Resolved By Colon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 of surgery. - Leave ALL valuables and money at home or with family members. For Outpatient Procedures: - YOU MUST HAVE A RESPONSIBLE PRINCIPAL TECHNICAL WRITER TAKE YOU HOME. A COMMUNITY HEALTH NAVIGATOR OR SOFT MUD MOLDER CANNOT BE MADE A RESPONSIBLE PRINCIPAL TECHNICAL WRITER. - We recommend that a responsible person stays with you overnight to take care of you. - You cannot stay in a hotel alone after outpatient surgery. You will not be permitted to have your surgery, if you do not have someone to take care of you. Arrival Time for Surgery: - To obtain your arrival time for surgery, call your physician's office the day before your surgery. - If your surgery is scheduled for Sunday, call the Sunday before. Your surgeon s master scheduler will tell you what time to call the office. - If you have not reached the departmental master scheduler by 5 P.M., call [phone] after 5 P.M. the day before your surgery. Please be aware that emergency situations arise, which may delay or change your surgical time. If this happens, we will notify you as soon as possible and regret any inconvenience. If you already have an Advance Directive, please fax a copy to [phone] or email to for it to be added to your chart. If you do not have an Advance Directive, you can find the appropriate form and more information at [email or web address]. We recommend that you complete the Advance Directive form found on the website and bring it with you the day of your surgery. It can be witnessed and scanned into your chart that day. Rossana Lara PA-C documented in this encounter [facility] 03-14-2022 Note HNO ID: [id number] Author: Chastity Gardiner MD Service: ? Author Type: Physician Type: Progress Notes Filed: 03/26/2022 9:11 AM Note Text: AMBULATORY TELEPHONE VISIT Kayden Dempsey has consented to this telephone encounter. 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 -This result confirms a diagnosis of being a carrier for [id number] Cancer Risk. (Increased risk of prostate cancer; no additional increased cancer risks for females. 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 10/05/21: Screening colonoscopy AND EGD -EGD performed with biopsies- negative -Colonoscopy demonstrated numerous 25 to 30 mm nonbleeding polyps number of which were biopsied. Largest polyp was noted at the rectosigmoid juncture and was concern for primary malignancy to be arising from this polyp. Pathology was negative for any dysplasia or malignancy. 3. 10/24/21: Diagnostic colonoscopy - FINAL DIAGNOSIS A. Colon, sigmoid, polyps, biopsy: - Tubulovillous adenomas with high-grade dysplasia and prolapse related changes. - Tubular adenoma with high-grade dysplasia. - Hyperplastic polyp. 4. 11/04/21-current-->Oxaliplatin 130mg/m2 and capecitabine 850/m2 po q 21 days 5. 12/23/21-CT scans with disease improvement after 3 cycles 6. 02/17/22-Oxaliplatin decreased to 100mg/m2 d/t fatigue 7. 02/17/22-diagnosed with pneumonia 8.02/18/22-Cap held with cycle 6 due to dyspnea Tumor Markers CA 125 CEA CA19-9 Latest Ref Rng AND Units <39 U/mL 0.0 - 2.3 ng/mL <36.0 U/mL 02/17/2022 - 6.6(H) - 02/15/2022 15 - - 01/25/2022 15 - - 01/04/2022 14 - - 11/28/2021 13 - - 08/12/2021 155(H) 3.2(H) 16.0 CT C/A/P:03/01/22-IMPRESSION: Stable bilateral upper lobe groundglass opacities, possibly chronic/infectious/edematous. No acute process is seen. IMPRESSION: Stable findings. No acute process is seen. SUBJECTIVE/INTERVAL HISTORY: Kayden Dempsey reports that she has been feeling better since completing chemo. No fevers. No new concerns and she is slowly improving from fatigue, nausea standpoint. Has polyp resection scheduled next week with Dr. De La Cruz. No new concerns at this time. 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 Completed C6 of adjuvant oxaliplatin AND capecitabine. 2. Colon polyps 3. Rising CEA Reviewed labs with patient including elevated CEA; discussed reassuring CT scan results without evidence of disease. Plan to keep scheduled procedure with Dr. De La Cruz next week for polyp resection, reviewed this could be reason for elevated CEA. Will follow up path results from polyp resection. Reviewed ovarian cancer surveillance with plan for q 3 months visits x 2 yrs, then q 6 mo until yr 5, then annually. Plan for exams and labs including CA125 AND CEA. Reviewed signs or symptoms that would warrant prompt evaluation. Questions were answered to her satisfaction and she is agreeable with the plan. Encouraged her to call or return in the interim with any additional questions or concerns. Ovarian cancer -Proceed with surveillance at this time; RTC in 3 mo for exam with CA125 AND CEA Colon polyps -Follow up appointment with Dr. De La Cruz next week. Chastity Gardiner MD Total Time Spent: 28 minutes [facility] 03-14-2022 History of Present illness Narrative AMBULATORY TELEPHONE VISIT Kayden Dempsey has consented to this telephone encounter. 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 -This result confirms a diagnosis of being a carrier for [id number] Cancer Risk. (Increased risk of prostate cancer; no additional increased cancer risks for females. 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 10/05/21: Screening colonoscopy & EGD -EGD performed with biopsies- negative -Colonoscopy demonstrated numerous 25 to 30 mm nonbleeding polyps number of which were biopsied. Largest polyp was noted at the rectosigmoid juncture and was concern for primary malignancy to be arising from this polyp. Pathology was negative for any dysplasia or malignancy. 3. 10/24/21: Diagnostic colonoscopy - FINAL DIAGNOSIS A. Colon, sigmoid, polyps, biopsy: - Tubulovillous adenomas with high-grade dysplasia and prolapse related changes. - Tubular adenoma with high-grade dysplasia. - Hyperplastic polyp. 4. 11/04/21-current-->Oxaliplatin 130mg/m2 and capecitabine 850/m2 po q 21 days 5. 12/23/21-CT scans with disease improvement after 3 cycles 6. 02/17/22-Oxaliplatin decreased to 100mg/m2 d/t fatigue 7. 02/17/22-diagnosed with pneumonia 8.02/18/22-Cap held with cycle 6 due to dyspnea Tumor Markers CA 125 CEA CA19-9 Latest Ref Rng & Units <39 U/mL 0.0 - 2.3 ng/mL <36.0 U/mL 02/17/2022 - 6.6(H) - 02/15/2022 15 - - 01/25/2022 15 - - 01/04/2022 14 - - 11/28/2021 13 - - 08/12/2021 155(H) 3.2(H) 16.0 CT C/A/P:03/01/22-IMPRESSION: Stable bilateral upper lobe groundglass opacities, possibly chronic/infectious/edematous. No acute process is seen. IMPRESSION: Stable findings. No acute process is seen. SUBJECTIVE/INTERVAL HISTORY: Kayden Dempsey reports that she has been feeling better since completing chemo. No fevers. No new concerns and she is slowly improving from fatigue, nausea standpoint. Has polyp resection scheduled next week with Dr. De La Cruz. No new concerns at this time. 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 Completed C6 of adjuvant oxaliplatin & capecitabine. 2. Colon polyps 3. Rising CEA Reviewed labs with patient including elevated CEA; discussed reassuring CT scan results without evidence of disease. Plan to keep scheduled procedure with Dr. De La Cruz next week for polyp resection, reviewed this could be reason for elevated CEA. Will follow up path results from polyp resection. Reviewed ovarian cancer surveillance with plan for q 3 months visits x 2 yrs, then q 6 mo until yr 3, then annually. Plan for exams and labs including CA125 & CEA. Reviewed signs or symptoms that would warrant prompt evaluation. Questions were answered to her satisfaction and she is agreeable with the plan. Encouraged her to call or return in the interim with any additional questions or concerns. Ovarian cancer -Proceed with surveillance at this time; RTC in 3 mo for exam with CA125 & CEA Colon polyps -Follow up appointment with Dr. De La Cruz next week. Chastity Gardiner MD Total Time Spent: 28 minutes documented in this encounter [facility] 03-07-2022 Note Patient Outreach (NE TNAV) ------ KAYDEN DEMPSEY ([id number]) 1965 F Date Time Provider Department 03/07/22 YOMAIRA COMBS During your visit today, we recorded the following information about you: Yomaira Combs 03/07/2022 8:43 AM Signed POPULATION HEALTH NAVIGATION OUTREACH Action/I [facility] Patient due for the following: Mammogram - ordered on 07/13/2021 Influenza Unable to contact patient by phone, No answerMychart message sent Pt identified by name and : NO Outreach Outcome/Action Unable to reach patient: No answer MyChart message sent Did you use a PCP flex slot to schedule this appointment? N/A Reason for Outreach Care Gap or Scheduling/Wellness visits Payer: Payor: [employer] MEDICARE / Plan: [employer] MEDICARE PPO / Product Type: PPO / Care Gap Reviewed:: Breast Cancer screening Flu vaccine Reminder: Reminder note to check Health Maintenance for items below Health Maintenance items due: MAMMOGRAM due on 08/29/2017 COVID-19 VACCINE(3 - Moderna risk series) due on 03/18/2021 DEPRESSION ASSESSMENT Never done INFLUENZA(1) due on 11/17/2021 DTAP,TDAP,TD(3 - Td or Tdap) due on 12/31/2021 Navigation Signature: Yomaira Combs March 07, 2022 8:35 AM Allergies As of Date: 03/07/2022 Noted Allergy Reaction ERYTHROMYCIN BASE 02/15/2004 TO 09/05/2021 16 - Unknown mangos [Other] 03/23/2005 Comments: davie Ultracet [Other] 02/15/2004 Date Reviewed: 03/06/2022 Reviewed by: Niharika Cervantes APRN.AUTOMOBILE MECHANIC SUPERVISOR - Fully Assessed Reason for Visit: Population Health Navigation Outreach [3910] Cmt: [employer] Prescriptions as of 03/07/2022 - HYDROcodone-acetaminophen (NORCO) 5-325 mg per tablet Take 1 tablet by mouth every 4 hours as needed for up to 30 days. Do not start before March 25, 2022. - morphine SR (MS CONTIN) 15 mg 12 hr tablet Take 1 tablet by mouth three times daily for 30 days. Do not start before March 25, 2022. - morphine SR (MS CONTIN) 15 mg 12 hr tablet Take 1 tablet by mouth three times daily for 30 days. Do not start before April 24, 2022. - HYDROcodone-acetaminophen (NORCO) 5-325 mg per tablet Take 1 tablet by mouth every 4 hours as needed for pain for up to 30 days. Do not start before April 24, 2022. - neomycin 500 mg tablet Take 2 tablets by mouth at 9pm and take 2 tablets by mouth at 11pm the night before surgery. - metroNIDAZOLE (FLAGYL) 500 mg tablet Take 1 tablet by mouth at 9pm and take 1 tablet by mouth at 11pm the night before surgery. - polyethylene glycol 3350 (MIRALAX, GLYCOLAX) 17 gram/dose powder Use as directed for Miralax / Gatorade Bowel Prep Kit - Gatorade Sports Drink Use as directed for Miralax / Gatorade Bowel Prep Kit - Bisacodyl (DULCOLAX) 5 mg tab Use as directed for Miralax / Gatorade Bowel Prep Kit - escitalopram oxalate (LEXAPRO) 10 mg tablet Take 1 tablet by mouth once daily. - lidocaine-prilocaine (EMLA) 2.5-2.5 % cream Apply to affected area as needed. - sennosides (SENNA ORAL) Take by mouth. otc - prochlorperazine (COMPAZINE) 10 mg tablet Take 1 tablet by mouth every 6 hours as needed. - ondansetron (ZOFRAN) 8 mg tablet Take 1 tablet by mouth every 8 hours as needed for nausea/vomiting. - polyethylene glycol 3350 (MIRALAX, GLYCOLAX) 17 gram packet Take 1 Packet by mouth once daily as needed for constipation. Dissolve dose in 4 - 8 ounces of liquid and take as directed. - gabapentin (NEURONTIN) 100 mg capsule Take 100 mg by mouth three times daily. - cyclobenzaprine (FLEXERIL) 10 mg tablet Take 1 tablet by mouth twice daily as needed. Problem List As Of Date 03/07/2022 Noted Resolved TUBERCULIN TEST REACTION NO TBC [795.5] Migraine without Aura [G43.009] DISC DEGENERATION NOS [VZX4434] Myalgia and myositis [YME0042] Cervicalgia [M54.2] 12/06/2005 07/30/2009 TOBACCO USE DISORDER [F17.200] 05/26/2008 Hyperlipidemia [E78.5] 05/26/2008 OSTEOARTHROS NOS-OTHER SITE [M19.90] 07/08/2008 Seronegative Rheumatoid Arthritis [M06.00] 11/03/2009 Vitamin D deficiency [E55.9] 09/30/2010 Chronic pain syndrome [G89.4] Pelvic mass in female [R19.00] 09/05/2021 Ovarian cancer (HCC) [C56.9] 10/04/2021 Colon cancer screening [Z12.11] 10/04/2021 Ovarian cancer on left (HCC) [C56.2] 12/01/2021 Encounter Status:Closed by YOMAIRA COMBS on 03/07/22 [facility] 03-07-2022 Miscellaneous Notes Message left for patient that medications have been sent to pharmacy. The following approved medication requests have been transmitted electronically. Requested Prescriptions Signed Prescriptions Disp Refills HYDROcodone-acetaminophen (NORCO) 5-325 mg per tablet 180 tablet 0 Sig: Take 1 tablet by mouth every 4 hours as needed for up to 30 days. Do not start before March 25, 2022. Authorizing Provider: JAIMEE GONCALVES morphine SR (MS CONTIN) 15 mg 12 hr tablet 90 tablet 0 Sig: Take 1 tablet by mouth three times daily for 30 days. Do not start before March 25, 2022. Authorizing Provider: JAIMEE GONCALVES morphine SR (MS CONTIN) 15 mg 12 hr tablet 90 tablet 0 Sig: Take 1 tablet by mouth three times daily for 30 days. Do not start before April 24, 2022. Authorizing Provider: JAIMEE GONCALVES HYDROcodone-acetaminophen (NORCO) 5-325 mg per tablet 180 tablet 0 Sig: Take 1 tablet by mouth every 4 hours as needed for pain for up to 30 days. Do not start before April 24, 2022. Authorizing Provider: JAIMEE GONCALVES MD Last office visit: 03/06/22 Next appointment scheduled: 05/19/22 Last labs: 11/25/21 was last pain and tox screen Patient phones requesting refills as follows: Requested Prescriptions Pending Prescriptions Disp Refills HYDROcodone-acetaminophen (NORCO) 5-325 mg per tablet 180 tablet 0 Sig: Take 1 tablet by mouth every 4 hours as needed for up to 30 days. morphine SR (MS CONTIN) 15 mg 12 hr tablet 90 tablet 0 Sig: Take 1 tablet by mouth three times daily for 30 days. morphine SR (MS CONTIN) 15 mg 12 hr tablet 90 tablet 0 Sig: Take 1 tablet by mouth three times daily for 30 days. HYDROcodone-acetaminophen (NORCO) 5-325 mg per tablet 180 tablet 0 Sig: Take 1 tablet by mouth every 4 hours as needed for up to 30 days. Please review and advise. Daisy Valle LPN documented in this encounter [facility] 03-07-2022 Note HNO ID: [id number] Author: Yomaira Combs Service: ? Author Type: ? Type: Progress Notes Filed: 03/07/2022 8:43 AM Note Text: POPULATION HEALTH NAVIGATION OUTREACH Action/[facility] Patient due for the following: Mammogram - ordered on 07/13/2021 Influenza Unable to contact patient by phone, No answerMychart message sent Pt identified by name and : NO Outreach Outcome/Action Unable to reach patient: No answer MyChart message sent Did you use a PCP flex slot to schedule this appointment? N/A Reason for Outreach Care Gap or Scheduling/Wellness visits Payer: Payor: [employer] MEDICARE / Plan: [employer] MEDICARE PPO / Product Type: PPO / Care Gap Reviewed:: Breast Cancer screening Flu vaccine Reminder: Reminder note to check Health Maintenance for items below Health Maintenance items due: MAMMOGRAM due on 08/29/2017 COVID-19 VACCINE(3 - Moderna risk series) due on 03/18/2021 DEPRESSION ASSESSMENT Never done INFLUENZA(1) due on 11/17/2021 DTAP,TDAP,TD(3 - Td or Tdap) due on 12/31/2021 Navigation Signature: Yomaira Combs March 07, 2022 8:35 AM [facility] 03-07-2022 History of Present illness Narrative POPULATION HEALTH NAVIGATION OUTREACH Action/FYI aDniel gorman Patient due for the following: Mammogram - ordered on 07/13/2021 Influenza Unable to contact patient by phone, No answerMychart message sent Pt identified by name and : NO Outreach Outcome/Action Unable to reach patient: No answer MyChart message sent Did you use a PCP flex slot to schedule this appointment? N/A Reason for Outreach Care Gap or Scheduling/Wellness visits Payer: Payor: [employer] MEDICARE / Plan: [employer] MEDICARE PPO / Product Type: PPO / Care Gap Reviewed:: Breast Cancer screening Flu vaccine Reminder: Reminder note to check Health Maintenance for items below Health Maintenance items due: MAMMOGRAM due on 08/29/2017 COVID-19 VACCINE(3 - Moderna risk series) due on 03/18/2021 DEPRESSION ASSESSMENT Never done INFLUENZA(1) due on 11/17/2021 DTAP,TDAP,TD(3 - Td or Tdap) due on 12/31/2021 Navigation Signature: Yomaira Combs March 07, 2022 8:35 AM documented in this encounter [facility] 03-06-2022 History of Present illness Narrative SUBJECTIVE Kayden Dempsey is a 56 year old female here today for a check up on her medical problems. Chief Complaint Patient presents with: 2 month follow up HPI Kayden Dempsey is a 56 year old female established patient of Dr. Goncalves who is here today for follow up. She has plans for surgery on 03/21 for colon polyp removal for further pathology testing due to concerns of a need to rule out any metastasis from prior ovarian cancer. History of Fibromyalgia, DDD and pain related to cancer treatment. She had her last chemo treatment on 02/17. Pain is managed. Arthritis flares up off and on but pain meds control it. On Morphine and norco. Up coming follow up with oncology and planning to ask oncology about if she can get her covid booster and flu shot. In regards to medications currently taken for pain management, the patient is tolerating these medications well. She reports that the medications improve her quality of life and ability to function. She denies misuse, abuse or diversion of medications. Overall her pain is unchanged than the last visit. Her medications were reviewed today and her list is now up to date. She is compliant on taking her medications: Yes She is tolerating her medication(s) without side effects: Yes Medications Current Outpatient Medications Medication Sig HYDROcodone-acetaminophen (NORCO) 5-325 mg per tablet Take 1 tablet by mouth every 4 hours as needed for up to 30 days. Do not start before February 23, 2022. morphine SR (MS CONTIN) 15 mg 12 hr tablet Take 1 tablet by mouth three times daily for 30 days. Do not start before February 23, 2022. escitalopram oxalate (LEXAPRO) 10 mg tablet Take 1 tablet by mouth once daily. sennosides (SENNA ORAL) Take by mouth. otc prochlorperazine (COMPAZINE) 10 mg tablet Take 1 tablet by mouth every 6 hours as needed. ondansetron (ZOFRAN) 8 mg tablet Take 1 tablet by mouth every 8 hours as needed for nausea/vomiting. polyethylene glycol 3350 (MIRALAX, GLYCOLAX) 17 gram packet Take 1 Packet by mouth once daily as needed for constipation. Dissolve dose in 4 - 8 ounces of liquid and take as directed. gabapentin (NEURONTIN) 100 mg capsule Take 100 mg by mouth three times daily. cyclobenzaprine (FLEXERIL) 10 mg tablet Take 1 tablet by mouth twice daily as needed. neomycin 500 mg tablet Take 2 tablets by mouth at 9pm and take 2 tablets by mouth at 11pm the night before surgery. (Patient not taking: Reported on 02/15/2022) metroNIDAZOLE (FLAGYL) 500 mg tablet Take 1 tablet by mouth at 9pm and take 1 tablet by mouth at 11pm the night before surgery. (Patient not taking: Reported on 02/15/2022) polyethylene glycol 3350 (MIRALAX, GLYCOLAX) 17 gram/dose powder Use as directed for Miralax / Gatorade Bowel Prep Kit (Patient not taking: Reported on 02/15/2022) Gatorade Sports Drink Use as directed for Miralax / Gatorade Bowel Prep Kit (Patient not taking: Reported on 02/15/2022) Bisacodyl (DULCOLAX) 5 mg tab Use as directed for Miralax / Gatorade Bowel Prep Kit (Patient not taking: Reported on 02/15/2022) morphine SR (MS CONTIN) 15 mg 12 hr tablet Take 1 tablet by mouth three times daily for 30 days. Do not start before January 24, 2022. HYDROcodone-acetaminophen (NORCO) 5-325 mg per tablet Take 1 tablet by mouth every 4 hours as needed for up to 30 days. Do not start before January 24, 2022. lidocaine-prilocaine (EMLA) 2.5-2.5 % cream Apply to affected area as needed. No current facility-administered medications for this visit. ALLERGIES Allergen Reactions Erythromycin [place] Unknown Mangos [Other] friut Ultracet [Other] ACTIVE PROBLEM LIST Ovarian Cancer On Left ([facility]) - 12/01/2021 Ovarian Cancer ([facility]) - 10/04/2021 Colon Cancer Screening - 10/04/2021 Pelvic Mass in Female - 09/05/2021 Chronic Pain Syndrome Comment: Was treated through Dr. Scott and Dr. Massey ([facility]); managed by Dr. Iqbal for years after that Vitamin D Deficiency - 09/30/2010 Seronegative Rheumatoid Arthritis (Hcc) - 11/03/2009 Osteoarthrosis, Unspecified Whether Generalized Or Localized, Other Specified Sites - 07/08/2008 Comment: Meniscal tear age 15: surgical repair by arthroscope Reportedly had repeat surgery age 17 done arthroscopically Repeat surgery on the R about age 38 Tobacco Use Disorder - 05/26/2008 Comment: Declined smoking cessation as of 05-25: half a pack per day Hyperlipidemia - 05/26/2008 Comment: TG 344, LDL 130, HDL 30 in 05-25: pt notes rare alcohol use Tuberculin Test Reaction Migraine Without Aura Comment: with nausea, vomiting and light sensitivity Degeneration of Intervertebral Disc, Site Unspecified Comment: The original script for the opiates came from Dr. Avina for the low back She tried a course of Duragesic but had a reaction to the patch She tried Dennise but it was too expensive Transferred care to [facility] about 2004 Myalgia and Myositis Social History Tobacco Use Smoking status: Every Day Packs/day: 0.30 Years: 20.00 Pack years: 6.00 Types: Cigarettes Smokeless tobacco: Never Tobacco comments: smokes 1 pack every 2 days Vaping Use Vaping Use: Never used Substance Use Topics Alcohol use: No Comment: occasional--a couple time a year at holidays Drug use: No Review of Systems Respiratory: Negative. Cardiovascular: Negative. OBJECTIVE BP 120/78 Pulse 109 Resp 20 Wt 168 lb (76.2kg) SpO2 98% LMP 10/13/2014 Physical Exam Vitals and nursing note reviewed. Constitutional: General: She is awake. She is not in acute distress. Appearance: Normal appearance. She is well-developed and well-groomed. She is not ill-appearing, toxic-appearing or diaphoretic. HENT: Head: Normocephalic. Right Ear: External ear normal. Left Ear: External ear normal. Nose: Nose normal. Eyes: General: Vision grossly intact. Conjunctiva/sclera: Conjunctivae normal. Pupils: Pupils are equal, round, and reactive to light. Neck: Vascular: No JVD. Trachea: Trachea normal. Cardiovascular: Rate and Rhythm: Normal rate and regular rhythm. Pulses: Normal pulses. Heart sounds: Normal heart sounds. No murmur heard. Pulmonary: Effort: Pulmonary effort is normal. No accessory muscle usage, prolonged expiration or respiratory distress. Breath sounds: Normal breath sounds. Musculoskeletal: Cervical back: Neck supple. Skin: General: Skin is warm and dry. Capillary Refill: Capillary refill takes less than 2 seconds. Neurological: General: No focal deficit present. Mental Status: She is alert and oriented to person, place, and time. Mental status is at baseline. Psychiatric: Attention and Perception: Attention and perception normal. Mood and Affect: Mood and affect normal. Speech: Speech normal. Behavior: Behavior normal. Behavior is cooperative. Thought Content: Thought content normal. Cognition and Memory: Cognition and memory normal. Judgment: Judgment normal. ASSESSMENT/PLAN: 1. Malignant neoplasm of ovary, unspecified laterality (HCC) - ICD9: 183.0, ICD10: C56.9 (primary diagnosis) Finished with chemo now, plans for colon polyp removal on 03/21, hopeful this does not need to be an open procedure but realistic that procedure could result in needing a stoma. 2. S/P FRANCISCO J-BSO (total abdominal hysterectomy and bilateral salpingo-oophorectomy) - ICD9: V88.01, ICD10: Z90.710, Z90.722, Z90.79 3. Seronegative Rheumatoid Arthritis - ICD9: 714.0, ICD10: M06.00 4. Fibromyalgia - ICD9: 729.1, ICD10: M79.7 5. Polyp of colon, unspecified part of colon, unspecified type - ICD9: 211.3, ICD10: K63.5 PDMP website checked and validated. All prescriptions have been APPROPRIATELY filled. No suspicious activity was identified. Note: A urine tox screen and urine pain panel have been completed appropriately (after 12 weeks of initiating therapy and at least yearly thereafter). Note: A narcotics contract has been signed and scanned into the EMR. 03/06/2022 by Niharika Cervantes APRN.CNP Portions of this note have been entered by ancillary staff. I have reviewed and when necessary edited, so that they are an adequate record of my encounter with this patient Please note that parts of this document were created using voice recognition software and therefore may contain grammatical errors. Patient verbalizes understanding of instructions from today's visit and in agreement with treatment plan. Questions answered. Agrees to call the office if questions, concerns of issues with acute symptoms not improving or if they worsen. See diagnoses and orders for additional plan(s). Allergies and medications were reviewed, list was updated, and refills given if needed. Past medical, surgical, social, and family history reviewed and updated as appropriate. Encouraged proper diet & exercise as well as compliance with taking medications. Age-appropriate health preventative measures were discussed. Return if symptoms worsen or fail to improve, for Keep next scheduled appointment.. RAJ Gómez documented in this encounter [facility] 03-01-2022 History of Present illness Narrative Radiology Service Progress Note DATE OF SERVICE: March 01, 2022 TIME: 3:00 PM PATIENT IDENTITY VERIFICATION COMPLETED USING TWO (2) STANDARD IDENTIFIERS: Name and Date of confirmed by patient verbally. FALL SCREENING: Has the patient had 2 falls in the last year or 1 fall with injury or currently using an Ambulatory Assistive Device (Walker, Cane, Wheelchair, Crutches, etc.)? No PA TIENT GENDER DATA: Female. status: : No status: NO. PATIENT RELEVANT IMPLANT DATA REVIEWED: Yes ALLERGIES: Reviewed and unchanged CONTRAST ALLERGY: NO. EXAM: CT -CONTRAST INDUCED NEPHROPATHY RISK FACTORS: Not applicable CREATININE: Creatinine Date Value Ref Range Status 02/15/2022 0.78 0.58 - 0.96 mg/dL Final 01/25/2022 0.85 0.58 - 0.96 mg/dL Final Creatinine (POCT) Date Value Ref Range Status 02/17/2022 0.70 0.7 - 1.4 mg/dL Final eGFR (POCT) Date Value Ref Range Status 02/17/2022 >60 mL/min/1.73 m2 Final P.O.C.T. RESULTS: POC done: Yes, See Lab Tab March 01, 2022 TREATMENT: N/A PERIPHERAL IV DATA: Ambulatory: A peripheral IV was started in the Left antecubital site with a Angio cath: 22 gauge. RADIOLOGY DEPARTMENT: CT; Exam(s) Completed: Chest Abdomen Pelvis SIGNATURE: RT Jessica(R) PATIENT NAME: Kayden Dempsey DATE: March 01, 2022 TIME: 3:00 PM documented in this encounter [facility] 02-23-2022 Miscellaneous Notes Klaus from [facility] pharmacy calling OSMIN issue is resolved and taken care of with [employer] and rx's are able to be filled. Klaus, a pharmacist at [facility] pharmacy, calls regarding patient's prescriptions for morphine and hydrocodone received last month ordered by Dr. Goncalves. Asking PCP to call pharmacist to discuss issue. Please call [phone]. Thank you. documented in this encounter [facility] 02-17-2022 History of Present illness Narrative Radiology Service Progress Note DATE OF SERVICE: February 17, 2022 TIME: 2:47 PM PATIENT WEIGHT: 171LBS PATIENT IDENTITY VERIFICATION COMPLETED USING TWO (2) STANDARD IDENTIFIERS: Name and Date of confirmed by patient verbally and Name and Date of confirmed by identification band. FALL SCREENING: Has the patient had 2 falls in the last year or 1 fall with injury or currently using an Ambulatory Assistive Device (Walker, Cane, Wheelchair, Crutches, etc.)? Yes, Patient High Risk for Falls What interventions were put in place to prevent falls during this visit? Offered Assistance with Transfers/Clothing, Instructed Patient to Remain Seated (Not on Exam Table) Until Exam, and Increased Observations by Caregivers PATIENT GENDER DATA: Female. status: : No status: NO. ALLERGIES: Reviewed and unchanged CONTRAST ALLERGY: No EXAM: CT -CONTRAST INDUCED NEPHROPATHY RISK FACTORS: History of Kidney surgery, Kidney neoplasm, Liver disease, and/or any recent Nephrotoxic Chemotherapy or other Nephrotoxic medications CREATININE: Creatinine Date Value Ref Range Status 02/15/2022 0.78 0.58 - 0.96 mg/dL Final 01/25/2022 0.85 0.58 - 0.96 mg/dL Final 01/04/2022 0.87 0.58 - 0.96 mg/dL Final Estimated Glomerular Filtration Rate Date Value Ref Range Status 02/15/2022 88 >=60 mL/min/1.73m Final Comment: Estimated Glomerular Filtration Rate (eGFR) is calculated using the 2020 CKD-EPI creatinine equation. This equation utilizes serum creatinine, sex, and age as parameters. The creatinine assay has traceable calibration to isotope dilution-mass spectrometry. Refer to KDIGO guidelines for clinical interpretation. In patients with unstable renal function, e.g. those with acute kidney injury, the eGFR may not accurately reflect actual GFR. P.O.C.T. RESULTS: POC done: Yes, See Lab Tab February 17, 2022 TREATMENT: N/A and No Hydration needed. IV SITE: Ambulatory: A power injectable Mediport was accessed in the Right chest with a 0.75 inch 20 gauge needle. Blood Return, Flushed easily with normal saline, Good Blood Return Post Injection, Flushed with 20 cc saline followed by Heparin 500 units/5 cc, and No Complications IV SITE APPEARANCE: Clean,Dry and Intact SIGNATURE: Meena Guillen RN PATIENT NAME: Kayden Dempsey DATE: February 17, 2022 TIME: 2:47 PM Radiology Service Progress Note PATIENT NAME: Kayden Dempsey DATE OF SERVICE: February 17, 2022 TIME: 3:17 PM PATIENT IDENTITY VERIFICATION COMPLETED USING TWO (2) IDENTIFIERS: Name and Date of confirmed by patient verbally and Name and Date of confirmed by identification band. FALL SCREENING: Has the patient had 2 falls in the last year or 1 fall with injury or currently using an Ambulatory Assistive Device (Walker, Cane, Wheelchair, Crutches, etc.)? No PATIENT GENDER DATA: Female. status: : No status: NO. PATIENT RELEVANT IMPLANT DATA REVIEWED: Yes RADIOLOGY DEPARTMENT: CT; Exam(s) Completed: PE Study PERIPHERAL IV DATA: Site assessment: Clean,Dry and Intact, Site disposition Left in for next appointment SIGNED BY: RT Leonor(R) February 17, 2022 3:17 PM documented in this encounter [facility] 02-17-2022 History of Present illness Narrative DATE OF SERVICE: 02/17/2022 PROBLEM: Kayden Dempsey presents for follow-up visit for ovarian cancer cycle 6 CAPOX (oxaliplatin & capecitabine) PRIOR HX: 09/05/21-exploratory laparotomy, total abdominal hysterectomy, bilateral salpingo-oophorectomy, lysis of adhesions, omental biopsy -Elevated pre-op CA125 (155) & CEA (3.2) -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 10/05/21: Screening colonoscopy & EGD -EGD performed with biopsies- negative -Colonoscopy demonstrated numerous 25 to 30 mm nonbleeding polyps number of which were biopsied. Largest polyp was noted at the rectosigmoid juncture and was concern for primary malignancy to be arising from this polyp. Pathology was negative for any dysplasia or malignancy. 3. 10/24/21: Diagnostic colonoscopy - FINAL DIAGNOSIS A. Colon, sigmoid, polyps, biopsy: - Tubulovillous adenomas with high-grade dysplasia and prolapse related changes. - Tubular adenoma with high-grade dysplasia. - Hyperplastic polyp. 4. 11/04/21-current-->Oxaliplatin 130mg/m2 and capecitabine 850/m2 po q 21 days 5. 12/23/21-CT scans with disease improvement after 3 cycles 6. 02/17/22-Oxaliplatin decreased to 100mg/m2 d/t side effects Tumor Markers CA 125 CEA CA19-9 Latest Ref Rng & Units <39 U/mL 0.0 - 2.3 ng/mL <36.0 U/mL 02/15/2022 15 - - 01/25/2022 15 - - 01/04/2022 14 - - 11/28/2021 13 - - 08/12/2021 155(H) 3.2(H) 16.0 CHEMO LABS: Abs Neut 3.30 02/15/2022 WBC 6.24 02/15/2022 Hemoglobin 13.8 02/15/2022 HCT 38.8 02/15/2022 PLT 274 02/15/2022 Creatinine 0.78 02/15/2022 BUN 7 02/15/2022 K 4.3 02/15/2022 Magnesium 2.3 02/15/2022 ALT (SGPT) 12 02/15/2022 AST (SGOT) 21 02/15/2022 SUBJECTIVE/INTERVAL HISTORY: Kayden Dempsey reports that she has not been feeling well. Continues to have Cold sensitivity, nausea, taste alteration, fatigue, constipation, and muscle spasms. Notices her Heart beating fast on occasion and sob. No fevers. Pt would like CEA drawn in cancer center as it was not drawn with her other labs. 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 Here for C6 chemotherapy. Labs reviewed. 2. Fatigue-increased 3. Constipation-increased 4. Nausea chemo related-increased 5. Altered taste-increased 6. Colon polyps 7. Heart palpitations/sob-concern for PE Ovarian cancer -C6 today, scans after C6 -Continue oral Cap day 1-14 (starting night of day 1) -Decrease Oxaliplatin to 100mg/m2 Fatigue -Activity as tolerated Constipation -Continue with Senna and high fiber diet Nausea -Continue with antiemetics as needed Altered taste -No intervention at this time Colon polyps -Follow up appointment with Dr. De La Cruz at the end of this month. Heart palpitations/sob -Stat CT PE Rogelio Russo APRN.CNP The previous note from Rogelio Russo APRN.CNP on 01/27/22 was copied forward and the necessary changes were made above. documented in this encounter [facility] 02-15-2022 History and physical note COLORECTAL SURGERY New Patient Visit February 06, 2022 Chief Complaint: pre op discussion ESD/ possible resection History of Present Illness: Kayden Dempsey is a 56 year old year old female with ovarian cancer, (received CAPOX), here to discuss ESD with possible resection. She had multiple polyps on prior colonoscopy, including a large one that would require ESD in OR. She tolerated chemotherapy well for her ovarian cancer, with good response in CA125. She has no new abdominal symptoms that she reports today. Elevated pre-op CA125 (155) & CEA (3.2) PAST MEDICAL HISTORY Diagnosis Date Chronic pain syndrome Was treated through Dr. Scott and Dr. Massey ([facility]); managed by Dr. 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 Brower 2003 PAST SURGICAL HISTORY Procedure Laterality Date APPENDECTOMY ARTHROSCOPY KNEE DIAGNOSTIC W/WO SYNOVIAL BX SPX Arthroscopy, knee X 2 SECTION HX 1984,1986,1992 NOVASURE 05/17/2008 uterine ablation PAST SURGICAL HISTORY OF , 02/28/1999 right breast biopsy PAST SURGICAL HISTORY OF carpal tunnel right wrist PAST SURGICAL HISTORY OF right foot surgery PAST SURGICAL HISTORY OF Right knee surgery x 3 RESCJ PRIM PRTL MAL W/BSO & OMNTC FRANCISCO J & LMPHAD 09/05/2021 Exploratory laparotomy, total abdominal hysterectomy, bilateral salpingo-oophorectomy, lysis of adhesions, omental biopsy (09/05/2021) TONSILLECTOMY PRIMARY/SECONDARY <AGE 12 03/19/1988 Tonsillectomy TUBAL LIGATION HX 03/19/1992 Current Outpatient Medications Medication Sig Dispense Refill [START ON 02/23/2022] HYDROcodone-acetaminophen (NORCO) 5-325 mg per tablet Take 1 tablet by mouth every 4 hours as needed for up to 30 days. Do not start before February 23, 2022. 180 tablet 0 [START ON 02/23/2022] morphine SR (MS CONTIN) 15 mg 12 hr tablet Take 1 tablet by mouth three times daily for 30 days. Do not start before February 23, 2022. 90 tablet 0 morphine SR (MS CONTIN) 15 mg 12 hr tablet Take 1 tablet by mouth three times daily for 30 days. Do not start before January 24, 2022. 90 tablet 0 HYDROcodone-acetaminophen (NORCO) 5-325 mg per tablet Take 1 tablet by mouth every 4 hours as needed for up to 30 days. Do not start before January 24, 2022. 180 tablet 0 escitalopram oxalate (LEXAPRO) 10 mg tablet Take 1 tablet by mouth once daily. 30 tablet 11 lidocaine-prilocaine (EMLA) 2.5-2.5 % cream Apply to affected area as needed. 30 g 2 sennosides (SENNA ORAL) Take by mouth. otc prochlorperazine (COMPAZINE) 10 mg tablet Take 1 tablet by mouth every 6 hours as needed. 30 tablet 2 ondansetron (ZOFRAN) 8 mg tablet Take 1 tablet by mouth every 8 hours as needed for nausea/vomiting. 30 tablet 2 capecitabine (XELODA) 500 mg tablet Take 3 tablets (1,500 mg) by mouth twice daily for 14 days on, followed by 7 days off. Take with food. 84 tablet 5 polyethylene glycol 3350 (MIRALAX, GLYCOLAX) 17 gram packet Take 1 Packet by mouth once daily as needed for constipation. Dissolve dose in 4 - 8 ounces of liquid and take as directed. 30 Packet 0 gabapentin (NEURONTIN) 100 mg capsule Take 100 mg by mouth three times daily. cyclobenzaprine (FLEXERIL) 10 mg tablet Take 1 tablet by mouth twice daily as needed. 180 tablet 3 No current facility-administered medications for this visit. ALLERGIES Allergen Reactions Erythromycin Base [place] Unknown Mangos [Other] friut Ultracet [Other] Review of Systems / PACC screen: Do you have difficulty climbing a full flight of stairs without feeling short of breath? no Do you require oxygen for your breathing or have your gone to an emergency department because of breathing problems? no Are you on dialysis or have you been told that your kidneys do not work well as they should? no Do have an implanted cardiac device (pacemaker, defibrillator etc.) that has not been checked in the last 6 months? no Have you had an organ transplant? no Have you been told that you had excessive bleeding during surgical procedures or do you take blood thinning medications other than aspirin? no Have you ever had a heart attack, heart stents/surgery, valve problems, or other heart problems? no Have you had a stroke, seizures, or unexplained loss of consciousness? no Do you have a neurologic condition like Parkinson's disease or multiple sclerosis? no Have you or a blood relative had a life-threatening reaction to anesthesia? no Do you have cirrhosis of the liver or other liver disease? no Have you had a blood clot within the past year? no Do you take insulin or other injections for diabetes? no Do you have sleep apnea or have you been told you may have sleep apnea? no Do you have other implanted devices (deep brain stimulator, spinal cord stimulator, etc.)? yes has a power port Physical Exam: [facility] 10/13/2014 General Appearance: Well appearing, alert, in no acute distress, well-hydrated, well nourished. Lungs: Lungs clear to auscultation. No wheezing, rhonchi, rales. Heart: RRR without murmur, gallop, or rubs. No ectopy Edema: no Abdomen: Normal abdominal exam, Abdomen soft, non-tender. Bowel sounds normal. No masses, organomegaly Anorectal: Perianal skin is intact. No erythema, induration or excoriation. No fissure, fistula or external hemorrhoids. Digital Rectal Exam: Anus: closed Resting tone: NORMAL Squeeze tone: NORMAL Chief Electrician present: Yes Proctoscopy: The patient was placed in left lateral position. After digital exam with a lubricated finger, the scope was easily inserted to 25 cm. Findings: The preparation was good. There was a 3cm sessile lesion, 15 cm from the anal verge at the rectosigmoid junction. CT ABD/PEL 01/03/2022 IMPRESSION: 1. Persistent and stable appearing nonspecific groundglass nodular opacities within the bilateral upper lung zones. Continued close attention on follow-up imaging is advised. 2. Stable top normal intrathoracic lymph nodes. 3. Status post interval hysterectomy and bilateral salpingo-oophorectomy with no CT evidence of residual or recurrent mass. 4. Subcentimeter hypodense too small to characterize left hepatic lesion. 4. Stable small soft tissue nodule in the right anterior abdomen, possibly reflecting a stable small lymph node. 10/24/21: Diagnostic colonoscopy - FINAL DIAGNOSIS A. Colon, sigmoid, polyps, biopsy: - Tubulovillous adenomas with high-grade dysplasia and prolapse related changes. - Tubular adenoma with high-grade dysplasia. - Hyperplastic polyp. 10/24/2021 c-scope Impression: - Preparation of the colon was inadequate. - Stool in the rectum, in the sigmoid colon, in the descending colon and in the transverse colon. - One 20 mm polyp in the sigmoid colon, removed with a hot snare. Resected and retrieved. Clip was placed. - One 15 mm polyp in the sigmoid colon, removed with a hot snare. Resected and retrieved. Clip was placed. - One 10 mm polyp in the sigmoid colon, removed with a hot snare. Resected and retrieved. - Polypoid lesion in the recto-sigmoid colon. 10/05/21: Screening colonoscopy & EGD -EGD performed with biopsies- negative -Colonoscopy demonstrated numerous 25 to 30 mm nonbleeding polyps number of which were biopsied. Largest polyp was noted at the rectosigmoid juncture and was concern for primary malignancy to be arising from this polyp. Pathology was negative for any dysplasia or malignancy. Assessment Medical Decision Making: Assessment & Diagnosis: Kayden Dempsey is a 56 year old female with ovarian cancer and multiple colon polyps Treatment plan: - Plan for colonoscopy in OR with ESD or large rectosigmoid lesion, discussed possibility of need for laparoscopic assisntance or colectomy, which may need to be done open given patients recent open pelvic operation for her ovarian cancer. I told her that I think chances of needing a stoma in this situation is low, but not zero, and that we would be prepared for all possibilities. Chaz De La Cruz MD Colorectal Surgery Risk of morbidity, mortality and/or complications of treatment plan: high documented in this encounter [facility] 02-08-2022 History of Present illness Narrative [facility] Refill Assessment Medication(s): Capecitabine Patient's current medication list and adherence status to current therapy were reviewed by Specialty Pharmacy clinical pharmacist to identify any new drug interactions or non-compliance to therapy. Therapy continues to be appropriate for disease, patient response, and medical condition. Verification of therapeutic benefit and effectiveness with current therapy was completed. Adverse events, barriers in adherence, and side effects were assessed and addressed if applicable. Will proceed with refill with no changes in therapy - patient progressing towards achieving therapeutic goals based on medication-specific laboratory parameters, disease state markers and outcomes. Multi Purpose Machine Operator Assessment Patient confirmed: Yes Med/dose confirmed: Yes Missed doses: No Estimated days supply on hand: 2 Next cycle/dose due: 02/17/22 Copay amount: 12.6 Copay form of payment: Credit card on file Payment confirmed: Yes Delivery method: FedEx Signature required: No Delivery address: [id number] [address] Delivery date: 02/14/22 Questions or concerns for the pharmacist?: No [facility] Visit Assessment - Hematology/Oncology: Assessment to use: Refill Vaccination Assessment: Date of influenza vaccination reminder: 11/22/2021 Date of most recent vaccination assessment: 11/22/2021 Treatment Plan Information: Treatment Plan Information: Diagnosis: Ovarian mucinous carcinoma Previous treatment(s): surgery (FRANCISCO J/BSO) New treatment regimen: Xeloda (capecitabine) + Oxaliplatin x 6 cycles Starting Dose/Titration: - Take 3 tablets (1500mg) by mouth twice daily for 14 days on, then 7 days off with food - Dosing is ~810 mg/m2 - adjusted to minimize pill burden Administration: Take with water within 30 minutes after a meal. Swallow tablets whole. Warnings: include but are not limited to bone marrow suppression, cardiotoxicity (more common in pt with hx of coronary artery disease), GI toxicity, clep-ovx-okip syndrome (onset ~79 days), hepatotoxicity (onset ~64 days - hyperbilirubinemia) Adverse reactions: include but are not limited to fatigue, rash, N/V/D/C (diarrhea: onset ~34 days, lasting ~ 5 days - risk dehydration), mucositis, eye irritation Emetogenicity: min to low Monitoring: - CBC with differential, hepatic function, and renal function should be monitored. - Monitor INR closely if receiving concomitant warfarin. - Monitor for diarrhea, dehydration, hand-foot syndrome, Baez-Gerhard syndrome, toxic epidermal necrolysis, stomatitis, and cardiotoxicity. - Monitor adherence. Drug-Drug Interactions: Category C interaction with folic acid (increased risk for cape toxicities) - pt reports no longer taking, sulfasalazine (may enhance myelosuppression) Baseline: - CrCl 82 ml/min - Hep B screening - none on file Vaccine recommendations: COVID booster Estimated Start Date Info: 11/04/[address] Gardiner Estimated Treatment Duration: 6 cycles Yaz Aldrich (Ascenz) documented in this encounter [facility] 01-30-2022 History of Present illness Narrative POPULATION HEALTH NAVIGATION OUTREACH Action/LARISSA gorman Patient due for the following: Influenza Mammogram - ordered on 07/13/2021 Annual Exam /Follow up scheduled 03/21/2022. Appointment notes updated Call made to patient and she declined mammogram and scheduled CT per her request . She declined flu vaccine at this time Pt identified by name and : NO Outreach Outcome/Action Spoke to patient or caregiver: Patient scheduled Did you use a PCP flex slot to schedule this appointment? N/A Reason for Outreach Care Gap or Scheduling/Wellness visits Payer: Payor: [employer]ICARE / Plan: [employer]ARE PPO / Product Type: PPO / Care Gap Reviewed:: Breast Cancer screening Flu vaccine Reminder: Reminder note to check Health Maintenance for items below Health Maintenance items due: MAMMOGRAM due on 08/29/2017 COVID-19 VACCINE(3 - Moderna risk series) due on 03/18/2021 DEPRESSION ASSESSMENT Never done INFLUENZA(1) due on 11/17/2021 DTAP,TDAP,TD(3 - Td or Tdap) due on 12/31/2021 Message Sent to Practice: No Navigation Signature: Yomaira Combs January 30, 2022 2:09 PM documented in this encounter [facility] 01-27-2022 History of Present illness Narrative DATE OF SERVICE: 01/27/2022 PROBLEM: Kayden Dempsey presents for follow-up visit for ovarian cancer cycle 5 CAPOX (oxaliplatin & capecitabine) PRIOR HX: 09/05/21-exploratory laparotomy, total abdominal hysterectomy, bilateral salpingo-oophorectomy, lysis of adhesions, omental biopsy -Elevated pre-op CA125 (155) & CEA (3.2) -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 10/05/21: Screening colonoscopy & EGD -EGD performed with biopsies- negative -Colonoscopy demonstrated numerous 25 to 30 mm nonbleeding polyps number of which were biopsied. Largest polyp was noted at the rectosigmoid juncture and was concern for primary malignancy to be arising from this polyp. Pathology was negative for any dysplasia or malignancy. 3. 10/24/21: Diagnostic colonoscopy - FINAL DIAGNOSIS A. Colon, sigmoid, polyps, biopsy: - Tubulovillous adenomas with high-grade dysplasia and prolapse related changes. - Tubular adenoma with high-grade dysplasia. - Hyperplastic polyp. 4. 11/04/21-current-->Oxaliplatin 130mg/m2 and capecitabine 850/m2 po q 21 days 5. 12/23/21-CT scans with disease improvement after 3 cycles Tumor Markers CA 125 CEA CA19-9 Latest Ref Rng & Units <39 U/mL 0.0 - 2.3 ng/mL <36.0 U/mL 01/25/2022 15 - - 01/04/2022 14 - - 11/28/2021 13 - - 08/12/2021 155(H) 3.2(H) 16.0 CHEMO LABS: Abs Neut 3.18 01/25/2022 WBC 6.49 01/25/2022 Hemoglobin 13.3 01/25/2022 HCT 37.9 01/25/2022 PLT 293 01/25/2022 Creatinine 0.85 01/25/2022 BUN 11 01/25/2022 K 4.1 01/25/2022 Magnesium 2.2 01/25/2022 ALT (SGPT) 56 01/25/2022 AST (SGOT) 57 01/25/2022 SUBJECTIVE/INTERVAL HISTORY: Kayden Dempsey reports that she feels okay. Has been taking norco and tylenol for pain. Continues to have altered taste which does not affect appetite.Anxious about having her ESD. No increase in fatigue. 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 Here for C5 chemotherapy. Labs reviewed. 2. Fatigue-stable 3. Constipation-stable 4. Nausea chemo related-stable 5. Altered taste-stable 6. Colon polyps Ovarian cancer -C5 today, RTC prior to C6, scans after C6 -Continue oral Cap day 1-14 (starting night of day 1) Fatigue -Activity as tolerated Constipation -Continue with Senna and high fiber diet Nausea -Continue with antiemetics as needed Altered taste -No intervention at this time Colon polyps -Follow up appointment with Dr. De La Cruz at the end of this month. Rogelio Russo APRN.AUTOMOBILE MECHANIC SUPERVISOR The previous note from Chastity Gardiner MD on 01/06/22 was copied forward and the necessary changes were made above. documented in this encounter [facility] 01-25-2022 History of Present illness Narrative This note was created using NoteWriter. Subjective Kayden Dempsey is a 56 year old female. Patient presents with: Follow Up SUBJECTIVE: Kayden Dempsye is a 56 year old year old lady here today for 2 month follow up appointment for review of medical conditions. Off week for chemo. Hanging in there. Discussed LTBI. Did not finish treatment. PAST MEDICAL HISTORY Diagnosis Date Chronic pain syndrome Was treated through Dr. Scott and Dr. Massey ([facility]); managed by Dr. 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 Do not start before January 24, 2022. HYDROcodone-acetaminophen (NORCO) 5-325 mg per tablet Take 1 tablet by mouth every 4 hours as needed for up to 30 days. Do not start before January 24, 2022. escitalopram oxalate (LEXAPRO) 10 mg tablet Take 1 tablet by mouth once daily. lidocaine-prilocaine (EMLA) 2.5-2.5 % cream Apply to affected area as needed. sennosides (SENNA ORAL) Take by mouth. otc morphine SR (MS CONTIN) 15 mg 12 hr tablet Take 1 tablet by mouth three times daily for 30 days. HYDROcodone-acetaminophen (NORCO) 5-325 mg per tablet Take 1 tablet by mouth every 4 hours as needed for up to 30 days. prochlorperazine (COMPAZINE) 10 mg tablet Take 1 tablet by mouth every 6 hours as needed. ondansetron (ZOFRAN) 8 mg tablet Take 1 tablet by mouth every 8 hours as needed for nausea/vomiting. capecitabine (XELODA) 500 mg tablet Take 3 tablets (1,500 mg) by mouth twice daily for 14 days on, followed by 7 days off. Take with food. morphine SR (MS CONTIN) 15 mg 12 hr tablet Take 1 tablet by mouth three times daily for 30 days. Do not start before October 26, 2021. polyethylene glycol 3350 (MIRALAX, GLYCOLAX) 17 gram packet Take 1 Packet by mouth once daily as needed for constipation. Dissolve dose in 4 - 8 ounces of liquid and take as directed. gabapentin (NEURONTIN) 100 mg capsule Take 100 mg by mouth three times daily. cyclobenzaprine (FLEXERIL) 10 mg tablet Take 1 tablet by mouth twice daily as needed. No current facility-administered medications for this visit. Review of Systems Objective LMP 10/13/2014 Physical Exam Constitutional: Appearance: Normal appearance. HENT: Head: Normocephalic. Eyes: Conjunctiva/sclera: Conjunctivae normal. Cardiovascular: Rate and Rhythm: Normal rate and regular rhythm. Heart sounds: Normal heart sounds. Pulmonary: Effort: Pulmonary effort is normal. Breath sounds: Normal breath sounds. Skin: General: Skin is warm and dry. Neurological: General: No focal deficit present. Mental Status: She is alert and oriented to person, place, and time. Psychiatric: Mood and Affect: Mood normal. Behavior: Behavior normal. Thought Content: Thought content normal. Judgment: Judgment normal. Component Latest Ref Rng & Units 11/28/2021 12/14/2021 01/04/2022 WBC 3.70 - 11.00 k/uL 7.84 10.44 7.37 RBC 3.90 - 5.20 m/uL 4.50 4.04 4.04 Hemoglobin 11.5 - 15.5 g/dL 14.6 13.0 13.8 Hematocrit 36.0 - 46.0 % 42.0 38.9 40.7 MCV 80.0 - 100.0 fL 93.3 96.3 100.7 (H) MCH 26.0 - 34.0 pg 32.4 32.2 34.2 (H) MCHC 30.5 - 36.0 g/dL 34.8 33.4 33.9 RDW-CV 11.5 - 15.0 % 15.0 16.8 (H) 19.6 (H) Platelet Count 150 - 400 k/uL 247 279 354 MPV 9.0 - 12.7 fL 8.8 (L) 8.8 (L) 9.0 Neut% % 60.0 71.4 50.2 Abs Neut (ANC) 1.45 - 7.50 k/uL 4.70 7.45 3.70 Lymph% % 29.1 16.4 30.8 Abs Lymph 1.00 - 4.00 k/uL 2.28 1.71 2.27 Travis% % 8.8 10.3 15.6 Abs Travis <0.87 k/uL 0.69 1.08 (H) 1.15 (H) Eosin% % 1.1 1.2 1.4 Abs Eosin <0.46 k/uL 0.09 0.13 0.10 Baso% % 0.5 0.3 0.8 Abs Baso <0.11 k/uL 0.04 0.03 0.06 Immature Gran % % 0.5 0.4 1.2 IMMATURE GRANS (ABS) <0.10 k/uL 0.04 0.04 0.09 NRBC /100 WBC 0.0 0.0 0.0 Absolute nRBC <0.01 k/uL <0.01 <0.01 <0.01 DTYPE Auto Auto Auto Protein, Total 6.3 - 8.0 g/dL 7.7 7.1 7.2 Albumin 3.9 - 4.9 g/dL 4.6 4.5 4.4 Calcium 8.5 - 10.2 mg/dL 9.4 9.0 9.5 Bilirubin, Total 0.2 - 1.3 mg/dL 0.4 0.5 0.4 Alkaline Phosphatase 34 - 123 U/L 151 (H) 108 152 (H) AST 13 - 35 U/L 24 42 (H) ALT 7 - 38 U/L 91 (H) 24 49 (H) Glucose 74 - 99 mg/dL 127 (H) 108 (H) 120 (H) BUN 7 - 21 mg/dL 10 8 11 Creatinine 0.58 - 0.96 mg/dL 0.82 0.88 0.87 Sodium 136 - 144 mmol/L 139 139 137 Potassium 3.7 - 5.1 mmol/L 4.5 4.0 5.1 Chloride 97 - 105 mmol/L 103 103 100 CO2 22 - 30 mmol/L 22 24 26 Anion Gap 9 - 18 mmol/L 14 12 11 eGFR >=60 mL/min/1.73m 83 76 77 Magnesium 1.7 - 2.3 mg/dL 2.1 2.1 2.2 Bilirubin, Conjug <0.2 mg/dL <0.2 <0.2 CA 125 <39 U/mL 13 14 Assessment and Plan Encounter Diagnosis ICD-10-CM 1. Fibromyalgia M79.7 HYDROcodone-acetaminophen (NORCO) 5-325 mg per tablet morphine SR (MS CONTIN) 15 mg 12 hr tablet 2. Seronegative Rheumatoid Arthritis M06.00 HYDROcodone-acetaminophen (NORCO) 5-325 mg per tablet morphine SR (MS CONTIN) 15 mg 12 hr tablet 3. S/P FRANCISCO J-BSO (total abdominal hysterectomy and bilateral salpingo-oophorectomy) Z90.710 HYDROcodone-acetaminophen (NORCO) 5-325 mg per tablet Z90.722 Z90.79 4. LTBI (latent tuberculosis infection) Z22.7 Above issues addressed with patient. Patient involved in shared decision making for management of medical issues. Stable with control of chronic pain. At this time benefits outweigh risks. Continue to monitor for adverse effects and indications for decreasing dose or tapering off. No signs of diversion or abuse of medication(s); no adverse effects. Continue present management. History and medications reviewed. Epic updated as needed Refills and/or prescriptions taken care of and meds adjusted as indicated after reviewed history, exam and labs. Health Maintenance reviewed. Updated record and/or ordered tests as recorded. Encouraged on efforts at healthy diet and regular exercise and adequate sleep. Jaimee Goncalves MD documented in this encounter [facility] 01-20-2022 History of Present illness Narrative [facility] Refill Assessment Medication(s): Capecitabine Patient's current medication list and adherence status to current therapy were reviewed by Specialty Pharmacy clinical pharmacist to identify any new drug interactions or non-compliance to therapy. Therapy continues to be appropriate for disease, patient response, and medical condition. Verification of therapeutic benefit and effectiveness with current therapy was completed. Adverse events, barriers in adherence, and side effects were assessed and addressed if applicable. Will proceed with refill with no changes in therapy - patient progressing towards achieving therapeutic goals based on medication-specific laboratory parameters, disease state markers and outcomes. Multi Purpose Machine Operator Assessment Patient confirmed: Yes Med/dose confirmed: Yes Supplies needed: No supplies needed Estimated days supply on hand: 0 (Took last dose this AM) Next cycle/dose due: 01/27/22 (In the evening) Copay amount: 12.6 Copay form of payment: Credit card on file Payment confirmed: Yes Delivery method: FedEx Signature required: No Delivery address: [id number] [address] Delivery date: 01/26/22 Questions or concerns for the pharmacist?: No [facility] Pharm[facility] Visit Assessment - Hematology/Oncology: Assessment to use: Refill Vaccination Assessment: Date of influenza vaccination reminder: 11/22/2021 Date of most recent vaccination assessment: 11/22/2021 Treatment Plan Information: Treatment Plan Information: Diagnosis: Ovarian mucinous carcinoma Previous treatment(s): surgery (FRANCISCO J/BSO) New treatment regimen: Xeloda (capecitabine) + Oxaliplatin x 6 cycles Starting Dose/Titration: - Take 3 tablets (1500mg) by mouth twice daily for 14 days on, then 7 days off with food - Dosing is ~810 mg/m2 - adjusted to minimize pill burden Administration: Take with water within 30 minutes after a meal. Swallow tablets whole. Warnings: include but are not limited to bone marrow suppression, cardiotoxicity (more common in pt with hx of coronary artery disease), GI toxicity, kqxm-vam-oftm syndrome (onset ~79 days), hepatotoxicity (onset ~64 days - hyperbilirubinemia) Adverse reactions: include but are not limited to fatigue, rash, N/V/D/C (diarrhea: onset ~34 days, lasting ~ 5 days - risk dehydration), mucositis, eye irritation Emetogenicity: min to low Monitoring: - CBC with differential, hepatic function, and renal function should be monitored. - Monitor INR closely if receiving concomitant warfarin. - Monitor for diarrhea, dehydration, hand-foot syndrome, Baez-Gerhard syndrome, toxic epidermal necrolysis, stomatitis, and cardiotoxicity. - Monitor adherence. Drug-Drug Interactions: Category C interaction with folic acid (increased risk for cape toxicities) - pt reports no longer taking, sulfasalazine (may enhance myelosuppression) Baseline: - CrCl 82 ml/min - Hep B screening - none on file Vaccine recommendations: COVID booster Estimated Start Date Info: 11/04/[address] Gardiner Estimated Treatment Duration: 6 cycles Ale Jane documented in this encounter [facility] 01-18-2022 Miscellaneous Notes The following approved medication requests have been transmitted electronically. Requested Prescriptions Signed Prescriptions Disp Refills morphine SR (MS CONTIN) 15 mg 12 hr tablet 90 tablet 0 Sig: Take 1 tablet by mouth three times daily for 30 days. Do not start before January 24, 2022. Authorizing Provider: JAIMEE GONCALVES HYDROcodone-acetaminophen (NORCO) 5-325 mg per tablet 180 tablet 0 Sig: Take 1 tablet by mouth every 4 hours as needed for up to 30 days. Do not start before January 24, 2022. Authorizing Provider: JAIMEE GONCALVES MD Requested via [employer] [facility] message, scheduled for OV 01/25 documented in this encounter [facility] 01-18-2022 Miscellaneous Notes Refills pending in refill encounter documented in this encounter [facility] 01-10-2022 Miscellaneous Notes Error documented in this encounter [facility] 01-06-[address] Gardiner informed this nurse pt ok to receive treatment today, report called to infusion nurse Neli. Javy Allen, RN documented in this encounter [facility] 01-06-2022 History of Present illness Narrative DATE OF SERVICE: 01/06/2022 PROBLEM: Kayden Dempsey presents for follow-up visit for ovarian cancer s/p cycle 3 CAPOX (oxaliplatin & capecitabine) Discuss scans SURGERY & DATE: 09/05/21-exploratory laparotomy, total abdominal hysterectomy, bilateral salpingo-oophorectomy, lysis of adhesions, omental biopsy -Elevated pre-op CA125 (155) & CEA (3.2) -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 10/05/21: Screening colonoscopy & EGD -EGD performed with biopsies- negative -Colonoscopy demonstrated numerous 25 to 30 mm nonbleeding polyps number of which were biopsied. Largest polyp was noted at the rectosigmoid juncture and was concern for primary malignancy to be arising from this polyp. Pathology was negative for any dysplasia or malignancy. 3. 10/24/21: Diagnostic colonoscopy - FINAL DIAGNOSIS A. Colon, sigmoid, polyps, biopsy: - Tubulovillous adenomas with high-grade dysplasia and prolapse related changes. - Tubular adenoma with high-grade dysplasia. - Hyperplastic polyp. 4. 11/04/21-current-->Oxaliplatin 130mg/m2 IV day 1 and capecitabine 850mg/m2 po day 1-14 q 21 days Tumor Markers CA 125 CEA CA19-9 Latest Ref Rng & Units <39 U/mL 0.0 - 2.3 ng/mL <36.0 U/mL 01/04/2022 14 - - 11/28/2021 13 - - 08/12/2021 155(H) 3.2(H) 16.0 CHEMO LABS: Abs Neut 3.70 01/04/2022 WBC 7.37 01/04/2022 Hemoglobin 13.8 01/04/2022 HCT 40.7 01/04/2022 PLT 354 01/04/2022 Creatinine 0.87 01/04/2022 BUN 11 01/04/2022 K 5.1 01/04/2022 Magnesium 2.2 01/04/2022 ALT (SGPT) 49 01/04/2022 AST (SGOT) 42 01/04/2022 CT C/A/P:01/02/22-IMPRESSION: 1. Persistent and stable appearing nonspecific groundglass nodular opacities within the bilateral upper lung zones. Continued close attention on follow-up imaging is advised. 2. Stable top normal intrathoracic lymph nodes. 3. Status post interval hysterectomy and bilateral salpingo-oophorectomy with no CT evidence of residual or recurrent mass. 4. Subcentimeter hypodense too small to characterize left hepatic lesion. 4. Stable small soft tissue nodule in the right anterior abdomen, possibly reflecting a stable small lymph node. SUBJECTIVE/INTERVAL HISTORY: Kayden Dempsey reports that she feels okay. Denies fever/chills. Fatigue is stable, no worsening. Has occasional constipation relieved with laxatives. Mild nausea relieved with antiemetics. Still continues to have altered taste but does not affect her appetite. Hot flashes controlled on Lexapro. Overall tolerating chemotherapy well. Denies neuropathy. 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 Here for C4 chemotherapy. Labs reviewed. -Status post ex lap, FRANCISCO J, BSO, omental biopsy on 09/05/2021 -EGD performed on 10/05/2021 which was negative -Screening colonoscopy performed on 10/05/2021 which demonstrated numerous 25 to 30 mm nonbleeding polyps number of which were biopsied. Largest polyp was noted at the rectosigmoid juncture and was concern for primary malignancy to be arising from this polyp. Pathology was negative for any dysplasia or malignancy. -Diagnostic colonoscopy performed on 10/24/21: high grade dysplasia noted in adenomas -Based on clinical correlation: colorectal surgeon felt this was unlikely to be metastatic disease from primary colon malignancy based on characteristics of polyps that were biopsied and visualized. -Plan for repeat endoscopic resection and possible bowel resection after completion of chemotherapy 2. Fatigue-stable 3. Constipation-stable 4. Nausea chemo related-stable 5. Altered taste-stable 5. Hot flashes-improved 6. Colon polyps Reviewed CT imaging with patient. Continue with current therapy with plan to complete 6 cycles. Ovarian cancer -C4 today, RTC prior to C5, scans after C6 -Continue oral Cap day 1-14 (starting night of day 1) Fatigue -Activity as tolerated Constipation-occasional -Continue with Senna and high fiber diet Nausea-stable -Continue with antiemetics as needed Altered taste-stable -No intervention at this time Hot flashes -Continue with Lexapro daily, refill sent Colon polyps -Discussed patient with Dr. De La Cruz, CT scan after C6. Plan for procedure after completion of C6 of chemotherapy. Will ensure patient has follow-up visit with him to plan for procedure. Chastity Gardiner MD Medical Decision Making: Problems: High: Illness/injury w/ threat to life/body function Risk: High: High risk from testing/treatment and Drug therapy requiring intensive monitoring Medical Decision Making Level: 5 - High documented in this encounter [facility] 01-02-2022 History of Present illness Narrative Radiology Service Progress Note DATE OF SERVICE: January 02, 2022 TIME: 3:31 PM PATIENT IDENTITY VERIFICATION COMPLETED USING TWO (2) STANDARD IDENTIFIERS: Name and Date of confirmed by patient verbally. FALL SCREENING: Has the patient had 2 falls in the last year or 1 fall with injury or currently using an Ambulatory Assistive Device (Walker, Cane, Wheelchair, Crutches, etc.)? No PATIENT GENDER DATA: Female. status: : No status: NO. PATIENT RELEVANT IMPLANT DATA REVIEWED: Yes ALLERGIES: Reviewed and unchanged CONTRAST ALLERGY: NO. EXAM: CT -CONTRAST INDUCED NEPHROPATHY RISK FACTORS: Not applicable CREATININE: Creatinine Date Value Ref Range Status 12/14/2021 0.88 0.58 - 0.96 mg/dL Final 11/28/2021 0.82 0.58 - 0.96 mg/dL Final 11/04/2021 0.90 0.58 - 0.96 mg/dL Final Estimated Glomerular Filtration Rate Date Value Ref Range Status 12/14/2021 76 >=60 mL/min/1.73m Final Comment: Estimated Glomerular Filtration Rate (eGFR) is calculated using the 2020 CKD-EPI creatinine equation. This equation utilizes serum creatinine, sex, and age as parameters. The creatinine assay has traceable calibration to isotope dilution-mass spectrometry. Refer to KDIGO guidelines for clinical interpretation. In patients with unstable renal function, e.g. those with acute kidney injury, the eGFR may not accurately reflect actual GFR. P.O.C.T. RESULTS: POC done: Yes, See Lab Tab January 02, 2022 TREATMENT: N/A PERIPHERAL IV DATA: Ambulatory: A peripheral IV was started in the Left antecubital site with a Angio cath: 22 gauge. RADIOLOGY DEPARTMENT: CT; Exam(s) Completed: Chest Abdomen Pelvis SIGNATURE: RT Jessica(R) PATIENT NAME: Kayden Dempsey DATE: January 02, 2022 TIME: 3:31 PM documented in this encounter [facility] 12-22-2021 Miscellaneous Notes Phone call received from pt stating she continues to have a cough, sour tasting vanilla pudding sputum production which continues since last Sunday. She denies fever, chills or night sweats. Informed Nita Russo CNP who notes pt should have CXR today. Informed pt who notes she will go to [place]. Pt states oh and by the way I feel really dizzy and like I am going to pass out, and weak . Informed her that she should forget the CXR and go to the ER for evaluation. She verbalized understanding. Updated AUTOMOBILE MECH[employer]IC SUPERVISOR. Javy Allen RN documented in this encounter [facility] 12-22-2021 Miscellaneous Notes Patient given below recommendation, she is unable to do virtual visit, was just calling for advise. States she does not have fever, just wanted to know what to do about thick yellow drainage. Leonora will check with her major/oncologist. Mar Asif LPN Recommend a virtual visit today. Should let cat operator/oncologist know how she is feeling. Patient calls to report that she still has a cough that is productive. Patient reports that she is bringing up foul tasting thick yellow pudding like mucus from lungs. Afebrile. Denies chest pain or SOB other than when coughing and attempting to get mucus up. Seen in on 12/14/2021 for viral illness and pharyngitis. Negative for Covid, Strep, and Influenza A & B. Undergoing chemotherapy and last treatment was on Sunday12/16/2021. Patient wondering if she needs an antibiotic. currently being treated with amoxicillin for URI. Offered an appointment and patient declined. She reports that chemo has wiped her out and she is not able to drive currently and has no transportation. Lesa Meek RN documented in this encounter [facility] 12-16-2021 Nurse Note Present for visit with pt and Nita Russo CNP. Pt notes she was not feeling well the past two days but was negative for covid and flu. She is resting and increasing fluid intake. Pt noted she was slightly more sensitive to cold this last cycle, was walking barefoot on the floors. Instructed she can not go without feet coverings while on oxaliplatin.pt verbalized understanding. Pt went to [facility] for treatment and report called to GRADY Olivera RN documented in this encounter [facility] 12-16-2021 History of Present illness Narrative DATE OF SERVICE: 12/16/2021 PROBLEM: Kayden Dempsey presents for follow-up visit for ovarian cancer here for cycle 3 CAPOX (oxaliplatin & capecitabine) today SURGERY & DATE: 09/05/21-exploratory laparotomy, total abdominal hysterectomy, bilateral salpingo-oophorectomy, lysis of adhesions, omental biopsy -Elevated pre-op CA125 (155) & CEA (3.2) -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 10/05/21: Screening colonoscopy & EGD -EGD performed with biopsies- negative -Colonoscopy demonstrated numerous 25 to 30 mm nonbleeding polyps number of which were biopsied. Largest polyp was noted at the rectosigmoid juncture and was concern for primary malignancy to be arising from this polyp. Pathology was negative for any dysplasia or malignancy. 3. 10/24/21: Diagnostic colonoscopy - FINAL DIAGNOSIS A. Colon, sigmoid, polyps, biopsy: - Tubulovillous adenomas with high-grade dysplasia and prolapse related changes. - Tubular adenoma with high-grade dysplasia. - Hyperplastic polyp. 4. 11/04/21-current-->Oxaliplatin 130mg/m2 and capecitabine 850 po q 21 days Tumor Markers CA 125 CEA CA19-9 Latest Ref Rng & Units <39 U/mL 0.0 - 2.3 ng/mL <36.0 U/mL 11/28/2021 13 - - 08/12/2021 155(H) 3.2(H) 16.0 CHEMO LABS: Abs Neut 7.45 12/14/2021 WBC 10.44 12/14/2021 Hemoglobin 13.0 12/14/2021 HCT 38.9 12/14/2021 PLT 279 12/14/2021 Creatinine 0.88 12/14/2021 BUN 8 12/14/2021 K 4.0 12/14/2021 Magnesium 2.1 12/14/2021 ALT (SGPT) 24 12/14/2021 AST (SGOT) 24 12/14/2021 SUBJECTIVE/INTERVAL HISTORY: Kayden Dempsey reports that she feels okay. Has felt a little under the weather but no fevers. Fatigue is stable no worsening. Has occasional constipation relieved with laxatives. Mild nausea relieved with antiemetics. Still continues to have altered taste but does not affect her appetite. Rare hot flashes now that she on Lexapro. 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 Here for C2 chemotherapy. Labs reviewed. 2. Fatigue-stable 3. Constipation-stable 4. Nausea chemo related-stable 5. Altered taste-stable 5. Hot flashes-improved 6. Colon polyps 7. Elevated blood pressure reading Ovarian cancer -C3 today, RTC prior to C4, scans after C3 -Continue oral Cap Fatigue -Activity as tolerated Constipation-occasional -Continue with Senna and high fiber diet Nausea-stable -Continue with antiemetics as needed Altered taste-stable -No intervention at this time Hot flashes -Continue with Lexapro daily Colon polyps -Likely to be excised by Dr. De La Cruz, CT scan after C3 to assess. Elevated blood pressure reading -Recheck manual in [facility] Rogelio Russo APRN.CNP The previous note from Rogelio Russo APRN.CNP on 11/28/21 was copied forward and the necessary changes were made above. documented in this encounter [facility] 12-16-2021 Miscellaneous Notes Late entry for 12/15/21 Returned pt's phone call message, she notes that she went for blood work yesterday and that was the only reason for call, nothing else was needed from this nurse. Also she notes she has been feeling under the weather and has the creeping crud but has tested negative for covid and flu. Pt denies fever, chills or night sweats. Informed her if she develops this she should call this office tomorrow as her chemo will be held. Pt verbalized understanding. Javy Allen RN documented in this encounter [facility] 12-06-2021 Miscellaneous Notes Phone call received from pt stating the last treatment kicked my butt and had some flu-like symptoms, sensitive to cold and nausea lasted longer this treatment then first treatment. Discussed with her that this is normal as chemo is accumulative and it is normal that symptoms will last longer with each treatment. She asked if it was ok that she was coming in on 12/16 because it is a day earlier than usual. Dr Gardiner notes it is ok, pt informed. Reminded pt about not drinking or touching cold things, room temperature is the coolest. She verbalized understanding. Javy Allen RN documented in this encounter [facility] 11-25-2021 History of Present illness Narrative This note was created using CamSemiriter. Subjective Kayden Dempsey is a 56 year old female. SUBJECTIVE: Kayden Dempsey is a 56 year old year old lady here today for 2 month follow up appointment for review of medical conditions. Noted Lexapro helping with night sweats. Vitamin E no help. Increased pain since off meds from Rheumatology due to being on chemotherapy. Will whether needs port after chemo on Sunday. Issues with getting ESD--not not done at October colonoscopy. No OIC. Needs the hydrocodone since not on arthritis meds now. PAST MEDICAL HISTORY Diagnosis Date Chronic pain syndrome Was treated through Dr. Scott and Dr. Massey ([facility]); managed by Dr. 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 otc escitalopram oxalate (LEXAPRO) 10 mg tablet Take 1 tablet by mouth once daily. prochlorperazine (COMPAZINE) 10 mg tablet Take 1 tablet by mouth every 6 hours as needed. ondansetron (ZOFRAN) 8 mg tablet Take 1 tablet by mouth every 8 hours as needed for nausea/vomiting. HYDROcodone-acetaminophen (NORCO) 5-325 mg per tablet Take 1 tablet by mouth every 4 hours as needed for up to 30 days. Do not start before October 26, 2021. capecitabine (XELODA) 500 mg tablet Take 3 tablets (1,500 mg) by mouth twice daily for 14 days on, followed by 7 days off. Take with food. morphine SR (MS CONTIN) 15 mg 12 hr tablet Take 1 tablet by mouth three times daily for 30 days. Do not start before October 26, 2021. polyethylene glycol 3350 (MIRALAX, GLYCOLAX) 17 gram packet Take 1 Packet by mouth once daily as needed for constipation. Dissolve dose in 4 - 8 ounces of liquid and take as directed. gabapentin (NEURONTIN) 100 mg capsule Take 100 mg by mouth three times daily. cyclobenzaprine (FLEXERIL) 10 mg tablet Take 1 tablet by mouth twice daily as needed. OTC PRODUCT Bisacodyl morphine SR (MS CONTIN) 15 mg 12 hr tablet Take 1 tablet by mouth three times daily for 30 days. morphine SR (MS CONTIN) 15 mg 12 hr tablet Take 1 tablet by mouth three times daily for 30 days. Do not start before July 29, 2021. morphine SR (MS CONTIN) 15 mg 12 hr tablet Take 1 tablet by mouth three times daily for 30 days. Do not start before May 31, 2021. morphine SR (MS CONTIN) 15 mg 12 hr tablet Take 1 tablet by mouth three times daily for 30 days. Do not start before May 01, 2021. predniSONE 10 mg tablet Once a day for three days when has flare up per Dr. Arredondo (Patient not taking: Reported on 11/25/2021) No current facility-administered medications for this visit. Review of Systems Objective BP 118/78 Pulse 85 Wt 77.6 kg (171 lb) LMP 10/13/2014 SpO2 97% BMI 28.90 kg/m Physical Exam Constitutional: Appearance: Normal appearance. HENT: Head: Normocephalic. Eyes: Conjunctiva/sclera: Conjunctivae normal. Cardiovascular: Rate and Rhythm: Normal rate and regular rhythm. Heart sounds: Normal heart sounds. Pulmonary: Effort: Pulmonary effort is normal. Breath sounds: Normal breath sounds. Skin: General: Skin is warm and dry. Neurological: General: No focal deficit present. Mental Status: She is alert and oriented to person, place, and time. Psychiatric: Mood and Affect: Mood normal. Behavior: Behavior normal. Thought Content: Thought content normal. Judgment: Judgment normal. Assessment and Plan Encounter Diagnosis ICD-10-CM 1. Fibromyalgia M79.7 morphine SR (MS CONTIN) 15 mg 12 hr tablet morphine SR (MS CONTIN) 15 mg 12 hr tablet HYDROcodone-acetaminophen (NORCO) 5-325 mg per tablet HYDROcodone-acetaminophen (NORCO) 5-325 mg per tablet 2. Seronegative Rheumatoid Arthritis M06.00 morphine SR (MS CONTIN) 15 mg 12 hr tablet morphine SR (MS CONTIN) 15 mg 12 hr tablet HYDROcodone-acetaminophen (NORCO) 5-325 mg per tablet HYDROcodone-acetaminophen (NORCO) 5-325 mg per tablet 3. S/P FRANCISCO J-BSO (total abdominal hysterectomy and bilateral salpingo-oophorectomy) Z90.710 HYDROcodone-acetaminophen (NORCO) 5-325 mg per tablet Z90.722 HYDROcodone-acetaminophen (NORCO) 5-325 mg per tablet Z90.79 4. Night sweats R61 exapro helping Above issues addressed with patient. Patient involved in shared decision making for management of medical issues. Stable with control of chronic pain--needing meds especially since off arthritis meds as noted in HPI. At this time benefits outweigh risks. Continue to monitor for adverse effects and indications for decreasing dose or tapering off. No signs of diversion or abuse of medication(s); no adverse effects. Continue present management. History and medications reviewed. Epic updated as needed Refills and/or prescriptions taken care of and meds adjusted as indicated after reviewed history, exam and labs. Health Maintenance reviewed. Updated record and/or ordered tests as recorded. Encouraged on efforts at healthy diet and regular exercise and adequate sleep. Jaimee Goncalves MD documented in this encounter [facility] 11-25-2021 Miscellaneous Notes Appointment time is changed. Thank you Can you please change her appt with Lis on 11/28 to 11:20 am? Thx PF documented in this encounter [facility] 11-25-2021 Miscellaneous Notes Can you please change her chemo appt Sunday to 11:30 am per Rosa Elena? Thank you PF documented in this encounter [facility] 11-18-2021 Miscellaneous Notes Patient name and was confirmed at initiation of discussion. 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 HOXB13 associated cancer risks: The c.251G>A mutation in HOXB13 is associated with an increased risk of prostate cancer (31-60%, compared to the general population risk of 10.9%). There is currently no data regarding additional cancer risks for HOXB13 mutation carriers, including any female cancer risks. Current screening recommendations for men with HOXB13 mutations are to pursue prostate cancer screening at age 40, or 10 years younger than the earliest prostate cancer diagnosis in the family. We discussed that although there are currently no known cancer risks for females with a HOXB13 mutation, women in the family could consider genetic testing for this mutation if they have children or are considering starting a family in the future, as it could be informative for future generations. Please see attached letter for further discussion. Micheal Meyers MS, [facility] Licensed, Certified Genetic Counselor documented in this encounter [facility] 11-15-2021 Miscellaneous Notes CYCLE 1/DAY 1 POST TREATMENT CALL Today's date: November 15, 2021 Treatment Regimen: CYCLE 1/DAY 1 POST TREATMENT CALL Today's date: November 15, 2021 Treatment Regimen: oxalipatin C1D1 Date: 11/04/2021 Called patient to follow-up on symptom management. Spoke with patient. SYMPTOM ASSESSMENT Neuro: Dizziness -one episode, resolved after 5 minutes, Numbness/Weakness/Tingling face, lips, tounge immediately numb and tingly following infusion for approximately 1 week, and Cold sensitivity for about a week. CV/Resp: None GI/: Appetite: decreased appetite, Nausea resolved with compazine, and Constipation: yes x 5 days, resolved with miralax and senakot Integument: Arm was painful from IV for 1 week following infusion. No redness/swelling. Activity: Over all, feels great. Pain: No=0 (pain 0 on a scale of 0-10). Fever: No Chills: No Any new referrals needed? No Reinforced CURRENT treatment education based on current and anticipated symptoms. Discussed port/line care and patient verbalizes understanding: Not Applicable Encouraged port placement for safest chemo administration. Patient instructed to contact office or after hours Hematology/Oncology fellow for: temperature ? 100.4; questions or concerns. Patient verbalized understanding of when to seek medical attention and after hours number protocol. Carmelita Canales RN documented in this encounter [facility] 11-07-2021 Nurse Note Late entry for 11/04/21 Present for visit with pt and Dr Gardiner. Pt notes she is doing well, no concerns. Dr Gardiner discussed chemo with pt and she is in agreement. Pt to call with questions or concerns. Javy Allen RN documented in this encounter [facility] 11-07-2021 Miscellaneous Notes Patient scheduled for 2 month follow-up on 11/28, cannot make it due to chemo appointment on same day. Does this need to be rescheduled or okay to refill and see In January as scheduled ? 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 10/05/21: Screening colonoscopy & EGD -EGD performed with biopsies- negative -Colonoscopy demonstrated numerous 25 to 30 mm nonbleeding polyps number of which were biopsied. Largest polyp was noted at the rectosigmoid juncture and was concern for primary malignancy to be arising from this polyp. Pathology was negative for any dysplasia or malignancy. 3. 10/24/21: Diagnostic colonoscopy - FINAL DIAGNOSIS A. Colon, sigmoid, polyps, biopsy: - Tubulovillous adenomas with high-grade dysplasia and prolapse related changes. - Tubular adenoma with high-grade dysplasia. - Hyperplastic polyp. SUBJECTIVE/INTERVAL HISTORY: Kayden Dempsey reports that she feels well. No fever or chills. Denies vaginal bleeding. Does report significant hot flashes multiple times per day and is currently using vitamin E 800IU daily. Feels ready to start chemo today. No other concerns at this time. 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 -Status post ex lap, FRANCISCO J, BSO, omental biopsy on 09/05/2021 -EGD performed on 10/05/2021 which was negative -Screening colonoscopy performed on 10/05/2021 which demonstrated numerous 25 to 30 mm nonbleeding polyps number of which were biopsied. Largest polyp was noted at the rectosigmoid juncture and was concern for primary malignancy to be arising from this polyp. Pathology was negative for any dysplasia or malignancy. -Diagnostic colonoscopy performed on 10/24/21: high grade dysplasia noted in adenomas -Based on clinical correlation: colorectal surgeon felt this was unlikely to be metastatic disease from primary colon malignancy based on characteristics of polyps that were biopsied and visualized. Plan to proceed with cycle 1 of oxaliplatin & capecitabine today as discussed previously. Plan for 6 cycles of chemo; will assess after 3 cycles the most appropriate timing for additional colon surgery given need for excision of remaining polyps. We reviewed the possible side effects and toxicities of oxaliplatin and capecitabine including but not limited to: Hypersensitivity/allergic reactions, fatigue, change in taste, GI toxicities, myelosuppression, neuropathy including oral neuropathy, mucositis, dermatologic toxicities, cardiac toxicity, hepatotoxicity, pulmonary toxicity, etc. Reviewed avoiding cold exposure during and for 48 hrs after oxaliplatin infusion. Consent signed today. Plan: Oxaliplatin 130mg/m2 IV day 1 & capecitabine 850mg/m2 PO BID x 14 days (start evening day 1 and continue q 12 hrs until morning of day 15) q 21 day cycles. Plan for 6 cycles (reassess after 3 cycles to determine best timing for additional colon surgery needed) Cycle 1 today; RTC for cycle 2 or sooner as needed Chastity Gardiner MD Medical Decision Making: Problems: High: Illness/injury w/ threat to life/body function Risk: High: High risk from testing/treatment and Drug therapy requiring intensive monitoring Medical Decision Making Level: 5 - High documented in this encounter [facility] 11-03-2021 Miscellaneous Notes Spoke with patient over the phone today. Patient is active with [employer] Medicare, LOC 80%, $0 deductible has $0 remaining, $6300.00 OOP has $4468.02 remaining. Estimate shows patient financial responsibility is $180.59 for each treatment in 2021 until oop max is reached. Patient stated understanding. Reference #[id number] Pt has ovarian cancer and currently there isn't any foundations open for her dx. Pt has been approved thru [employer] in September to cover her meds. Pt is aware of her oop cost until she meets her yrly oop. Offered to put her on my watchlist but she declined stating she is ok, doesn't have any barriers and will keep my number in case. Was advised I'm covering [place] but the FN will be returning in a few weeks and we'll be of assistance at any time. Pt was appreciative of the call. documented in this encounter [facility] 10-31-2021 Miscellaneous Notes Images from the original note were not included. [facility] Department of Pharmacy Oncology Pharmacy Medication Education Patient Name: Kayden Dempsey Primary Oncologist: Dr. Chastity Gardiner Diagnosis: Ovarian-mucinous Kayden Dempsey is a 56 year old patient called today for medication education for IV OXALIPLATIN and PO Capecitabine (Xeloda). Drug Interactions: Clinically significant interactions with chemotherapy, immunosuppression, or other standard of care treatment plan medications anticipated: No. There are no pertinent drug interactions identified. Patient was counseled accordingly. Allergies: Patient confirmed allergies documented in Epic are correct: Yes Was medication education provided?: Yes Medication Education: Administration and schedule: Oxaliplatin day 1, Capecitabine 1500 mg bid days 1 thru 14, (7 days off) every 21 days Potential side effects discussed: abdominal discomfort, anemia, appetite changes, arthralgia, bowel habit changes, chest pain, cold sensitivity, electrolyte disturbances, fatigue, hair loss, hand-foot syndrome, headache, hyperglycemia, hypersensitivity reaction, mouth hygiene, mucositis, myalgia, nausea/vomitting, neutropenia, peripheral edema, peripheral neuropathy, rash, shortness of breath, skin changes, taste changes, thrombocytopenia, venous thrombotic events, vision disorder/distrubance PO chemo: Verified patient understands where to store the drug. Yes Verified that patient understands prescription delivery, benefit investigation and refill process. Yes Was medication reconciliation performed?: Yes Changes made to medication list? Yes The following medications were updated within the home medication list: Medications DISCONTINUED from home medication list: Per patient , she will stop all RA medications except prednisone for flare-ups while getting chemotherapy ( will stop sulfasalazine, methotrexate, leucovorin, folic acid, hydroxychloroquine) Current Outpatient Medications Medication Sig OTC PRODUCT Bisacodyl HYDROcodone-acetaminophen (NORCO) 5-325 mg per tablet Take 1 tablet by mouth every 4 hours as needed for up to 30 days. Do not start before October 26, 2021. capecitabine (XELODA) 500 mg tablet Take 3 tablets (1,500 mg) by mouth twice daily for 14 days on, followed by 7 days off. Take with food. morphine SR (MS CONTIN) 15 mg 12 hr tablet Take 1 tablet by mouth three times daily for 30 days. Do not start before October 26, 2021. acetaminophen (TYLENOL) 500 mg tablet Take 2 tablets by mouth every 6 hours as needed for pain. polyethylene glycol 3350 (MIRALAX, GLYCOLAX) 17 gram packet Take 1 Packet by mouth once daily as needed for constipation. Dissolve dose in 4 - 8 ounces of liquid and take as directed. gabapentin (NEURONTIN) 100 mg capsule Take 100 mg by mouth three times daily. cyclobenzaprine (FLEXERIL) 10 mg tablet Take 1 tablet by mouth twice daily as needed. sulfaSALAzine (AZULFIDINE) 500 mg tablet Take 2 tablets by mouth twice daily. (Dr. Pak) predniSONE 10 mg tablet Once a day for three days when has flare up per Dr. Arredondo No current facility-administered medications for this visit. METHOD OF INSTRUCTION: Individual instruction Written instruction - handouts Verbal instruction PATIENT/FAMILY RESPONSE: Verbalizes understanding of: CHEMOTHERAPY-Regimen, toxicity and side effects FOLLOW UP PLAN: Complete - No need for follow-up SUPPLEMENTAL MATERIAL: Written material was provided at this visit with the following information - Chemotherapy education was provided by a pharmacist YES - Provided important phone numbers and contacts during and after hours. YES - Provided information on symptoms that require immediate assistance. YES - Provided Chemotherapy when to call handouts YES - Preventing infection. YES - Treatment schedule and confirmation of appointment times. YES - Available support groups. YES - The importance of contraception during the course of chemotherapy NA - Prescriptions for anti-emetics or treatment prep was given: Compazine and Zofran. YES - Neutropenic fever protocol discussed with patient, which included the importance of reporting any fever of 100.4F (38.0C) or greater to the healthcare team as noted on the provided wallet card and/or magnet. YES - 4th Kvng Information. YES Readiness to Learn COGNITIVE ABILITY: Alert and oriented MOTIVATION TO LEARN: Eager FAMILY SUPPORT: Unable to assess - Family not present INSTRUCTION PROVIDED TO: Patient INSTRUCTION PROVIDED BY: Pharmacist PATIENT LEARNS BEST BY: Multiple Methods FACTORS AFFECTING LEARNING: None PHYSICAL LIMITATIONS AFFECTING LEARNING: None Thank you for allowing us to participate in the care of this patient. I spent 45 minutes time (15 minute increments) on the phone with the patient Vamshi Lay RPh documented in this encounter [facility] 10-26-2021 History of Present illness Narrative Images from the original note were not included. [facility] Consultation Note Genetic Counselor: Micheal Meyers MS, [facility] Patient: Kayden Dempsey Patient Name and confirmed at initiation of virtual telephone visit. HIGH LEVEL SUMMARY: The patient's personal and family history is potentially suggestive of a hereditary cancer syndrome. The patient provided informed consent for Hereditary Breast and Ovarian Cancer Panel with reflex to a Custom Cancer Panel with preliminary evidence colon cancer genes through [facility]. Results are expected in 2 to 3 weeks. IDENTIFICATION AND CHIEF COMPLAINT: Dr. Chastity Gardiner requested a consultation for genetic counseling and risk assessment for Kayden Dempsey, a 56 year old female, for discussion of her personal history of ovarian cancer and colon polyps and family history of breast cancer, colorectal cancer, leukemia, and bone cancer. She presents to clinic today to discuss the possibility of a genetic predisposition to cancer, and to further clarify her risks, as well as her family members' risks for cancer. HISTORY OF PRESENT ILLNESS: In August 2021, at the age of 56, Kayden Dempsey was diagnosed with mucinous adenocarcinoma, arising in the background of mucinous borderline tumor of the intestinal type, left ovarian cancer. This ovarian cancer was treated with FRANCISCO J-BSO and adjuvant chemotherapy. PAST MEDICAL HISTORY Diagnosis Date Chronic pain syndrome Was treated through Dr. Scott and Dr. Massey ([facility]); managed by Dr. 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 Brower 2003 PAST SURGICAL HISTORY Procedure Laterality Date APPENDECTOMY ARTHROSCOPY KNEE DIAGNOSTIC W/WO SYNOVIAL BX SPX Arthroscopy, knee X 2 SECTION HX 1984,1986,1992 NOVASURE 05/17/2008 uterine ablation PAST SURGICAL HISTORY OF , 02/28/1999 right breast biopsy PAST SURGICAL HISTORY OF carpal tunnel right wrist PAST SURGICAL HISTORY OF right foot surgery PAST SURGICAL HISTORY OF Right knee surgery x 3 RESCJ PRIM PRTL MAL W/BSO & OMNTC FRANCISCO J & LMPHAD 09/05/2021 Exploratory laparotomy, total abdominal hysterectomy, bilateral salpingo-oophorectomy, lysis of adhesions, omental biopsy (09/05/2021) TONSILLECTOMY PRIMARY/SECONDARY <AGE 12 03/19/1988 Tonsillectomy TUBAL LIGATION HX 03/19/1992 CANCER SURVEILLANCE HISTORY: Mammograms: Yes / most recent 2020 - negative/normal Breast MRI's: No Breast Biopsies: Yes / most recent 1998 - benign/normal Colonoscopy: Yes / most recent 2021 - 4 polyps identified EGD: Yes / most recent 2021 GI Polyps: Yes / 4 polyps total in her lifetime - Per Pt report Pelvic Exam: Yes / reports following as recommended by her doctors Pap Smear: Yes / most recent 2007 - negative/normal Transvaginal Ultrasound: Yes / severe abdominal pain - ablation - Per Pt report Dermatology: No REPRODUCTIVE HISTORY AND PERSONAL RISK ASSESSMENT FACTORS: Weight: Last 1 Encounter Wt Readings: Date: Wt: 10/24/2021 74.8 kg (165 lb) Height: Last 1 Encounter Ht Readings: Date: Ht: 10/24/2021 165.1 cm (5' 5 ) Menarche was unknown age Postmenopausal at age 43 due to ablation Uterus Intact: No Ovaries Intact: No A1 , first live at age 19 Breast fed: Yes She has not previously undergone treatment for infertility. She used oral contraception pills for approximately a couple weeks to couple months total. She has not used HRT in the past. SOCIAL HISTORY: Social History Tobacco Use Smoking status: Every Day Packs/day: 0.30 Years: 20.00 Pack years: 6.00 Types: Cigarettes Smokeless tobacco: Never Tobacco comments: smokes 1 pack every 2 days Vaping Use Vaping Use: Never used Substance Use Topics Alcohol use: No Comment: occasional--a couple time a year at holidays Drug use: No FAMILY HISTORY: We obtained a detailed, 4-generation family history. Significant diagnoses are listed below: FAMILY HISTORY Problem Relation Age of Onset other (TIA [Other]) Mother Hypertension Father other (Other [Other]) Father glaucoma other (macular degeneration [Other]) Father Lipids Father Hypercholesterolemia other (Colon polyps [Other]) Father Diabetes Sister Colon Cancer Maternal Grandmother 75 Emphysema Maternal Grandfather other (bone cancer) Paternal Aunt passed in 60's Colon Cancer Paternal Uncle dx 70's Breast Cancer Other maternal great aunt @70's Cancer Other passed 50's - maternal first cousin once removed Leukemia Maternal Aunt dx 60's Leukemia Paternal cousin dx 60's The patient's maternal ancestors and paternal ancestors are of White descent. There is no Ashkenazi Yarsanism ancestry. There is no known consanguinity. A copy of the patient's pedigree will be available under the scanned documents tab following today's visit. GENETIC COUNSELING RISK ASSESSMENT, DISCUSSION, AND SUGGESTED FOLLOW UP: We reviewed the natural history and genetic etiology of sporadic, familial and hereditary cancer syndromes. The patient's personal and family history is potentially suggestive of: a hereditary cancer syndrome The patient meets NCCN HBOC testing criteria based on her personal history of ovarian cancer. We discussed that identification of a hereditary cancer syndrome may help her care providers tailor her medical management. If a mutation is detected, the National Comprehensive Cancer Network and/or expert opinion recommendations would include potentially increased cancer surveillance, potentially prophylactic surgery, and potentially targeted treatment options. If a mutation is detected, the patient will be referred back to the referring provider and to any additional appropriate care providers to discuss the relevant options. Inheritance of hereditary cancer syndromes was discussed with the patient. If a mutation is not found in the patient, this will decrease the likelihood of a hereditary cancer syndrome as the explanation for the patient's personal history of ovarian cancer and colon polyps and family history of breast cancer, colorectal cancer, leukemia, and bone cancer. However, it cannot completely rule out this possibility. Cancer surveillance options would be discussed for the patient according to the appropriate standard National Comprehensive Cancer Network and [place] [employer] guidelines, with consideration of their personal and family history risk factors. In this case, the patient will be referred back to their care providers for discussions of management. Based on this assessment of the patient's family and personal history, genetic testing is recommended. The patient was offered Hereditary Breast and Ovarian Cancer Panel with reflex to a Custom Cancer Panel with preliminary evidence colon cancer genes through [facility]. We discussed how the lab will communicate about any billing related concerns to the patient by text, call or email. We discussed that the genetic testing lab will contact them with any out of pocket cost over $100 and the maximum out of pocket cost is the $250. After considering the risks, benefits, and limitations, the patient chose to pursue and provided informed consent for the following testing: Hereditary Breast and Ovarian Cancer Panel with reflex to a Custom Cancer Panel with preliminary evidence colon cancer genes through [facility]. The Custom Cancer Panel includes APC, EMMANUEL, AXIN2, BAP1, BARD1, BMPR1A, BRCA1, BRCA2, BRIP1, CDH1, CDK4, CDKN2A, CHEK2, CTNNA1, DDX41, DICER1, EPCAM, FH, FLCN, GREM1, HOXB13, MAX, MEN1, MET, MITF, MLH1, MSH2, MSH3, MSH6, MUTYH, NF1, NTHL1, PALB2, PMS2, POLD1, POLE, POT1, PTCH1, PTEN, RAD51C, RAD51D, RET, SDHA, SDHAF2, SDHB, SDHC, SDHD, SMAD4, SMARCA4, STK11, BNWD239, TP53, TSC1, TSC2, and VHL. The Colon Cancer genes with preliminary evidence colon cancer genes: APC, AXIN2, BMPR1A, CDH1, CHEK2, EPCAM, GREM1, MLH1, MSH2, MSH3, MSH6, MUTYH, NTHL1, PMS2, POLD1, POLE, PTEN, SMAD4, STK11, TP53, EMMANUEL, BLM, BUB1B, CEP57, ENG, FLCN, GALNT12, MLH3, RNF43, and RPS20 We discussed that an NGS panel can rarely result in an unexpected finding in a gene which may or may not be related to the presenting phenotype. Per the patient's request, we will contact her by telephone to discuss these results. A follow up genetic counseling visit will be scheduled if requested. The patient was seen for a total of 20 minutes, greater than 50% of which was spent verbally counseling. This plan is being carried out per the oversight of Dr. Danielle Tomas. This note will also be sent to the referring provider via the electronic medical record. Micheal Meyers MS, [facility] Licensed, Certified Genetic Counselor [facility] CC: Dr. Chastity Tomas documented in this encounter [facility] 10-24-2021 Miscellaneous Notes The following approved medication requests have been transmitted electronically. Signed Prescriptions Disp Refills HYDROcodone-acetaminophen (NORCO) 5-325 mg per tablet 180 tablet 0 Sig: Take 1 tablet by mouth every 4 hours as needed for up to 30 days. Do not start before October 26, 2021. OSMIN Class: C-II CATIA: No Authorizing Provider: JAIMEE GONCALVES MD Last OV: 09/26/21 Next OV: 05/19/2022 documented in this encounter [facility] 10-24-2021 Nurse Note AMBULATORY PATIENT EDUCATION NOTE TOPIC: GI PROCEDURES: Colonoscopy with or without biopsies based on clinical findings READINESS TO LEARN INSTRUCTION PROVIDED TO: Patient and family member COGNITIVE ABILITY: Alert and oriented PTED MOTIVATION TO LEARN: Interested FAMILY SUPPORT: High - Very involved in pt care IPATIENT LEARNS BEST BY: Individual Instruction Written Instruction - Hand-outs FACTORS AFFECTING LEARNING: None PHYSICAL LIMITATIONS AFFECTING LEARNING: Pain LEARNING RESPONSE METHOD OF INSTRUCTION: Individual instruction PATIENT / FAMILY RESPONSE: Verbalizes understanding of: WORSENING CONDITION-Signs and symptoms of a worsening condition that warrant a call to the physician FOLLOW-UP PLAN: Patient instructed to call with any further issues SUPPLEMENTAL MATERIAL: Procedure Discharge Instructions REFERRAL (RECOMMENDATION): None PRE OP LEARNING ASSESSMENT PROCEDURE/SURGERY: GI PROCEDURES: Colonoscopy READINESS TO LEARN COGNITIVE ABILITY: Alert and oriented MOTIVATION TO LEARN: Eager Interested FAMILY SUPPORT: High - Very involved in pt care PATIENT LEARNS BEST BY: Individual Instruction Verbal Instruction FACTORS AFFECTING LEARNING: None PHYSICAL LIMITATIONS AFFECTING LEARNING: None Electronically Signed By: Marilou Hudson RN In Department: GASTROENTEROLOGY documented in this encounter [facility] 10-24-2021 History and physical note HISTORY AND PHYSICAL Kayden K Ke, 56 year old female Current history and physical on file: No Is a new History and Physical required for today's visit? Yes Indication for procedure: Other treatment of colon polyps PROCEDURE(S) SCHEDULED FOR: Colonoscopy with or without biopsies and with or without removal of polyps or lesions, dilation (any means), treatment of bleeding (any means), based on clinical findings. Possible ESD or EMR. BASELINE BEHAVIOR: Calm BASELINE ORIENTATION: A & O x3 All medications and allergies reviewed: Yes Skin Assessment: Warm dry mucus membranes pink Airway/Respiratory Assessment: Airway: visualization of the uvula- Yes Mouth: opening greater than 2 fingerbreadths- Yes Neck: full range of motion- Yes Breath sounds clear/equal- Yes Cardiac Assessment: Regular rate and rhythm without murmur Abdominal Assessment: Abdomen soft, non-tender, no masses or organomegaly. Sedation Plan: Moderate Additional Comments: None Chaz De La Cruz MD documented in this encounter [facility] 10-21-2021 Nurse Note Present for visit and exam of pt with Dr Gardiner. Pt notes she is doing well. Dr Gardiner notes she needs to wait 1 more week before doing any bending, lifting, pushing or pulling greater than 10 lbs due to suture still present at the top of her vagina. Pt verbalized understanding. Javy Allen RN documented in this encounter [facility] 10-21-2021 History of Present illness Narrative DATE OF SERVICE: 10/21/2021 PROBLEM: Kayden Dempsey presents for postop visit. SURGERY & DATE: 09/05/21-exploratory laparotomy, total abdominal hysterectomy, bilateral salpingo-oophorectomy, lysis of adhesions, omental biopsy -Elevated pre-op CA125 (155) & CEA (3.2) PATHOLOGY: FINAL DIAGNOSIS A. 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 - Left fallopian tube negative for carcinoma. B. Uterus, cervix, the right fallopian tube and ovary, hysterectomy and right salpingo-oophorectomy: - Cervix: Nabothian cyst. - Endometrium: Inactive endometrium. - Myometrium: Adenomyosis. Serosa: Negative for neoplasm. Right fallopian tube and ovary: Benign fibrous nodule, negative for neoplasm. C. Omentum, omentectomy: - Benign fibroadipose tissue. Diagnosis Comment In a background of mucinous borderline tumor, foci of stromal invasion are identified on sections of A3, A11 and A15. The left ovarian surface and fallopian tube is negative for neoplasm. The mucinous tumor is associated with a benign Celso tumor. Dr. Bacilio Ivy has reviewed selected slides and concurs. Synoptic Report OVARY or FALLOPIAN TUBE or PRIMARY PERITONEUM 8th Edition - Protocol posted: 10/27/2020 OVARY OR FALLOPIAN TUBE OR PRIMARY PERITONEUM, RESECTION - All Specimens SPECIMEN Procedure Total hysterectomy and bilateral salpingo-oophorectomy Omentectomy Hysterectomy Type Abdominal Specimen Integrity Left Ovary Integrity Capsule intact Uterus Integrity Intact TUMOR Tumor Site Left ovary Tumor Size Greatest Dimension (Centimeters): 26 cm Additional Dimension (Centimeters) 23 cm 7 cm Histologic Type Mucinous adenocarcinoma Histologic Grade Low grade Ovarian Surface Involvement Not identified Fallopian Tube Surface Involvement Not identified Other Tissue / Organ Involvement Not applicable Peritoneal / Ascitic Fluid Involvement Results pending REGIONAL LYMPH NODES Regional Lymph Node Status Not applicable (no regional lymph nodes submitted or found) PATHOLOGIC STAGE CLASSIFICATION (pTNM, AJCC 8th Edition) Reporting of pT, pN, and (when applicable) pM categories is based on information available to the pathologist at the time the report is issued. As per the AJCC (Chapter 1, 8th Ed.) it is the managing physician s responsibility to establish the final pathologic stage based upon all pertinent information, including but potentially not limited to this pathology report. pT Category pT1a pN Category pN not assigned (no nodes submitted or found) FIGO STAGE FIGO Stage IA . OVARY or FALLOPIAN TUBE or PRIMARY PERITONEUM 8th Edition - Protocol posted: 10/27/2020 OVARY OR FALLOPIAN TUBE OR PRIMARY PERITONEUM, RESECTION - All Specimens SPECIMEN Procedure Total hysterectomy and bilateral salpingo-oophorectomy Omentectomy Hysterectomy Type Abdominal Specimen Integrity Left Ovary Integrity Capsule intact Uterus Integrity Intact TUMOR Tumor Site Left ovary Tumor Size Greatest Dimension (Centimeters): 26 cm Additional Dimension (Centimeters) 23 cm 7 cm Histologic Type Mucinous adenocarcinoma Histologic Grade Low grade Ovarian Surface Involvement Not identified Fallopian Tube Surface Involvement Not identified Other Tissue / Organ Involvement Not identified Peritoneal / Ascitic Fluid Involvement Not submitted / unknown REGIONAL LYMPH NODES Regional Lymph Node Status Not applicable (no regional lymph nodes submitted or found) PATHOLOGIC STAGE CLASSIFICATION (pTNM, AJCC 8th Edition) Reporting of pT, pN, and (when applicable) pM categories is based on information available to the pathologist at the time the report is issued. As per the AJCC (Chapter 1, 8th Ed.) it is the managing physician s responsibility to establish the final pathologic stage based upon all pertinent information, including but potentially not limited to this pathology report. pT Category pT1a pN Category pN not assigned (no nodes submitted or found) FIGO STAGE FIGO Stage IA . SUBJECTIVE/INTERVAL HISTORY: Kayden Dempsey reports that she feels well. No fever or chills. No shortness of breath, cough, or chest pain. No incisional redness, swelling, or drainage. Patient reports that her appetite is good. No abdominal pain, nausea, vomiting, diarrhea, or constipation. No dysuria, gross hematuria, urinary frequency, urinary urgency, or incontinence. Her ECOG performance status is 1 (restricted in physically strenuous activity but ambulatory and able to carry out work of a light or sedentary nature). Denies vaginal bleeding. Does report significant hot flashes multiple times per day and is currently using vitamin E. Chastity Gardiner MD OBJECTIVE: VITALS: 10/21/21 0820 BP: 133/79 Pulse: 104 Resp: 16 Temp: 36.4 C (97.5 F) SpO2: 98% Weight: 74.8 kg (165 lb) HEENT: Normocephalic, atraumatic, mucus membranes moist, and no lesions NECK: Supple, no adenopathy LUNGS: Clear to auscultation bilaterally. HEART: Regular rhythm, no murmurs. Mild tachycardia. ABDOMEN: Abdomen soft, non-tender, no incisional hernias. Vertical midline incision clean/dry/intact, no erythema or drainage. PELVIC: External genitalia normal. Vagina normal on speculum exam. Uterus, cervix, adnexa surgically absent. No urethral, bladder or pelvic masses. Cuff smooth and intact. LOWER EXTREMITIES: No pitting edema, no palpable cords, and no skin changes. 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 -Status post ex lap, FRANCISCO J, BSO, omental biopsy on 09/05/2021 -EGD performed on 10/05/2021 which was negative -Colonoscopy performed on 10/05/2021 which demonstrated numerous 25 to 30 mm nonbleeding polyps number of which were biopsied. Largest polyp was noted at the rectosigmoid juncture and was concern for primary malignancy to be arising from this polyp. Pathology was negative for any dysplasia or malignancy. As discussed with patient and her over the phone, based on the recommendation and findings at the time of colonoscopy, referral was made to colorectal surgeon for discussion and plan of further biopsy and evaluation of her remaining polyps and specifically evaluation of the large polyp in the rectosigmoid juncture which was of clinical concern during colonoscopy. Patient has an appointment with Dr. De La Cruz, colorectal surgeon, on Sunday for visit and endoscopic procedure for further evaluation. We discussed the importance of trying to determine if the patient truly has an ovarian primary versus colon primary prior to initiating treatment as the management strategy would likely differ if this was known to be arising from her colon. The patient and her voiced understanding. We reviewed signs or symptoms that would warrant prompt evaluation. We will tentatively reschedule her chemotherapy with oxaliplatin and capecitabine for 11/04/2021 in this scenario that it continues to appear that this is an ovarian primary malignancy. We discussed that if: Malignancy was identified I would then refer her to medical oncologist in addition to her colorectal surgeon for further management of colon cancer. We again reviewed the rationale behind treatment of stage IC mucinous ovarian cancer, specifically infiltrative subtype given the up to 30% risk of metastatic disease including lymph node metastases. We reviewed in light of the recommendation for chemotherapy, I would not necessarily recommend returning to the operating room for lymphadenectomy given clinically negative lymph nodes intraoperatively and on CT imaging, as well as due to risk of lymphedema, additional surgical risk with another procedure, and the fact that this would not change our management recommendations regarding chemotherapy in her scenario. Patient and her voiced understanding and they are agreeable with this plan. Encouraged patient to continue using vitamin E as desired and we reviewed other treatment strategies for vasomotor symptoms of menopause, patient declines other medications at this time and will continue to try vitamin E. Plan to return to clinic on 11/04/2021 for follow-up and cycle 1 of capecitabine and oxaliplatin if appropriate. Questions were answered to her satisfaction and she is agreeable with the plan. Encouraged her to call or return in the interim with any additional questions or concerns. PLAN: 1. Discussed results of pathology and implications with patient. 2. Postop restrictions reviewed. 3. Keep scheduled appointment with colorectal surgery on Sunday to help determine ovarian versus colon primary and guide the next steps in management 4. If this continues to appear to be an ovarian primary, we will plan for IV oxaliplatin 130 mg/m2 day 1 and p.o. capecitabine 850 mg/m2 days 1 through 14 q. 21 days. Would plan for 6 cycles given no lymphadenectomy was performed and given 30% risk of lymph node metastasis with infiltrative subtype. Chastity Gardiner MD Medical Decision Making: Problems: High: Illness/injury w/ threat to life/body function Risk: High: High risk from testing/treatment Medical Decision Making Level: 5 - High documented in this encounter [facility] 10-17-2021 Miscellaneous Notes Spoke with patient: Yes Confirmed date scheduled and patient report time: Yes Procedure Planned:Colonoscopy with or without biopsies based on clinical findings Is the patient on blood thinners?no Procedure Instructions given to patient: Yes, and they verbalized their understanding of instructions given Patient instructed to take prescribed preparation prior to procedure:Yes, and they verbalized their understanding of instructions given Patient instructed to have family/friend present for procedure transport home:They verbalized their understanding and agree to have a responsible adult accompany the patient to their procedure and remain in the endoscopy area. Any barriers to Patient learning: Patient/Patient Siphon Operator responded appropriately on phone. Type of instruction given: Verbal by telephone contact. Brayan Ortiz LPN documented in this encounter [facility] 10-17-2021 Miscellaneous Notes Called patient to review plan. Chemo rescheduled from 10/21 to 11/04. Endoscopic surgery planned for 10/[address] De La Cruz- she has appt with him immediately prior to procedure on 10/24. Questions were answered to her satisfaction and she is agreeable with the plan. Encouraged her to call or return in the interim with any additional questions or concerns. She has post-op appt with me on Sunday, 10/21. Chastity Gardiner MD October 17, 2021 11:37 AM documented in this encounter [facility] 08-01-2022 Miscellaneous Notes Order for new dosing to reduce pill burden - queued up for Dr. Gardiner's review. Afua Andrade, PharmD Clinical Pharmacist, Oncology [facility] P: , F: Pool: P [facility] Pool #: [id number] documented in this encounter [facility] 10-13-2021 Miscellaneous Notes PF contacted per Mike call and requested appt date be changed to 10/31/21 at 2pm for a televisit education appt for oxaliplatin/capecitabine. The pt has been scheduled. Thank you Can you please schedule televisit teaching with pharmacy for oxaliplatin/capecitabine on 10/17 2 pm? I will let pt know. Thank you PF documented in this encounter [facility] 10-13-2021 Miscellaneous Notes Phone call to pt and informed of date and time of rescheduled chemo. Javy Allen RN documented in this encounter [facility] 10-13-2021 Miscellaneous Notes Pt has been scheduled for oxaliplatin C1D1L3 on 11/04/21 at 12pm. Is the pt aware of this appt? Thank you! Can you please schedule for oxaliplatin C1D1L3 on 11/04 at 12 pm? Thank you PF documented in this encounter [facility] 10-12-2021 Miscellaneous Notes Phone call message received from patient and noted she would like chemo cancelled on 10/21 and rescheduled because she will be having the endoscopic surgery on 10/24. Javy Allen RN documented in this encounter [facility] 10-10-2021 Miscellaneous Notes Called and spoke with patient Advised that I am calling at the referral of Dr Dsouza to schedule her for appt with Dr Madsen and genetics appt appt with Dr Madsen would be to discuss ESD in OR, which we will schedule accordingly Patient frustrated and confused that I am calling, as she was under the impression that she was being set up to see Dr De La Cruz by Dr Gardiner's office. Apologized for any confusion, advised that I will reach out to all physicians to clarify and will call her back documented in this encounter [facility] 10-06-2021 Miscellaneous Notes Late entry for 10/05/21 Phone call to pt and informed that per Dr Gardiner this nurse arranged for chemo to start on 10/21 but according to her colonoscopy today the plan is tentative right now. Pt verbalized understanding and states she was aware of this. This nurse will attempt to get her an appt with colorectal surgeon as recommended by Dr Dsouza, will discuss with Dr Gardiner and send e-mail to see how to arrange this. Pt verbalized understanding. Per Dr Gardiner ok to send e-mail which this nurse did to colorectal surgeon. Awaiting response. Javy Allen RN ummary: Other Kayden is returning a call from Javy. She can be reached at [phone] Thank you documented in this encounter [facility] 10-06-2021 History of Present illness Narrative The perianal and digital rectal examinations were normal. Multiple pedunculated, non-bleeding polyps were found in the recto-sigmoid colon, sigmoid colon, transverse colon and ascending colon. The polyps were 25 to 30 mm in size. These were biopsied with a cold forceps for histology. The largest was in the Rectosigmoid junction. This is an extremely large polyp. Patient also had multiple other polyps through the descending colon transverse colon area. In the transverse colon I biopsied a polyp and inked it and I biopsied it and another polyp in the descending colon. In the area of the largest polyp there were other several smaller polyps identified. Since the patient had a total abdominal hysterectomy and in her left tube and ovary she had mucinous adenocarcinoma arising in the background of mucinous borderline tumor of an intestinal type I did not feel it was appropriate for me to try to remove all of these polyps. I thought the better course of action here was to biopsy and refer her to a colorectal surgeon so that she may be discussed at the tumor board to determine the best surgical option for her. I feel that the tumor/polyp in the rectosigmoid juncture is more than likely the source of possible malignancy. Am going to obtain a consultation with Dr. Tuan Roberson documented in this encounter [facility] 10-05-2021 Miscellaneous Notes Patient scheduled for infusion 10-21-2021 at 9:30 Thanks Can you please schedule pt for Oxaliplatin C1D1L3 on 10/21 at 9:30 am per Rosa Elena? Thank you PF documented in this encounter [facility] 10-05-2021 History and physical note Images from the original note were not included. HISTORY AND PHYSICAL Kayden Dempsey 1965 REFERRING PHYSICIAN: No ref. provider found CHIEF COMPLAINT: Consult (colonoscopy) HPI: The patient is a 56 year old female referred for endoscopy. Patient notes a 3-month history of abdominal distention and tightness as well as watery BMs and difficulty passing BMs. Notes associated generalized abdominal discomfort, varying in intensity but severe at times. She states she will sometimes go up to 8 days between BMs. She notes she is only able to eat very soft foods and only in small amounts at a time. She denies blood in stools or black tarry stools. Denies family history of colon cancer in a first-degree relative, but does note multiple aunts and uncles with colon cancer. Kayden has not undergone prior endoscopy. The patient was evaluated by her PCP on 07/27/21 for her abdominal complaints. CT scan was ordered which showed: IMPRESSION: 1. Large approximately 24 cm cystic mass arising from the pelvis and extending superiorly into the abdomen with solid nodular components and with internal septations. 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 2. 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 3. Consultation with gynecology/oncology surgical consultation is advised. ACTIONABLE RESULT: FOLLOW-UP Acuity: Actionable Findings: Female reproductive tract (pelvis, adnexa) Routing code: [email or web address] Recommendation: Unlisted Recommendation (see report) Time Frame: as soon as possible, when the patient's clinical state allows. COMMUNICATION: Results will be communicated with the ordering provider via [employer] staff message or phone message by [employer] within 2 business days of report finalization. Algorithms for management of incidental imaging findings can be found on the [facility] Intranet Sharepoint site at: [email or web address] [email or web address] [email or web address] x Retirement Plan Specialist: AILEEN Transcribe Date/Time: Aug 10 2021 11:21A Dictated by : AUGUSTINE GRAY MD This examination was interpreted and the report reviewed and electronically signed by: AUGUSTINE GRAY MD on Aug 10 2021 11:33AM EST Results-Findings * * *Final Report* * * DATE OF EXAM: Aug 10 2021 11:17AM [facility] 0530 - CT ABD/PEL W IVCON / PROCEDURE REASON: Generalized abdominal pain * * * * Physician Interpretation * * * * EXAMINATION: CT ABDOMEN AND PELVIS WITH IV CONTRAST CLINICAL HISTORY: Abdominal swelling, bloating and pain TECHNIQUE: CT of the abdomen and pelvis was performed using standard technique, scanning from just above the dome of the diaphragm to the symphysis pubis. MQ: CTAP_3 Contrast: IV: 100 ml of Omnipaque 300 CT Radiation dose: Integrated Dose-length product (DLP) for this visit = 578 mGy*cm. CT Dose Reduction Employed: Automated exposure control(AEC) and iterative recon COMPARISON: Correlation made to pelvic sonogram dated January 03, 2008. RESULT: Liver: Subcentimeter hypodense too small to characterize left hepatic lesion (3, 25) Biliary: No bile duct dilation. Gallbladder present without radiopaque stones or wall thickening. Spleen: No mass. No splenomegaly. Pancreas: No mass or duct dilation. Adrenals: No mass. Kidneys: No mass, calculus or hydronephrosis. GI tract: Miniscule hiatal hernia. No dilation or wall thickening. Lymph nodes: No abdominal or pelvic lymphadenopathy. Mesentery/Peritoneum: There is mild soft tissue nodularity within the mesentery for example as seen in the right abdomen/pelvis (3, 106 through 112). Possibility of subtle developing peritoneal carcinomatosis is not excluded. No ascites. Vasculature: No abdominal or iliac artery aneurysm identified. Pelvis: There is a large 16.5 x 23 x 24 cm cystic mass arising from the pelvis and extending superiorly above the level of the iliac crests into the abdomen which demonstrates solid nodular components along its left superolateral aspect with associated septations. No macroscopic fat or calcifications are identified within the lesion. It is difficult to say with certainty if this arises from the left or right ovary though finding is most suggestive of an ovarian neoplasm. There is a coarse subcentimeter calcification within the right ovary which was also noted dating back to 2007. This mass abuts the anterior aspect of the uterus and displaces the bowel loops to the lateral and superior aspect of the abdomen. Bones/Soft Tissues: No destructive osseous lesion identified. Lower thorax: Peribronchial cuffing which may be seen with small airways inflammation. Anesthesiology Technologist (topogram) images: No additional findings. The patient was referred to [facility] and was evaluated by Dr. Gardiner. Further workup was ordered including CT chest, tumor markers, possible IR guided biopsy. Patient was also advised to have a colonoscopy prior to surgical intervention to rule out GI primary. Tumor markers showed: Component Latest Ref Rng & Units 08/12/2021 CA 125 <39 U/mL 155 (H) Component Latest Ref Rng & Units 08/12/2021 CA19-9 <36.0 U/mL 16.0 Component Latest Ref Rng & Units 08/12/2021 CEA 0.0 - 2.3 ng/mL 3.2 (H) Patient notes her scans were reviewed by Interventional Radiology and no biopsy planned. She was referred to our office to set up a colonoscopy. PAST MEDICAL HISTORY PAST MEDICAL HISTORY Diagnosis Date Chronic pain syndrome Was treated through Dr. Scott and Dr. Massey ([facility]); managed by Dr. 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 Brower 2003 PAST SURGICAL HISTORY PAST SURGICAL HISTORY Procedure Laterality Date APPENDECTOMY ARTHROSCOPY KNEE DIAGNOSTIC W/WO SYNOVIAL BX SPX Arthroscopy, knee X 2 SECTION HX 1984,1986,1992 NOVASURE 05/17/2008 uterine ablation PAST SURGICAL HISTORY OF , 02/28/1999 right breast biopsy PAST SURGICAL HISTORY OF carpal tunnel right wrist PAST SURGICAL HISTORY OF right foot surgery PAST SURGICAL HISTORY OF Right knee surgery x 3 TONSILLECTOMY PRIMARY/SECONDARY <AGE 12 03/19/1988 Tonsillectomy TUBAL LIGATION HX 03/19/1992 CURRENT MEDICATIONS Current Outpatient Medications Medication Sig HYDROcodone-acetaminophen (NORCO) 5-325 mg per tablet Take 1 tablet by mouth every 4 hours as needed for up to 30 days. Do not start before July 29, 2021. morphine SR (MS CONTIN) 15 mg 12 hr tablet Take 1 tablet by mouth three times daily for 30 days. Do not start before July 29, 2021. [START ON 08/29/2021] morphine SR (MS CONTIN) 15 mg 12 hr tablet Take 1 tablet by mouth three times daily for 30 days. Do not start before August 29, 2021. [START ON 08/29/2021] HYDROcodone-acetaminophen (NORCO) 5-325 mg per tablet Take 1 tablet by mouth every 4 hours as needed for up to 30 days. Do not start before August 29, 2021. gabapentin (NEURONTIN) 100 mg capsule Take 100 mg by mouth three times daily. cyclobenzaprine (FLEXERIL) 10 mg tablet Take 1 tablet by mouth twice daily as needed. hydrOXYchloroQUINE (PLAQUENIL) 200 mg tablet Take by mouth twice daily. sulfaSALAzine (AZULFIDINE) 500 mg tablet Take 2 tablets by mouth twice daily. (Dr. Pak) methotrexate 2.5 mg tablet Take 1 tablet by mouth. 6 tablets once a week (Dr. Pak) predniSONE 10 mg tablet Once a day for three days when has flare up per Dr. Arredondo leucovorin 5 mg ORAL tablet Take by mouth. Take 3 pills four hours after each methotrexate treatment (Dr. Pak) folic acid 1 mg ORAL tablet Take 2 tablet daily. HYDROcodone-acetaminophen (NORCO) 5-325 mg per tablet Take 1 tablet by mouth every 4 hours as needed for up to 30 days. Do not start before May 31, 2021. morphine SR (MS CONTIN) 15 mg 12 hr tablet Take 1 tablet by mouth three times daily for 30 days. Do not start before May 31, 2021. morphine SR (MS CONTIN) 15 mg 12 hr tablet Take 1 tablet by mouth three times daily for 30 days. Do not start before May 01, 2021. HYDROcodone-acetaminophen (NORCO) 5-325 mg per tablet Take 1 tablet by mouth every 4 hours as needed for up to 30 days. Do not start before May 01, 2021. No current facility-administered medications for this visit. ALLERGIES: Erythromycin Base, Mangos [Other], and Ultracet [Other] PERSONAL HISTORY: SOCIAL HISTORY Social History Tobacco Use Smoking status: Current Every Day Smoker Packs/day: 0.30 Years: 20.00 Pack years: 6.00 Types: Cigarettes Smokeless tobacco: Never Used Tobacco comment: smokes 1 pack every 2 days Substance Use Topics Alcohol use: No Comment: occasional--a couple time a year at holidays Drug use: No FAMILY HISTORY: FAMILY HISTORY FAMILY HISTORY Problem Relation Age of Onset other (TIA [Other]) Mother Hypertension Father other (Other [Other]) Father glaucoma other (macular degeneration [Other]) Father Lipids Father Hypercholesterolemia other (Colon polyps [Other]) Father Diabetes Sister Cancer Maternal Grandmother Abdominal cancer Emphysema Maternal Grandfather Colon Cancer Maternal Uncle other (Colon cancer [Other]) Paternal Uncle Cancer Paternal Aunt bone REVIEW OF SYMPTOMS: The review of systems data was entered by the nurse and reviewed by ne Nursing Notes: Yvonne Tripathi RN 08/22/2021 8:14 AM Signed REVIEW OF SYSTEMS: General: The patient NOTES fatigue, NOTES weight loss, denies weight gain, denies feeling hot, and denies feelings of cold. Eyes: The patient denies glaucoma, denies eye injury/surgery, wears glasses or contacts. Ear/Nose/Throat: The patient denies allergies, denies hayfever, denies ear infections, and denies bloody noses. Cardiovascular: The patient denies chest pain, denies heart disease, denies high blood pressure,denies cardiac stent, denies prior heart attack, denies irregular heart beat, denies high cholesterol, denies poor circulation, denies heart failure, other cardiac issues, denies claudication, denies cold feet, denies peripheral arterial stent. Respiratory: The patient denies tuberculosis, denies pneumonia, denies frequent cough, denies pulmonary embolism, NOTES shortness of breath, and denies coughing up blood. Gastrointestinal: The patient denies difficulty swallowing, denies acid reflux, denies ulcers, denies vomiting, denies jaundice/hepatitis, denies gallbladder problems, denies black or tarry stools, denies hemorrhoids, denies bleeding from rectum, denies diverticulitis, denies constipation, denies diarrhea, denies loss of stool control, and denies hernias. Kidney/Bladder: The patient denies kidney stones, denies urine infections, and denies bloody urine. Skin: The patient denies a history of skin cancer, denies bleeding/changing moles, and denies a history of skin rash. Neurologic: The patient denies a history of epilepsy/convulsions, denies headaches, denies head/spinal injuries, and denies stroke/TIA. Psychiatric: The patient denies psychiatric medications, denies depression, and denies voices, denies substance abuse. Endocrine: The patient denies thyroid disorders, denies diabetes, and denies hormonal problems. Hematologic: The patient denies a history of bruising, denies bleeding, and denies anemia, denies blood clots. Infections: The patient NOTES a history of measles and mumps, denies rheumatic fever, and denies sexually transmitted diseases. Musculoskeletal: The patient NOTES back pain/injury, NOTES back problems, denies sciatica, NOTES knee/foot trouble, denies arthritis, or denies gout. When was patient's last Mammogram screening? 2020 Last Colonoscopy: NONE Yvonne Tripathi RN I have confirmed and edited as necessary, the PFSH and ROS obtained by others. Alexandria Goldman PA-C PHYSICAL EXAMINATION: General: The patient is 56 year old female, well nourished, well hydrated in no acute distress. The patient is oriented to time, place, and person. VITALS: Blood pressure 124/82, pulse (!) 125, temperature 36.6 C (97.9 F), height 165.1 cm (5' 5 ), weight 81.6 kg (180 lb), last menstrual period 10/13/2014, SpO2 99 %. Body mass index is 29.95 kg/m . HEENT: Normal cephalic, ataumatic, pupils are equally round, sclera are anicteric, mucous membranes are moist, oropharynx is clear. Neck has no masses, asymmetry or lymphadenopathy. Respiratory: Clear to auscultation and percussion. Normal respiratory excursion and pattern. Cardiac: Examination is regular rate and rhythm. Normal S1/S2 Abdominal exam: +Protuberant abdomen and diffuse abdominal tenderness Extremities: no clubbing, cyanosis or edema. No adenopathy. LABORATORY VALUES: As Noted RADIOLOGIC STUDIES: As Noted Assessment IMPRESSION: pelvic mass, encounter for colonoscopy PLAN: I have reviewed patient case and CT images with supervising physician Dr. Dsouza, who also participated in development of the following plan. Per Dr. Dsouza, patient unfortunately would not be a candidate for colonoscopy locally or with [facility] [place] due to medical comorbidities and increased risk. Concerned also about ability for patient to tolerate a bowel prep at this time. Dr. Dsouza is recommending that referring provider consider barium enema as possible alternative method of colon imaging. If colonoscopy still desired for further evaluation, patient would need referral to [facility] [place] [facility] due to increased risk of complications with the pelvic mass. Patient verbalized understanding of all above. Called and spoke with Dr. Gardiner's nurse Javy regarding above. Patient aware she will be contacted by her [facility] physician office with further instructions Diagnoses: (R19.00) Pelvic mass (primary encounter diagnosis) (Z12.11) Encounter for screening for malignant neoplasm of colon Consultation requested by Dr. Gardiner for an opinion regarding colonoscopy. My final recommendations will be communicated back to the requesting physician by way of shared Medical record or letter to requesting physician via US mail. Alexandria Goldman PA-C UPDATED HISTORY AND PHYSICAL EXAMINATION SERVICE DATE: 10/05/2021 SERVICE TIME: 9:56 AM PHYSICAL EXAM MUST BE COMPLETED ON ADMISSION The History and Physical (completed in the past 30 days) has been reviewed and the patient has been examined. The contents accurately reflect the patient's condition with the following additions or revisions since the H&P was completed. Examination indicates no changes. This H&P can be found in the attached. SIGNATURE: Jack Dsouza III, MD PATIENT NAME: Kayden Dempsey DATE: October 05, 2021 TIME: 9:56 AM documented in this encounter [facility] 10-05-2021 Miscellaneous Notes Appointment is scheduled. Thank you Can you please schedule f/u appt with Dr Gardiner on 10/21 at 8:30 am? Thank you PF documented in this encounter [facility] 10-05-2021 Miscellaneous Notes Phone call to pt and left message asking for her to call this nurse, offered appt with Dr Gardiner on 10/21 since she will be starting chemotherapy on that day. Requested return call. Javy Allen RN documented in this encounter [facility] 09-30-2021 History and physical note HISTORY AND PHYSICAL EXAMINATION SERVICE DATE: 09/30/2021 SERVICE TIME: 3:08 PM PRIMARY CARE PHYSICIAN: Jaimee Goncalves MD REASON FOR VISIT: Kayden Dempsey is a 56 year old female who is scheduled for colonoscopy at the request of Dr. Jack Dsouza for consultation. My final recommendation will be communicated back to the requesting physician by way of shared medical record or letter. 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 Migraine Without Aura Degeneration of Intervertebral Disc, Site Unspecified Myalgia and Myositis Tobacco Use Disorder Hyperlipidemia Osteoarthrosis, Unspecified Whether Generalized Or Localized, Other Specified Sites Seronegative Rheumatoid Arthritis ([facility]) Vitamin D Deficiency Chronic Pain Syndrome Pelvic Mass in Female Ovarian Cancer (Hcc) COVID-19 Immunization Status Overdue - COVID-19 VACCINE (3 - Moderna risk series) Overdue since 03/18/2021 02/18/2021 Imm Admin: COVID-19 vaccine, booster dose (MODERNA) 02/18/2021 Imm Admin: COVID-19 vaccine, full dose (MODERNA) 07/10/2020 Imm Admin: COVID-19 vaccine, full dose (MODERNA) Only the first 3 history entries have been loaded, but more history exists. CHIEF COMPLAINT: Pre-op exam HPI: TB is a 56 yo seen for PAC due to scheduled above colonoscopy to rule colorectal origin of recent ovarian mass removed 09/05/2021. REVIEW OF SYSTEMS: General: No weight loss, malaise or fevers. Neurological: Positive for: headaches (migraines, otc analgesics as needed). Respiratory: Positive for: tobacco use (0.3ppd). Negative for: asthma, COPD, pneumonia within 6 weeks, URI < 2 weeks and obstructive sleep apnea. Cardiovascular: No history of HTN requiring medication, no history of angina, CHF, NE, cardiac surgery or stents. Denies rest pain, gangrene or revascularization/amputation for PVD. No history of cardiovascular symptoms or problems. GI: See HPI. No history of GI symptoms or problems. No history of esophageal varices, recent ascites, or ETOH greater than 2 drinks per day. : No history of dysuria, frequency or incontinence, stones or chronic kidney disease. No difficulty urinating, nocturia > 1 time per night or hematuria. [facility] [facility]: See HPI. +recent total abd hyster 09/05/2021 Endocrine: No history of diabetes. Has not taken steroids within the past 30 days. No history of endocrinological symptoms or problems. Hematology: No history of bleeding or clotting disorder. Patient is not taking anti-coagulation or platelet medications. No history of hematological symptoms or problems. Oncology: +ovarian cancer, pending chemo Psych: No history of psychiatric symptoms or problems. Musculoskeletal: Positive for: back pain and rheumatoid arthritis. Patient's devulcanizer loader is Alayna. Patient is using prednisone for RA. Skin: Negative for lesions, rash and itching. PAST MEDICAL HISTORY Diagnosis Date Chronic pain syndrome Was treated through Dr. Scott and Dr. Massey ([facility]); managed by Dr. 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 Brower 2003 PAST SURGICAL HISTORY Procedure Laterality Date APPENDECTOMY ARTHROSCOPY KNEE DIAGNOSTIC W/WO SYNOVIAL BX SPX Arthroscopy, knee X 2 SECTION HX 1984,1986,1992 NOVASURE 05/17/2008 uterine ablation PAST SURGICAL HISTORY OF , 02/28/1999 right breast biopsy PAST SURGICAL HISTORY OF carpal tunnel right wrist PAST SURGICAL HISTORY OF right foot surgery PAST SURGICAL HISTORY OF Right knee surgery x 3 RESCJ PRIM PRTL MAL W/BSO & OMNTC FRANCISCO J & LMPHAD 09/05/2021 Exploratory laparotomy, total abdominal hysterectomy, bilateral salpingo-oophorectomy, lysis of adhesions, omental biopsy (09/05/2021) TONSILLECTOMY PRIMARY/SECONDARY <AGE 12 03/19/1988 Tonsillectomy TUBAL LIGATION HX 03/19/1992 FAMILY HISTORY Problem Relation Age of Onset other (TIA [Other]) Mother Hypertension Father other (Other [Other]) Father glaucoma other (macular degeneration [Other]) Father Lipids Father Hypercholesterolemia other (Colon polyps [Other]) Father Diabetes Sister Cancer Maternal Grandmother Abdominal cancer Emphysema Maternal Grandfather Colon Cancer Maternal Uncle other (Colon cancer [Other]) Paternal Uncle Cancer Paternal Aunt bone Social History Tobacco Use Smoking status: Current Every Day Smoker Packs/day: 0.30 Years: 20.00 Pack years: 6.00 Types: Cigarettes Smokeless tobacco: Never Used Tobacco comment: smokes 1 pack every 2 days Vaping Use Vaping Use: Never used Substance Use Topics Alcohol use: No Comment: occasional--a couple time a year at holidays Drug use: No Prior to Admission medications as of 09/30/21 1453 Medication Sig Last Dose Taking morphine SR (MS CONTIN) 15 mg 12 hr tablet Take 1 tablet by mouth three times daily for 30 days. Taking Yes HYDROcodone-acetaminophen (NORCO) 5-325 mg per tablet Take 1 tablet by mouth every 4 hours as needed for up to 30 days. Taking Yes acetaminophen (TYLENOL) 500 mg tablet Take 2 tablets by mouth every 6 hours as needed for pain. Taking Yes senna (SENOKOT) 8.6 mg tab Take 1 tablet by mouth twice daily. Taking Yes enoxaparin (LOVENOX) 40 mg/0.4 mL Inject 0.4 mL subcutaneously q 24 HR for 25 days. Taking Yes gabapentin (NEURONTIN) 100 mg capsule Take 100 mg by mouth three times daily. Taking Yes cyclobenzaprine (FLEXERIL) 10 mg tablet Take 1 tablet by mouth twice daily as needed. Taking Yes hydrOXYchloroQUINE (PLAQUENIL) 200 mg tablet Take by mouth twice daily. Taking Yes sulfaSALAzine (AZULFIDINE) 500 mg tablet Take 2 tablets by mouth twice daily. (Dr. Pak) Taking Yes predniSONE 10 mg tablet Once a day for three days when has flare up per Dr. Arredondo Taking Yes folic acid 1 mg ORAL tablet Take 2 tablet daily. Taking Yes morphine SR (MS CONTIN) 15 mg 12 hr tablet Take 1 tablet by mouth three times daily for 30 days. Do not start before October 26, 2021. peg 3350-Electrolytes (GOLYTELY) 236-22.74-6.74 -5.86 gram suspension Refer to printed prep instructions from your provider. polyethylene glycol 3350 (MIRALAX, GLYCOLAX) 17 gram packet Take 1 Packet by mouth once daily as needed for constipation. Dissolve dose in 4 - 8 ounces of liquid and take as directed. morphine SR (MS CONTIN) 15 mg 12 hr tablet Take 1 tablet by mouth three times daily for 30 days. Do not start before July 29, 2021. morphine SR (MS CONTIN) 15 mg 12 hr tablet Take 1 tablet by mouth three times daily for 30 days. Do not start before May 31, 2021. morphine SR (MS CONTIN) 15 mg 12 hr tablet Take 1 tablet by mouth three times daily for 30 days. Do not start before May 01, 2021. methotrexate 2.5 mg tablet Take 1 tablet by mouth. 6 tablets once a week (Dr. Pak) Patient not taking: Reported on 09/26/2021 leucovorin 5 mg ORAL tablet Take by mouth. Take 3 pills four hours after each methotrexate treatment (Dr. Pak) Patient not taking: Reported on 09/26/2021 No medication comments found. ALLERGIES Allergen Reactions Erythromycin Base To Unknown Mangos [Other] friut Ultracet [Other] Objective PHYSICAL EXAM: General: alert and oriented (x3) and healthy appearance. Pertinent negatives noted - not distressed and not pale. Skin: normal color, no rash or lesions. HEENT: EOM intact and pupils equal round. Pertinent negatives noted - no carotid bruit. Cardiovascular: regular rate and rhythm, normal S1 and S2, no rub, murmurs, or gallop. Respiratory: normal breath sounds, no wheezes or crackles. No chest wall deformity or tenderness. Abdomen: soft. Pertinent negatives noted - not tender. Extremities: no deformity, no edema or tenderness, no joint swelling or clubbing. Neurological: normal cognition and motor skills. Gait normal. No weakness or sensory deficit. PAIN ASSESSMENT: VITALS: BP 122/84 Pulse 120 Temp (Src) 97 (Temporal Artery) Ht 5' 5 (1.65m) Wt 163 lb (73.9kg) SpO2 99% LMP 10/13/2014 BMI 27.12 kg/(m^2). Diagnostic tests reviewed for today's visit: Lab Value Units Date High Low HB 10.3 g/dL 09/07/2021 15.5 11.5 HCT 31.3 % 09/07/2021 46.0 36.0 WBC 7.78 k/uL 09/07/2021 11.00 3.70 PLT 297 k/uL 09/07/2021 400 150 NA 142 mmol/L 09/07/2021 144 136 K 3.7 mmol/L 09/07/2021 5.1 3.7 GLUC 103 mg/dL 09/07/2021 99 74 BUN 7 mg/dL 09/07/2021 21 7 CREAT 0.88 mg/dL 09/07/2021 0.96 0.58 PTSEC 10.6 sec 09/03/2021 13.0 9.7 INR 1.0 no uni* 09/03/2021 1.3 0.9 APTT No results within date range. ALT 8 U/L 08/12/2021 38 7 AST 11 U/L 08/12/2021 35 13 TBILI 0.4 mg/dL 08/12/2021 1.3 0.2 TSH No results within date range. Lab Value Units Date High Low HCGQT No results within date range. UHCG No results within date range. HCG, BODY* No results within date range. Lab Value Units Date High Low ABORHD No results within date range. ABSCREEN No results within date range. No results found for: HBA1C Recent Results (from the past 8760 hour(s)) ECG COMPLETE Collection Time: 09/05/21 12:06 PM Result Value Ventricular Rate 93 Atrial Rate 93 P-R Interval 150 QRS Duration 82 QT Interval 354 QTC Calculation (Bazett) 440 Calculated [place] 34 Calculated R [place] 23 Calculated T [place] 44 Impression NORMAL SINUS RHYTHM INCREASED R/S RATIO IN V1, CONSIDER EARLY TRANSITION OR POSTERIOR INFARCT BORDERLINE ECG Confirmed by KRISTIN QUINONES MD ([id number]) on 09/09/2021 12:23:54 PM No results found for this or any previous visit (from the past 39550 hour(s)). Assessment Hyperlipidemia Assessment: diet controlled TOBACCO USE DISORDER Assessment: 0.3ppd, denies asthma or COPD Seronegative Rheumatoid Arthritis Assessment: daily Prednisone, following OSH rheumatology Ovarian cancer (HCC) Assessment: s/p hyster, pending chemo Chronic pain syndrome Assessment: on rx as needed, following pain management Migraine without Aura Assessment: hx, otc analgesics as needed Shepard Activity Status Index: METS: Climb a flight of stairs or walk up a hill (5.50 METs) DASI Score: 5.5 Patient denies any chest pain or undue shortness of breath with the above physical activity. Clinical Frailty Scale: 3. Well, with treated comorbid disease STOP-Bang Score: Patient over 50 years old Denies snoring loudly Denies feeling tired, fatigued, or sleepy during the daytime Has not been observed to stop breathing or choking/gasping during sleep Denies having high blood pressure BMI less than or equal to 35 kg/m^2 Does not have a large neck Non-male patient STOP-Bang Score: 1 [id number] Score: Age: <65 Sex: female CHF history: No Hypertension history: No Stroke/TIA/thromboembolism history: No Vascular disease history: No Diabetes history: No [id number] Score: 1 ARISCAT Score: Age: 51-80 ARISCAT Score: ASA Class: 3 ANESTHESIA FINDINGS: Intubation History: No history of difficult intubation Significant Anesthesia Considerations: none Airway History: No history of difficult airway I - PHYSICAL EVALUATION AIRWAY Tracheostomy tube not present Mallampati: III. TM distance: >3 FB. Neck ROM: full ROM without neurological symptoms. Mouth opening: adequate. Short neck: no. Thick neck: no DENTAL Dental findings: teeth intact. II - ANESTHESIA PLAN ASA Score: 3 Anesthetic Plan: other Anesthetic plan additional comments: *PACC/TCI - anesthesia choice. Informed Consent Anesthetic risks, benefits, alternatives, personnel and consent discussed: yes. Patient / Responsible Libertarian agrees to proceed: yes Patient / Surrogate agrees to blood products: blood products not planned Prepared for Surgery: optimally prepared for surgery. CONSULTS: Patient does not require consults for optimization at this time Planned Anesthetic: other anesthesia choice The Following Tests/Procedures Have Been Initiated: No orders of the defined types were placed in this encounter. Instructions Given to Patient: Instructions located in the after visit summary. Patient given verbal and written preop instructions and voices comprehension and compliance. SIGNATURE: Mary Villalba APRN.CNP PATIENT NAME: Kayden Dempsey DATE: September 30, 2021 TIME: 3:08 PM PAGER/CONTACT #: documented in this encounter [facility] 09-30-2021 Instructions Mary Villalba APRN.CNP - 09/30/2021 3:06 PM EDT PATIENT PREOPERATIVE INSTRUCTIONS Jack Dsouza MD has scheduled you for your procedure at this surgery center: [facility]: [phone] -- [address] [address]. Please read below carefully for your personalized instructions. Dietary Restrictions: - Follow bowel prep instructions: clear liquids need to be stopped 2 hours prior to schedule arrival at facility Medications: Unless instructed differently below, stay on all of your medications until your surgery. Approved medications to take the morning of surgery with a sip of water: Gabapentin, Sulfasalazine If you start any new medications after today's visit, please contact the surgeon's office. Blood Thinning Medications: - Stop NSAIDS (Ibuprofen, Advil, Aleve, Motrin, Celebrex, Mobic, etc.) 7 days before surgery, as directed by your surgeon. - Stop Aspirin 7 days before surgery, as directed by your surgeon. - Stop Vitamin E, ALL multi-vitamins, herbals and dietary supplements 7 days before surgery. - You may take Tylenol (Acetaminophen) or any of your pain medications that do not contain aspirin or NSAIDS as needed. - STOP LOVENOX at midnight prior to the procedure. Important Reminders: - Candy, mints, and tobacco products are NOT permitted the morning of surgery. - Hearing aids, dentures and glasses may be worn the morning of surgery. - NO jewelry, body piercings, makeup, hairpins or contacts are to be worn the day of surgery. If you develop symptoms such as a fever, cold, or flu, or have other changes to your health within TWO DAYS of scheduled surgery or the morning of surgery, please contact the surgery center above. Personal Belongings: -Please have photo ID and insurance cards. -If you do not have a copy of advance directives on file with us, please bring a copy with you on the day of surgery. - Leave ALL valuables and money at home or with family members. For Outpatient Procedures: - YOU MUST HAVE A RESPONSIBLE PRINCIPAL TECHNICAL WRITER TAKE YOU HOME. A COMMUNITY HEALTH NAVIGATOR OR SOFT MUD MOLDER CANNOT BE MADE A RESPONSIBLE PRINCIPAL TECHNICAL WRITER. - We recommend that a responsible person stays with you overnight to take care of you. - You cannot stay in a hotel alone after outpatient surgery. You will not be permitted to have your surgery, if you do not have someone to take care of you. Arrival Time for Surgery: - The Surgery Center or hospital where you are having surgery will call the afternoon before surgery (or Sunday for Sunday surgery) with a scheduled arrival time. - If you have not heard by 4 pm, please contact the surgery center above. Please be aware that emergency situations arise, which may delay or change your surgical time. If this happens, we will notify you as soon as possible and regret any inconvenience. If you already have an Advance Directive, please fax a copy to [phone] or email to for it to be added to your chart. If you do not have an Advance Directive, you can find the appropriate form and more information at [email or web address]. We recommend that you complete the Advance Directive form found on the website and bring it with you the day of your surgery. It can be witnessed and scanned into your chart that day. Mary Villalba APRN.CNP documented in this encounter [facility] 09-30-2021 Miscellaneous Notes Addressed in refill encounter Kelley Glass APRN.CNP Refill requested to be sent to [facility] I sent a refill documented in this encounter [facility] 09-30-2021 Miscellaneous Notes Addressed in refill encounter Kelley Glass APRN.CNP documented in this encounter [facility] 09-27-2021 Miscellaneous Notes Images from the original note were not included. PATIENT NOTIFIED OF BELOW Jack Dsouza MD 7 minutes ago (3:00 PM) If the patient is on Lovenox then we should stop this at midnight prior to the procedure. Documentation If the patient is on Lovenox then we should stop this at midnight prior to the procedure. Dr. Dsouza does not typically require blood thinners to be held, will forward to him as well. Patient should have PACC review Patient has been scheduled for 10/05. Patient needed in before Dr. Gardiner on 10/20 Patient is on injectable blood thinners and wondering if she needs to stop anything beforehand and if PACC needs to see patient before as well. cancelled [facility] appointment, Amy, can you please reschedule patient in [place]? Called and spoke with patient after reviewing with Dr. Dsouza. 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 Patient had procedures scheduled through [facility] for 10/13/21 at [facility], however Dr. Dsouza and myself concerned about patient discomfort with procedures under conscious sedation in light of recent abdominal surgery. Recommend rescheduling with [facility] in [place]. Patient is agreeable to this plan and states she wants to be knocked out for endoscopy. Patient states that if Dr. Dsouza has any questions or concerns regarding patient's recent abdominal surgery, to please contact her surgeon Dr. Gardiner directly. Will forward message to Dr. Dsouza for review and to pharmacy scheduler to arrange EGD and colonoscopy with [facility] in [place]. Images from the original note were not included. SELIN Walsh; Corazon Marx RN; Jack Dsouza MD; Vickey Finnegan 3 minutes ago (11:24 AM) Planning to discuss with DP tomorrow or Sunday-he may be able to do the scope, but patient may need [facility] in [place] in light of the recent abd surgery. Will confirm with Dr. Dsouza when he is in office. Thanks, AG Message text GRADY Cárdenas; Alexandria Goldman PA-C; Jack Dsouza MD; Vickey Finnegan 45 minutes ago (10:41 AM) RA Just to clarify, the patient had surgery on 09/05/2021 to remove the abdominal mass. Are we still sending her to [facility] for a colonoscopy? Message text Images from the original note were not included. Vickey Bey; Jack Dsouza MD; Corazon Marx RN; Alexandria Goldman PA-C 14 hours ago (5:10 PM) TALIA This patient was seen by alexandria and per her note, Per Dr. Dsouza, patient unfortunately would not be a candidate for colonoscopy locally or with [facility] in [place] due to medical comorbidities and increased risk. Concerned also about ability for patient to tolerate a bowel prep at this time. Dr. Dsouza is recommending that referring provider consider barium enema as possible alternative method of colon imaging. If colonoscopy still desired for further evaluation, patient would need referral to [facility] [place] [facility] due to increased risk of complications with the pelvic mass patient needs to be cancelled for procedure with Dr Dsouza and referred to Gastro at [facility] if referring Dr still request she have this complete. Thank you Message text You Jack Dsouza MD; Vickey Finnegan 15 hours ago (4:24 PM) BH Can we take a look at this and see how to proceed please? Thank you Amy Message text Corazon Marx RN You 18 hours ago (1:33 PM) RA Reyes-can you help with this? Is she scheduled for a procedure? Does she need to see DP before the procedure? Thanks Routing comment KeKayden Alexandria Zapata PA-C 20 hours ago (11:42 AM) TB It looks like dr. Gardiner office scheduled this apt. Is this another consult or the actual procedure? Remember, I'm the one with the large abdominal mass that wouldn't do cscope. I had surgery on 10/05/21. Laporatomy with FRANCISCO J , with bilateral salpingo-oophorectomy and omentum resection. She still need EGD&C-SCOPE to rule out colorectal origin. They ordered go lytly but as we discussed I would rather do a dulcolox prep. Please advise. Thanks. Leonora Dempsey documented in this encounter [facility] 09-27-2021 Miscellaneous Notes Reviewed case with Dr. Dsouza and addressed, see 09/14 phone encounter documented in this encounter [facility] 09-26-2021 History of Present illness Narrative This note was created using CamSemiriter. Subjective Kayden Dempsey is a 56 year old female. Patient presents with: Follow Up SUBJECTIVE: Kayden Dempsey is a 56 year old year old lay here today for 2 month follow up appointment for review of medical conditions. 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 Greatest dimension was 26cm with additional dimensions 23 cm ad 7 cm. Doing much better since surgery. Still some pain. Did get the Oxycontin from the other pharmacy. Picked up 09/22/21. Prefers to go back to hydrocodone. Needs filled now. needs every 4 hours at this time. Noted some night sweats; does keep feet warm with bed warmer has. Has ergonomic bed that has been fixed. Getting around better now.. Abdominal scar healed well. Has belt for wearing when in car to prevent seat belt from hurting abdomen. PAST MEDICAL HISTORY Diagnosis Date Chronic pain syndrome Was treated through Dr. Scott and Dr. Massey ([facility]); managed by Dr. 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 acetaminophen (TYLENOL) 500 mg tablet Take 2 tablets by mouth every 6 hours as needed for pain. polyethylene glycol 3350 (MIRALAX, GLYCOLAX) 17 gram packet Take 1 Packet by mouth once daily as needed for constipation. Dissolve dose in 4 - 8 ounces of liquid and take as directed. senna (SENOKOT) 8.6 mg tab Take 1 tablet by mouth twice daily. enoxaparin (LOVENOX) 40 mg/0.4 mL Inject 0.4 mL subcutaneously q 24 HR for 25 days. morphine SR (MS CONTIN) 15 mg 12 hr tablet Take 1 tablet by mouth three times daily for 30 days. Do not start before August 29, 2021. HYDROcodone-acetaminophen (NORCO) 5-325 mg per tablet Take 1 tablet by mouth every 4 hours as needed for up to 30 days. Do not start before August 29, 2021. gabapentin (NEURONTIN) 100 mg capsule Take 100 mg by mouth three times daily. cyclobenzaprine (FLEXERIL) 10 mg tablet Take 1 tablet by mouth twice daily as needed. hydrOXYchloroQUINE (PLAQUENIL) 200 mg tablet Take by mouth twice daily. folic acid 1 mg ORAL tablet Take 2 tablet daily. peg 3350-Electrolytes (GOLYTELY) 236-22.74-6.74 -5.86 gram suspension Refer to printed prep instructions from your provider. ibuprofen (MOTRIN) 800 mg tablet Take 1 tablet by mouth every 6 hours as needed for pain. naloxone 4 mg/actuation nasal spray (NARCAN) Use 1 spray in one nostril as needed for overdose. May repeat every 2 to 3 min in alternating nostrils until medical assistance is available morphine SR (MS CONTIN) 15 mg 12 hr tablet Take 1 tablet by mouth three times daily for 30 days. Do not start before July 29, 2021. morphine SR (MS CONTIN) 15 mg 12 hr tablet Take 1 tablet by mouth three times daily for 30 days. Do not start before May 31, 2021. morphine SR (MS CONTIN) 15 mg 12 hr tablet Take 1 tablet by mouth three times daily for 30 days. Do not start before May 01, 2021. sulfaSALAzine (AZULFIDINE) 500 mg tablet Take 2 tablets by mouth twice daily. (Dr. Pak) (Patient not taking: Reported on 09/26/2021 ) methotrexate 2.5 mg tablet Take 1 tablet by mouth. 6 tablets once a week (Dr. Pak) (Patient not taking: Reported on 09/26/2021 ) predniSONE 10 mg tablet Once a day for three days when has flare up per Dr. Arredondo leucovorin 5 mg ORAL tablet Take by mouth. Take 3 pills four hours after each methotrexate treatment (Dr. Pak) (Patient not taking: Reported on 09/26/2021 ) No current facility-administered medications for this visit. Review of Systems Objective BP 122/78 Pulse 114 Wt 74.4 kg (164 lb) LMP 10/13/2014 SpO2 98% BMI 27.29 kg/m Last 5 Encounter Wt Readings: Date: Wt: 09/26/2021 74.4 kg (164 lb) 08/23/2021 80.9 kg (178 lb 5.6 oz) 08/22/2021 81.6 kg (180 lb) 08/12/2021 80.3 kg (177 lb) 07/27/2021 80.3 kg (177 lb) No waist measurement recorded Estimated body mass index is 27.29 kg/m as calculated from the following: Height as of 09/06/21: 165.1 cm (5' 5 ). Weight as of this encounter: 74.4 kg (164 lb). Last 5 Encounter BP Readings: Date: BP: 09/26/2021 122/78 09/05/2021 120/64 08/23/2021 148/72 08/22/2021 124/82 08/12/2021 133/76 Physical Exam Constitutional: Appearance: Normal appearance. HENT: Head: Normocephalic. Eyes: Conjunctiva/sclera: Conjunctivae normal. Cardiovascular: Rate and Rhythm: Normal rate and regular rhythm. Heart sounds: Normal heart sounds. Pulmonary: Effort: Pulmonary effort is normal. Breath sounds: Normal breath sounds. Skin: General: Skin is warm and dry. Neurological: General: No focal deficit present. Mental Status: She is alert and oriented to person, place, and time. Psychiatric: Mood and Affect: Mood normal. Behavior: Behavior normal. Thought Content: Thought content normal. Judgment: Judgment normal. Assessment and Plan ASSESSMENT/PLAN: 1. Fibromyalgia - ICD9: 729.1, ICD10: M79.7 (primary diagnosis) Stable on pain meds for this - HYDROCODONE 5 MG-ACETAMINOPHEN 325 MG TABLET - MORPHINE ER 15 MG TABLET,EXTENDED RELEASE - MORPHINE ER 15 MG TABLET,EXTENDED RELEASE 2. Seronegative Rheumatoid Arthritis - ICD9: 714.0, ICD10: M06.00 Stable for pain meds for this - HYDROCODONE 5 MG-ACETAMINOPHEN 325 MG TABLET - MORPHINE ER 15 MG TABLET,EXTENDED RELEASE - MORPHINE ER 15 MG TABLET,EXTENDED RELEASE 3. S/P FRANCISCO J-BSO (total abdominal hysterectomy and bilateral salpingo-oophorectomy) - ICD9: V88.01, ICD10: Z90.710, Z90.722, Z90.79 Needing more pain med for this than baseline other pain. Continue present management. Hoping to wean back to usual dose. - HYDROCODONE 5 MG-ACETAMINOPHEN 325 MG TABLET Following with [employer] Onc. Jaimee Goncalves MD documented in this encounter [facility] 09-23-2021 History of Present illness Narrative TELEVISIT PROGRESS NOTE This is a telephone encounter initiated for an established patient, parent or guardian not originating from a related Evaluation & Management service provided within the previous 7 days nor leading to an Evaluation & Management service or procedure within the next 24 hours or soonest available appointment. Patient name and birthday verified: Yes Location of patient: Home/AL DATE OF SERVICE: 09/23/2021 REASON FOR TELEVISIT: Postop SURGERY & DATE: Exploratory laparotomy, total abdominal hysterectomy, bilateral salpingo-oophorectomy, lysis of adhesions, omental biopsy (09/05/2021) PATHOLOGY: A. 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 - Left fallopian tube negative for carcinoma. B. Uterus, cervix, the right fallopian tube and ovary, hysterectomy and right salpingo-oophorectomy: - Cervix: Nabothian cyst. - Endometrium: Inactive endometrium. - Myometrium: Adenomyosis. Serosa: Negative for neoplasm. Right fallopian tube and ovary: Benign fibrous nodule, negative for neoplasm. C. Omentum, omentectomy: - Benign fibroadipose tissue. SUBJECTIVE/INTERVAL HISTORY: Kayden Dempsey reports that she feels well. States that she has some good days and some bad days. No fever or chills. No shortness of breath, cough, or chest pain. No incisional redness, swelling, or drainage. No abdominal pain, nausea, vomiting, diarrhea, or constipation. Taking MiraLAX, stool softeners, laxatives as needed to manage her bowels. She is eating better. No dysuria, gross hematuria, urinary frequency, urinary urgency, or incontinence. She is not tolerating her Lovenox injections well and is happy that she is mcfp through her treatment. She is scheduled for a follow-up with her PCP on Sunday and will ask her PCP to look at her incision. She does not have any concerns regarding her incision. Her ECOG performance status is 1 (restricted in physically strenuous activity but ambulatory and able to carry out work of a light or sedentary nature). 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 Patient is doing well postop. PLAN: 1. Discussed results of pathology and implications with patient. Case was also discussed with Dr. Gardiner 2. Postop restrictions reviewed. 3. Patient to proceed with colonoscopy/EGD as scheduled in September and will follow-up with Dr. Gardiner on 10/20/2021 to discuss those results and her plan of care. Appointments for Next 60 Days Date Time Provider Location Dept Phone 09/23/2021 10:30 AM CITLALY GONZALEZ [facility] [phone] 09/26/2021 1:40 PM JAIMEE GONCALVES [facility] [phone] 10/13/2021 1:15 PM JACK DSOUZA [phone] 10/13/2021 1:15 PM W[facility] PR02 Serena Bradshaw [phone] 10/20/2021 2:30 PM CHASTITY GARDINER [facility] [phone] Citlaly Gonzalez APRN.AUTOMOBILE MECHANIC SUPERVISOR CC: Chastity Gardiner MD documented in this encounter [facility] 09-08-2021 Miscellaneous Notes Returned call to . Advised him the best place to administer the enoxaparin is in the abdomen. Reviewed areas and how to give injection. Ashleigh Damian RN Skyler is calling to speak with a nurse because his was prescribed enoxaparin and he needs clarification on where to administer the injection. Stomach or arm? He can be reached at [phone]. Thank you documented in this encounter [facility] 09-08-2021 History of Present illness Narrative TCM Home Visit Referral Source of Stratification: [facility] Hospital Admission Status: Discharged Readmission Risk Score: 10 NATIVIDAD Score: 0 Program referral criteria met: Does not meet referral criteria Patient does not qualify for High Risk TCM Home Visit program due to: Does not meet referral criteria Patient does not quality for High Risk TCM Home Visit Program due to: Does not meet referral criteria TRANSITIONAL CARE MANAGEMENT (TCM) COMMUNITY MONITORING PROGRAM Provider Action/FYI: TCM Initial Hospital Discharge [facility] on 09-07-[address] Goncalves f/u 08-27-21 Patient states she is feeling like a lump of crap Rates pain as 3-4 , 10+ with activity States incision looks 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 an 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, 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 Wearing abdominal binder Taking Tylenol, Oxycodone, not able to take Motrin, has MS Contin Denies chest pain, sob, fever or chills Appetite okay, no n/v, drinking enough to remain well hydrated Reviewed medications SUMMARY: [facility] discharged from [facility] 09-07-21 Admitted for: Pelvic mass Contact made with patient: Yes Hi my name is Samantha Burton RN and I am calling from the [facility] on behalf of your PCP, Jaimee Goncalves MD I understand you were recently in the hospital so I am calling to check in with you to ensure you are feeling well now that you're home. May I ask you a few questions related to your hospital stay and well-being? Yes Contact with patient post discharge, spoke to patient. Patient identified by name and . Do you feel your health is BETTER, WORSE, or the SAME since leaving the hospital? Same ACTION TAKEN: Patient indicated symptoms are better or same, no action required. Continue outreach. MEDICATIONS: Many patients have questions or concerns about their medications once they are home. Do you have any questions about taking your medications or which medication you should be on? No Do you need any medication refills at this time, including any of the medications you might take only when needed? No ACTION TAKEN: No action required For RNs or Pharmacy completing outreach ONLY, was a medication review completed? Yes SOCIAL: We would like to make sure you have what you need so that your basics needs are met - including your personal safety, food, housing and medications. Would you like to speak with a social work steam box operator to help give you support for any of these needs? No It can be normal to feel anxious or down during a time like this. Would you like to talk to a mental health professional about how you have been feeling? No ACTION TAKEN: No action taken DISCHARGE INTRUCTIONS: Your discharge instructions / After Visit Summary (AVS) are important in guiding you through the recovery process. Do you have any questions related to your discharge instructions? No Do you have all the necessary equipment and supplies at home? Yes ACTION TAKEN: No action required I would like to help you schedule a hospital follow-up virtual or telephone visit with your PCP. This is a great way for you to connect with your provider to ensure you have safely transitioned home. If you are agreeable, I will send your request to a master scheduler who will contact and assist you with that appointment. This will give you an opportunity to ask any questions or address any concerns you may have with your PCP. Inform the patient that if they have any questions or concerns prior to that appointment, to call their PCP's office right away. ACTION TAKEN: No action required, patient already has an appointment scheduled. Your doctor would like us to remind you of the recommendations regarding the coronavirus (Covid19) outbreak: Avoid public places as much as possible. Avoid close contact (within 6 feet) with others you don t live with, especially if they are sick. Stay home if you are sick. Wash your hands regularly for at least 20 seconds with soap and water. Wear a cloth mask in public places to help reduce community spread. Do not go to your Doctor s office unless instructed to do so. For any non-emergency symptoms, call your Doctor s office to get instructions on how to manage (we might recommend a telephone or virtual visit). For emergency symptoms, proceed to Emergency Department as usual but inform them of cough and fever symptoms ANN if present (or call on the way if possible). Samantha Burton RN Raveler documented in this encounter [facility] 09-01-2021 History of Present illness Narrative AMBULATORY TELEPHONE VISIT Kayden Dempsey has consented to this telephone encounter. Persons Present: patient Data Reviewed: Most recent labs and imaging results. DATE OF SERVICE: 09/01/2021 PROBLEM: Kayden Dempsey presents for follow-up of ovarian mass and preop discussion. DIAGNOSIS: ovarian mass PRIOR THERAPY & DATE: 1. Initial complaint was abdominal pain in Mar/Apr 2021 - AXR without specific findings. Went to take care of parents for a month and things got worse with bloating and at that time with complaints of abdominal pain, constipation, early satiety. 2. CT CA 125 (U/mL) Date Value 08/12/2021 155 CA 125 Date Value Ref Range Status 08/12/2021 155 (H) <39 U/mL Final Comment: CA 125 test methodology used is the Electrochemiluminescence Immunoassay by [employer]. The reference interval is based on the 95th percentile of 240 apparently healthy premenopausal and postmenopausal women. At a cutoff value of 65 U/mL, the test sensitivity to distinguish ovarian carcinoma (FIGO stage I to IV) versus benign gynecological disease is 79%, with a specificity of 82%. Reference: Cancer Antigen 125 (CA 125 II) [package insert V 1.0 Swedish]. [employer], [place], [place] (December 2014) CEA Date Value Ref Range Status 08/12/2021 3.2 (H) 0.0 - 2.3 ng/mL Final CA19-9 Date Value Ref Range Status 08/12/2021 16.0 <36.0 U/mL Final Comment: Cancer antigen 19-9 test is used as an aid in monitoring response to treatment or recurrence in patients with established pancreatic, hepatobiliary, or gastrointestinal malignancies. Clinical correlation is required. Test analyzed by the [employer] Method. Results obtained with different assay, methods or kits cannot be used interchangeably. CT A/P:08/10/21-IMPRESSION: 1. Large approximately 24 cm cystic mass arising from the pelvis and extending superiorly into the abdomen with solid nodular components and with internal septations. 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 2. 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 3. Consultation with gynecology/oncology surgical consultation is advised. CT CHEST 08/22/2021 - IMPRESSION: Bilateral apical and upper lobe groundglass mosaic pattern with pleural thickening and groundglass nodules. No prior studies available. Findings likely inflammatory. Continued follow-up. No adenopathy or discrete pulmonary nodule. XR CHEST:05/27/21-IMPRESSION: Mild hazy opacities along the lateral aspect of the right lung. Consider follow-up. LAST MAMMOGRAM: 2020 LAST PAP SMEAR: 2007, negative LAST COLONOSCOPY: pt had consult with GI, told she was not a candidate and recommended barium enema instead SUBJECTIVE/INTERVAL HISTORY: Kayden Dempsey denies any new concerns since last clinic visit. Having BMs with bowel regimen; continues to have abdominal pain. ASSESSMENT: 56 yo with new pelvic mass, CT concerning for carcinomatosis per report. Family history of colon cancer. -Reviewed elevated CA125 & CEA; unable to have colonoscopy per GI due to mass -No carcinomatosis on IR attending review We reviewed our plan would be for diagnostic laparoscopy, likely laparotomy to facilitate the removal of the mass and both fallopian tubes and ovaries with additional surgery pending intraoperative pathology. We reviewed that if benign disease is noted, no additional procedures would likely be necessary. We reviewed if widely metastatic disease is encountered on diagnostic laparoscopy and primary debulking surgery is not felt to be feasible or appropriate, we would then perform laparoscopic biopsies and plan for initiation of neoadjuvant chemotherapy. We reviewed that if borderline tumor is identified I would then recommend hysterectomy and omental biopsy. We then discussed if malignancy is noted on pathology and primary debulking surgery is felt to be feasible and appropriate, we would then perform a staging and debulking procedure which could include hysterectomy, pelvic and para-aortic lymphadenectomy, omentectomy, possible bowel resection, possible ostomy, and other indicated procedures. We reviewed the different postoperative recovery, restrictions and expectations depending on procedure performed. Preoperative instructions were reviewed. Surgical consent was sent via [employer]. Risks, benefits and alternatives to surgery were discussed. Risks include but are not limited to: pain, bleeding, infection, thromboembolism, need for blood transfusion, damage to surrounding tissue including bowel, bladder, ureters, nerves, blood vessels, etc. Risk of lymphedema following lymphadenectomy was discussed. Discussed if laparotomy is performed, patient desires total hysterectomy and BSO even in setting of benign disease. Questions were answered to her satisfaction and she is agreeable with the plan. Encouraged her to call or return in the interim with any additional questions or concerns. Surgery planned at [facility]. PLAN: 1. Diagnostic laparoscopy, possible ex-lap, FRANCISCO J, BSO with possible debulking pending intraoperative pathology- surgery @ [facility] 2. RTC for post-op visit or sooner as needed Chastity Gardiner MD A letter and a copy of this office note were sent to: PCP: Jaimee Goncalves MD Total Time Spent: 23 minutes documented in this encounter [facility] 08-22-2021 Instructions Rogelio Russo APRN.AUTOMOBILE MECHANIC SUPERVISOR - 08/22/2021 9:01 AM EDT Images from the original note were not included. Please visit the following website for the [facility] surgery guide. [email or web address] GYNECOLOGY PHYSICIAN CONTACT INFORMATION Surgery Scheduling Office Surgeons: Dr. Stephanie Dorsey Dr. Andrea Lucero Dr. Jose Hughes Teacher Education Director Oncology Nurse Practitioners: Debbie Torres, WOODEN SHADE 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.PATRICIA Giraldo, WOODEN SHADE 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 Catherine Rosario, WOODEN SHADE 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 Citlaly Gonzalez, WOODEN SHADE 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 Milly Golden, WOODEN SHADE 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 Jia Bruno, WOODEN SHADE 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 After 4:30 pm or on holidays or weekends, call: or . Ask the vacuum evaporation operator to page the nurse gynecology international trade manager.' GYNECOLOGY PHYSICIAN CONTACT INFORMATION [facility] [phone] Surgeons: Dr. Bryant Gardiner Teacher Education Director Oncology Nurse Practitioners: Lis Russo, PATRICIA Allen,RN Ashleigh Damian RN After 4:30 pm or on holidays or weekends, call: or . Ask the vacuum evaporation operator to page the nurse gynecology international trade manager.' PRE-OPERATIVE CHECKLIST: PATIENT INSTRUCTIONS PRIOR TO SURGERY Our guidelines have changed, so please read these instructions carefully. Your surgery may be cancelled if you do not follow these instructions. MY ARRIVAL TIME IS: I have been instructed not to have any solid food to eat after midnight prior to my surgery (this includes no gum, mints, smoking). I am allowed to drink small amounts (up to 12 oz) of clear liquids up until 2 hours prior to my arrival time. Clear liquids include water, fruit juices without pulp, carbonated beverages (i.e. felipa mary beth), electrolyte beverages (i.e. Gatorade), clear tea and black coffee, clear broth, popsicles and jello. (No milk). No alcohol the day before or day of surgery. I will bring this binder to all pre and post-operative appointments AND day of surgery. MEDICATION STOPPAGE: Unless my surgeon tells me differently, I will STOP THESE MEDICATIONS 7 DAYS PRIOR TO SURGERY: (Motrin/ibuprofen/Naproxen/Aleve/Advi l), Aspirin, vitamin E, herbal medications, diet pills, and vyby-lmf-zrxfalz medications. Tylenol (acetaminophen) is okay. I will not wear jewelry, body piercing(s), makeup, nail yi, hairpins, or contacts on the day of surgery. I am to leave valuables and money at home or with family members. If I am prescribed inhalers for breathing, I will use them and bring them to the hospital. Medication(s) to be taken on the morning of surgery with a few sips of water: If I am taking any of the following blood thinning medications Aspirin, clopidogrel (Plavix), ticagrelor (Brilinta), prasugrel (Efficient), ticlodipine (Ticlid), warfarin (Coumadin), dibigatran (Pradaxa) or rivaroxaban (Xarelto) - I will discuss whether or not I should stop them before surgery with my surgeon. Discuss medication changes with your manager business process or primary care physician as well. If I stopped taking my blood-thinning medication, I will ask the surgeon when to resume taking it. If I am an outpatient, a responsible person will drive me home and it was suggested that someone stay with me for 24 hours. I understand that a business continuity consultant or cabdriver is NOT a responsible caregiver. Patients with diabetes, I will not take my morning diabetes medication (pills) on the morning of surgery. If I am on insulin, someone has gone over those instructions with me for the morning of surgery. I understand if my surgery is delayed, I will notify the check in desk that I have diabetes. See the Diabetic Guidelines Before Surgery in the patient education section. If I have Obstructive Sleep Apnea and use a CPAP/BiPAP machine, I will bring my mask, tubing, and machine with me on the day of surgery. Pain management education material found in Your Surgical Guide was reviewed with me. To find out my arrival time for surgery, I must call my surgical corsetier after 2pm the day before surgery. Pre-operative instructions given by: PREOP INSTRUCTIONS THE DAY OF SURGERY/CHECK IN - Report to [facility] for surgery. A map is located in Your Surgical Guide Book. - The online version of the surgical guide book can be found at: [email or web address] - The address is [address] [place] [address] INFECTION PREVENTION - Please notify your doctor if you have any signs of an infection (i.e. fever, severe cough, nasal congestion, pain with urination, abnormal vaginal discharge, diarrhea, etc). - Your surgeon will let you know if a bowel prep is needed before your surgery. If so, please see the attached instructions. - Shower the night before surgery AND the morning of surgery with Hibiclens (provided by your surgeon). If you are allergic to Hibiclens or unable to obtain the Hibiclens, please wash with antibacterial soap. Wash your body from the neck down, focusing on your abdomen, belly button and external genitalia. Do not forget to scrub any skin folds and creases. - No lotions, oils, creams, or powders after your shower. Underarm deodorant is okay. - No shaving (abdominal or pubic hair) or douching the day before surgery. - You may be asked to apply an antiseptic solution called Chlorhexidine Gluconate (CHG) which will be provided to you on arrival to the preop area. - Hand washing is extremely important in preventing infection (for both you as the patient and for the caregivers). HOSPITALIZATION - Before you leave the hospital, you typically need to be able to eat/drink, urinate, and have your pain controlled with oral medication. Your surgeon or other members of your surgeon s team will discuss any other specific medical issues related to your discharge with you. - Your surgeon may order intermittent compression sleeves. These are massaging leg pumps to help prevent blood clots after surgery. See Your Surgical Guide Book for more information. - It is also very important that you walk as soon as possible and as frequently as possible after surgery. This will help decrease your risk of blood clots, exercise your lungs and speed up your recovery after surgery. - If you are admitted to the hospital overnight, you will be given an incentive spirometer, which is a breathing machine that will help make sure that you are taking deep breaths and expanding your lungs while in the hospital. See Your Surgical Guide Book for more information. [facility] TEAM - At the [facility], we have a multidisciplinary team of caregivers that includes fellows, residents, nurse practitioners, physician assistants, clinical nurse specialists, nurses, medical assistants, patient care nursing assistants, social workers, clinical case manager and many others. We all have different roles and responsibilities but we are all here to help. POSTOP INSTRUCTIONS ACTIVITY - No heavy lifting/pushing/pulling for 6 weeks. Do not lift anything more than about 10 lbs (such as laundry, groceries, children, pets), vacuum, push heavy doors or grocery carts, etc. - You may climb stairs as tolerated. - Do not put anything in the vagina for 6 weeks after surgery unless otherwise instructed by your doctor (including tampons, douching, sexual intercourse, etc). - No driving for about 4 weeks after surgery, while you are taking narcotic pain medication, or until you feel that you are ready. - Avoid sitting or lying in bed for more than 2 hours at a time while you are awake to reduce your risk of blood clots. - Return to work when directed by your surgeon. Please contact your surgeon s office if any FMLA or other paperwork is needed. WOUND CARE - Shower daily after surgery. Clean your incision daily with the Hibiclens soap. If this soap is irritating your skin, use Hibiclens every other day, alternating with your normal soap. Pat your incision dry with a clean towel. No tub baths until wound is completely healed. - If you have luis, they need to be removed about 10-14 days after surgery (sutures do not need to be removed). Keep incision clean, dry, and open to the air. - Wash your hands frequently, especially before touching your incision, changing any dressings, after using the restroom, and before eating. PAIN MANAGEMENT - You will be given prescriptions for a variety of pain medications (opioid and non-opioid) before you leave the hospital. Surgery will cause pain and everyone has a different pain tolerance. - It is safer to find the right combination and amount of medicine to manage your pain. We recommend that you take the non-opioid medication (acetaminophen and ibuprofen) on a regular schedule after surgery. You can take these medications on an alternating schedule so that you are taking one or the other every 3-4 hours. Take the opioid prescription ONLY when your pain is severe and never take more pills or more frequent doses than prescribed. - Opioids (narcotics) can cause serious side effects. The risks increase the longer they are used. Taking opioids may cause: constipation, drowsiness, itching, nausea/vomiting. More serious side effects of opioids may include: addiction or dependence, life threatening overdose, or dizziness leading to falls/injury. - Keep your pain medication locked in a safe place. Never share your pain medication with others. - If you have any remaining opioid pills after you recover from surgery, please bring them to a medication disposal station (located in many of the [facility] pharmacies). Do not flush them down the toilet. - Constipation is a common problem after surgery. You should take a stool softener (i.e. colace) twice a day, especially if you are taking opioids. If a stool softener alone is not helping to manage your constipation, you can also take Miralax and/or milk of magnesia as needed. WHAT TO EXPECT AT HOME - Recovery from surgery is generally 4-6 weeks, but sometimes longer for more strenuous activity. It is normal to be very tired during this time. - It is normal to have some drainage or a small amount of vaginal bleeding after surgery which may last up to 6 weeks. - You may go home with a conway catheter in your bladder. You will need to follow up for a nurse visit in 7-10 days for removal. WHEN TO CALL YOUR DOCTOR: - Fever (>100.4 F or 38.0 C) or chills. - Incision problems such as redness, warmth, swelling, or foul smelling drainage. - Severe nausea or persistent vomiting. - Bright red vaginal bleeding (soaking >1 pad/hour) or foul smelling vaginal drainage. - Severe pain not relieved with pain medication. - Pain and swelling in your legs, especially if it is only on one side and not the other. - Pain with urination, cloudy urine, or foul smelling urine. - Or if you have any other problems or questions. - CALL 911 or go to the ED if you have any shortness of breath, difficulty breathing, or chest pain. documented in this encounter [facility] 08-22-2021 History of Present illness Narrative HISTORY AND PHYSICAL Kayden Dempsey 1965 REFERRING PHYSICIAN: No ref. provider found CHIEF COMPLAINT: Consult (colonoscopy) HPI: The patient is a 56 year old female referred for endoscopy. Patient notes a 3-month history of abdominal distention and tightness as well as watery BMs and difficulty passing BMs. Notes associated generalized abdominal discomfort, varying in intensity but severe at times. She states she will sometimes go up to 8 days between BMs. She notes she is only able to eat very soft foods and only in small amounts at a time. She denies blood in stools or black tarry stools. Denies family history of colon cancer in a first-degree relative, but does note multiple aunts and uncles with colon cancer. Kayden has not undergone prior endoscopy. The patient was evaluated by her PCP on 07/27/21 for her abdominal complaints. CT scan was ordered which showed: IMPRESSION: 1. Large approximately 24 cm cystic mass arising from the pelvis and extending superiorly into the abdomen with solid nodular components and with internal septations. 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 2. 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 3. Consultation with gynecology/oncology surgical consultation is advised. ACTIONABLE RESULT: FOLLOW-UP Acuity: Actionable Findings: Female reproductive tract (pelvis, adnexa) Routing code: [email or web address] Recommendation: Unlisted Recommendation (see report) Time Frame: as soon as possible, when the patient's clinical state allows. COMMUNICATION: Results will be communicated with the ordering provider via [employer] staff message or phone message by [employer] within 2 business days of report finalization. Algorithms for management of incidental imaging findings can be found on the [facility] Intranet Sharepoint site at: [email or web address] x Retirement Plan Specialist: AILEEN Transcribe Date/Time: Aug 10 2021 11:21A Dictated by : AUGUSTINE GRAY MD This examination was interpreted and the report reviewed and electronically signed by: AUGUSTINE GRAY MD on Aug 10 2021 11:33AM EST Results-Findings * * *Final Report* * * DATE OF EXAM: Aug 10 2021 11:17AM [facility] 0530 - CT ABD/PEL W IVCON / PROCEDURE REASON: Generalized abdominal pain * * * * Physician Interpretation * * * * EXAMINATION: CT ABDOMEN AND PELVIS WITH IV CONTRAST CLINICAL HISTORY: Abdominal swelling, bloating and pain TECHNIQUE: CT of the abdomen and pelvis was performed using standard technique, scanning from just above the dome of the diaphragm to the symphysis pubis. MQ: CTAP_3 Contrast: IV: 100 ml of Omnipaque 300 CT Radiation dose: Integrated Dose-length product (DLP) for this visit = 578 mGy*cm. CT Dose Reduction Employed: Automated exposure control(AEC) and iterative recon COMPARISON: Correlation made to pelvic sonogram dated January 03, 2008. RESULT: Liver: Subcentimeter hypodense too small to characterize left hepatic lesion (3, 25) Biliary: No bile duct dilation. Gallbladder present without radiopaque stones or wall thickening. Spleen: No mass. No splenomegaly. Pancreas: No mass or duct dilation. Adrenals: No mass. Kidneys: No mass, calculus or hydronephrosis. GI tract: Miniscule hiatal hernia. No dilation or wall thickening. Lymph nodes: No abdominal or pelvic lymphadenopathy. Mesentery/Peritoneum: There is mild soft tissue nodularity within the mesentery for example as seen in the right abdomen/pelvis (3, 106 through 112). Possibility of subtle developing peritoneal carcinomatosis is not excluded. No ascites. Vasculature: No abdominal or iliac artery aneurysm identified. Pelvis: There is a large 16.5 x 23 x 24 cm cystic mass arising from the pelvis and extending superiorly above the level of the iliac crests into the abdomen which demonstrates solid nodular components along its left superolateral aspect with associated septations. No macroscopic fat or calcifications are identified within the lesion. It is difficult to say with certainty if this arises from the left or right ovary though finding is most suggestive of an ovarian neoplasm. There is a coarse subcentimeter calcification within the right ovary which was also noted dating back to 2007. This mass abuts the anterior aspect of the uterus and displaces the bowel loops to the lateral and superior aspect of the abdomen. Bones/Soft Tissues: No destructive osseous lesion identified. Lower thorax: Peribronchial cuffing which may be seen with small airways inflammation. Anesthesiology Technologist (topogram) images: No additional findings. The patient was referred to [facility] and was evaluated by Dr. Gardiner. Further workup was ordered including CT chest, tumor markers, possible IR guided biopsy. Patient was also advised to have a colonoscopy prior to surgical intervention to rule out GI primary. Tumor markers showed: Component Latest Ref Rng & Units 08/12/2021 CA 125 <39 U/mL 155 (H) Component Latest Ref Rng & Units 08/12/2021 CA19-9 <36.0 U/mL 16.0 Component Latest Ref Rng & Units 08/12/2021 CEA 0.0 - 2.3 ng/mL 3.2 (H) Patient notes her scans were reviewed by Interventional Radiology and no biopsy planned. She was referred to our office to set up a colonoscopy. PAST MEDICAL HISTORY Diagnosis Date Chronic pain syndrome Was treated through Dr. Scott and Dr. Massey ([facility]); managed by Dr. 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 Brower 2003 PAST SURGICAL HISTORY Procedure Laterality Date APPENDECTOMY ARTHROSCOPY KNEE DIAGNOSTIC W/WO SYNOVIAL BX SPX Arthroscopy, knee X 2 SECTION HX 1984,1986,1992 NOVASURE 05/17/2008 uterine ablation PAST SURGICAL HISTORY OF , 02/28/1999 right breast biopsy PAST SURGICAL HISTORY OF carpal tunnel right wrist PAST SURGICAL HISTORY OF right foot surgery PAST SURGICAL HISTORY OF Right knee surgery x 3 TONSILLECTOMY PRIMARY/SECONDARY <AGE 10 03/19/1988 Tonsillectomy TUBAL LIGATION HX 03/19/1992 Current Outpatient Medications Medication Sig HYDROcodone-acetaminophen (NORCO) 5-325 mg per tablet Take 1 tablet by mouth every 4 hours as needed for up to 30 days. Do not start before July 29, 2021. morphine SR (MS CONTIN) 15 mg 12 hr tablet Take 1 tablet by mouth three times daily for 30 days. Do not start before July 29, 2021. [START ON 08/29/2021] morphine SR (MS CONTIN) 15 mg 12 hr tablet Take 1 tablet by mouth three times daily for 30 days. Do not start before August 29, 2021. [START ON 08/29/2021] HYDROcodone-acetaminophen (NORCO) 5-325 mg per tablet Take 1 tablet by mouth every 4 hours as needed for up to 30 days. Do not start before August 29, 2021. gabapentin (NEURONTIN) 100 mg capsule Take 100 mg by mouth three times daily. cyclobenzaprine (FLEXERIL) 10 mg tablet Take 1 tablet by mouth twice daily as needed. hydrOXYchloroQUINE (PLAQUENIL) 200 mg tablet Take by mouth twice daily. sulfaSALAzine (AZULFIDINE) 500 mg tablet Take 2 tablets by mouth twice daily. (Dr. Pak) methotrexate 2.5 mg tablet Take 1 tablet by mouth. 6 tablets once a week (Dr. Pak) predniSONE 10 mg tablet Once a day for three days when has flare up per Dr. Arredondo leucovorin 5 mg ORAL tablet Take by mouth. Take 3 pills four hours after each methotrexate treatment (Dr. Pak) folic acid 1 mg ORAL tablet Take 2 tablet daily. HYDROcodone-acetaminophen (NORCO) 5-325 mg per tablet Take 1 tablet by mouth every 4 hours as needed for up to 30 days. Do not start before May 31, 2021. morphine SR (MS CONTIN) 15 mg 12 hr tablet Take 1 tablet by mouth three times daily for 30 days. Do not start before May 31, 2021. morphine SR (MS CONTIN) 15 mg 12 hr tablet Take 1 tablet by mouth three times daily for 30 days. Do not start before May 01, 2021. HYDROcodone-acetaminophen (NORCO) 5-325 mg per tablet Take 1 tablet by mouth every 4 hours as needed for up to 30 days. Do not start before May 01, 2021. No current facility-administered medications for this visit. ALLERGIES: Erythromycin Base, Mangos [Other], and Ultracet [Other] PERSONAL HISTORY: Social History Tobacco Use Smoking status: Current Every Day Smoker Packs/day: 0.30 Years: 20.00 Pack years: 6.00 Types: Cigarettes Smokeless tobacco: Never Used Tobacco comment: smokes 1 pack every 2 days Substance Use Topics Alcohol use: No Comment: occasional--a couple time a year at holidays Drug use: No FAMILY HISTORY: FAMILY HISTORY Problem Relation Age of Onset other (TIA [Other]) Mother Hypertension Father other (Other [Other]) Father glaucoma other (macular degeneration [Other]) Father Lipids Father Hypercholesterolemia other (Colon polyps [Other]) Father Diabetes Sister Cancer Maternal Grandmother Abdominal cancer Emphysema Maternal Grandfather Colon Cancer Maternal Uncle other (Colon cancer [Other]) Paternal Uncle Cancer Paternal Aunt bone REVIEW OF SYMPTOMS: The review of systems data was entered by the nurse and reviewed by ne Nursing Notes: Yvonne Tripathi RN 08/22/2021 8:14 AM Signed REVIEW OF SYSTEMS: General: The patient NOTES fatigue, NOTES weight loss, denies weight gain, denies feeling hot, and denies feelings of cold. Eyes: The patient denies glaucoma, denies eye injury/surgery, wears glasses or contacts. Ear/Nose/Throat: The patient denies allergies, denies hayfever, denies ear infections, and denies bloody noses. Cardiovascular: The patient denies chest pain, denies heart disease, denies high blood pressure,denies cardiac stent, denies prior heart attack, denies irregular heart beat, denies high cholesterol, denies poor circulation, denies heart failure, other cardiac issues, denies claudication, denies cold feet, denies peripheral arterial stent. Respiratory: The patient denies tuberculosis, denies pneumonia, denies frequent cough, denies pulmonary embolism, NOTES shortness of breath, and denies coughing up blood. Gastrointestinal: The patient denies difficulty swallowing, denies acid reflux, denies ulcers, denies vomiting, denies jaundice/hepatitis, denies gallbladder problems, denies black or tarry stools, denies hemorrhoids, denies bleeding from rectum, denies diverticulitis, denies constipation, denies diarrhea, denies loss of stool control, and denies hernias. Kidney/Bladder: The patient denies kidney stones, denies urine infections, and denies bloody urine. Skin: The patient denies a history of skin cancer, denies bleeding/changing moles, and denies a history of skin rash. Neurologic: The patient denies a history of epilepsy/convulsions, denies headaches, denies head/spinal injuries, and denies stroke/TIA. Psychiatric: The patient denies psychiatric medications, denies depression, and denies voices, denies substance abuse. Endocrine: The patient denies thyroid disorders, denies diabetes, and denies hormonal problems. Hematologic: The patient denies a history of bruising, denies bleeding, and denies anemia, denies blood clots. Infections: The patient NOTES a history of measles and mumps, denies rheumatic fever, and denies sexually transmitted diseases. Musculoskeletal: The patient NOTES back pain/injury, NOTES back problems, denies sciatica, NOTES knee/foot trouble, denies arthritis, or denies gout. When was patient's last Mammogram screening? 2020 Last Colonoscopy: NONE Yvonne Tripathi RN I have confirmed and edited as necessary, the PFSH and ROS obtained by others. Alexandria Goldman PA-C PHYSICAL EXAMINATION: General: The patient is 56 year old female, well nourished, well hydrated in no acute distress. The patient is oriented to time, place, and person. VITALS: Blood pressure 124/82, pulse (!) 125, temperature 36.6 C (97.9 F), height 165.1 cm (5' 5 ), weight 81.6 kg (180 lb), last menstrual period 10/13/2014, SpO2 99 %. Body mass index is 29.95 kg/m . HEENT: Normal cephalic, ataumatic, pupils are equally round, sclera are anicteric, mucous membranes are moist, oropharynx is clear. Neck has no masses, asymmetry or lymphadenopathy. Respiratory: Clear to auscultation and percussion. Normal respiratory excursion and pattern. Cardiac: Examination is regular rate and rhythm. Normal S1/S2 Abdominal exam: +Protuberant abdomen and diffuse abdominal tenderness Extremities: no clubbing, cyanosis or edema. No adenopathy. LABORATORY VALUES: As Noted RADIOLOGIC STUDIES: As Noted Assessment IMPRESSION: pelvic mass, encounter for colonoscopy PLAN: I have reviewed patient case and CT images with supervising physician Dr. Dsouza, who also participated in development of the following plan. Per Dr. Dsouza, patient unfortunately would not be a candidate for colonoscopy locally or with [facility] in [place] due to medical comorbidities and increased risk. Concerned also about ability for patient to tolerate a bowel prep at this time. Dr. Dsouza is recommending that referring provider consider barium enema as possible alternative method of colon imaging. If colonoscopy still desired for further evaluation, patient would need referral to [facility] due to increased risk of complications with the pelvic mass. Patient verbalized understanding of all above. Called and spoke with Dr. Gardiner's nurse Javy regarding above. Patient aware she will be contacted by her [facility] physician office with further instructions Diagnoses: (R19.00) Pelvic mass (primary encounter diagnosis) (Z12.11) Encounter for screening for malignant neoplasm of colon Consultation requested by Dr. Gardiner for an opinion regarding colonoscopy. My final recommendations will be communicated back to the requesting physician by way of shared Medical record or letter to requesting physician via US mail. Alexandria Goldman PA-C documented in this encounter [facility] 08-22-2021 Nurse Note REVIEW OF SYSTEMS: General: The patient NOTES fatigue, NOTES weight loss, denies weight gain, denies feeling hot, and denies feelings of cold. Eyes: The patient denies glaucoma, denies eye injury/surgery, wears glasses or contacts. Ear/Nose/Throat: The patient denies allergies, denies hayfever, denies ear infections, and denies bloody noses. Cardiovascular: The patient denies chest pain, denies heart disease, denies high blood pressure,denies cardiac stent, denies prior heart attack, denies irregular heart beat, denies high cholesterol, denies poor circulation, denies heart failure, other cardiac issues, denies claudication, denies cold feet, denies peripheral arterial stent. Respiratory: The patient denies tuberculosis, denies pneumonia, denies frequent cough, denies pulmonary embolism, NOTES shortness of breath, and denies coughing up blood. Gastrointestinal: The patient denies difficulty swallowing, denies acid reflux, denies ulcers, denies vomiting, denies jaundice/hepatitis, denies gallbladder problems, denies black or tarry stools, denies hemorrhoids, denies bleeding from rectum, denies diverticulitis, denies constipation, denies diarrhea, denies loss of stool control, and denies hernias. Kidney/Bladder: The patient denies kidney stones, denies urine infections, and denies bloody urine. Skin: The patient denies a history of skin cancer, denies bleeding/changing moles, and denies a history of skin rash. Neurologic: The patient denies a history of epilepsy/convulsions, denies headaches, denies head/spinal injuries, and denies stroke/TIA. Psychiatric: The patient denies psychiatric medications, denies depression, and denies voices, denies substance abuse. Endocrine: The patient denies thyroid disorders, denies diabetes, and denies hormonal problems. Hematologic: The patient denies a history of bruising, denies bleeding, and denies anemia, denies blood clots. Infections: The patient NOTES a history of measles and mumps, denies rheumatic fever, and denies sexually transmitted diseases. Musculoskeletal: The patient NOTES back pain/injury, NOTES back problems, denies sciatica, NOTES knee/foot trouble, denies arthritis, or denies gout. When was patient's last Mammogram screening? 2020 Last Colonoscopy: NONE Yvonne Tripathi RN documented in this encounter [facility] 08-18-2021 History of Present illness Narrative Radiology Service Progress Note PATIENT NAME: Kayden Dempsey DATE OF SERVICE: August 18, 2021 TIME: 6:23 PM PATIENT IDENTITY VERIFICATION COMPLETED USING TWO (2) IDENTIFIERS: Name and Date of confirmed by patient verbally and Name and Date of confirmed by identification band. FALL SCREENING: Has the patient had 2 falls in the last year or 1 fall with injury or currently using an Ambulatory Assistive Device (Walker, Cane, Wheelchair, Crutches, etc.)? No PATIENT GENDER DATA: Female. status: : No status: NO. PATIENT RELEVANT IMPLANT DATA REVIEWED: Not Applicable RADIOLOGY DEPARTMENT: CT; Exam(s) Completed: Chest PERIPHERAL IV DATA: Not applicable SIGNED BY: RT Shahab(R) August 18, 2021 6:23 PM documented in this encounter [facility] 08-18-2021 Miscellaneous Notes Phone call to pt and informed her that both Vita LINDER MD and Nam LINDER MD looked at her images and notes there is nothing to biopsy, she only has the large mass which Dr Gardiner does not want biopsied. It is felt her scan was overread and there are not little spots in her abdomen. Therefore Dr Gardnier wants to make sure she has a colonoscopy to make sure she does not have colon cancer because then she would have to be referred to a colorectal surgeon. Pt did not schedule colonoscopy, states she thought this office was scheduling this. Pt would like this nurse to schedule at [facility]. Phone call to [facility], spoke to colonoscopy master scheduler, she will call pt to schedule. Javy Allen RN documented in this encounter [facility] 08-18-2021 Miscellaneous Notes Phone call to [facility] IR dept and left message asking if they have been able to schedule pt for biopsy yet and if not can she please be scheduled. [employer] message sent to pt with arabella Allen RN documented in this encounter [facility] 08-12-2021 History of Present illness Narrative DATE OF SERVICE: 08/12/2021 PROBLEM: Kayden Dempsey is a consult from Dr. Goncalves for evaluation of pelvic mass Subjective Ms. 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 Initial complaint was abdominal pain in Mar/Apr 2021 - AXR without specific findings. Went to take care of parents for a month and things got worse with bloating and at that time with complaints of abdominal pain, constipation, early satiety. She reports that she feels the above complaints still. No vaginal bleeding or discharge. + shortness of breath, mild chronic cough, no chest pain. + abdominal pain, no nausea, vomiting. + diarrhea, and constipation. No dysuria, gross hematuria, urinary urgency, or incontinence. +urinary frequency. Her ECOG performance status is 1 (restricted in physically strenuous activity but ambulatory and able to carry out work of a light or sedentary nature). CT A/P:08/10/21-IMPRESSION: 1. Large approximately 24 cm cystic mass arising from the pelvis and extending superiorly into the abdomen with solid nodular components and with internal septations. 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 2. 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 3. Consultation with gynecology/oncology surgical consultation is advised. XR CHEST:05/27/21-IMPRESSION: Mild hazy opacities along the lateral aspect of the right lung. Consider follow-up. 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 - otherwise prior to ablation 2008. Hormonal contraceptives: Yes, briefly HRT use: No. History of abnormal pap: No Last pap: 2007-negative Last HPV: neg Last mammogram: 2016 Last colonoscopy: never - FOBT neg 2019 PAST SURGICAL HISTORY Procedure Laterality Date APPENDECTOMY ARTHROSCOPY KNEE DIAGNOSTIC W/WO SYNOVIAL BX SPX Arthroscopy, knee X 2 SECTION HX 1984,1986,1992 NOVASURE 05/17/2008 uterine ablation PAST SURGICAL HISTORY OF , 02/28/1999 right breast biopsy PAST SURGICAL HISTORY OF carpal tunnel right wrist PAST SURGICAL HISTORY OF right foot surgery PAST SURGICAL HISTORY OF Right knee surgery x 3 TONSILLECTOMY PRIMARY/SECONDARY <AGE 10 03/19/1988 Tonsillectomy TUBAL LIGATION HX 03/19/1992 PAST MEDICAL HISTORY Diagnosis Date Chronic pain syndrome Was treated through Dr. Scott and Dr. Massey ([facility]); managed by Dr. 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 Brower 2003 FAMILY HISTORY Problem Relation Age of Onset other (TIA [Other]) Mother Hypertension Father other (Other [Other]) Father glaucoma other (macular degeneration [Other]) Father Lipids Father Hypercholesterolemia other (Colon polyps [Other]) Father Diabetes Sister Cancer Maternal Grandmother Abdominal cancer Emphysema Maternal Grandfather Colon Cancer Maternal Uncle other (Colon cancer [Other]) Paternal Uncle Cancer Paternal Aunt bone Family history of breast, ovarian, uterine or colon cancer: Yes, as above Family history of VTE: No SOCIAL HISTORY Social History Tobacco Use Smoking status: Current Every Day Smoker Packs/day: 0.50 Years: 20.00 Pack years: 10.00 Types: Cigarettes Smokeless tobacco: Never Used Tobacco comment: smokes 1 pack every 2 days Substance Use Topics Alcohol use: No Comment: occasional--a couple time a year at holidays Drug use: No Occupation: disability Marital Status: ADVANCED CARE PLANNING: Does patient have an advanced directive or durable power of probation counselor in place? Yes Does [facility] have a copy of the patient's advanced directive: No Was advanced directive given to the patient: No - wants to discuss in the future REVIEW OF SYSTEMS: GENERAL: +weight loss, fever, chills, malaise or fatigue. HEENT: No changes in hearing or vision, frequent or severe headaches, nose bleeds or other nasal problems. NECK: No lumps, goiter, pain, significant neck swelling, or difficulty swallowing. RESPIRATORY: No shortness of breath, cough, wheezing, recent pneumonia (within last 6 weeks) or recent URI (within 2 weeks). CARDIOVASCULAR: No angina with activity or at rest, lower extremity edema, or palpitations. No recent NE (within 6 months), cardiac stent, cardiac surgery, gangrene, or PVD. Patient has a history of hypertension and is on medication. BREAST: No breast lumps, skin changes, nipple discharge, or adenopathy. GI: See HPI. No prior history of esophageal varicies or ascites. Patient denies drinking >2 alcoholic beverages a day. : See HPI. No history of renal failure, dialysis, or recent UTI (<6 weeks). MUSCULOSKELETAL: No muscle weakness, + joint pain. SKIN: No skin lesions, rashes, or itching. PSYCH: No sleep disturbances, depression, bipolar disorder, drug dependency/history of drug dependency, or recent psychosocial stressors. HEMATOLOGY/LYMPHOLOGY: No prolonged bleeding, bruising easily, swollen nodes, or anemia. No prior history of a blood clot or clotting disorder. No prior history of a bleeding disorder. Not on chronic anticoagulant/platelet medications. ENDOCRINE: No cold or heat intolerance, polyuria, polydipsia, polyphagia, goiter, hot flashes or night sweats. No prior diagnosis of diabetes or thyroid disorder. No chronic steroid use. NEURO: No history of paralysis, stroke/TIA, seizures, tremors, syncope, or paresthesias. Objective VITALS: BP 133/76 Pulse 98 Temp 36.7 C (98 F) (Temporal) Resp 16 Ht 165.1 cm (5' 5 ) Wt 80.3 kg (177 lb) LMP 10/13/2014 SpO2 100% BMI 29.45 kg/m GENERAL: Patient is a well developed female. She is alert, oriented, pleasant and cooperative. SKIN: Color, texture, turgor normal. No rashes or lesions. HEENT: Normocephalic, atraumatic, mucus membranes moist and no lesions NECK: Supple, no adenopathy LUNGS: Clear to auscultation bilaterally. HEART: Regular rate and rhythm, no murmurs. BACK: No CVA tenderness or gross deformities. ABDOMEN: Abdomen distended with mass to level of the ribs, mobile. Tender in right side. No rebound or guarding. PELVIC: External genitalia, anus and urethral meatus are normal in appearance and without lesions. Vagina normal in appearance on speculum examination, cervix not visualized as pulled up from mass and patient uncomfortable with exam. Bimanual pelvic and rectovaginal examination were notable for large mobile and cystic pelvic mass extending into upper abdomen, no parametrial thickening or cul-de-sac nodularity. There were no rectal masses. LOWER EXTREMITIES: No pitting edema, no palpable cords and no skin changes. Lymphatics: no supraclavicular or inguinal lymphadenopathy Chief Electrician for exam: Jodi Leslie MD Assessment 56 yo with new pelvic mass, CT concerning for carcinomatosis per report. Family history of colon cancer. Reviewed the exam and imaging findings with the patient. We discussed the possible etiologies of these findings including benign, borderline and malignant etiologies. We reviewed additional evaluation that is needed prior to surgical intervention including CT chest for completion staging, as well as additional tumor markers specifically: CEA, CA 19-9 and Ca125. Given the imaging findings and her family history will obtain a colonoscopy to ensure there is no evidence of GI primary. We will have her images reviewed and if carcinomatosis is confirmed we will have IR guided biopsy to obtain pathologic diagnosis. We reviewed that if the biopsy is unable to be obtained and if additional evaluation continues to point toward [employer] origin, we would then plan for surgical intervention. We briefly discussed possible surgery including laparotomy, FRANCISCO J, BSO, possible debulking, etc. We will further discuss after obtaining additional results. We will have patient return to clinic following colonoscopy and IR guided biopsy to discuss next steps in management. We reviewed signs or symptoms that would warrant prompt evaluation. We reviewed the importance of continuing bowel movements and to use stool softeners and laxatives as needed in order to continue to have regular bowel movements. Questions were answered to her satisfaction and she is agreeable with the plan. Encouraged her to call or return in the interim with any additional questions or concerns. Plan - CT chest - CEA, CA19-9, Ca125, CBC, CMP - colonoscopy - IR biopsy of omentum/carcinomatosis - If unable to biopsy likely plan for surgery - RTC after colonoscopy & IR biopsy or sooner as needed Attending Note I evaluated the patient and personally participated in the hui components. I agree with the fellow's findings and plan as documented and have discussed the case and management of the patient's care with the fellow. I personally examined and counseled the patient. Chastity Gardiner MD A letter and a copy of this office note were sent to: - Jaimee Goncalves [address] [facility] [id number] - Jaimee Goncalves MD (PCP) Medical Decision Making: Problems: Moderate: New problem with uncertain prognosis Data: Unique test result(s) reviewed: 2 Unique test(s) ordered: 3+ Risk: Moderate: Moderate risk from testing/treatment Medical Decision Making Level: 4 - Moderate documented in this encounter [facility] 08-11-2021 Miscellaneous Notes noted appt scheduled Pt has consult arranged 08/12/21. Discussed results of CT scan that was done this AM. She has not been following with a [employer] for years since Dr. Valentine retired. Last US pelvis was 2014 and ovaries unremarkable. Patient expressed understanding that I will be reaching out to [employer] and oncology to facilitate evaluation and treatment for probable/possible ovarian cancer. She does have ongoing issues with bowels and trouble having BM. Able to stay hydrated. She wants to stay within [facility] system and can go travel outside of [facility] documented in this encounter [facility] 08-10-2021 History of Present illness Narrative Radiology Service Progress Note DATE OF SERVICE: August 10, 2021 TIME: 1:09 PM PATIENT IDENTITY VERIFICATION COMPLETED USING TWO (2) STANDARD IDENTIFIERS: Name and Date of confirmed by patient verbally. FALL SCREENING: Has the patient had 2 falls in the last year or 1 fall with injury or currently using an Ambulatory Assistive Device (Walker, Cane, Wheelchair, Crutches, etc.)? No PATIENT GENDER DATA: Female. status: : No status: NO. PATIENT RELEVANT IMPLANT DATA REVIEWED: Yes ALLERGIES: Reviewed and unchanged CONTRAST ALLERGY: NO. EXAM: CT -CONTRAST INDUCED NEPHROPATHY RISK FACTORS: Not applicable CREATININE: Creatinine Date Value Ref Range Status 02/24/2020 1.02 0.6 - 1.3 MG/DL Final P.O.C.T. RESULTS: POC done: Yes, See Lab Tab August 10, 2021 TREATMENT: N/A PERIPHERAL IV DATA: Ambulatory: A peripheral IV was started in the Left antecubital site with a Angio cath: 22 gauge. RADIOLOGY DEPARTMENT: CT; Exam(s) Completed: Abdomen/Pelvis SIGNATURE: RT Jessica(R) PATIENT NAME: Kayden Dempsey DATE: August 10, 2021 TIME: 1:09 PM documented in this encounter [facility] 07-27-2021 Miscellaneous Notes Addended by: JAIMEE GONCALVES on: 07/27/2021 02:51 PM Modules accepted: Orders documented in this encounter [facility] 07-27-2021 History of Present illness Narrative This note was created using Joroto. Subjective Kayden Dempsey is a 56 year old female. Patient presents with: Follow Up SUBJECTIVE: Kayden Dempsey is a 56 year old year old lady here today for 2 month follow up appointment for review of medical conditions. Bowels are not better. Severe pain. Not moving bowels without taking laxative then gets blow out. No matter what she eats, seems like everything builds up in her upper abdomen. Laxatives do help her clear out and did not eat for 2 days and felt almost normal from not feeling bloated or miserable. Had to stay laying down in care ride home. Has not tried Smooth Move tea or similar. PAST MEDICAL HISTORY Diagnosis Date Chronic pain syndrome Was treated through Dr. Scott and Dr. Massey ([facility]); managed by Dr. 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 HYDROcodone-acetaminophen (NORCO) 5-325 mg per tablet Take 1 tablet by mouth every 4 hours as needed for up to 30 days. Do not start before June 30, 2021. morphine SR (MS CONTIN) 15 mg 12 hr tablet Take 1 tablet by mouth three times daily for 30 days. Do not start before June 30, 2021. cyclobenzaprine (FLEXERIL) 10 mg tablet Take 1 tablet by mouth twice daily as needed. trimethoprim-polymyxin (POLYTRIM) 10,000 unit- 1 mg/mL ophthalmic solution Use 1 Drop in the left eye four times daily. 7 to 10 days as directec hydrOXYchloroQUINE (PLAQUENIL) 200 mg tablet Take by mouth twice daily. sulfaSALAzine (AZULFIDINE) 500 mg tablet Take 2 tablets by mouth twice daily. (Dr. Pak) methotrexate 2.5 mg tablet Take 1 tablet by mouth. 6 tablets once a week (Dr. Pak) predniSONE 10 mg tablet Once a day for three days when has flare up per Dr. Arredondo leucovorin 5 mg ORAL tablet Take by mouth. Take 3 pills four hours after each methotrexate treatment (Dr. Pak) folic acid 1 mg ORAL tablet Take 2 tablet daily. HYDROcodone-acetaminophen (NORCO) 5-325 mg per tablet Take 1 tablet by mouth every 4 hours as needed for up to 30 days. Do not start before May 31, 2021. morphine SR (MS CONTIN) 15 mg 12 hr tablet Take 1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 CEA Elevated carcinoembryonic antigen [CEA] [facility] Diagnosis Ovarian mass- Primary Unspecified noninflammatory disorder of ovary, fallopian tube, and broad ligament [facility] Diagnosis Status post exploratory laparotomy Other postprocedural status [facility] Diagnosis Pre-operative examination- Primary Preoperative examination, unspecified Colon cancer screening Special screening for malignant neoplasms, colon Malignant neoplasm of ovary, unspecified laterality (HCC) Seronegative rheumatoid arthritis (HCC) Rheumatoid arthritis Mixed hyperlipidemia Tobacco use disorder Chronic pain syndrome Intractable migraine without aura and without status migrainosus Migraine without aura, with intractable migraine, so stated, without mention of status migrainosus [facility] Diagnosis Elevated CEA Elevated carcinoembryonic antigen [CEA] [facility] Diagnosis Pelvic mass- Primary Abdominal or pelvic swelling, mass or lump, unspecified site Malignant neoplasm of ovary, unspecified laterality (HCC) [facility] Diagnosis Elevated CEA- Primary Elevated carcinoembryonic antigen [CEA] documented [facility] Diagnosis Colon cancer screening- Primary Special screening for malignant neoplasms, colon Elevated CEA Elevated carcinoembryonic antigen [CEA] documented [facility] this [facility] Diagnosis Fibromyalgia Mylagia and myositis, unspecified Seronegative Rheumatoid Arthritis Rheumatoid arthritis S/P FRANCISCO J-BSO (total abdominal hysterectomy and bilateral salpingo-oophorectomy) Acquired absence of both cervix and uterus [facility] Diagnosis Malignant neoplasm of ovary, unspecified laterality (HCC)- Primary Family history of colon cancer Family history of malignant neoplasm of gastrointestinal tract Family history of leukemia Family history of breast cancer Family history of malignant neoplasm of breast [facility] Diagnosis Ovarian cancer on left (HCC)- Primary Malignant neoplasm of ovary Polyp of colon, unspecified part of colon, unspecified type [facility] Diagnosis Ovarian cancer on left (HCC)- Primary Malignant neoplasm of ovary [facility] Diagnosis Ovarian cancer on left (HCC)- Primary Malignant neoplasm of ovary [facility] Diagnosis Malignant neoplasm of ovary, unspecified laterality (HCC) Family history of colon cancer Family history of malignant neoplasm of gastrointestinal tract Family history of leukemia Family history of breast cancer Family history of malignant neoplasm of breast [facility] Diagnosis Hot flashes due to surgical menopause- Primary Symptomatic states associated with artificial menopause [facility] Diagnosis Ovarian cancer on left (HCC)- Primary Malignant neoplasm of ovary Examination prior to chemotherapy Other specified pre-operative examination Ovarian cancer on left (HCC) Malignant neoplasm of ovary [facility] Diagnosis Fibromyalgia- Primary Mylagia and myositis, unspecified Seronegative Rheumatoid Arthritis Rheumatoid arthritis S/P FRANCISCO J-BSO (total abdominal hysterectomy and bilateral salpingo-oophorectomy) Acquired absence of both cervix and uterus Need for vaccination Need for prophylactic vaccination and inoculation against unspecified single disease Ovarian cancer on left (HCC) Malignant neoplasm of ovary [facility] Diagnosis Ovarian cancer on left (HCC)- Primary Malignant neoplasm of ovary [facility] Diagnosis Malignant neoplasm of ovary, unspecified laterality (HCC)- Primary [facility] Diagnosis Examination prior to chemotherapy- Primary Other specified pre-operative examination Ovarian cancer, bilateral (HCC) Chemotherapy-induced fatigue Drug-induced constipation Other constipation Chemotherapy-induced nausea Nausea alone Altered taste Disturbances of sensation of smell and taste Hot flashes Symptomatic menopausal or female climacteric states Polyp of colon, unspecified part of colon, unspecified type Elevated blood pressure reading Elevated blood pressure reading without diagnosis of hypertension [facility] Diagnosis Sputum production- Primary Cough documented [facility] this [facility] Diagnosis Ovarian cancer, bilateral (HCC) [facility] Diagnosis Malignant neoplasm of ovary, unspecified laterality (HCC)- Primary [facility] Diagnosis Fibromyalgia- Primary Mylagia and myositis, unspecified Seronegative Rheumatoid Arthritis Rheumatoid arthritis S/P FRANCISCO J-BSO (total abdominal hysterectomy and bilateral salpingo-oophorectomy) Acquired absence of both cervix and uterus Night sweats Generalized hyperhidrosis [facility] Diagnosis Malignant neoplasm of ovary, unspecified laterality (HCC)- Primary [facility] Diagnosis Ovarian cancer on left (HCC)- Primary Malignant neoplasm of ovary Hot flashes due to surgical menopause Symptomatic states associated with artificial menopause Examination prior to chemotherapy Other specified pre-operative examination Drug-induced constipation Other constipation Chemotherapy-induced fatigue Chemotherapy-induced nausea Nausea alone Hot flashes Symptomatic menopausal or female climacteric states Polyp of colon, unspecified part of colon, unspecified type Altered taste Disturbances of sensation of smell and taste [facility] Diagnosis Malignant neoplasm of ovary, unspecified laterality (HCC)- Primary [facility] Diagnosis Examination prior to chemotherapy- Primary Other specified pre-operative examination Ovarian cancer, bilateral (HCC) Chemotherapy-induced fatigue Drug-induced constipation Other constipation Chemotherapy-induced nausea Nausea alone Altered taste Disturbances of sensation of smell and taste Polyp of colon, unspecified part of colon, unspecified type documented in this encounter [facility]* Diagnosis Malignant neoplasm of ovary, unspecified laterality (HCC)- Primary Polyp of colon, unspecified part of colon, unspecified type documented in this encounter [facility] note* Diagnosis Polyp of colon, unspecified part of colon, unspecified type- Primary Polyp of colon, unspecified part of colon, unspecified type documented in this encounter [facility] note* Diagnosis Fibromyalgia- Primary Mylagia and myositis, unspecified Seronegative Rheumatoid Arthritis Rheumatoid arthritis S/P FRANCISCO J-BSO (total abdominal hysterectomy and bilateral salpingo-oophorectomy) Acquired absence of both cervix and uterus LTBI (latent tuberculosis infection) Nonspecific reaction to tuberculin skin test without active tuberculosis Polyp of colon, unspecified part of colon, unspecified type documented in this encounter [facility] note* Diagnosis Polyp of colon, unspecified part of colon, unspecified type- Primary Polyp of colon, unspecified part of colon, unspecified type documented in this encounter [facility] note* Diagnosis Malignant neoplasm of ovary, unspecified laterality (HCC)- Primary Polyp of colon, unspecified part of colon, unspecified type documented in this encounter [facility] note* Diagnosis Shortness of breath Heart palpitations Palpitations Polyp of colon, unspecified part of colon, unspecified type documented in this encounter [facility] note* Diagnosis Examination prior to chemotherapy- Primary Other specified pre-operative examination Ovarian cancer, bilateral (HCC) Chemotherapy-induced fatigue Drug-induced constipation Other constipation Chemotherapy-induced nausea Nausea alone Altered taste Disturbances of sensation of smell and taste Polyp of colon, unspecified part of colon, unspecified type Heart palpitations Palpitations Shortness of breath Polyp of colon, unspecified part of colon, unspecified type documented in this encounter [facility] note* Diagnosis Malignant neoplasm of ovary, unspecified laterality (HCC)- Primary S/P FRANCISCO J-BSO (total abdominal hysterectomy and bilateral salpingo-oophorectomy) Acquired absence of both cervix and uterus Seronegative Rheumatoid Arthritis Rheumatoid arthritis Fibromyalgia Mylagia and myositis, unspecified Polyp of colon, unspecified part of colon, unspecified type Polyp of colon, unspecified part of colon, unspecified type documented in this encounter [facility] note* Diagnosis Fibromyalgia Mylagia and myositis, unspecified Seronegative Rheumatoid Arthritis Rheumatoid arthritis S/P FRANCISCO J-BSO (total abdominal hysterectomy and bilateral salpingo-oophorectomy) Acquired absence of both cervix and uterus Polyp of colon, unspecified part of colon, unspecified type documented in this encounter [facility] note* Diagnosis Pre-op evaluation- Primary Preoperative examination, unspecified Tobacco use disorder Malignant neoplasm of ovary, unspecified laterality (HCC) documented in this encounter [facility] note* Diagnosis Polyp of colon, unspecified part of colon, unspecified type- Primary [facility]* Diagnosis Fibromyalgia Mylagia and myositis, unspecified Seronegative Rheumatoid Arthritis Rheumatoid arthritis S/P FRANCISCO J-BSO (total abdominal hysterectomy and bilateral salpingo-oophorectomy) Acquired absence of both cervix and uterus [facility]* Diagnosis Ovarian cancer, bilateral (HCC)- Primary Elevated CEA Elevated carcinoembryonic antigen [CEA] Polyp of colon, unspecified part of colon, unspecified type documented in this encounter [facility] note* Diagnosis History of ovarian cancer- Primary Personal history of malignant neoplasm of ovary Elevated CEA Elevated carcinoembryonic antigen [CEA] Lung nodule Solitary pulmonary nodule [facility]* Diagnosis Fibromyalgia Mylagia and myositis, unspecified Seronegative Rheumatoid Arthritis Rheumatoid arthritis S/P FRANCISCO J-BSO (total abdominal hysterectomy and bilateral salpingo-oophorectomy) Acquired absence of both cervix and uterus [facility] Diagnosis Ovarian cancer on left (HCC)- Primary Malignant neoplasm of ovary [facility]* Diagnosis Chemotherapy-induced peripheral neuropathy (HCC) [G62.0, T45.1X5A (ICD-10-CM)]- Primary documented [facility]* Diagnosis Encounter for follow-up examination after completed treatment for malignant neoplasm- Primary Unspecified follow-up examination History of ovarian cancer Personal history of malignant neoplasm of ovary Elevated CEA Elevated carcinoembryonic antigen [CEA] Chemotherapy-induced peripheral neuropathy (HCC) documented [facility] this [facility]* Diagnosis Abnormal mammogram- Primary Abnormal mammogram, unspecified documented in this encounter [facility] note* Diagnosis Fibromyalgia Mylagia and myositis, unspecified Seronegative Rheumatoid Arthritis Rheumatoid arthritis S/P FRANCISCO J-BSO (total abdominal hysterectomy and bilateral salpingo-oophorectomy) Acquired absence of both cervix and uterus [facility] Diagnosis Fibromyalgia Mylagia and myositis, unspecified Seronegative Rheumatoid Arthritis Rheumatoid arthritis S/P FRANCISCO J-BSO (total abdominal hysterectomy and bilateral salpingo-oophorectomy) Acquired absence of both cervix and uterus documented [facility]* Diagnosis Polyp of colon, unspecified part of colon, unspecified type [facility] Diagnosis History of ovarian cancer- Primary Personal history of malignant neoplasm of ovary Elevated CEA Elevated carcinoembryonic antigen [CEA] documented [facility] this [facility]* Diagnosis Fibromyalgia Mylagia and myositis, unspecified Seronegative Rheumatoid Arthritis Rheumatoid arthritis documented [facility]* Diagnosis Elevated CEA- Primary Elevated carcinoembryonic antigen [CEA] [facility] Diagnosis Ovarian cancer on left (HCC)- Primary Malignant neoplasm of ovary [facility] Diagnosis Encounter for follow-up examination after completed treatment for malignant neoplasm- Primary Unspecified follow-up examination History of ovarian cancer Personal history of malignant neoplasm of ovary Chemotherapy-induced peripheral neuropathy (HCC) [G62.0, T45.1X5A (ICD-10-CM)] Elevated CEA Elevated carcinoembryonic antigen [CEA] documented [facility] this [facility]* Diagnosis Encounter for immunization- Primary Need for other specified prophylactic vaccination against single bacterial disease Fibromyalgia Mylagia and myositis, unspecified Seronegative Rheumatoid Arthritis Rheumatoid arthritis S/P FRANCISCO J-BSO (total abdominal hysterectomy and bilateral salpingo-oophorectomy) Acquired absence of both cervix and uterus History of ovarian cancer Personal history of malignant neoplasm of ovary [facility] Diagnosis Fibromyalgia Mylagia and myositis, unspecified Seronegative Rheumatoid Arthritis Rheumatoid arthritis documented [facility] this [facility]* Diagnosis Ovarian cancer, bilateral (HCC)- Primary S/P FRANCISCO J-BSO (total abdominal hysterectomy and bilateral salpingo-oophorectomy) Acquired absence of both cervix and uterus Chronic pain syndrome Seronegative rheumatoid arthritis (HCC) Rheumatoid arthritis Fibromyalgia Mylagia and myositis, unspecified Neuropathy Mononeuritis of unspecified site Mixed hyperlipidemia Obesity, Class I, BMI 30-34.9 Obesity, unspecified Need for influenza vaccination Need for prophylactic vaccination and inoculation against influenza documented [facility] this [facility]* Diagnosis Ovarian cancer on left (HCC)- Primary Malignant neoplasm of ovary [facility]* Diagnosis Encounter for follow-up examination after completed treatment for malignant neoplasm- Primary Unspecified follow-up examination History of ovarian cancer Personal history of malignant neoplasm of ovary Chemotherapy-induced peripheral neuropathy (HCC) [G62.0, T45.1X5A (ICD-10-CM)] Elevated CEA Elevated carcinoembryonic antigen [CEA] documented in this encounter [facility] note* Diagnosis History of colonic polyps Personal history of colonic polyps documented in this encounter [facility] note* Diagnosis Abnormal mammogram Abnormal mammogram, unspecified documented in this encounter [facility] note* Diagnosis History of ovarian cancer Personal history of malignant neoplasm of ovary Elevated CEA Elevated carcinoembryonic antigen [CEA] Lung nodule Solitary pulmonary nodule documented in this encounter [facility] note* Diagnosis Encounter for screening mammogram for breast cancer [facility] Diagnosis Ovarian cancer, bilateral (HCC) documented in this encounter [facility] note* Diagnosis Fibromyalgia- Primary Mylagia and myositis, unspecified Seronegative Rheumatoid Arthritis Rheumatoid arthritis COVID-19 virus infection Neuropathy Mononeuritis of unspecified site S/P FRANCISCO J-BSO (total abdominal hysterectomy and bilateral salpingo-oophorectomy) Acquired absence of both cervix and uterus Depression, recurrent (HCC) Major depressive disorder, recurrent episode, unspecified documented in this encounter [facility] note* Diagnosis Fibromyalgia Mylagia and myositis, unspecified Seronegative Rheumatoid Arthritis Rheumatoid arthritis S/P FRANCISCO J-BSO (total abdominal hysterectomy and bilateral salpingo-oophorectomy) Acquired absence of both cervix and uterus [facility] Diagnosis Encounter for follow-up examination after completed treatment for malignant neoplasm- Primary Unspecified follow-up examination Port-A-Cath in place Other postprocedural status History of ovarian cancer Personal history of malignant neoplasm of ovary Chemotherapy-induced peripheral neuropathy (HCC) [G62.0, T45.1X5A (ICD-10-CM)] Elevated CEA Elevated carcinoembryonic antigen [CEA] Port-A-Cath in place Other postprocedural status documented in this encounter [facility] for referral (narrative)* Diagnostic Procedure Only (Routine) - Closed Specialty Diagnoses / Procedures Referred By Contac t Referred To Contact XR IMAGING Diagnoses Left lateral abdominal pain Abdominal bloating Procedures XR ABDOMEN 2V ROUTINE SUPINE W UPRIGHT/DECUB/CTL RADIOLOGIC EXAM ABDOMEN 2 VIEWS Jaimee Goncalves MD [address] [place] [address] Xr Imaging Referral ID Status Reason Start Date Expiration Date V isits Requested Visits Authorized [id number] Closed Auto-Generate d Referral 05/27/2021 06/26/2022 1 1 * Diagnostic Procedure Only (Routine) - Closed Specialty Diagnoses / Procedures [facility] X[facility] Diagnoses Left lateral abdominal pain Abdominal bloating Procedures XR CHEST 1V FRONTAL RADIOLOGIC EXAM CHEST SINGLE VIEW Jaimee Goncalves MD [address] [place] [address] Xr Imaging Referral ID Status Reason Start Date Expiration Date V isits Requested Visits Authorized [id number] Closed Auto-Generate d Referral 05/27/2021 06/26/2022 1 1 [facility] for referral (narrative)* Diagnostic Procedure Only (Urgent) - Closed Specialty Diagnoses / Procedures Referred By Contac t Referred To Contact CT IMAGING Diagnoses Generalized abdominal pain Procedures CT ABD/PEL W IVCON CT ABD & PELVIS W/CONTRAST Jaimee Goncalves MD [address] [place] [address] Ct Imaging Referral ID Status Reason Start Date Expiration Date Visits Re quested Visits Authorized [id number] Closed 08/10/2021 09/09/2021 1 1 [facility] for referral (narrative)* Outpatient Procedure (Routine) - Pending Review Specialty Diagnoses / Procedures [facility] Diagnoses Ovarian mass Family history of colon cancer Procedures COLONOSCOPY DIAGNOSTIC COLONOSCOPY FLX DX W/COLLJ SPEC WHEN PFRMD Teacher Education Director Onc [place] [address] [place] [address] [facility] [address] [id number] Referral ID Status Reason Start Date Expiration Date Visits Requested Visits Authorized [id number] Pending Review Auto-Generat ed Referral 08/12/2021 08/12/2022 1 1 * MRI/CT (Routine) - Closed Specialty Diagnoses / Procedures [facility] Referred To Contact CT IMAGING Diagnoses Ovarian mass Procedures CT CHEST WO IVCON DIAGNOSTIC COMPUTED TOMOGRAPHY THORAX W/O CNTRST Chastity Gardiner MD [address] [place] [address] Ct Imaging Referral ID Status Reason Start Date Expiration Date V isits Requested Visits Authorized [id number] Closed Auto-Generate d Referral 08/18/2021 09/17/2021 1 1 [facility] for referral (narrative)* Outpatient Procedure (Routine) - Pending Review Specialty Diagnoses / Procedures [facility] Diagnoses Preop examination Procedures ECG COMPLETE ECG ROUTINE ECG W/LEAST 12 LDS W/I&R Rogelio Russo, AUTOMOBILE MECHANIC SUPERVISOR [address] [place] [address] [facility] [place] [address] [place] [address] Referral ID Status Reason Start Date Expiration Date Visits Requested Visits Authorized [id number] Pending Review Auto-Generat ed Referral 08/22/2021 08/22/2022 1 1 [facility] Outpatient Procedure (Routine) - Waiting for Online Response Specialty Diagnoses / Procedures Referred By Haydeac t Referred To Contact Diagnoses Elevated CEA Procedures EGD DIAGNOSTIC EGD DIAGNOSTIC ESOPHAGOGASTRODUODENOSCOPY TRANSORAL DIAGNOSTIC ESOPHAGOGASTRODUODENOSCOPY TRANSORAL DIAGNOSTIC COLONOSCOPY FLX DX W/COLLJ SPEC WHEN PFRMD Robyn Giraldo APRN.AUTOMOBILE MECHANIC SUPERVISOR [address] [place] [address] [facility] [address] [place] [address] Referral ID Status Reason Start Date Expiration Date Visits Requested Visits Authorized [id number] Waiting for Online Response Auto-Genera shade Referral Patient Cleared - Admin/Chair man/Directo r advise to proceed 09/28/2021 03/18/2022 1 1 * Outpatient Procedure (Routine) - Closed Specialty Diagnoses / Procedures Referred By Haydeac t Referred To Contact [facility] Diagnoses Elevated CEA Procedures COLONOSCOPY SCREENING COLONOSCOPY SCREENING COLONOSCOPY FLX DX W/COLLJ SPEC WHEN PFRMD COLONOSCOPY FLX DX W/COLLJ SPEC WHEN PFRMD Robyn Giraldo APRN.AUTOMOBILE MECHANIC SUPERVISOR [address] [place] [address] [facility] [address] [place] [address] Referral ID Status Reason Start Date Expiration Date V isits Requested Visits Authorized [id number] Closed Auto-Generat ed Referral Patient Cleared - Admin/Chairm an/Director advise to proceed 09/12/2021 09/12/2022 1 1 [facility] for referral (narrative)* Outpatient Procedure (Routine) - Pending Review Specialty Diagnoses / Procedures Referred By Contac t Referred To Contact [facility] Diagnoses Elevated CEA Procedures COLONOSCOPY DIAGNOSTIC COLONOSCOPY FLX DX W/COLLJ SPEC WHEN PFRMD Rogelio Russo APRN.AUTOMOBILE MECHANIC SUPERVISOR [address] [place] [address] [facility] [address] [place] [address] Referral ID Status Reason Start Date Expiration Date Visits Requested Visits Authorized [id number] Pending Review Auto-Generat ed Referral 10/11/2021 10/11/2022 1 1 [facility] for referral (narrative)* Outpatient Procedure (Routine) - Closed Specialty Diagnoses / Procedures Referred By Contac t Referred To Contact ENDOSCOPY Diagnoses Elevated CEA Procedures COLONOSCOPY DIAGNOSTIC COLONOSCOPY FLX DX W/COLLJ SPEC WHEN Rogelio Cotto APRN.AUTOMOBILE MECHANIC SUPERVISOR [address] [place] [address] [facility] [address] [address] Referral ID Status Reason Start Date Expiration Date V isits Requested Visits Authorized [id number] Closed Auto-Generate d Referral 10/12/2021 11/11/2021 1 1 [facility] for referral (narrative)* Diagnostic Procedure Only (Routine) - Pending Review Specialty Diagnoses / Procedures Referred By Contac t Referred To Contact BR IMAGING Diagnoses Abnormal mammogram Procedures US BREAST LTD LEFT US BREAST UNI REAL TIME WITH IMAGE LIMITED Niharika Cervantes APRN.CNP [address] [place] [address] [facility] [address] [place] [address] Referral ID Status Reason Start Date Expiration Date Visits Requested Visits Authorized [id number] Pending Review Auto-Generat ed Referral 06/14/2022 07/14/2023 1 1 [facility] for referral (narrative)* Outpatient Procedure (Routine) - Closed Specialty Diagnoses / Procedures Referred By Contac t Referred To Contact ENDOSCOPY Diagnoses Polyp of colon, unspecified part of colon, unspecified type Procedures COLONOSCOPY DIAGNOSTIC COLONOSCOPY FLX DX W/COLLJ SPEC WHEN Chaz Conroy MD [address], [place] [address] Chaz De La Cruz MD [address] [place] [address] Referral ID Status Reason Start Date Expiration Date V isits Requested Visits Authorized [id number] Closed Auto-Generate d Referral 07/10/2022 10/08/2022 1 1 [facility] for referral (narrative)* Diagnostic Procedure Only (Routine) - Pending Review Specialty Diagnoses / Procedures Referred By Shabbir rosas Referred To Contact MOLECULAR & FUNCTIONAL IMAGING Diagnoses History of ovarian cancer Elevated CEA Procedures NM PET/CT SKULL-THIGH SUBSEQUENT PET IMAGING CT ATTENUATION SKULL BASE MID-THIGH Rogelio Russo APRN.AUTOMOBILE MECHANIC SUPERVISOR [address] [place] [address] [facility] [address] [place] [address] Referral ID Status Reason Start Date Expiration Date Visits Requested Visits Authorized [id number] Pending Review Auto-Generat ed Referral 07/18/2022 08/17/2023 1 1 [facility] for referral (narrative)* Outpatient Procedure (Routine) - Waiting for Online Response Specialty Diagnoses / Procedures Referred By Shabbir rosas Referred To Contact Colon and Rectal Surgery / ENDOSCOPY Diagnoses History of colonic polyps Procedures COLONOSCOPY DIAGNOSTIC COLONOSCOPY FLX DX W/COLLJ SPEC WHEN PFRMChaz Agrawal MD [address] [place] [address] Chaz De La Cruz MD [address] [place] [address] Referral ID Status Reason Start Date Expiration Date Visits Requested Visits Authorized [id number] Waiting for Online Response Auto-Genera shade Referral Patient Cleared - Admin/Chair man/Directo r advise to proceed or did not respond 11/29/2022 11/30/2023 1 1 [facility] for referral (narrative)* Diagnostic Procedure Only (Routine) - Closed Specialty Diagnoses / Procedures Referred By Shabbir rosas Referred To Contact BR IMAGING Diagnoses Encounter for screening mammogram for breast cancer Procedures JENNIFER SCREENING SCREENING MAMMOGRAPHY BI 2-VIEW BREAST INC CAD Jaimee Goncalves MD [address] [place] [address] [facility] [address] [place] [address] Referral ID Status Reason Start Date Expiration Date Visits Re quested Visits Authorized [id number] Closed 08/10/2021 03/18/2022 1 1 [facility] for visit Narrative* Outpatient Procedure (Routine) - Waiting for Online Response Specialty Diagnoses / Procedures Referred By Shabbir t Referred To Contact Diagnoses Elevated CEA Procedures EGD DIAGNOSTIC EGD DIAGNOSTIC ESOPHAGOGASTRODUODENOSCOPY TRANSORAL DIAGNOSTIC ESOPHAGOGASTRODUODENOSCOPY TRANSORAL DIAGNOSTIC COLONOSCOPY FLX DX W/COLLJ SPEC WHEN PFRMD Robyn Giraldo APRN.AUTOMOBILE MECHANIC SUPERVISOR [address] [place] [address] [facility] [address] [place] [address] Referral ID Status Reason Start Date Expiration Date Visits Requested Visits Authorized [id number] Waiting for Online Response Auto-Genera shade Referral Patient Cleared - Admin/Chair man/Directo r advise to proceed 09/28/2021 03/18/2022 1 1 [facility] for visit Narrative* Outpatient Procedure (Routine) - Closed Specialty Diagnoses / Procedures Referred By Shabbir t Referred To Contact ENDOSCOPY Diagnoses Elevated CEA Procedures COLONOSCOPY DIAGNOSTIC COLONOSCOPY FLX DX W/COLLJ SPEC WHEN PFRogelio Dill APRN.AUTOMOBILE MECHANIC SUPERVISOR [address] [place] [address] [facility] [address], [place] [address] Referral ID Status Reason Start Date Expiration Date V isits Requested Visits Authorized [id number] Closed Auto-Generate d Referral 10/12/2021 11/11/2021 1 1 [facility] for visit Narrative* Outpatient Procedure (Routine) - Closed Specialty Diagnoses / Procedures Referred By Haydeac t Referred To Contact ENDOSCOPY Diagnoses Polyp of colon, unspecified part of colon, unspecified type Procedures COLONOSCOPY DIAGNOSTIC COLONOSCOPY FLX DX W/COLLJ SPEC WHEN Chaz Conroy MD [address] [place] [address] Chaz De La Cruz MD [address] [place] [address] Referral ID Status Reason Start Date Expiration Date V isits Requested Visits Authorized [id number] Closed Auto-Generate d Referral 07/10/2022 10/08/2022 1 1 [facility] for visit Narrative* Outpatient Procedure (Routine) - Waiting for Online Response Specialty Diagnoses / Procedures Referred By Shabbir t Referred To Contact Colon and Rectal Surgery / ENDOSCOPY Diagnoses History of colonic polyps Procedures COLONOSCOPY DIAGNOSTIC COLONOSCOPY FLX DX W/COLLJ SPEC WHEN Chaz Conroy MD [address] [place] [address] Chaz De La Cruz MD [address] [place] [address] Referral ID Status Reason Start Date Expiration Date Visits Requested Visits Authorized [id number] Waiting for Online Response Auto-Genera shade Referral Patient Cleared - Admin/Chair man/Directo r advise to proceed or did not respond 11/29/2022 11/30/2023 1 1 [facility] for visit Narrative* Diagnostic Procedure Only (Routine) - Closed Specialty Diagnoses / Procedures Referred By Shabbir t Referred To Contact BR IMAGING Diagnoses Abnormal mammogram Procedures JENNIFER DIAGNOSTIC LT DIAGNOSTIC MAMMOGRAPHY COMPUTER-AIDED DETCJ Jaimee Allen MD [address] [place] [address] [facility] [address] [place] [address] Referral ID Status Reason Start Date Expiration Date V isits Requested Visits Authorized [id number] Closed Auto-Generate d Referral 06/05/2022 07/05/2023 1 1 [facility] Diagnostic Procedure Only (Routine) - Closed Specialty Diagnoses / Procedures Referred By Contac t Referred To Contact BR IMAGING Diagnoses Encounter for screening mammogram for breast cancer Procedures JENNIFER SCREENING SCREENING MAMMOGRAPHY BI 2-VIEW BREAST INC CAD Jaimee Goncalves MD [address] [place] [address] [facility] [address] [place] [address] Referral ID Status Reason Start Date Expiration Date Visits Re quested Visits Authorized [id number] Closed 08/10/2021 03/18/2022 1 1 [facility] Reason for Referral Specialty Diagnoses / Procedures Referred By Contac t Referred To Contact CT IMAGING Diagnoses Generalized abdominal pain Procedures CT ABD/PEL W IVCON CT ABD & PELVIS W/CONTRAST Jaimee Goncalves MD [address] [place] [address] Ct Imaging Referral ID Status Reason Start Date Expiration Date Visits Requested Visits Authorized [id number] Pending Review Auto-Generat ed Referral 07/27/2021 08/26/2022 1 1 Specialty Diagnoses / Procedures Referred By Contac t Referred To Contact Diagnoses Ovarian mass Procedures CONSULT TO GYNECOLOGIC/ONCOLOGY OFFICE/OUTPATIENT [facility] 60-74 MINUTES Jaimee Goncalves MD [address] [place] [address] Referral ID Status Reason Start Date Expiration Date Visits Requested Visits Authorized [id number] Authorized PCP Requested Referral Auto-Generate d Referral 08/10/2021 08/10/2022 1 1 Specialty Diagnoses / Procedures Referred By Contac t Referred To Contact CT IMAGING Diagnoses Ovarian mass Procedures CT CHEST WO IVCON DIAGNOSTIC COMPUTED TOMOGRAPHY THORAX W/O SRIT Chastity Gardiner MD [address] [place] [address] Ct Imaging Referral ID Status Reason Start Date Expiration Date V isits Requested Visits Authorized [id number] Closed Auto-Generate d Referral 08/18/2021 09/17/2021 1 1 Specialty Diagnoses / Procedures Referred By Contac t Referred To Contact Colon and Rectal Surgery Diagnoses Pelvic mass Malignant neoplasm of ovary, unspecified laterality (HCC) Procedures CONSULT TO COLO-RECTAL SURGERY OFFICE/OUTPATIENT NEW HIGH MDM 60-74 MINUTES Jack Dsouza MD [address] [place] [address] Bernardo Madsen MD [address] [place] [address] Referral ID Status Reason Start Date Expiration Date Visits Requested Visits Authorized [id number] Authorized PCP Requested Referral 10/06/2021 10/06/2022 1 1 Specialty Diagnoses / Procedures Referred By Contac t Referred To Contact CT IMAGING Diagnoses Ovarian cancer, bilateral (HCC) Procedures CT CHEST W IVCON DIAGNOSTIC COMPUTED TOMOGRAPHY THORAX W/CONTRAST Rogelio Russo, WOODEN SHADE 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 [address] [place] [address] Ct Imaging Referral ID Status Reason Start Date Expiration Date Visits Requested Visits Authorized [id number] Authorized Auto-Generat ed Referral 12/16/2021 01/15/2023 1 1 Specialty Diagnoses / Procedures Referred By Contac t Referred To Contact CT IMAGING Diagnoses Ovarian cancer, bilateral (HCC) Procedures CT ABD/PEL W IVCON CT ABD & PELVIS W/CONTRAST Rogelio Russo, WOODEN SHADE 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 [address] [place] [address] Ct Imaging Referral ID Status Reason Start Date Expiration Date Visits Requested Visits Authorized [id number] Authorized Auto-Generat ed Referral 12/16/2021 01/15/2023 1 1 Referral ID Status Reason Start Date Expiration Date V isits Requested Visits Authorized [id number] Closed Auto-Generate d Referral 12/16/2021 01/15/2023 1 1 Referral ID Status Reason Start Date Expiration Date V isits Requested Visits Authorized [id number] Closed Auto-Generate d Referral 12/16/2021 01/15/2023 1 1 Referral ID Status Reason Start Date Expiration Date Visits Requested Visits Authorized [id number] Pending Review Auto-Generat ed Referral 2 02/26/2023 1 1 Referral ID Status Reason Start Date Expiration Date Visits Requested Visits Authorized [id number] Pending Review Auto-Generat ed Referral 2 02/26/2023 1 1 Specialty Diagnoses / Procedures Referred By Contac t Referred To Contact Diagnoses Polyp of colon, unspecified part of colon, unspecified type Procedures IN PERSON CONSULT TO PAC Chaz De La Cruz MD [address] [address] Referral ID Status Reason Start Date Expiration Date Visits Requested Visits Authorized [id number] Ref Not Required PCP Requested Referral 2 05/07/2022 1 1 Specialty Diagnoses / Procedures Referred By Contac t Referred To Contact [facility] [place] Diagnoses Polyp of colon, unspecified part of colon, unspecified type Procedures ECG COMPLETE ECG ROUTINE ECG W/LEAST 12 LDS W/I&R Chaz De La Cruz MD [address] [address] [facility] [place] [address] [place] [address] Referral ID Status Reason Start Date Expiration Date Visits Requested Visits Authorized [id number] Pending Review Auto-Generat ed Referral 2 02/06/2023 1 1 Specialty Diagnoses / Procedures Referred By Contac t Referred To Contact CT IMAGING Diagnoses Shortness of breath Heart palpitations Procedures CT CHEST W IVCON PE DIAGNOSTIC COMPUTED TOMOGRAPHY THORAX W/CONTRAST Rogelio Russo, WO[employer] SH[employer] 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 [address] [place] [address] Ct Imaging Referral ID Status Reason Start Date Expiration Date V isits Requested Visits Authorized [id number] Closed Auto-Generat ed Referral Clearance Not Met - Pt Rescheduled/ Cancelled/Ch ose Not to Proceed 02/17/2022 03/19/2023 1 1 Specialty Diagnoses / Procedures Referred By Contac [place] [address] [place] [id number] Referral ID Status Reason Start Date Expiration Date V isits Requested Visits Authorized [id number] Pending Review 1 1 Specialty Diagnoses / Procedures Referred By Contac t Referred To Contact CT IMAGING Diagnoses History of ovarian cancer Elevated CEA Lung nodule Procedures CT CHEST W IVCON DIAGNOSTIC COMPUTED TOMOGRAPHY THORAX W/CONTRAST Rogelio Russo APRN.AUTOMOBILE MECHANIC SUPERVISOR [address] [place] [address] Ct Imaging Referral ID Status Reason Start Date Expiration Date Visits Requested Visits Authorized [id number] Authorized Auto-Generat ed Referral 05/16/2022 06/15/2023 1 1 Specialty Diagnoses / Procedures Referred By Contac t Referred To Contact CT IMAGING Diagnoses History of ovarian cancer Elevated CEA Procedures CT ABD/PEL W IVCON CT ABD & PELVIS W/CONTRAST Rogelio Russo APRN.AUTOMOBILE MECHANIC SUPERVISOR [address] [place] [id number] Ct Imaging Referral ID Status Reason Start Date Expiration Date Visits Requested Visits Authorized [id number] Authorized Auto-Generat ed Referral 05/16/2022 06/15/2023 1 1 Specialty Diagnoses / Procedures Referred By Contac t Referred To Contact CT IMAGING Diagnoses History of ovarian cancer Elevated CEA Lung nodule Procedures CT CHEST W IVCON DIAGNOSTIC COMPUTED TOMOGRAPHY THORAX W/CONTRAST Rogelio Russo APRN.AUTOMOBILE MECHANIC SUPERVISOR [address] [place] [id number] Ct Imaging [place] [address] Referral ID Status Reason Start Date Expiration Date V isits Requested Visits Authorized [id number] Closed Auto-Generate d Referral 05/16/2022 06/15/2023 1 1 Specialty Diagnoses / Procedures Referred By Contac t Referred To Contact CT IMAGING Diagnoses History of ovarian cancer Elevated CEA Procedures CT ABD/PEL W IVCON CT ABD & PELVIS W/CONTRAST Rogelio Russo APRN.AUTOMOBILE MECHANIC SUPERVISOR [address] [place] [address] [place] [address] Referral ID Status Reason Start Date Expiration Date V isits Requested Visits Authorized [id number] Closed Auto-Generate d Referral 05/16/2022 06/15/2023 1 1 Specialty Diagnoses / Procedures Referred By Contac t Referred To Contact CT IMAGING Diagnoses Ovarian cancer, bilateral (HCC) Procedures CT CHEST W IVCON DIAGNOSTIC COMPUTED TOMOGRAPHY THORAX W/CONTRAST Rogelio Russo APRN.AUTOMOBILE MECHANIC SUPERVISOR [address] [place] [address] Ct Imaging [facility] Referral ID Status Reason Start Date Expiration Date V isits Requested Visits Authorized [id number] Closed Auto-Generate d Referral 01/21/2022 03/22/2022 1 1 Specialty Diagnoses / Procedures Referred By Contac t Referred To Contact CT IMAGING Diagnoses Ovarian cancer, bilateral (HCC) Procedures CT ABD/PEL W IVCON CT ABD & PELVIS W/CONTRAST Rogelio Russo APRN.AUTOMOBILE MECHANIC SUPERVISOR [address] [place] [address] Ct Imaging [facility] Referral ID Status Reason Start Date Expiration Date V isits Requested Visits Authorized [id number] Closed Auto-Generate d Referral 01/21/2022 03/22/2022 2 2 Advance Directives No Advanced Directives Records FoundDocuments on File Type Date Recorded Patient Siphon Operator Expl anation Advance Directive(s) 08/27/2021 9:41 AM Documents on File Type Date Recorded Patient Siphon Operator Expl anation Advance Directive(s) 09/27/2021 6:42 PM Advance Directive(s) 08/27/2021 9:41 AM Documents on File Type Date Recorded Patient Siphon Operator Expl anation Advance Directive(s) 10/05/2021 9:18 AM Advance Directive(s) 09/27/2021 6:42 PM Advance Directive(s) 08/27/2021 9:41 AM Documents on File Type Date Recorded Patient Siphon Operator Expl anation Advance Directive(s) 10/05/2021 9:18 AM Advance Directive(s) 09/27/2021 6:42 PM Advance Directive(s) 08/27/2021 9:41 AM Medications Administered Section Inactive Administered Medications - up to 3 most recent administrations Medication Order MAR Action Action Date Dose Rate Site benzocaine 20% 4 [place] (TOPEX) 4 [place], TOPICAL, ONCE, 1 dose, On Sun10/05/21 at 1030, Orally per LIP prior to start of procedure - Pharmaceutical Waste: Aerosol -, Intraprocedure Given 10/05/2021 10:30 AM EDT 4 Sprays lactated ringers iv infusion 30 mL/hr, INTRAVENOUS, CONTINUOUS, Starting on Sun10/05/21 at 0900, Until Sun10/05/21 at 1102, Preprocedure Restarted 10/05/2021 10:04 AM EDT Inactive Administered Medications - up to 3 most recent administrations Medication Order MAR Action Action Date Dose Rate Site diazePAM injection (VALIUM) X (OR/PROCEDURE) PRN, Starting on Sun10/24/21 at 0809, Until Sun10/25/21 at 0414, Intraprocedure Given 10/24/2021 8:45 AM EDT 5 mg Inactive Administered Medications - up to 3 most recent administrations Medication Order MAR Action Action Date Dose Rate Site dexAMETHasone 10 mg/NS 50 mL (PYXIS) 10 mg ivpb (DECADRON) 10 mg, INTRAVENOUS, ONCE, 1 dose, On Sun11/04/21 at 1230, Refrigerate. New Bag/Syringe/Bottle 11/04/2021 12:29 PM EDT 10 mg oxaliplatin 239.2 mg in D5W 587.84 mL (ELOXATIN) 239.2 mg (130 mg/m2 1.84 m2 Treatment Plan BSA from Recorded weight), INTRAVENOUS, Administer over 2 Hours, ONCE, 1 dose, On Sun11/04/21 at 1230, Approx Total Volume: EXP: 11/12 @ 1200 ( ) Hazardous Chemotherapy Drug: Use appropriate PPE. Antineoplastic Irritant with Vesicant Potential. Flush line with D5W before and after administration. New Bag/Syringe/Bottle 11/04/2021 1:12 PM EDT 239.2 mg palonosetron 0.25 mg injection (ALOXI) 0.25 mg, INTRAVENOUS, ONCE, 1 dose, On Sun11/04/21 at 1230, Flush IV line with NS prior to and following administration. Given 11/04/2021 12:29 PM EDT 0.25 mg Inactive Administered Medications - up to 3 most recent administrations Medication Order MAR Action Action Date Dose Rate Site dexAMETHasone 10 mg/NS 50 mL (PYXIS) 10 mg ivpb (DECADRON) 10 mg, INTRAVENOUS, ONCE, 1 dose, On Sun12/16/21 at 0930, Refrigerate. New Bag/Syringe/Bottle 12/16/2021 9:22 AM EDT 10 mg oxaliplatin 239.2 mg in D5W 587.84 mL (ELOXATIN) 239.2 mg (130 mg/m2 1.84 m2 Treatment Plan BSA from Recorded weight), INTRAVENOUS, Administer over 2 Hours, ONCE, 1 dose, On Sun12/16/21 at 0930, Approx Total Volume EXP: 12/25/21 @ 0930 RF Hazardous Chemotherapy Drug: Use appropriate PPE. Antineoplastic Irritant with Vesicant Potential. Flush line with D5W before and after administration. New Bag/Syringe/Bottle 12/16/2021 9:48 AM EDT 239.2 mg palonosetron 0.25 mg injection (ALOXI) 0.25 mg, INTRAVENOUS, ONCE, 1 dose, On Sun12/16/21 at 0930, Flush IV line with NS prior to and following administration. Given 12/16/2021 9:22 AM EDT 0.25 mg Inactive Administered Medications - up to 3 most recent administrations Medication Order MAR Action Action Date Dose Rate Site dexAMETHasone 10 mg/NS 50 mL (PYXIS) 10 mg ivpb (DECADRON) 10 mg, INTRAVENOUS, ONCE, 1 dose, On Sun01/06/22 at 1130, Refrigerate. New Bag/Syringe/Bottle 01/06/2022 11:25 AM EDT 10 mg oxaliplatin 239.2 mg in D5W 587.84 mL (ELOXATIN) 239.2 mg (130 mg/m2 1.84 m2 Treatment Plan BSA from Recorded weight), INTRAVENOUS, Administer over 2 Hours, ONCE, 1 dose, On Sun01/06/22 at 1130, Approx Total Volume EXP: 01/15/22@1100 (RF) Hazardous Chemotherapy Drug: Use appropriate PPE. Antineoplastic Irritant with Vesicant Potential. Flush line with D5W before and after administration. New Bag/Syringe/Bottle 01/06/2022 11:58 AM EDT 239.2 mg palonosetron 0.25 mg injection (ALOXI) 0.25 mg, INTRAVENOUS, ONCE, 1 dose, On Sun01/06/22 at 1130, Flush IV line with NS prior to and following administration. Given 01/06/2022 11:25 AM EDT 0.25 mg Inactive Administered Medications - up to 3 most recent administrations Medication Order MAR Action Action Date Dose Rate Site dexAMETHasone 10 mg/NS 50 mL (PYXIS) 10 mg ivpb (DECADRON) 10 mg, INTRAVENOUS, ONCE, 1 dose, On Sun01/27/22 at 1130, Refrigerate. New Bag/Syringe/Bottle 01/27/2022 11:25 AM EST 10 mg oxaliplatin 239.2 mg in D5W 587.84 mL (ELOXATIN) 239.2 mg (130 mg/m2 1.84 m2 Treatment Plan BSA from Recorded weight), INTRAVENOUS, Administer over 2 Hours, ONCE, 1 dose, On Sun01/27/22 at 1130, Approx Total Volume EXP: 02/05/22@1130 (RF) Hazardous Chemotherapy Drug: Use appropriate PPE. Antineoplastic Irritant with Vesicant Potential. Flush line with D5W before and after administration. New Bag/Syringe/Bottle 01/27/2022 11:45 AM EST 239.2 mg palonosetron 0.25 mg injection (ALOXI) 0.25 mg, INTRAVENOUS, ONCE, 1 dose, On Sun01/27/22 at 1130, Flush IV line with NS prior to and following administration. Given 01/27/2022 11:21 AM EST 0.25 mg Inactive Administered Medications - up to 3 most recent administrations Medication Order MAR Action Action Date Dose Rate Site dexAMETHasone 10 mg/NS 50 mL (PYXIS) 10 mg ivpb (DECADRON) 10 mg, INTRAVENOUS, ONCE, 1 dose, On Sun02/17/22 at 1130, Refrigerate. New Bag/Syringe/Bottle 02/17/2022 11:23 AM EST 10 mg oxaliplatin 184 mg in D5W 576.8 mL (ELOXATIN) 184 mg (100 mg/m2 1.84 m2 Treatment Plan BSA from Recorded weight), INTRAVENOUS, Administer over 2 Hours, ONCE, 1 dose, On Sun02/17/22 at 1130, Approx Total Volume EXP: 02/26/22@1130 (RF) Hazardous Chemotherapy Drug: Use appropriate PPE. Antineoplastic Irritant with Vesicant Potential. Flush line with D5W before and after administration. New Bag/Syringe/Bottle 02/17/2022 11:52 AM EST 184 mg palonosetron 0.25 mg injection (ALOXI) 0.25 mg, INTRAVENOUS, ONCE, 1 dose, On Sun02/17/22 at 1130, Flush IV line with NS prior to and following administration. Given 02/17/2022 11:23 AM EST 0.25 mg Health Concerns Infection Onset Date Last Indicated Resolved Time COVID-19 Rule-Out 12/14/2021 12/14/2021 12/14/2021 9:49 PM EDT Summary Purpose Family History No Family History Records FoundNo Family History Records FoundNo Family History Records Found Additional Source Comments Source Comments (unrecognize d section and content) In the event this informatio n is protected by the Federal Confidentiality of Alcohol and Drug Abuse Patient Records regulations: The Federal rules restrict any use of the information to criminally investigate or prosecute any alcohol or drug abuse patient.[facility] the event this information is protected by the Federal Confidentiality of Alcohol and Drug Abuse Patient Records regulations: The Federal rules restrict any use of the information to criminally investigate or prosecute any alcohol or drug abuse patient.[facility] Center[facility] the event this information is protected by the Federal Confidentiality of Alcohol and Drug Abuse Patient Records regulations: The Federal rules restrict any use of the information to criminally investigate or prosecute any alcohol or drug abuse patient.[facility] Center[facility] the event this information is protected by the Federal Confidentiality of Alcohol and Drug Abuse Patient Records regulations: The Federal rules restrict any use of the information to criminally investigate or prosecute any alcohol or drug abuse patient.[facility] CenterIn the event this information is protected by the Federal Confidentiality of Alcohol and Drug Abuse Patient Records regulations: The Federal rules restrict any use of the information to criminally investigate or prosecute any alcohol or drug abuse patient.[facility] CenterIn the event this information is protected by the Federal Confidentiality of Alcohol and Drug Abuse Patient Records regulations: The Federal rules restrict any use of the information to criminally investigate or prosecute any alcohol or drug abuse patient.[facility] CenterIn the event this information is protected by the Federal Confidentiality of Alcohol and Drug Abuse Patient Records regulations: The Federal rules restrict any use of the information to criminally investigate or prosecute any alcohol or drug abuse patient.[facility] CenterIn the event this information is protected by the Federal Confidentiality of Alcohol and Drug Abuse Patient Records regulations: The Federal rules restrict any use of the information to criminally investigate or prosecute any alcohol or drug abuse patient.[facility] CenterIn the event this information is protected by the Federal Confidentiality of Alcohol and Drug Abuse Patient Records regulations: The Federal rules restrict any use of the information to criminally investigate or prosecute any alcohol or drug abuse patient.[facility] CenterIn the event this information is protected by the Federal Confidentiality of Alcohol and Drug Abuse Patient Records regulations: The Federal rules restrict any use of the information to criminally investigate or prosecute any alcohol or drug abuse patient.[facility] CenterIn the event this information is protected by the Federal Confidentiality of Alcohol and Drug Abuse Patient Records regulations: The Federal rules restrict any use of the information to criminally investigate or prosecute any alcohol or drug abuse patient.[facility] CenterIn the event this information is protected by the Federal Confidentiality of Alcohol and Drug Abuse Patient Records regulations: The Federal rules restrict any use of the information to criminally investigate or prosecute any alcohol or drug abuse patient.[facility] CenterIn the event this information is protected by the Federal Confidentiality of Alcohol and Drug Abuse Patient Records regulations: The Federal rules restrict any use of the information to criminally investigate or prosecute any alcohol or drug abuse patient.[facility] CenterIn the event this information is protected by the Federal Confidentiality of Alcohol and Drug Abuse Patient Records regulations: The Federal rules restrict any use of the information to criminally investigate or prosecute any alcohol or drug abuse patient.[facility] CenterIn the event this information is protected by the Federal Confidentiality of Alcohol and Drug Abuse Patient Records regulations: The Federal rules restrict any use of the information to criminally investigate or prosecute any alcohol or drug abuse patient.[facility] CenterIn the event this information is protected by the Federal Confidentiality of Alcohol and Drug Abuse Patient Records regulations: The Federal rules restrict any use of the information to criminally investigate or prosecute any alcohol or drug abuse patient.[facility] CenterIn the event this information is protected by the Federal Confidentiality of Alcohol and Drug Abuse Patient Records regulations: The Federal rules restrict any use of the information to criminally investigate or prosecute any alcohol or drug abuse patient.[facility] CenterIn the event this information is protected by the Federal Confidentiality of Alcohol and Drug Abuse Patient Records regulations: The Federal rules restrict any use of the information to criminally investigate or prosecute any alcohol or drug abuse patient.[facility] CenterIn the event this information is protected by the Federal Confidentiality of Alcohol and Drug Abuse Patient Records regulations: The Federal rules restrict any use of the information to criminally investigate or prosecute any alcohol or drug abuse patient.[facility] CenterIn the event this information is protected by the Federal Confidentiality of Alcohol and Drug Abuse Patient Records regulations: The Federal rules restrict any use of the information to criminally investigate or prosecute any alcohol or drug abuse patient.[facility] CenterIn the event this information is protected by the Federal Confidentiality of Alcohol and Drug Abuse Patient Records regulations: The Federal rules restrict any use of the information to criminally investigate or prosecute any alcohol or drug abuse patient.[facility] CenterIn the event this information is protected by the Federal Confidentiality of Alcohol and Drug Abuse Patient Records regulations: The Federal rules restrict any use of the information to criminally investigate or prosecute any alcohol or drug abuse patient.[facility] CenterIn the event this information is protected by the Federal Confidentiality of Alcohol and Drug Abuse Patient Records regulations: The Federal rules restrict any use of the information to criminally investigate or prosecute any alcohol or drug abuse patient.[facility] CenterIn the event this information is protected by the Federal Confidentiality of Alcohol and Drug Abuse Patient Records regulations: The Federal rules restrict any use of the information to criminally investigate or prosecute any alcohol or drug abuse patient.[facility] CenterIn the event this information is protected by the Federal Confidentiality of Alcohol and Drug Abuse Patient Records regulations: The Federal rules restrict any use of the information to criminally investigate or prosecute any alcohol or drug abuse patient.[facility] CenterIn the event this information is protected by the Federal Confidentiality of Alcohol and Drug Abuse Patient Records regulations: The Federal rules restrict any use of the information to criminally investigate or prosecute any alcohol or drug abuse patient.[facility] CenterIn the event this information is protected by the Federal Confidentiality of Alcohol and Drug Abuse Patient Records regulations: The Federal rules restrict any use of the information to criminally investigate or prosecute any alcohol or drug abuse patient.[facility] CenterIn the event this information is protected by the Federal Confidentiality of Alcohol and Drug Abuse Patient Records regulations: The Federal rules restrict any use of the information to criminally investigate or prosecute any alcohol or drug abuse patient.[facility] CenterIn the event this information is protected by the Federal Confidentiality of Alcohol and Drug Abuse Patient Records regulations: The Federal rules restrict any use of the information to criminally investigate or prosecute any alcohol or drug abuse patient.[facility] CenterIn the event this information is protected by the Federal Confidentiality of Alcohol and Drug Abuse Patient Records regulations: The Federal rules restrict any use of the information to criminally investigate or prosecute any alcohol or drug abuse patient.[facility] CenterIn the event this information is protected by the Federal Confidentiality of Alcohol and Drug Abuse Patient Records regulations: The Federal rules restrict any use of the information to criminally investigate or prosecute any alcohol or drug abuse patient.[facility] CenterIn the event this information is protected by the Federal Confidentiality of Alcohol and Drug Abuse Patient Records regulations: The Federal rules restrict any use of the information to criminally investigate or prosecute any alcohol or drug abuse patient.[facility] CenterIn the event this information is protected by the Federal Confidentiality of Alcohol and Drug Abuse Patient Records regulations: The Federal rules restrict any use of the information to criminally investigate or prosecute any alcohol or drug abuse patient.[facility] CenterIn the event this information is protected by the Federal Confidentiality of Alcohol and Drug Abuse Patient Records regulations: The Federal rules restrict any use of the information to criminally investigate or prosecute any alcohol or drug abuse patient.[facility] CenterIn the event this information is protected by the Federal Confidentiality of Alcohol and Drug Abuse Patient Records regulations: The Federal rules restrict any use of the information to criminally investigate or prosecute any alcohol or drug abuse patient.[facility] CenterIn the event this information is protected by the Federal Confidentiality of Alcohol and Drug Abuse Patient Records regulations: The Federal rules restrict any use of the information to criminally investigate or prosecute any alcohol or drug abuse patient.[facility] CenterIn the event this information is protected by the Federal Confidentiality of Alcohol and Drug Abuse Patient Records regulations: The Federal rules restrict any use of the information to criminally investigate or prosecute any alcohol or drug abuse patient.[facility] CenterIn the event this information is protected by the Federal Confidentiality of Alcohol and Drug Abuse Patient Records regulations: The Federal rules restrict any use of the information to criminally investigate or prosecute any alcohol or drug abuse patient.[facility] CenterIn the event this information is protected by the Federal Confidentiality of Alcohol and Drug Abuse Patient Records regulations: The Federal rules restrict any use of the information to criminally investigate or prosecute any alcohol or drug abuse patient.[facility] CenterIn the event this information is protected by the Federal Confidentiality of Alcohol and Drug Abuse Patient Records regulations: The Federal rules restrict any use of the information to criminally investigate or prosecute any alcohol or drug abuse patient.[facility] CenterIn the event this information is protected by the Federal Confidentiality of Alcohol and Drug Abuse Patient Records regulations: The Federal rules restrict any use of the information to criminally investigate or prosecute any alcohol or drug abuse patient.[facility] CenterIn the event this information is protected by the Federal Confidentiality of Alcohol and Drug Abuse Patient Records regulations: The Federal rules restrict any use of the information to criminally investigate or prosecute any alcohol or drug abuse patient.[facility] CenterIn the event this information is protected by the Federal Confidentiality of Alcohol and Drug Abuse Patient Records regulations: The Federal rules restrict any use of the information to criminally investigate or prosecute any alcohol or drug abuse patient.[facility] CenterIn the event this information is protected by the Federal Confidentiality of Alcohol and Drug Abuse Patient Records regulations: The Federal rules restrict any use of the information to criminally investigate or prosecute any alcohol or drug abuse patient.[facility] CenterIn the event this information is protected by the Federal Confidentiality of Alcohol and Drug Abuse Patient Records regulations: The Federal rules restrict any use of the information to criminally investigate or prosecute any alcohol or drug abuse patient.[facility] CenterIn the event this information is protected by the Federal Confidentiality of Alcohol and Drug Abuse Patient Records regulations: The Federal rules restrict any use of the information to criminally investigate or prosecute any alcohol or drug abuse patient.[facility] CenterIn the event this information is protected by the Federal Confidentiality of Alcohol and Drug Abuse Patient Records regulations: The Federal rules restrict any use of the information to criminally investigate or prosecute any alcohol or drug abuse patient.[facility] CenterIn the event this information is protected by the Federal Confidentiality of Alcohol and Drug Abuse Patient Records regulations: The Federal rules restrict any use of the information to criminally investigate or prosecute any alcohol or drug abuse patient.[facility] CenterIn the event this information is protected by the Federal Confidentiality of Alcohol and Drug Abuse Patient Records regulations: The Federal rules restrict any use of the information to criminally investigate or prosecute any alcohol or drug abuse patient.[facility] CenterIn the event this information is protected by the Federal Confidentiality of Alcohol and Drug Abuse Patient Records regulations: The Federal rules restrict any use of the information to criminally investigate or prosecute any alcohol or drug abuse patient.[facility] CenterIn the event this information is protected by the Federal Confidentiality of Alcohol and Drug Abuse Patient Records regulations: The Federal rules restrict any use of the information to criminally investigate or prosecute any alcohol or drug abuse patient.[facility] CenterIn the event this information is protected by the Federal Confidentiality of Alcohol and Drug Abuse Patient Records regulations: The Federal rules restrict any use of the information to criminally investigate or prosecute any alcohol or drug abuse patient.[facility] CenterIn the event this information is protected by the Federal Confidentiality of Alcohol and Drug Abuse Patient Records regulations: The Federal rules restrict any use of the information to criminally investigate or prosecute any alcohol or drug abuse patient.[facility] CenterIn the event this information is protected by the Federal Confidentiality of Alcohol and Drug Abuse Patient Records regulations: The Federal rules restrict any use of the information to criminally investigate or prosecute any alcohol or drug abuse patient.[facility] CenterIn the event this information is protected by the Federal Confidentiality of Alcohol and Drug Abuse Patient Records regulations: The Federal rules restrict any use of the information to criminally investigate or prosecute any alcohol or drug abuse patient.[facility] CenterIn the event this information is protected by the Federal Confidentiality of Alcohol and Drug Abuse Patient Records regulations: The Federal rules restrict any use of the information to criminally investigate or prosecute any alcohol or drug abuse patient.[facility] CenterIn the event this information is protected by the Federal Confidentiality of Alcohol and Drug Abuse Patient Records regulations: The Federal rules restrict any use of the information to criminally investigate or prosecute any alcohol or drug abuse patient.[facility] CenterIn the event this information is protected by the Federal Confidentiality of Alcohol and Drug Abuse Patient Records regulations: The Federal rules restrict any use of the information to criminally investigate or prosecute any alcohol or drug abuse patient.[facility] CenterIn the event this information is protected by the Federal Confidentiality of Alcohol and Drug Abuse Patient Records regulations: The Federal rules restrict any use of the information to criminally investigate or prosecute any alcohol or drug abuse patient.[facility] CenterIn the event this information is protected by the Federal Confidentiality of Alcohol and Drug Abuse Patient Records regulations: The Federal rules restrict any use of the information to criminally investigate or prosecute any alcohol or drug abuse patient.[facility] CenterIn the event this information is protected by the Federal Confidentiality of Alcohol and Drug Abuse Patient Records regulations: The Federal rules restrict any use of the information to criminally investigate or prosecute any alcohol or drug abuse patient.[facility] CenterIn the event this information is protected by the Federal Confidentiality of Alcohol and Drug Abuse Patient Records regulations: The Federal rules restrict any use of the information to criminally investigate or prosecute any alcohol or drug abuse patient.[facility] CenterIn the event this information is protected by the Federal Confidentiality of Alcohol and Drug Abuse Patient Records regulations: The Federal rules restrict any use of the information to criminally investigate or prosecute any alcohol or drug abuse patient.[facility] CenterIn the event this information is protected by the Federal Confidentiality of Alcohol and Drug Abuse Patient Records regulations: The Federal rules restrict any use of the information to criminally investigate or prosecute any alcohol or drug abuse patient.[facility] CenterIn the event this information is protected by the Federal Confidentiality of Alcohol and Drug Abuse Patient Records regulations: The Federal rules restrict any use of the information to criminally investigate or prosecute any alcohol or drug abuse patient.[facility] CenterIn the event this information is protected by the Federal Confidentiality of Alcohol and Drug Abuse Patient Records regulations: The Federal rules restrict any use of the information to criminally investigate or prosecute any alcohol or drug abuse patient.[facility] CenterIn the event this information is protected by the Federal Confidentiality of Alcohol and Drug Abuse Patient Records regulations: The Federal rules restrict any use of the information to criminally investigate or prosecute any alcohol or drug abuse patient.[facility] CenterIn the event this information is protected by the Federal Confidentiality of Alcohol and Drug Abuse Patient Records regulations: The Federal rules restrict any use of the information to criminally investigate or prosecute any alcohol or drug abuse patient.[facility] CenterIn the event this information is protected by the Federal Confidentiality of Alcohol and Drug Abuse Patient Records regulations: The Federal rules restrict any use of the information to criminally investigate or prosecute any alcohol or drug abuse patient.[facility] CenterIn the event this information is protected by the Federal Confidentiality of Alcohol and Drug Abuse Patient Records regulations: The Federal rules restrict any use of the information to criminally investigate or prosecute any alcohol or drug abuse patient.[facility] CenterIn the event this information is protected by the Federal Confidentiality of Alcohol and Drug Abuse Patient Records regulations: The Federal rules restrict any use of the information to criminally investigate or prosecute any alcohol or drug abuse patient.[facility] CenterIn the event this information is protected by the Federal Confidentiality of Alcohol and Drug Abuse Patient Records regulations: The Federal rules restrict any use of the information to criminally investigate or prosecute any alcohol or drug abuse patient.[facility] CenterIn the event this information is protected by the Federal Confidentiality of Alcohol and Drug Abuse Patient Records regulations: The Federal rules restrict any use of the information to criminally investigate or prosecute any alcohol or drug abuse patient.[facility] CenterIn the event this information is protected by the Federal Confidentiality of Alcohol and Drug Abuse Patient Records regulations: The Federal rules restrict any use of the information to criminally investigate or prosecute any alcohol or drug abuse patient.[facility] CenterIn the event this information is protected by the Federal Confidentiality of Alcohol and Drug Abuse Patient Records regulations: The Federal rules restrict any use of the information to criminally investigate or prosecute any alcohol or drug abuse patient.[facility] CenterIn the event this information is protected by the Federal Confidentiality of Alcohol and Drug Abuse Patient Records regulations: The Federal rules restrict any use of the information to criminally investigate or prosecute any alcohol or drug abuse patient.[facility] CenterIn the event this information is protected by the Federal Confidentiality of Alcohol and Drug Abuse Patient Records regulations: The Federal rules restrict any use of the information to criminally investigate or prosecute any alcohol or drug abuse patient.[facility] CenterIn the event this information is protected by the Federal Confidentiality of Alcohol and Drug Abuse Patient Records regulations: The Federal rules restrict any use of the information to criminally investigate or prosecute any alcohol or drug abuse patient.[facility] CenterIn the event this information is protected by the Federal Confidentiality of Alcohol and Drug Abuse Patient Records regulations: The Federal rules restrict any use of the information to criminally investigate or prosecute any alcohol or drug abuse patient.[facility] CenterIn the event this information is protected by the Federal Confidentiality of Alcohol and Drug Abuse Patient Records regulations: The Federal rules restrict any use of the information to criminally investigate or prosecute any alcohol or drug abuse patient.[facility]In the event this information is protected by the Federal Confidentiality of Alcohol and Drug Abuse Patient Records regulations: The Federal rules restrict any use of the information to criminally investigate or prosecute any alcohol or drug abuse patient.[facility] CenterIn the event this information is protected by the Federal Confidentiality of Alcohol and Drug Abuse Patient Records regulations: The Federal rules restrict any use of the information to criminally investigate or prosecute any alcohol or drug abuse patient.[facility] CenterIn the event this information is protected by the Federal Confidentiality of Alcohol and Drug Abuse Patient Records regulations: The Federal rules restrict any use of the information to criminally investigate or prosecute any alcohol or drug abuse patient.[facility] CenterIn the event this information is protected by the Federal Confidentiality of Alcohol and Drug Abuse Patient Records regulations: The Federal rules restrict any use of the information to criminally investigate or prosecute any alcohol or drug abuse patient.[facility] CenterIn the event this information is protected by the Federal Confidentiality of Alcohol and Drug Abuse Patient Records regulations: The Federal rules restrict any use of the information to criminally investigate or prosecute any alcohol or drug abuse patient.[facility] CenterIn the event this information is protected by the Federal Confidentiality of Alcohol and Drug Abuse Patient Records regulations: The Federal rules restrict any use of the information to criminally investigate or prosecute any alcohol or drug abuse patient.[facility] CenterIn the event this information is protected by the Federal Confidentiality of Alcohol and Drug Abuse Patient Records regulations: The Federal rules restrict any use of the information to criminally investigate or prosecute any alcohol or drug abuse patient.[facility] CenterIn the event this information is protected by the Federal Confidentiality of Alcohol and Drug Abuse Patient Records regulations: The Federal rules restrict any use of the information to criminally investigate or prosecute any alcohol or drug abuse patient.[facility] CenterIn the event this information is protected by the Federal Confidentiality of Alcohol and Drug Abuse Patient Records regulations: The Federal rules restrict any use of the information to criminally investigate or prosecute any alcohol or drug abuse patient.[facility] CenterIn the event this information is protected by the Federal Confidentiality of Alcohol and Drug Abuse Patient Records regulations: The Federal rules restrict any use of the information to criminally investigate or prosecute any alcohol or drug abuse patient.[facility] CenterIn the event this information is protected by the Federal Confidentiality of Alcohol and Drug Abuse Patient Records regulations: The Federal rules restrict any use of the information to criminally investigate or prosecute any alcohol or drug abuse patient.[facility] CenterIn the event this information is protected by the Federal Confidentiality of Alcohol and Drug Abuse Patient Records regulations: The Federal rules restrict any use of the information to criminally investigate or prosecute any alcohol or drug abuse patient.[facility]In the event this information is protected by the Federal Confidentiality of Alcohol and Drug Abuse Patient Records regulations: The Federal rules restrict any use of the information to criminally investigate or prosecute any alcohol or drug abuse patient.[facility]In the event this information is protected by the Federal Confidentiality of Alcohol and Drug Abuse Patient Records regulations: The Federal rules restrict any use of the information to criminally investigate or prosecute any alcohol or drug abuse patient.[facility]In the event this information is protected by the Federal Confidentiality of Alcohol and Drug Abuse Patient Records regulations: The Federal rules restrict any use of the information to criminally investigate or prosecute any alcohol or drug abuse patient.[facility]In the event this information is protected by the Federal Confidentiality of Alcohol and Drug Abuse Patient Records regulations: The Federal rules restrict any use of the information to criminally investigate or prosecute any alcohol or drug abuse patient.[facility]In the event this information is protected by the Federal Confidentiality of Alcohol and Drug Abuse Patient Records regulations: The Federal rules restrict any use of the information to criminally investigate or prosecute any alcohol or drug abuse patient.[facility]In the event this information is protected by the Federal Confidentiality of Alcohol and Drug Abuse Patient Records regulations: The Federal rules restrict any use of the information to criminally investigate or prosecute any alcohol or drug abuse patient.[facility]In the event this information is protected by the Federal Confidentiality of Alcohol and Drug Abuse Patient Records regulations: The Federal rules restrict any use of the information to criminally investigate or prosecute any alcohol or drug abuse patient.[facility]In the event this information is protected by the Federal Confidentiality of Alcohol and Drug Abuse Patient Records regulations: The Federal rules restrict any use of the information to criminally investigate or prosecute any alcohol or drug abuse patient.[facility]In the event this information is protected by the Federal Confidentiality of Alcohol and Drug Abuse Patient Records regulations: The Federal rules restrict any use of the information to criminally investigate or prosecute any alcohol or drug abuse patient.[facility]In the event this information is protected by the Federal Confidentiality of Alcohol and Drug Abuse Patient Records regulations: The Federal rules restrict any use of the information to criminally investigate or prosecute any alcohol or drug abuse patient.[facility]In the event this information is protected by the Federal Confidentiality of Alcohol and Drug Abuse Patient Records regulations: The Federal rules restrict any use of the information to criminally investigate or prosecute any alcohol or drug abuse patient.[facility]In the event this information is protected by the Federal Confidentiality of Alcohol and Drug Abuse Patient Records regulations: The Federal rules restrict any use of the information to criminally investigate or prosecute any alcohol or drug abuse patient.[facility]In the event this information is protected by the Federal Confidentiality of Alcohol and Drug Abuse Patient Records regulations: The Federal rules restrict any use of the information to criminally investigate or prosecute any alcohol or drug abuse patient.[facility]In the event this information is protected by the Federal Confidentiality of Alcohol and Drug Abuse Patient Records regulations: The Federal rules restrict any use of the information to criminally investigate or prosecute any alcohol or drug abuse patient.[facility]In the event this information is protected by the Federal Confidentiality of Alcohol and Drug Abuse Patient Records regulations: The Federal rules restrict any use of the information to criminally investigate or prosecute any alcohol or drug abuse patient.[facility]In the event this information is protected by the Federal Confidentiality of Alcohol and Drug Abuse Patient Records regulations: The Federal rules restrict any use of the information to criminally investigate or prosecute any alcohol or drug abuse patient.[facility]In the event this information is protected by the Federal Confidentiality of Alcohol and Drug Abuse Patient Records regulations: The Federal rules restrict any use of the information to criminally investigate or prosecute any alcohol or drug abuse patient.[facility]In the event this information is protected by the Federal Confidentiality of Alcohol and Drug Abuse Patient Records regulations: The Federal rules restrict any use of the information to criminally investigate or prosecute any alcohol or drug abuse patient.[facility]In the event this information is protected by the Federal Confidentiality of Alcohol and Drug Abuse Patient Records regulations: The Federal rules restrict any use of the information to criminally investigate or prosecute any alcohol or drug abuse patient.[facility]In the event this information is protected by the Federal Confidentiality of Alcohol and Drug Abuse Patient Records regulations: The Federal rules restrict any use of the information to criminally investigate or prosecute any alcohol or drug abuse patient.[facility]In the event this information is protected by the Federal Confidentiality of Alcohol and Drug Abuse Patient Records regulations: The Federal rules restrict any use of the information to criminally investigate or prosecute any alcohol or drug abuse patient.[facility]In the event this information is protected by the Federal Confidentiality of Alcohol and Drug Abuse Patient Records regulations: The Federal rules restrict any use of the information to criminally investigate or prosecute any alcohol or drug abuse patient.[facility]In the event this information is protected by the Federal Confidentiality of Alcohol and Drug Abuse Patient Records regulations: The Federal rules restrict any use of the information to criminally investigate or prosecute any alcohol or drug abuse patient.[facility]In the event this information is protected by the Federal Confidentiality of Alcohol and Drug Abuse Patient Records regulations: The Federal rules restrict any use of the information to criminally investigate or prosecute any alcohol or drug abuse patient.[facility]In the event this information is protected by the Federal Confidentiality of Alcohol and Drug Abuse Patient Records regulations: The Federal rules restrict any use of the information to criminally investigate or prosecute any alcohol or drug abuse patient.[facility]In the event this information is protected by the Federal Confidentiality of Alcohol and Drug Abuse Patient Records regulations: The Federal rules restrict any use of the information to criminally investigate or prosecute any alcohol or drug abuse patient.[facility]In the event this information is protected by the Federal Confidentiality of Alcohol and Drug Abuse Patient Records regulations: The Federal rules restrict any use of the information to criminally investigate or prosecute any alcohol or drug abuse patient.[facility]In the event this information is protected by the Federal Confidentiality of Alcohol and Drug Abuse Patient Records regulations: The Federal rules restrict any use of the information to criminally investigate or prosecute any alcohol or drug abuse patient.[facility]In the event this information is protected by the Federal Confidentiality of Alcohol and Drug Abuse Patient Records regulations: The Federal rules restrict any use of the information to criminally investigate or prosecute any alcohol or drug abuse patient.[facility] CenterIn the event this information is protected by the Federal Confidentiality of Alcohol and Drug Abuse Patient Records regulations: The Federal rules restrict any use of the information to criminally investigate or prosecute any alcohol or drug abuse patient.[place] [facility] Medical CenterIn the event this information is protected by the Federal Confidentiality of Alcohol and Drug Abuse Patient Records regulations: The Federal rules restrict any use of the information to criminally investigate or prosecute any alcohol or drug abuse patient.[facility] Center[facility] the event this information is protected by the Federal Confidentiality of Alcohol and Drug Abuse Patient Records regulations: The Federal rules restrict any use of the information to criminally investigate or prosecute any alcohol or drug abuse patient.[facility] CenterIn the event this information is protected by the Federal Confidentiality of Alcohol and Drug Abuse Patient Records regulations: The Federal rules restrict any use of the information to criminally investigate or prosecute any alcohol or drug abuse patient.[facility] CenterIn the event this information is protected by the Federal Confidentiality of Alcohol and Drug Abuse Patient Records regulations: The Federal rules restrict any use of the information to criminally investigate or prosecute any alcohol or drug abuse patient.[facility] CenterIn the event this information is protected by the Federal Confidentiality of Alcohol and Drug Abuse Patient Records regulations: The Federal rules restrict any use of the information to criminally investigate or prosecute any alcohol or drug abuse patient.[facility] CenterIn the event this information is protected by the Federal Confidentiality of Alcohol and Drug Abuse Patient Records regulations: The Federal rules restrict any use of the information to criminally investigate or prosecute any alcohol or drug abuse patient.[facility] CenterIn the event this information is protected by the Federal Confidentiality of Alcohol and Drug Abuse Patient Records regulations: The Federal rules restrict any use of the information to criminally investigate or prosecute any alcohol or drug abuse patient.[facility] CenterIn the event this information is protected by the Federal Confidentiality of Alcohol and Drug Abuse Patient Records regulations: The Federal rules restrict any use of the information to criminally investigate or prosecute any alcohol or drug abuse patient.[facility] CenterIn the event this information is protected by the Federal Confidentiality of Alcohol and Drug Abuse Patient Records regulations: The Federal rules restrict any use of the information to criminally investigate or prosecute any alcohol or drug abuse patient.[facility] CenterIn the event this information is protected by the Federal Confidentiality of Alcohol and Drug Abuse Patient Records regulations: The Federal rules restrict any use of the information to criminally investigate or prosecute any alcohol or drug abuse patient.[facility] CenterIn the event this information is protected by the Federal Confidentiality of Alcohol and Drug Abuse Patient Records regulations: The Federal rules restrict any use of the information to criminally investigate or prosecute any alcohol or drug abuse patient.[facility] CenterIn the event this information is protected by the Federal Confidentiality of Alcohol and Drug Abuse Patient Records regulations: The Federal rules restrict any use of the information to criminally investigate or prosecute any alcohol or drug abuse patient.[facility] CenterIn the event this information is protected by the Federal Confidentiality of Alcohol and Drug Abuse Patient Records regulations: The Federal rules restrict any use of the information to criminally investigate or prosecute any alcohol or drug abuse patient.[facility] CenterIn the event this information is protected by the Federal Confidentiality of Alcohol and Drug Abuse Patient Records regulations: The Federal rules restrict any use of the information to criminally investigate or prosecute any alcohol or drug abuse patient.[facility] CenterIn the event this information is protected by the Federal Confidentiality of Alcohol and Drug Abuse Patient Records regulations: The Federal rules restrict any use of the information to criminally investigate or prosecute any alcohol or drug abuse patient.[facility] CenterIn the event this information is protected by the Federal Confidentiality of Alcohol and Drug Abuse Patient Records regulations: The Federal rules restrict any use of the information to criminally investigate or prosecute any alcohol or drug abuse patient.[facility] CenterIn the event this information is protected by the Federal Confidentiality of Alcohol and Drug Abuse Patient Records regulations: The Federal rules restrict any use of the information to criminally investigate or prosecute any alcohol or drug abuse patient.[facility] CenterIn the event this information is protected by the Federal Confidentiality of Alcohol and Drug Abuse Patient Records regulations: The Federal rules restrict any use of the information to criminally investigate or prosecute any alcohol or drug abuse patient.[facility] CenterIn the event this information is protected by the Federal Confidentiality of Alcohol and Drug Abuse Patient Records regulations: The Federal rules restrict any use of the information to criminally investigate or prosecute any alcohol or drug abuse patient.[facility] CenterIn the event this information is protected by the Federal Confidentiality of Alcohol and Drug Abuse Patient Records regulations: The Federal rules restrict any use of the information to criminally investigate or prosecute any alcohol or drug abuse patient.[facility] CenterIn the event this information is protected by the Federal Confidentiality of Alcohol and Drug Abuse Patient Records regulations: The Federal rules restrict any use of the information to criminally investigate or prosecute any alcohol or drug abuse patient.[facility] CenterIn the event this information is protected by the Federal Confidentiality of Alcohol and Drug Abuse Patient Records regulations: The Federal rules restrict any use of the information to criminally investigate or prosecute any alcohol or drug abuse patient.[facility] Reason for Visit (unrecogniz ed section and content) Reason Comments Follow Up Reason Comments Radiology CT Specialty Diagnoses / Procedures Referred By Contac t Referred To Contact CT IMAGING Diagnoses Generalized abdominal pain Procedures CT ABD/PEL W IVCON CT ABD & PELVIS W/CONTRAST Jaimee Goncalves MD [address] [place] [address] Ct Imaging Referral ID Status Reason Start Date Expiration Date Visits Re quested Visits Authorized [id number] Closed 08/10/2021 09/09/2021 1 1 Reason Comments Consult Reason Comments Care Coordination Specialty Diagnoses / Procedures Referred By Contac t Referred To Contact CT IMAGING Diagnoses Ovarian mass Procedures CT CHEST WO IVCON DIAGNOSTIC COMPUTED TOMOGRAPHY THORAX W/O CNTRST Chastity Gardiner MD [address] [place] [address] Ct Imaging Referral ID Status Reason Start Date Expiration Date V isits Requested Visits Authorized [id number] Closed Auto-Generate d Referral 08/18/2021 09/17/2021 1 1 Reason Comments Consult Specialty Diagnoses / Procedures Referred By Contac t Referred To Contact Diagnoses Ovarian mass Procedures CONSULT TO GYNECOLOGIC/ONCOLOGY OFFICE/OUTPATIENT [facility] 60-74 MINUTES Jaimee Goncalves MD [address] [place] [address] Referral ID Status Reason Start Date Expiration Date V isits Requested Visits Authorized [id number] Closed PCP Requested Referral Auto-Generated Referral 08/10/2021 08/10/2022 1 1 Reason Comments Consult colonoscopy Reason Onset Date Comments Transition Of Care 09/08/2021 TCM Initial H ospital Discharge [facility] on 09-07-21 Reason Comments Patient Question Reason Comments Post-Op Visit Reason Comments Pre-Op Exam Reason Comments Appointment Reason Comments Other Reason Onset Date Comments Refill Request 10/17/2021 Reason Comments Patient Update Reason Comments Education Of Patient/family Reason Onset Date Comments Refill Request 10/23/2021 Reason Comments Ovarian Cancer Family History Of Cancer Reason Comments Established Patient Reason Comments Chemotherapy Education Class Reason Comments Benefits Investigation Specialty Diagnoses / Procedures Referred By Contac t Referred To Contact Diagnoses Malignant neoplasm of ovary, unspecified laterality (HCC) Procedures PALONOSETRON HCL OXALIPLATIN [place] [address] [place] [address] [address] [place] [address] Referral ID Status Reason Start Date Expiration Date V isits Requested Visits Authorized [id number] Authorized 10/04/2021 01/12/2022 6 6 Reason Onset Date Comments Refill Request 11/04/2021 Reason Comments Established Patient Follow-Up Reason Comments Chemotherapy Follow-up Reason Comments Results Disclosure of geneti c test results Reason Comments Follow Up 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 Reason Comments Established Patient Reason Comments Radiology CT Specialty Diagnoses / Procedures [facility] Diagnoses Ovarian cancer, bilateral (HCC) Procedures CT CHEST W IVCON DIAGNOSTIC COMPUTED TOMOGRAPHY THORAX W/CONTRAST Rogelio Russo APRN.AUTOMOBILE MECHANIC SUPERVISOR [id number] Imaging Referral ID Status Reason Start Date Expiration Date V isits Requested Visits Authorized [id number] Closed Auto-Generate d Referral 12/16/2021 01/15/2023 1 1 Specialty Diagnoses / Procedures [facility] Referred To Contact Diagnoses Malignant neoplasm of ovary, unspecified laterality (HCC) Procedures PALONOSETRON HCL OXALIPLATIN [place] [address] [place] [id number] [address] [place] [address] Reason Comments Opened In Error Reason Onset Date Comments SPP Oral Oncology/hematology - Medication Refill 01/20/2022 Capecitabine 500mg Referral ID Status Reason Start Date Expiration Date V isits Requested Visits Authorized [id number] Authorized 10/04/2021 04/27/2022 11 12 Reason Onset Date Comments Population Health Navigation Outreach 01/30/2022 [employer] Medicare Reason Onset Date Comments SPP Oral Oncology/hematology - Medication Refill 02/08/2022 Capecitabine Specialty Diagnoses / Procedures [facility] Referred To Contact CT IMAGING Diagnoses Shortness of breath Heart palpitations Procedures CT CHEST W IVCON PE DIAGNOSTIC COMPUTED TOMOGRAPHY THORAX W/CONTRAST Rogelio Russo APRN.AUTOMOBILE MECHANIC SUPERVISOR [address] [place] [address] Ct Imaging Referral ID Status Reason Start Date Expiration Date V isits Requested Visits Authorized [id number] Closed Auto-Generat ed Referral Clearance Not Met - Pt Rescheduled/ Cancelled/Ch ose Not to Proceed 02/17/2022 03/19/2023 1 1 Reason Comments Established Patient Reason Comments Prescription Update/Request Reason Comments 2 month follow up Reason Onset Date Comments Population Health Navigation Outreach 03/07/2022 [employer] Medicare Reason Onset Date Comments Refill Request 03/06/2022 Reason Comments Pre-Op Visit Specialty Diagnoses / Procedures Referred By Shabbir rosas Referred To Contact ANESTHESIOLOGY Diagnoses R19.00 (ICD-10-CM) - Pelvic mass C56.9 (ICD-10-CM) - Malignant neoplasm of ovary, unspecified laterality (HCC) Procedures COMPLETE PAC Chaz De La Cruz MD [address] [id number] , Pac [address] [id number] Referral ID Status Reason Start Date Expiration Date V isits Requested Visits Authorized [id number] Pending Review 03/15/2022 06/13/2022 1 1 Reason Onset Date Comments Refill Request 01/18/2022 Reason Onset Date Comments Transition Of Care 03/23/2022 TCM Initial O utreach; D/C [facility] [place] 03/22/22: S/p colonoscopy with multiple polypectomies and endoscopic submucosal dissection of rectosigmoid large colon polyp. Reason Onset Date Comments Refill Request 05/24/2022 Needs today Reason Comments Mammogram Result Call Back Reason Comments Results Reason Comments Orders Reason Onset Date Comments Refill Request 06/17/2022 Reason Onset Date Comments Refill Request 06/19/2022 Reason Onset Date Comments Refill Request 08/12/2022 Reason Comments F/U 3 Month Reason Onset Date Comments Refill Request 09/20/2022 Reason Onset Date Comments Refill Request 08/25/2022 Refill Request 09/26/2022 Reason Onset Date Comments F/U 3 Month Immunizations 11/21/2022 Flu vaccination Reason Comments Refill Request Specialty Diagnoses / Procedures Referred By Shabbir rosas Referred To Contact CT IMAGING Diagnoses History of ovarian cancer Elevated CEA Lung nodule Procedures CT CHEST W IVCON DIAGNOSTIC COMPUTED TOMOGRAPHY THORAX W/CONTRAST Rogelio Russo, TERE.AUTOMOBILE MECHANIC SUPERVISOR [address] [place] [address] Ct Imaging [place] [address] Referral ID Status Reason Start Date Expiration Date V isits Requested Visits Authorized [id number] Closed Auto-Generate d Referral 05/16/2022 06/15/2023 1 1 Specialty Diagnoses / Procedures Referred By Contac t Referred To Contact CT IMAGING Diagnoses Ovarian cancer, bilateral (HCC) Procedures CT CHEST W IVCON DIAGNOSTIC COMPUTED TOMOGRAPHY THORAX W/CONTRAST Rogelio Russo, TERE.AUTOMOBILE MECHANIC SUPERVISOR [address] [place] [address] [place] [address] Referral ID Status Reason Start Date Expiration Date V isits Requested Visits Authorized [id number] Closed Auto-Generate d Referral 01/21/2022 03/22/2022 1 1 Specialty Diagnoses / Procedures Referred By Contac t Referred To Contact CT IMAGING Diagnoses Ovarian cancer, bilateral (HCC) Procedures CT ABD/PEL W IVCON CT ABD & PELVIS W/CONTRAST Rogelio Russo, TERE.AUTOMOBILE MECHANIC SUPERVISOR [address] [place] [address] Ct Imaging [id number] Referral ID Status Reason Start Date Expiration Date V isits Requested Visits Authorized [id number] Closed Auto-Generate d Referral 01/21/2022 03/22/2022 2 2 Reason Comments Rx Refills COVID 19 infection Reason Comments Established Patient Follow Up Care Teams (unrecognized sec tion and content) Certified First Assistant Relationship Specialty Start Date End Date Jaimee Goncalves MD [facility] [place] [address] PCP - General 07/30/09 Certified First Assistant Relationship Specialty Start Date End Date Jaimee Goncalves MD [facility] [place] [address] PCP - General 07/30/09 Certified First Assistant Relationship Specialty Start Date End Date Jaimee Goncalves MD [facility] [place] [address] PCP - General 07/30/09 Certified First Assistant Relationship Specialty Start Date End Date Jaimee Goncalves MD [facility] [place] [address] PCP - General 07/30/09 Certified First Assistant Relationship Specialty Start Date End Date Jaimee Goncalves MD [facility] [place] [address] PCP - General 07/30/09 Certified First Assistant Relationship Specialty Start Date End Date Jaimee Goncalves MD [address] [place] [address], [place] [address] PCP - General 07/30/09 Certified First Assistant Relationship Specialty Start Date End Date Jaimee Goncalves MD [address] [place] [address], [place] [address] PCP - General 07/30/09 Certified First Assistant Relationship Specialty Start Date End Date Jaimee Goncalves MD [address] [place] [address], [place] [address] PCP - General 07/30/09 Certified First Assistant Relationship Specialty Start Date End Date Jaimee Goncalves MD [address] [place] [address], [place] [address] PCP - General 07/30/09 Certified First Assistant Relationship Specialty Start Date End Date Jaimee Goncalves MD [address] [place] [address], [place] [address] PCP - General 07/30/09 Certified First Assistant Relationship Specialty Start Date End Date Jaimee Goncalves MD [address] [place] [address], [place] [address] PCP - General 07/30/09 Certified First Assistant Relationship Specialty Start Date End Date Jaimee Goncalves MD [address] [place] [address], [place] [address] PCP - General 07/30/09 Certified First Assistant Relationship Specialty Start Date End Date Jaimee Goncalves MD [address] [place] [address], [place] [address] PCP - General 07/30/09 Certified First Assistant Relationship Specialty Start Date End Date Jaimee Goncalves MD [facility] [place] [address] PCP - General 07/30/09 Certified First Assistant Relationship Specialty Start Date End Date Jaimee Goncalves MD [address] [place] [address], [place] [address] PCP - General 07/30/09 Certified First Assistant Relationship Specialty Start Date End Date Jaimee Goncalves MD [address] [place] [address], [place] [address] PCP - General 07/30/09 Certified First Assistant Relationship Specialty Start Date End Date Jaimee Goncalves MD [address] [place] [address], [place] [address] PCP - General 07/30/09 Certified First Assistant Relationship Specialty Start Date End Date Jaimee Goncalves MD [address] [place] [address], [place] [address] PCP - General 07/30/09 Certified First Assistant Relationship Specialty Start Date End Date Jaimee Goncalves MD [address] [place] [address], [place] [address] PCP - General 07/30/09 Certified First Assistant Relationship Specialty Start Date End Date Jaimee Goncalves MD [address] [place] [address], [place] [address] PCP - General 07/30/09 Certified First Assistant Relationship Specialty Start Date End Date Jaimee Goncalves MD [address] [place] [address], [place] [address] PCP - General 07/30/09 Certified First Assistant Relationship Specialty Start Date End Date Jaimee Goncalves MD [address] [place] [address], [place] [address] PCP - General 07/30/09 Certified First Assistant Relationship Specialty Start Date End Date Jaimee Goncalves MD [address] [facility] [place] [address] PCP - General 07/30/09 Certified First Assistant Relationship Specialty Start Date End Date Jaimee Goncalves MD [address] [place] [address], [place] [address] PCP - General 07/30/09 Certified First Assistant Relationship Specialty Start Date End Date Jaimee Goncalves MD [address] [place] [address], [place] [address] PCP - General 07/30/09 Certified First Assistant Relationship Specialty Start Date End Date Jaimee Goncalves MD [address] [place] [address], [place] [address] PCP - General 07/30/09 Certified First Assistant Relationship Specialty Start Date End Date Jaimee Goncalves MD [address] [place] [address], [place] [address] PCP - General 07/30/09 Certified First Assistant Relationship Specialty Start Date End Date Jaimee Goncalves MD [address] [place] [address], [place] [address] PCP - General 07/30/09 Certified First Assistant Relationship Specialty Start Date End Date Jaimee Goncalves MD [address] [place] [address], [place] [address] PCP - General 07/30/09 Certified First Assistant Relationship Specialty Start Date End Date Jaimee Goncalves MD [address] [place] [address], [place] [address] PCP - General 07/30/09 Certified First Assistant Relationship Specialty Start Date End Date Jaimee Goncalves MD [address] [place] [address], [place] [address] PCP - General 07/30/09 Certified First Assistant Relationship Specialty Start Date End Date Jaimee Goncalves MD [address] [place] [place] [address] PCP - General 07/30/09 Certified First Assistant Relationship Specialty Start Date End Date Jaimee Goncalves MD [address] [place] [address], [place] [address] PCP - General 07/30/09 Certified First Assistant Relationship Specialty Start Date End Date Jaimee Goncalves MD [address] [place] [address], [place] [address] PCP - General 07/30/09 Certified First Assistant Relationship Specialty Start Date End Date Jaimee Goncalves MD [address] [place] [address], [place] [address] PCP - General 07/30/09 Certified First Assistant Relationship Specialty Start Date End Date Jaimee Goncalves MD [address] [place] [address], [place] [address] PCP - General 07/30/09 Certified First Assistant Relationship Specialty Start Date End Date Jaimee Goncalves MD [address] [place] [address], [place] [address] PCP - General 07/30/09 Certified First Assistant Relationship Specialty Start Date End Date Jaimee Goncalves MD [facility] [place] [address] PCP - General 07/30/09 Certified First Assistant Relationship Specialty Start Date End Date Jaimee Goncalves MD [address] [place] [address], [place] [address] PCP - General 07/30/09 Certified First Assistant Relationship Specialty Start Date End Date Jaimee Goncalves MD [address] [place] [address], [place] [address] PCP - General 07/30/09 Certified First Assistant Relationship Specialty Start Date End Date Jaimee Goncalves MD [address] [place] [address], [place] [address] PCP - General 07/30/09 Certified First Assistant Relationship Specialty Start Date End Date Jaimee Goncalves MD [address] [place] [address], [place] [address] PCP - General 07/30/09 Certified First Assistant Relationship Specialty Start Date End Date Jaimee Goncalves MD [address] [place] [address], [place] [address] PCP - General 07/30/09 Certified First Assistant Relationship Specialty Start Date End Date Jaimee Goncalves MD [address] [place] [address], [place] [address] PCP - General 07/30/09 Certified First Assistant Relationship Specialty Start Date End Date Jaimee Goncalves MD [address] [place] [address], [place] [address] PCP - General 07/30/09 Certified First Assistant Relationship Specialty Start Date End Date Jaimee Goncalves MD [address] [place] [address], [place] [address] PCP - General 07/30/09 Certified First Assistant Relationship Specialty Start Date End Date Jaimee Goncalves MD [address] [place] [address], [place] [address] PCP - General 07/30/09 Certified First Assistant Relationship Specialty Start Date End Date Jaimee Goncalves MD [address] [place] [address], [place] [address] PCP - General 07/30/09 Certified First Assistant Relationship Specialty Start Date End Date Jaimee Goncalves MD [address] [place] [place] [address] PCP - General 07/30/09 Certified First Assistant Relationship Specialty Start Date End Date Jaimee Goncalves MD [address] [place] [place] [address] PCP - General 07/30/09 Certified First Assistant Relationship Specialty Start Date End Date Jaimee Goncalves MD [address] [place] [place] [address] PCP - General 07/30/09 Certified First Assistant Relationship Specialty Start Date End Date Jaimee Goncalves MD [address] [place] [address] PCP - General 07/30/09 Certified First Assistant Relationship Specialty Start Date End Date Jaimee Goncalves MD [address] [place] [address] PCP - General 07/30/09 Certified First Assistant Relationship Specialty Start Date End Date Jaimee Goncalves MD [address] [place] [address] PCP - General 07/30/09 Certified First Assistant Relationship Specialty Start Date End Date Jaimee Goncalves MD [address] [place] [place] [address] PCP - General 07/30/09 Certified First Assistant Relationship Specialty Start Date End Date Jaimee Goncalves MD [address] [place] [address] PCP - General 07/30/09 Certified First Assistant Relationship Specialty Start Date End Date Jaimee Goncalves MD [address] [place] [address] PCP - General 07/30/09 Certified First Assistant Relationship Specialty Start Date End Date Jaimee Goncalves MD [address] [place] [address] PCP - General 07/30/09 Certified First Assistant Relationship Specialty Start Date End Date Jaimee oGncalves MD [address] [place] [address] PCP - General 07/30/09 Certified First Assistant Relationship Specialty Start Date End Date Jaimee Goncalves MD [address] [place] [address] PCP - General 07/30/09 Certified First Assistant Relationship Specialty Start Date End Date Jaimee Goncalves MD [address] [place] [address] PCP - General 07/30/09 Certified First Assistant Relationship Specialty Start Date End Date Jaimee Goncalves MD [address] [place] [address] PCP - General 07/30/09 Certified First Assistant Relationship Specialty Start Date End Date Jaimee Goncalves MD [address] [place] [address] PCP - General 07/30/09 Certified First Assistant Relationship Specialty Start Date End Date Jaimee Goncalves MD [address] [place] [address] PCP - General 07/30/09 Certified First Assistant Relationship Specialty Start Date End Date Jaieme Goncalves MD [address] [place] [address] PCP - General 07/30/09 Certified First Assistant Relationship Specialty Start Date End Date Jaimee Goncalves MD [address] [facility] [place] [address] PCP - General 07/30/09 Certified First Assistant Relationship Specialty Start Date End Date Jaimee Goncalves MD [address] [place] [address] PCP - General 07/30/09 Certified First Assistant Relationship Specialty Start Date End Date Jaimee Goncalves MD [address] [place] [address] PCP - General 07/30/09 Certified First Assistant Relationship Specialty Start Date End Date Jaimee Goncalves MD [address] [place] [address] PCP - General 07/30/09 Certified First Assistant Relationship Specialty Start Date End Date Jaimee Goncalves MD [address] [place] [address] PCP - General 07/30/09 Certified First Assistant Relationship Specialty Start Date End Date Jaimee Goncalves MD [address] [place] [address] PCP - General 07/30/09 Certified First Assistant Relationship Specialty Start Date End Date Jaimee Goncalves MD [address] [place] [address] PCP - General 07/30/09 Certified First Assistant Relationship Specialty Start Date End Date Jaimee Goncalves MD [address] [place] [address] PCP - General 07/30/09 Certified First Assistant Relationship Specialty Start Date End Date Jaimee Goncalves MD [address] [place] [address] PCP - General 07/30/09 Certified First Assistant Relationship Specialty Start Date End Date Jaimee Goncalves MD [address] [place] [address] PCP - General 07/30/09 Certified First Assistant Relationship Specialty Start Date End Date Jaimee Goncalves MD [address] [place] [address] PCP - General 07/30/09 Certified First Assistant Relationship Specialty Start Date End Date Jiamee Goncalves MD [address] [place] [address] PCP - General 07/30/09 Certified First Assistant Relationship Specialty Start Date End Date Jaimee Goncalves MD [address] [place] [address] PCP - General 07/30/09 Certified First Assistant Relationship Specialty Start Date End Date Jaimee Goncalves MD [address] [place] [address] PCP - General 07/30/09 INFORMATION SOURCE (unrecogn ized section and content) DATE CREATED AUTHOR AUTHOR'S ORGANIZ ATION 03/06/2023 [facility] DATE CREATED AUTHOR AUTHOR'S ORGANIZ ATION 03/31/2023 [facility] FOR RECORDS PERTAINING TO PATIENTS WHO ARE OR HAVE BEEN ENROLLED IN A CHEMICAL DEPENDENCY/SUBSTANCEABUSE PROGRAM, SOME INFORMATION MAY BE OMITTED. This clinical summary was aggregated from multiple sources. Caution should be exercised in using it in the provision of clinical care. This summary normalizes information from multiple sources, and as a consequence, information in this document may materially change the coding, format and clinical context of patient data. In addition, data may be omitted in some cases. CLINICAL DECISIONS SHOULD BE BASED ON THE PRIMARY CLINICAL RECORDS. [facility] [employer] [facility]. provides no warranty or guarantee of the accuracy or completeness of information in this document.
[2023-04-03 10:03] LABS: Absolute Lymphocyte Count 2.19 X10^3/uL (0.83-4.51); Absolute Neutrophil Count 3.9 X10^3/uL (2.0-7.7); Basophil# 0.05 X10^3/uL; Basophil% 0.7 % (0-1); Eosinophil# 0.19 X10^3/uL; Eosinophils% 2.7 % (0-5); Hematocrit 42.8 % (37-47); Hemoglobin 14.1 g/dL (12.0-15.0); Lymphocyte # 2.19 X10^3/ul (0.83-4.51); Lymphocyte % 31.5 % (19-41); Mean Corp Hgb Conc 32.9 g/dL (32-36); Mean Corpuscular Hgb 30.8 pg (27.0-32.0); Mean Corpuscular Volume 93.4 fL (81-99); Mean Platelet Vol. 8.8 fl (6.2-12.0); Monocyte# 0.57 X10^3/uL; Monocyte% 8.2 % (0-10); NRBC Flagged by Analyzer 0 % (0-5); Neutrophil # 3.91 X10^3/uL (2.7-7.7); Neutrophil % 56.2 % (47-70); Platelet Count 259 K/mm3 (150-450); RBC Distribution Width CV 12.1 % (11.6-14.6); RBC Distribution Width SD 41.6 fl (35.1-43.9); Red Blood Count 4.58 M/mm3 (4.2-5.4)
[2023-04-03 11:04] LABS: AST(SGOT) 35 U/L (15-37); Alanine Aminotransfer ALT/SGPT 81 U/L (13-56); Albumin, Serum 3.8 g/dL (3.2-5.0); Alkaline Phosphatase 138 U/L (45-117); Anion Gap 7 (5-15); BUN 14 mg/dL (7-18); BUN/Creat Ratio 12.8 RATIO (10-20); Calcium,Total 9.3 mg/dL (8.5-10.1); Chloride 103 mmol/L (98-107); Creatinine, Serum 1.09 mg/dL (0.55-1.02); EST Glomerular Filtration Rate 54 mL/min (>60); Est Glom Filt Rate - Afr Amer 66 mL/min (>60); Globulin 3.8 g/dL (2.2-4.2); Glucose 135 mg/dL (74-106); Protein, Total 7.6 g/dL (6.4-8.2); Sodium Level 135 mmol/L (136-145)
== END | disposition home or self-care (01) ==
LOC: MTLAB 07:29
PROVIDERS: PCP Internal Medicine; Referring Provider Internal Medicine Rheumatology; Visit Provider Internal Medicine Rheumatology
DX: M06.09 Rheumatoid arthritis without rheumatoid factor, multiple sites (principal); Z79.899 Other long term (current) drug therapy; M79.7 Fibromyalgia
CPT/HCPCS: 36415; 80053; 85025

== ENCOUNTER → 2023-06-18 | Outpatient (CLI) | payer MEDICARE, SELFPAY ==
[2023-06-18 10:07] LABS: Absolute Lymphocyte Count 1.97 X10^3/uL (0.83-4.51); Absolute Neutrophil Count 3.4 X10^3/uL (2.0-7.7); Basophil# 0.05 X10^3/uL; Basophil% 0.8 % (0-1); Eosinophil# 0.19 X10^3/uL; Eosinophils% 3.1 % (0-5); Hemoglobin 13.9 g/dL (12.0-15.0); Lymphocyte # 1.97 X10^3/ul (0.83-4.51); Mean Corp Hgb Conc 33.9 g/dL (32-36); Mean Corpuscular Hgb 30.9 pg (27.0-32.0); Mean Corpuscular Volume 91.1 fL (81-99); Mean Platelet Vol. 8.8 fl (6.2-12.0); Monocyte# 0.54 X10^3/uL; Monocyte% 8.8 % (0-10); NRBC Flagged by Analyzer 0 % (0-5); Neutrophil # 3.38 X10^3/uL (2.7-7.7); Platelet Count 258 K/mm3 (150-450); RBC Distribution Width CV 11.8 % (11.6-14.6); RBC Distribution Width SD 39.6 fl (35.1-43.9); White Blood Count 6.2 K/mm3 (4.4-11.0)
[2023-06-18 11:01] LABS: AST(SGOT) 23 U/L (15-37); Alanine Aminotransfer ALT/SGPT 33 U/L (13-56); Albumin, Serum 3.8 g/dL (3.2-5.0); Alkaline Phosphatase 105 U/L (45-117); Anion Gap 6 (5-15); BUN 8 mg/dL (7-18); BUN/Creat Ratio 7.7 RATIO (10-20); Calcium,Total 9.1 mg/dL (8.5-10.1); Chloride 107 mmol/L (98-107); Creatinine, Serum 1.04 mg/dL (0.55-1.02); EST Glomerular Filtration Rate 57 mL/min (>60); Est Glom Filt Rate - Afr Amer 70 mL/min (>60); Globulin 3.8 g/dL (2.2-4.2); Glucose 116 mg/dL (74-106); Protein, Total 7.6 g/dL (6.4-8.2); Sodium Level 138 mmol/L (136-145)
== END | disposition home or self-care (01) ==
LOC: MTLAB 09:21
PROVIDERS: PCP Internal Medicine; Referring Provider Internal Medicine Rheumatology; Visit Provider Internal Medicine Rheumatology
DX: M06.09 Rheumatoid arthritis without rheumatoid factor, multiple sites (principal); Z79.899 Other long term (current) drug therapy
CPT/HCPCS: 36415; 80053; 85025

== ENCOUNTER → 2023-09-04 | Outpatient (CLI) | payer MEDICARE, SELFPAY ==
[2023-09-04 15:28] LABS: Absolute Lymphocyte Count 2.91 X10^3/uL (0.83-4.51); Absolute Neutrophil Count 4.3 X10^3/uL (2.0-7.7); Basophil# 0.06 X10^3/uL; Basophil% 0.7 % (0-1); Eosinophil# 0.22 X10^3/uL; Eosinophils% 2.7 % (0-5); Hematocrit 44.2 % (37-47); Hemoglobin 14.7 g/dL (12.0-15.0); Lymphocyte # 2.91 X10^3/ul (0.83-4.51); Lymphocyte % 35.1 % (19-41); Mean Corp Hgb Conc 33.3 g/dL (32-36); Mean Corpuscular Hgb 31.5 pg (27.0-32.0); Mean Corpuscular Volume 94.6 fL (81-99); Mean Platelet Vol. 8.8 fl (6.2-12.0); Monocyte# 0.75 X10^3/uL; NRBC Flagged by Analyzer 0 % (0-5); Neutrophil % 51.8 % (47-70); Platelet Count 301 K/mm3 (150-450); RBC Distribution Width CV 12.5 % (11.6-14.6); RBC Distribution Width SD 43.7 fl (35.1-43.9); Red Blood Count 4.67 M/mm3 (4.2-5.4); White Blood Count 8.3 K/mm3 (4.4-11.0)
[2023-09-04 16:16] LABS: ALB/GLOB Ratio 1.1 RATIO (0.9-2.4); AST(SGOT) 15 U/L (15-37); Alanine Aminotransfer ALT/SGPT 28 U/L (13-56); Alkaline Phosphatase 119 U/L (45-117); Anion Gap 4 (5-15); BUN 11 mg/dL (7-18); BUN/Creat Ratio 9.6 RATIO (10-20); Calcium,Total 9.5 mg/dL (8.5-10.1); Chloride 103 mmol/L (98-107); Creatinine, Serum 1.15 mg/dL (0.55-1.02); EST Glomerular Filtration Rate 51 mL/min (>60); Est Glom Filt Rate - Afr Amer 62 mL/min (>60); Globulin 3.8 g/dL (2.2-4.2); Glucose 97 mg/dL (74-106); Potassium 4.5 mmol/L (3.5-5.1); Protein, Total 7.8 g/dL (6.4-8.2); Sodium Level 137 mmol/L (136-145)
== END | disposition home or self-care (01) ==
LOC: MTLAB 11:17
PROVIDERS: PCP Internal Medicine; Referring Provider Internal Medicine Rheumatology; Visit Provider Internal Medicine Rheumatology
DX: M06.041 Rheumatoid arthritis without rheumatoid factor, right hand (principal); Z79.899 Other long term (current) drug therapy
CPT/HCPCS: 36415; 80053; 85025

== ENCOUNTER → 2023-11-02 | Outpatient (CLI) | payer MEDICARE, SELFPAY ==
[2023-11-02 12:20] LABS: Absolute Lymphocyte Count 0.94 X10^3/uL (0.83-4.51); Absolute Neutrophil Count 8.6 X10^3/uL (2.0-7.7); Basophil# 0.04 X10^3/uL; Basophil% 0.4 % (0-1); Eosinophil# 0.01 X10^3/uL; Eosinophils% 0.1 % (0-5); Hematocrit 42.6 % (37-47); Hemoglobin 13.9 g/dL (12.0-15.0); Lymphocyte # 0.94 X10^3/ul (0.83-4.51); Lymphocyte % 9.1 % (19-41); Mean Corp Hgb Conc 32.6 g/dL (32-36); Mean Corpuscular Hgb 31.5 pg (27.0-32.0); Mean Corpuscular Volume 96.6 fL (81-99); Monocyte# 0.61 X10^3/uL; Monocyte% 5.9 % (0-10); NRBC Flagged by Analyzer 0 % (0-5); Neutrophil % 83.1 % (47-70); Platelet Count 312 K/mm3 (150-450); RBC Distribution Width CV 11.9 % (11.6-14.6); Red Blood Count 4.41 M/mm3 (4.2-5.4); White Blood Count 10.4 K/mm3 (4.4-11.0)
[2023-11-02 12:27] LABS: AST(SGOT) 46 U/L (15-37); Alanine Aminotransfer ALT/SGPT 63 U/L (13-56); Albumin, Serum 3.8 g/dL (3.2-5.0); Alkaline Phosphatase 112 U/L (45-117); Anion Gap 4 (5-15); BUN 17 mg/dL (7-18); Calcium,Total 9.1 mg/dL (8.5-10.1); Chloride 103 mmol/L (98-107); Cholesterol 266 mg/dL (200); Creatinine, Serum 0.95 mg/dL (0.55-1.02); EST Glomerular Filtration Rate 64 mL/min (>60); Est Glom Filt Rate - Afr Amer 77 mL/min (>60); Globulin 3.7 g/dL (2.2-4.2); Glucose 132 mg/dL (74-106); High Density Lipoprotein 50 mg/dL; Potassium 4.7 mmol/L (3.5-5.1); Protein, Total 7.5 g/dL (6.4-8.2); Sodium Level 137 mmol/L (136-145); Triglycerides 273 mg/dL; Very Low Density Lipoprotein 55 mg/dL (5-40)
== END | disposition home or self-care (01) ==
LOC: MTLAB 10:22
PROVIDERS: PCP Internal Medicine; Referring Provider Internal Medicine Rheumatology; Visit Provider Internal Medicine Rheumatology
DX: M06.041 Rheumatoid arthritis without rheumatoid factor, right hand (principal); M25.512 Pain in left shoulder; M79.7 Fibromyalgia; E78.2 Mixed hyperlipidemia
CPT/HCPCS: 36415; 80053; 80061; 85025

== ENCOUNTER → 2023-11-29 | Outpatient (CLI) | payer MEDICARE, SELFPAY ==
[2023-11-29 15:57] LABS: ALB/GLOB Ratio 0.8 RATIO (0.9-2.4); AST(SGOT) 14 U/L (15-37); Alanine Aminotransfer ALT/SGPT 20 U/L (13-56); Albumin, Serum 3.5 g/dL (3.2-5.0); Alkaline Phosphatase 139 U/L (45-117); Anion Gap 8 (5-15); BUN 7 mg/dL (7-18); Calcium,Total 9.5 mg/dL (8.5-10.1); Chloride 105 mmol/L (98-107); EST Glomerular Filtration Rate 60 mL/min (>60); Est Glom Filt Rate - Afr Amer 73 mL/min (>60); Globulin 4.2 g/dL (2.2-4.2); Glucose 93 mg/dL (74-106); Potassium 4.3 mmol/L (3.5-5.1); Protein, Total 7.7 g/dL (6.4-8.2); Sodium Level 139 mmol/L (136-145)
== END | disposition home or self-care (01) ==
PROVIDERS: PCP Internal Medicine; Referring Provider Internal Medicine Rheumatology; Visit Provider Internal Medicine Rheumatology
DX: M06.041 Rheumatoid arthritis without rheumatoid factor, right hand (principal); M75.40 Impingement syndrome of unspecified shoulder; M79.7 Fibromyalgia; M18.0 Bilateral primary osteoarthritis of first carpometacarpal joints
CPT/HCPCS: 36415; 80053

== ENCOUNTER → 2024-02-18 | Outpatient (CLI) | payer MEDICARE, SELFPAY ==
[2024-02-18 17:34] LABS: Absolute Neutrophil Count 4.8 X10^3/uL (2.0-7.7); Basophil# 0.08 X10^3/uL; Basophil% 0.9 % (0-1); Eosinophil# 0.36 X10^3/uL; Eosinophils% 4.1 % (0-5); Hematocrit 41.2 % (37-47); Hemoglobin 13.6 g/dL (12.0-15.0); Lymphocyte % 31.9 % (19-41); Mean Corpuscular Hgb 30.4 pg (27.0-32.0); Mean Platelet Vol. 8.8 fl (6.2-12.0); Monocyte# 0.69 X10^3/uL; Monocyte% 7.9 % (0-10); NRBC Flagged by Analyzer 0 % (0-5); Neutrophil # 4.79 X10^3/uL (2.7-7.7); Neutrophil % 54.5 % (47-70); Platelet Count 298 K/mm3 (150-450); RBC Distribution Width CV 11.9 % (11.6-14.6); RBC Distribution Width SD 39.7 fl (35.1-43.9); Red Blood Count 4.48 M/mm3 (4.2-5.4); White Blood Count 8.8 K/mm3 (4.4-11.0)
[2024-02-18 19:04] LABS: AST(SGOT) 16 U/L (15-37); Alanine Aminotransfer ALT/SGPT 30 U/L (13-56); Albumin, Serum 3.6 g/dL (3.2-5.0); Alkaline Phosphatase 109 U/L (45-117); Anion Gap 6 (5-15); BUN 9 mg/dL (7-18); BUN/Creat Ratio 8.9 RATIO (10-20); Chloride 100 mmol/L (98-107); Creatinine, Serum 1.01 mg/dL (0.55-1.02); EST Glomerular Filtration Rate 59 mL/min (>60); Est Glom Filt Rate - Afr Amer 72 mL/min (>60); Globulin 3.7 g/dL (2.2-4.2); Glucose 87 mg/dL (74-106); Potassium 3.9 mmol/L (3.5-5.1); Protein, Total 7.3 g/dL (6.4-8.2); Sodium Level 133 mmol/L (136-145)
== END | disposition home or self-care (01) ==
PROVIDERS: PCP Internal Medicine; Referring Provider Internal Medicine Rheumatology; Visit Provider Internal Medicine Rheumatology
DX: M06.041 Rheumatoid arthritis without rheumatoid factor, right hand (principal); M75.40 Impingement syndrome of unspecified shoulder; M79.7 Fibromyalgia; M18.0 Bilateral primary osteoarthritis of first carpometacarpal joints
CPT/HCPCS: 36415; 80053; 85025

== ENCOUNTER → 2024-04-23 | Outpatient (CLI) | payer MEDICARE, SELFPAY ==
[2024-04-23 16:04] LABS: Absolute Neutrophil Count 3.8 X10^3/uL (2.0-7.7); Basophil# 0.06 X10^3/uL; Basophil% 0.8 % (0-1); Eosinophil# 0.22 X10^3/uL; Eosinophils% 2.8 % (0-5); Hematocrit 42.8 % (37-47); Hemoglobin 14.6 g/dL (12.0-15.0); Lymphocyte % 37.3 % (19-41); Mean Corp Hgb Conc 34.1 g/dL (32-36); Mean Corpuscular Hgb 31.7 pg (27.0-32.0); Mean Platelet Vol. 9.3 fl (6.2-12.0); Monocyte# 0.78 X10^3/uL; NRBC Flagged by Analyzer 0 % (0-5); Neutrophil # 3.79 X10^3/uL (2.7-7.7); Neutrophil % 48.8 % (47-70); Platelet Count 306 K/mm3 (150-450); RBC Distribution Width CV 11.9 % (11.6-14.6); RBC Distribution Width SD 40.6 fl (35.1-43.9); White Blood Count 7.8 K/mm3 (4.4-11.0)
[2024-04-23 16:49] LABS: ALB/GLOB Ratio 1.1 RATIO (0.9-2.4); AST(SGOT) 24 U/L (15-37); Alanine Aminotransfer ALT/SGPT 35 U/L (13-56); Alkaline Phosphatase 106 U/L (45-117); Anion Gap 6 (5-15); BUN 11 mg/dL (7-18); BUN/Creat Ratio 9.5 RATIO (10-20); Calcium,Total 9.3 mg/dL (8.5-10.1); Chloride 105 mmol/L (98-107); Creatinine, Serum 1.16 mg/dL (0.55-1.02); EST Glomerular Filtration Rate 51 mL/min (>60); Est Glom Filt Rate - Afr Amer 61 mL/min (>60); Globulin 3.8 g/dL (2.2-4.2); Glucose 95 mg/dL (74-106); Potassium 4.4 mmol/L (3.5-5.1); Protein, Total 7.8 g/dL (6.4-8.2); Sodium Level 137 mmol/L (136-145)
== END | disposition home or self-care (01) ==
LOC: MTLAB 12:35
PROVIDERS: PCP Internal Medicine; Referring Provider Internal Medicine Rheumatology; Visit Provider Internal Medicine Rheumatology
DX: M06.041 Rheumatoid arthritis without rheumatoid factor, right hand (principal); M75.41 Impingement syndrome of right shoulder; M75.42 Impingement syndrome of left shoulder
CPT/HCPCS: 36415; 80053; 85025

== ENCOUNTER → 2024-07-07 | Outpatient (CLI) | payer MEDICARE, SELFPAY ==
[2024-07-07 11:05] LABS: Absolute Lymphocyte Count 2.78 X10^3/uL (0.83-4.51); Absolute Neutrophil Count 4.2 X10^3/uL (2.0-7.7); Basophil# 0.05 X10^3/uL; Basophil% 0.6 % (0-1); Eosinophil# 0.17 X10^3/uL; Eosinophils% 2.2 % (0-5); Hemoglobin 14.6 g/dL (12.0-15.0); Lymphocyte # 2.78 X10^3/ul (0.83-4.51); Lymphocyte % 35.4 % (19-41); Mean Corp Hgb Conc 33.2 g/dL (32-36); Mean Corpuscular Hgb 31.7 pg (27.0-32.0); Mean Corpuscular Volume 95.7 fL (81-99); Mean Platelet Vol. 9.5 fl (6.2-12.0); Monocyte# 0.63 X10^3/uL; NRBC Flagged by Analyzer 0 % (0-5); Neutrophil % 53.4 % (47-70); Platelet Count 278 K/mm3 (150-450); RBC Distribution Width CV 12.1 % (11.6-14.6); RBC Distribution Width SD 42.3 fl (35.1-43.9); White Blood Count 7.9 K/mm3 (4.4-11.0)
[2024-07-07 11:46] LABS: ALB/GLOB Ratio 1.4 RATIO (0.9-2.4); AST(SGOT) 21 U/L (<=31); Alanine Aminotransfer ALT/SGPT 36 U/L (<=34); Albumin, Serum 4.4 g/dL (3.4-4.8); Alkaline Phosphatase 127 U/L (35-104); Anion Gap 12 (5-15); BUN 13 mg/dL (4-19); Calcium,Total 9.8 mg/dL (7.6-11.0); Carbon Dioxide 23.3 mmol/L (21.0-32.0); Chloride 103 mmol/L (98-108); Creatinine, Serum 0.91 mg/dL (0.70-1.20); EST Glomerular Filtration Rate 72 (>60); Globulin 3.1 g/dL (2.2-4.2); Glucose 120 mg/dL (70-99); Potassium 4.4 mmol/L (3.3-5.1); Protein, Total 7.5 g/dL (5.9-8.4); Sodium Level 138 mmol/L (133-145); Total Bilirubin 0.36 mg/dL (0.00-1.30)
== END | disposition home or self-care (01) ==
PROVIDERS: PCP Internal Medicine; Referring Provider Internal Medicine Rheumatology; Visit Provider Internal Medicine Rheumatology
DX: M06.041 Rheumatoid arthritis without rheumatoid factor, right hand (principal); M75.40 Impingement syndrome of unspecified shoulder; M79.7 Fibromyalgia; M18.0 Bilateral primary osteoarthritis of first carpometacarpal joints
CPT/HCPCS: 36415; 80053; 85025

== ENCOUNTER → 2024-09-03 | Outpatient (CLI) | payer MEDICARE, SELFPAY ==
[2024-09-03 15:40] LABS: Absolute Lymphocyte Count 2.78 X10^3/uL (0.83-4.51); Absolute Neutrophil Count 4.3 X10^3/uL (2.0-7.7); Basophil# 0.06 X10^3/uL; Basophil% 0.7 % (0-1); Eosinophil# 0.22 X10^3/uL; Eosinophils% 2.7 % (0-5); Hematocrit 43.8 % (37-47); Hemoglobin 14.7 g/dL (12.0-15.0); Lymphocyte # 2.78 X10^3/ul (0.83-4.51); Lymphocyte % 34.2 % (19-41); Mean Corp Hgb Conc 33.6 g/dL (32-36); Mean Corpuscular Hgb 31.8 pg (27.0-32.0); Mean Corpuscular Volume 94.8 fL (81-99); Mean Platelet Vol. 9.2 fl (6.2-12.0); Monocyte# 0.74 X10^3/uL; Monocyte% 9.1 % (0-10); NRBC Flagged by Analyzer 0 % (0-5); Neutrophil # 4.31 X10^3/uL (2.7-7.7); Neutrophil % 52.9 % (47-70); Platelet Count 287 K/mm3 (150-450); RBC Distribution Width SD 41.6 fl (35.1-43.9); Red Blood Count 4.62 M/mm3 (4.2-5.4); White Blood Count 8.1 K/mm3 (4.4-11.0)
[2024-09-03 16:21] LABS: ALB/GLOB Ratio 1.6 RATIO (0.9-2.4); AST(SGOT) 42 U/L (<=31); Alanine Aminotransfer ALT/SGPT 49 U/L (<=34); Albumin, Serum 4.7 g/dL (3.4-4.8); Alkaline Phosphatase 132 U/L (35-104); Anion Gap 13 (5-15); BUN 10 mg/dL (4-19); BUN/Creat Ratio 10.3 RATIO (10-20); Calcium,Total 9.6 mg/dL (7.6-11.0); Carbon Dioxide 25.2 mmol/L (21.0-32.0); Chloride 101 mmol/L (98-108); Creatinine, Serum 0.99 mg/dL (0.70-1.20); EST Glomerular Filtration Rate 65 (>60); Globulin 2.8 g/dL (2.2-4.2); Glucose 94 mg/dL (70-99); Potassium 4.6 mmol/L (3.3-5.1); Protein, Total 7.5 g/dL (5.9-8.4); Sodium Level 139 mmol/L (133-145); Total Bilirubin 0.39 mg/dL (0.00-1.30)
== END | disposition home or self-care (01) ==
LOC: MTLAB 11:32
PROVIDERS: PCP Internal Medicine; Referring Provider Internal Medicine Rheumatology; Visit Provider Internal Medicine Rheumatology
DX: M06.041 Rheumatoid arthritis without rheumatoid factor, right hand (principal); M25.512 Pain in left shoulder; M79.7 Fibromyalgia; M18.0 Bilateral primary osteoarthritis of first carpometacarpal joints
CPT/HCPCS: 36415; 80053; 85025

== ENCOUNTER → 2024-10-07 | Outpatient (CLI) | payer MEDICARE, SELFPAY ==
[2024-10-07 10:46] LABS: AST(SGOT) 28 U/L (<=31); Alanine Aminotransfer ALT/SGPT 29 U/L (<=34); Albumin, Serum 4.4 g/dL (3.4-4.8); Alkaline Phosphatase 116 U/L (35-104); Anion Gap 11 (5-15); BUN 10 mg/dL (4-19); BUN/Creat Ratio 9.5 RATIO (10-20); Calcium,Total 9.6 mg/dL (7.6-11.0); Carbon Dioxide 27.4 mmol/L (21.0-32.0); Chloride 101 mmol/L (98-108); Globulin 2.8 g/dL (2.2-4.2); Glucose 122 mg/dL (70-99); Potassium 4.7 mmol/L (3.3-5.1)
== END | disposition home or self-care (01) ==
LOC: MTLAB 08:21
PROVIDERS: PCP Internal Medicine; Referring Provider Internal Medicine Rheumatology; Visit Provider Internal Medicine Rheumatology
DX: M06.041 Rheumatoid arthritis without rheumatoid factor, right hand (principal); M65.341 Trigger finger, right ring finger; M79.7 Fibromyalgia; M18.0 Bilateral primary osteoarthritis of first carpometacarpal joints
CPT/HCPCS: 36415; 80053

== ENCOUNTER → 2024-12-01 | Outpatient (CLI) | payer MEDICARE, SELFPAY ==
[2024-12-01 12:10] LABS: Hematocrit 46.0 % (37-47); Hemoglobin 15.4 g/dL (12.0-15.0); Immature Granulocytes Count 0.090 X10^3/uL (0.0-0.0); Mean Corp Hgb Conc 33.5 g/dL (32-36); Mean Corpuscular Volume 95.6 fL (81-99); Mean Platelet Vol. 8.9 fl (6.2-12.0); NRBC Flagged by Analyzer 0 % (0-5); Platelet Count 289 K/mm3 (150-450); RBC Distribution Width CV 12.0 % (11.6-14.6); RBC Distribution Width SD 41.4 fl (35.1-43.9); Red Blood Count 4.81 M/mm3 (4.2-5.4); White Blood Count 10.7 K/mm3 (4.4-11.0)
[2024-12-01 12:43] LABS: AST(SGOT) 22 U/L (<=31); Alanine Aminotransfer ALT/SGPT 28 U/L (<=34); Albumin, Serum 4.3 g/dL (3.4-4.8); Alkaline Phosphatase 102 U/L (35-104); Anion Gap 12 (5-15); BUN 15 mg/dL (4-19); BUN/Creat Ratio 13.2 RATIO (10-20); Calcium,Total 9.1 mg/dL (7.6-11.0); Carbon Dioxide 25.7 mmol/L (21.0-32.0); Chloride 102 mmol/L (98-108); Globulin 2.8 g/dL (2.2-4.2); Glucose 99 mg/dL (70-99); Potassium 4.8 mmol/L (3.3-5.1)
== END | disposition home or self-care (01) ==
LOC: MTLAB 09:52
PROVIDERS: PCP Internal Medicine; Referring Provider Internal Medicine Rheumatology; Visit Provider Internal Medicine Rheumatology
DX: M06.041 Rheumatoid arthritis without rheumatoid factor, right hand (principal); M65.341 Trigger finger, right ring finger; M79.7 Fibromyalgia; M18.0 Bilateral primary osteoarthritis of first carpometacarpal joints
CPT/HCPCS: 36415; 80053; 85025

== ENCOUNTER → 2025-02-16 | Outpatient (CLI) | payer MEDICARE, SELFPAY ==
[2025-02-16 10:25] LABS: Hematocrit 42.6 % (37-47); Hemoglobin 14.6 g/dL (12.0-15.0); Immature Granulocytes Count 0.050 X10^3/uL (0.0-0.0); Mean Corp Hgb Conc 34.3 g/dL (32-36); Mean Corpuscular Volume 95.3 fL (81-99); Mean Platelet Vol. 9.0 fl (6.2-12.0); NRBC Flagged by Analyzer 0 % (0-5); Platelet Count 269 K/mm3 (150-450); RBC Distribution Width CV 12.1 % (11.6-14.6); RBC Distribution Width SD 42.0 fl (35.1-43.9); Red Blood Count 4.47 M/mm3 (4.2-5.4); White Blood Count 8.4 K/mm3 (4.4-11.0)
[2025-02-16 10:50] LABS: AST(SGOT) 22 U/L (<=31); Alanine Aminotransfer ALT/SGPT 25 U/L (<=34); Albumin, Serum 4.3 g/dL (3.4-4.8); Alkaline Phosphatase 91 U/L (35-104); Anion Gap 11 (5-15); BUN 10 mg/dL (4-19); BUN/Creat Ratio 10.1 RATIO (10-20); Calcium,Total 9.3 mg/dL (7.6-11.0); Carbon Dioxide 25.6 mmol/L (21.0-32.0); Chloride 100 mmol/L (98-108); Globulin 2.8 g/dL (2.2-4.2); Glucose 123 mg/dL (70-99); Potassium 4.6 mmol/L (3.3-5.1)
== END | disposition home or self-care (01) ==
LOC: MTLAB 08:55
PROVIDERS: PCP Internal Medicine; Referring Provider Internal Medicine Rheumatology; Visit Provider Internal Medicine Rheumatology
DX: M06.041 Rheumatoid arthritis without rheumatoid factor, right hand (principal); M65.341 Trigger finger, right ring finger
CPT/HCPCS: 36415; 80053; 85025